=== PATIENT | male | born 1960 | race Caucasian/White ===

== ENCOUNTER 2022-09-09 19:57 | Emergency (ER) | payer OTHER, SELFPAY ==
[2022-09-09 20:06] VITALS: BP 173/93; PULSE 93; RESP 18; TEMP 37.2; O2SAT 95; BMI 20.3
--- NOTE | 2022-09-09 20:21 | PC.NURSE ---
Left little toe purple/black in color and swollen. Redness noted to dorsum of foot. Large intact blood blister noted.
--- NOTE | 2022-09-09 20:22 | XR_ITS ---
The [address] [address] Patient Name: ROSSY ALFONSO MRN: [id number] date: 1960 Sex: M Assigned Patient Location: ER Current Patient Location: ED.MAIN Accession/Order Number: [id number] Exam Date: 09/09/2022 20:38 Report Date: 09/09/2022 22:10 At the request of: WILLOW WINKLER Procedure: XR foot LT min 3V EXAM: XR foot LT min 3V HISTORY: pain COMPARISON: None. TECHNIQUE: 3 views of the left foot are performed. FINDINGS: There is a comminuted, minimally displaced fracture involving the fifth toe. 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 The remaining bony structures are unremarkable. 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 Minimal displacement. Electronically authenticated by: UMA CARDENAS Date: 09/09/2022 22:10
--- NOTE | 2022-09-09 20:45 | ED.LOWEXI1 ---
HPI - Extremity Injury (Lower) General Chief Complaint: Extremity Injury, Lower Stated Complaint: LOWER EXTREMITY PAIN Time Seen by Provider: 09/09/22 20:45 Source: patient Mode of arrival: Wheelchair Limitations: no limitations Related Data Home Medications Medication Instructions Recorded Confirmed cetirizine 10 mg tablet 10 mg PO DAILY 09/09/22 09/09/22 clonidine HCl 0.1 mg tablet 0.1 mg PO DAILY 09/09/22 09/09/22 oxycodone-acetaminophen 10 mg-325 1 tab PO DAILY 09/09/22 09/09/22 mg tablet prednisone 10 mg tablet 10 mg PO DAILY 09/09/22 09/09/22 Allergies Allergy/AdvReac Type Severity Reaction Status Date / Time No Known Drug Allergies Allergy Verified 09/09/22 20:09 Review of Systems ROS Status of ROS 10 or more systems reviewed and unremarkable except as noted in history and below [facility] Social History Smoking status: Current every day smoker Exam Constitutional Vital Signs - 24 hr 09/09/22 20:06 Temperature 98.9 F Pulse Rate [Monitor] 93 H Respiratory Rate 18 Blood Pressure [Left Arm] 173/93 H Pulse Oximetry 95 Oxygen Delivery Method Room Air Course Vital Signs Vital signs: Vital Signs Temperature 98.9 F 09/09/22 20:06 Pulse Rate 93 H 09/09/22 20:06 Respiratory Rate 18 09/09/22 20:06 Blood Pressure 173/93 H 09/09/22 20:06 Pulse Oximetry 95 09/09/22 20:06 Oxygen Delivery Method Room Air 09/09/22 20:06 Temperature 98.9 F 09/09/22 20:06 Pulse Rate 93 H 09/09/22 20:06 Respiratory Rate 18 09/09/22 20:06 Blood Pressure 173/93 H 09/09/22 20:06 Pulse Oximetry 95 09/09/22 20:06 Oxygen Delivery Method Room Air 09/09/22 20:06 Discharge Plan Discharge Chief Complaint: Extremity Injury, Lower Clinical Impression: Fracture of toe Patient Disposition: Home, Self-Care Time of Disposition Decision: 23:00 Condition: Good Mode of Transportation: Private Vehicle Prescriptions / Home Meds: No Action cetirizine 10 mg tablet 10 mg PO DAILY clonidine HCl 0.1 mg tablet 0.1 mg PO DAILY oxycodone-acetaminophen 10-325 mg tablet 1 tab PO DAILY prednisone 10 mg tablet 10 mg PO DAILY Stand Alone Forms: Portal Instructions Referrals: Stephen Hung MD [Primary Care Provider] - 1 week Discharge Date/Time: 09/09/22 23:15
--- NOTE | 2022-09-10 03:44 | ED.LOWEXI1 ---
HPI - Extremity Injury (Lower) General Chief Complaint: Extremity Injury, Lower Stated Complaint: LOWER EXTREMITY PAIN Time Seen by Provider: 09/09/22 20:45 Source: patient Mode of arrival: Wheelchair Limitations: no limitations History of Present Illness HPI Narrative: the patient's coming to the Emergency Room after he had an statue fell in his left foot he came to us with a left small toe pain, he denies any other injuries Review of systems otherwise negative Related Data Home Medications Medication Instructions Recorded Confirmed cetirizine 10 mg tablet 10 mg PO DAILY 09/09/22 09/09/22 clonidine HCl 0.1 mg tablet 0.1 mg PO DAILY 09/09/22 09/09/22 oxycodone-acetaminophen 10 mg-325 1 tab PO DAILY 09/09/22 09/09/22 mg tablet prednisone 10 mg tablet 10 mg PO DAILY 09/09/22 09/09/22 Allergies Allergy/AdvReac Type Severity Reaction Status Date / Time No Known Drug Allergies Allergy Verified 09/09/22 20:09 Review of Systems ROS Status of ROS 10 or more systems reviewed and unremarkable except as noted in history and below [facility] Social History Smoking status: Current every day smoker Exam Narrative Exam Narrative: Nurses notes and vital signs reviewed and patient is not hypoxic. General: Well-appearing and in no apparent distress. Skin: Warm, dry, no pallor noted. No rash. Head: Normocephalic, atraumatic. Neck: Supple, non-tender. Eye: Pupils are equal, round and EOMI. No scleral icterus. Ears, Nose, Mouth, and Throat: TM are clear, no nasal mucosal hypertrophy. Oral mucosa is moist, no posterior oropharynx erythema, uvula is mid-line Cardiovascular: Regular Rate and Rhythm without murmur, gallop or rub. Respiratory: No accessory muscle use or respiratory distress. Lungs are clear to auscultation, no wheezing, rales or rhonchi Chest Wall: no tenderness Back: No midline thoracic or lumbar vertebral tenderness. No CVA tenderness Musculoskeletal: there is tenderness on palpation of the left small toe there is no subungual hematoma and the patient have a small leave blood just at the proximal end of the toe GI: Abdomen is soft, non-distended. Normal bowel sounds. No masses appreciated. No tenderness to palpation. No rebound, guarding, or rigidity noted. Neurological: A&O x4. No cranial nerve dysfunction observed. No truncal ataxia. Moves all extremities. Sensation intact. Psychiatric: Cooperative and interactive. Normal mood and affect. Constitutional Vital Signs - 24 hr 09/09/22 20:06 Temperature 98.9 F Pulse Rate [Monitor] 93 H Respiratory Rate 18 Blood Pressure [Left Arm] 173/93 H Pulse Oximetry 95 Oxygen Delivery Method Room Air Course Vital Signs Vital signs: Vital Signs Temperature 98.9 F 09/09/22 20:06 Pulse Rate 93 H 09/09/22 20:06 Respiratory Rate 18 09/09/22 20:06 Blood Pressure 173/93 H 09/09/22 20:06 Pulse Oximetry 95 09/09/22 20:06 Oxygen Delivery Method Room Air 09/09/22 20:06 Temperature 98.9 F 09/09/22 20:06 Pulse Rate 93 H 09/09/22 20:06 Respiratory Rate 18 09/09/22 20:06 Blood Pressure 173/93 H 09/09/22 20:06 Pulse Oximetry 95 09/09/22 20:06 Oxygen Delivery Method Room Air 09/09/22 20:06 MDM - Extremity Injury (Lower) MDM Narrative Medical decision making narrative: x-ray the patient left foot ordered and awaiting the result he left after the results came back with a fracture patient was called back Patient had a eugenio taping of the toe as well as the 4th toe in addition to postop shoes he was instructed about elevation and rest and follow up with podiatry at outpatient The patient is to followup with primary care physician in next 2-3 days or to return to the emergency department should any of the signs or symptoms worsen or new symptoms develop. The patient agrees with the following Diagnosis and Treatment plan and the patient will be discharged home. Discharge Plan Discharge Chief Complaint: Extremity Injury, Lower Clinical Impression: Fracture of toe Patient Disposition: Home, Self-Care Time of Disposition Decision: 23:00 Condition: Good Mode of Transportation: Private Vehicle Prescriptions / Home Meds: No Action cetirizine 10 mg tablet 10 mg PO DAILY clonidine HCl 0.1 mg tablet 0.1 mg PO DAILY oxycodone-acetaminophen 10-325 mg tablet 1 tab PO DAILY prednisone 10 mg tablet 10 mg PO DAILY Stand Alone Forms: Portal Instructions Referrals: Stephen Hung MD [Primary Care Provider] - 1 week Discharge Date/Time: 09/09/22 23:15
== END 2022-09-09 23:15 | disposition home or self-care (01) ==
PROVIDERS: Emergency Provider Emergency Medicine; PCP Family Medicine
DX: S92.522A Displaced fracture of middle phalanx of left lesser toe(s), initial encounter for closed fracture (principal); S92.532A Displaced fracture of distal phalanx of left lesser toe(s), initial encounter for closed fracture; W20.8XXA Other cause of strike by thrown, projected or falling object, initial encounter; Z79.899 Other long term (current) drug therapy; F17.210 Nicotine dependence, cigarettes, uncomplicated
CPT/HCPCS: 73630; 99283

== ENCOUNTER 2022-10-17 10:36 | Outpatient (OUT) | payer OTHER, SELFPAY ==
--- NOTE | 2022-10-17 10:41 | XR_ITS ---
The [address] [address] Patient Name: ROSSY ALFONSO MRN: [id number] date: 1960 Sex: M Assigned Patient Location: RAD Current Patient Location: RAD Accession/Order Number: [id number] Exam Date: 10/17/2022 10:41 Report Date: 10/17/2022 19:07 At the request of: BENJY RIVERS Procedure: XR foot LT min 3V PROCEDURE: XR foot LT min 3V COMPARISON: 09/09/2022 HISTORY: LEFT FOOT PAIN FINDINGS: BONES:Stable complex fracture fifth middle and distal phalanges with underlying effusion. No change in fracture with known bone formation or bony bridging. SOFT TISSUES:Soft tissue swelling of the fifth toe EFFUSION:None visible. OTHER: Negative. XR/XR foot LT min 3V IMPRESSION: Stable complex fracture of a congenitally fused, fifth middle and distal phalanx Electronically authenticated by: ZULY PATE Date: 10/17/2022 19:07
== END 2022-10-17 10:37 | disposition home or self-care (01) ==
LOC: RAD 10:36
PROVIDERS: PCP Family Medicine; Visit Provider Podiatrist Foot & Ankle Surgery
DX: S92.532D Displaced fracture of distal phalanx of left lesser toe(s), subsequent encounter for fracture with routine healing (principal)
CPT/HCPCS: 73630

== ENCOUNTER 2022-11-08 09:41 | Outpatient (OUT) | payer OTHER, SELFPAY ==
--- NOTE | 2022-11-08 09:46 | XR_ITS ---
The [address] [address] Patient Name: ROSSY ALFONSO MRN: [id number] date: 1960 Sex: M Assigned Patient Location: RAD Current Patient Location: RAD Accession/Order Number: [id number] Exam Date: 11/08/2022 09:46 Report Date: 11/08/2022 10:20 At the request of: BENJY RIVERS Procedure: XR foot LT min 3V PROCEDURE: XR foot LT min 3V DATE: 11/08/2022 8:46 AM CDT COMPARISONS: 10/17/2022 CLINICAL INDICATION: LEFT FOOT PAIN FINDINGS: Comminuted fracture of the fifth distal phalanx is again identified. Fracture fragments show minimal displacement and distraction. Fracture fragments are in stable alignment from previous exam.. XR/XR foot LT min 3V IMPRESSION: Foot radiographs are stable from 10/17/2022. Healing comminuted fracture fifth distal phalanx again identified. Electronically authenticated by: EDWARD RIVERA Date: 11/08/2022 10:20
--- NOTE | 2022-11-08 09:46 | XR_ITS ---
The [place] [id number] Patient Name: ROSSY ALFONSO MRN: [id number] date: 1960 Sex: M Assigned Patient Location: RAD Current Patient Location: [facility] Accession/Order Number: [id number] Exam Date: 11/08/2022 09:46 Report Date: 11/08/2022 10:17 At the request of: BENJY RIVERS Procedure: XR ankle LT min 3V PROCEDURE: XR ankle LT min 3V DATE: 11/08/2022 8:46 AM CDT COMPARISONS: None CLINICAL INDICATION: LEFT ANKLE PAIN FINDINGS: There is no evidence of fractures or other osseous abnormalities. XR/XR ankle LT min 3V IMPRESSION: Left ankle radiographs show no evidence of abnormalities. Electronically authenticated by: EDWARD RIVERA Date: 11/08/2022 10:17
== END 2022-11-08 09:42 | disposition home or self-care (01) ==
LOC: RAD 09:41
PROVIDERS: PCP Family Medicine; Visit Provider Podiatrist Foot & Ankle Surgery
DX: S92.532D Displaced fracture of distal phalanx of left lesser toe(s), subsequent encounter for fracture with routine healing (principal); M14.672 Charcot's joint, left ankle and foot
CPT/HCPCS: 73610; 73630

== ENCOUNTER 2022-12-27 08:59 | Outpatient (OUT) | payer OTHER, SELFPAY ==
[2022-12-27 09:44] LABS: Hematocrit 42.8 % (42.0-54.0); Hemoglobin 14.3 g/dL (14.0-18.0); Mean Corpuscular HGB Conc 33.4 g/dL (29.9-35.2); Mean Corpuscular Hemoglobin 32.1 pg (25.9-34.0); Mean Platelet Volume 11.3 fL (9.5-13.5); Platelet Count 227 10^3/uL (150-450); Red Blood Count 4.46 10^6/uL (4.70-6.10); Red Cell Distribution Width 14.6 % (11.0-15.0); White Blood Count 12.7 10^3/uL (4.0-11.0)
[2022-12-27 09:53] LABS: INR 0.97; Partial Thromboplastin Time 27.8 sec (22.3-36.2); Prothrombin Time 10.3 sec (9.0-11.6)
[2022-12-27 11:56] LABS: Eosinophils Absolute Manual 0.25 10^3/uL (0.00-0.70); Lymphocytes Absolute Manual 5.71 10^3/uL (1.20-3.80); Monocytes Absolute Manual 1.52 10^3/uL (0.30-0.80)
[2022-12-27 15:00] LABS: Anion Gap 11.7; BUN Creatinine Ratio 30.7; Calcium 8.9 mg/dL (8.5-10.1); Carbon Dioxide 28.5 mmol/L (21.0-32.0); Chloride 102 mmol/L (98-107); Estimated GFR (African America >60 (>=60); Estimated GFR (Non-African Ame >60 (>=60); Glucose 86 mg/dL (74-106); Potassium 4.2 mmol/L (3.5-5.1); Sodium 138 mmol/L (136-145)
== END 2022-12-27 09:00 | disposition home or self-care (01) ==
LOC: LAB 08:59
PROVIDERS: PCP Family Medicine
DX: Z01.818 Encounter for other preprocedural examination (principal)
CPT/HCPCS: 36415; 80048; 85027; 85610; 85730; 87081

== ENCOUNTER 2023-04-23 09:09 | Outpatient (OUT) | payer OTHER, SELFPAY ==
--- NOTE | 2023-04-23 09:17 | XR_ITS ---
The [place] [id number] Patient Name: ROSSY ALFONSO MRN: [id number] date: 1960 Sex: M Assigned Patient Location: [facility] Current Patient Location: [facility] Accession/Order Number: [id number] Exam Date: 04/23/2023 09:21 Report Date: 04/23/2023 09:47 At the request of: RENALDO VALLES Procedure: XR lumbar spine 2-3V EXAMINATION: XR lumbar spine 2-3V HISTORY: Lumbar Radiculopathy M54.16 ; back and bilateral lower extremity pain COMPARISON: XR L-spine - FINDINGS: BONES: Mild right convex curvature lumbar spine. No fracture, spondylolisthesis, bone lesion. Mild degenerative facet arthropathy L3-L4, L5-S1. DISC SPACES: Moderate narrowing L2-L3, L4-L5, L5-S1. Mild narrowing L3-L4. PARASPINOUS: Negative. No paraspinous abnormality is seen. OTHER: Negative. XR/XR lumbar spine 2-3V IMPRESSION: 1. Multilevel degenerative changes of lumbar spine; progressed at L3-L4 and L4-L5 levels since prior study. Electronically authenticated by: MIGUELANGEL GUEVARA Date: 04/23/2023 09:47
== END 2023-04-23 09:10 | disposition home or self-care (01) ==
LOC: RAD 09:11
PROVIDERS: PCP Family Medicine; Visit Provider Family Medicine
DX: M54.16 Radiculopathy, lumbar region (principal)
CPT/HCPCS: 72100

== ENCOUNTER 2023-04-30 10:22 | Outpatient (OUT) | payer OTHER, SELFPAY ==
--- OUTSIDE RECORDS SUMMARY | 2023-04-30 10:25 | XMS_ITS | CCD ---
Author Name Unknown Address [address] [place] [address] Organization [facility] Care Team Providers Care Merchandise Flow Team Leader Name Role Phone Renaldo Hung Primary Care Provider OUSMANE VALDEZ Referring Unavailable RENALDO HUNG Primary Care Unavailable OUSMANE VALDEZ Attending Unavailable OUSMANE VALDEZ Attending Unavailable RENALDO HUNG Primary Care Unavailable OUSMANE VALDEZ Admitting Unavailable HAI, DR MACARIO Admitting Unavailable HAI, DR MACARIO Attending Unavailable HAI, DR MACARIO Primary Care Unavailable HOGuerline, DR MACARIO Consulting Unavailable HAI, DR MACARIO Admitting Unavailable HOGuerline, DR MACARIO Attending Unavailable HAI, DR MACARIO Primary Care Unavailable HAI, DR MACAROI Admitting Unavailable HAI, DR MACARIO Attending Unavailable HAI, DR MACARIO Primary Care Unavailable HAI, DR MACARIO Consulting Unavailable ZULY PRUETT Admitting Unavailable SAMUEL, ZULY Attending Unavailable HAI, DR MACARIO Primary Care Unavailable ZINATHAN, DR MIGUELANGEL Gooden Consulting Unavailable ZULY PRUETT Consulting Unavailable HAI, DR MACARIO Admitting Unavailable HAI, DR MACARIO Attending Unavailable HAI, DR MACARIO Primary Care Unavailable HAI, DR MACARIO Consulting Unavailable WEST, DR ZULY Shelton Consulting Unavailable Ruth Mosquera Unavailable ZULY PRUETT Admitting Unavailable SAMUEL, ZULY Attending Unavailable ZULY PURETT Attending Unavailable Medications Current Medications Medication Drug Class(es) Dates Sig (Normalized) Sig (Original) acetaminophen 325 mg / oxyCODONE hydrochloride 7.5 mg oral tablet (3 sources) Opioid Agonist Start: 07-15-2020 End: 07-29-2020 oxyCODONE-acetaminop hen (PERCOCET) 7.5-325 MG per tablet Indications: Postoperative pain Take 1 tablet by mouth every 6 hours as needed for Pain for up to 14 days. Intended supply: 30 days 40 tablet 0 07/15/2020 07/29/2020 Active End: 07-15-2020 oxyCODONE-acetaminophen (PER COCET) 5-325 MG per tablet Percocet 5 mg-325 mg tablet Take 1 tablet every 6-8 hours by oral route as directed. 0 07/15/2020 Discontinued (Stop Taking at Discharge) calcium chloride 0.0014 meq/ml / potassium chloride 0.004 meq/ml / sodium chloride 0.103 meq/ml / sodium lactate 0.028 meq/ml injectable solution (2 sources) Start: 07-15-2020 lactated ringers infusion carvedilol 3.125 mg oral tablet (2 sources) alpha-Adrenergic Asha, beta-Adrenergic Asha take 1 tablet by mouth once carvedilol (COREG) 3.125 MG tablet Take 3.125 mg by mouth once 0 Active cephalexin 500 mg oral capsule (2 sources) Cephalosporin Antibacterial Start: 07-15-2020 End: 07-22-2020 take 1 capsule by mouth three times daily cephALEXin (KEFLEX) 500 MG capsule Take 1 capsule by mouth 3 times daily for 7 days 21 capsule 0 07/15/2020 07/22/2020 Active cloNIDine hydrochloride 0.1 mg oral tablet (3 sources) Central alpha-2 Adrenergic Agonist take 2 tablets by mouth twice daily cloNIDine HCl 0.1 MG TAKE 2 TABLETS BY MOUTH TWICE A DAY Oral for 90 Days Active take 1 tablet by mouth twice evelyn ly cloNIDine (CATAPRES) 0.1 MG tablet clonidine HCl 0.1 mg tablet Take 1 tablet twice a day by oral route for 30 days. 0 Active 1 ml diphenhydrAMINE hydrochloride 50 mg/ml cartridge (1 source) Histamine-1 Receptor Antagonist Start: 07-15-2020 End: 07-15-2020 diphenhydrAMINE (BENADRYL) injection 12.5 mg 2 ml fentaNYL 0.05 mg/ml injection (1 source) Opioid Agonist Start: 07-15-2020 fentaNYL (SUBLIMAZE) injection 50 mcg 1 ml HYDROmorphone hydrochloride 1 mg/ml cartridge (1 source) Opioid Agonist Start: 07-15-2020 HYDROmorphone (DILAUDID) injection 0.5 mg 10 ml lidocaine hydrochloride 10 mg/ml injection (2 sources) Antiarrhythmic, Amide Local Anesthetic Start: 07-15-2020 End: 07-15-2020 lidocaine PF 1 % injection 1 mL 1 ml meperidine hydrochloride 25 mg/ml cartridge (1 source) Opioid Agonist Start: 07-15-2020 meperidine (DEMEROL) injection 12.5 mg 2 ml metoclopramide 5 mg/ml prefilled syringe (1 source) Dopamine-2 Receptor Antagonist Start: 07-15-2020 End: 07-15-2020 metoclopramide (REGLAN) injection 10 mg 2 ml ondansetron 2 mg/ml injection (1 source) Serotonin-3 Receptor Antagonist Start: 07-15-2020 End: 07-15-2020 ondansetron (ZOFRAN) injection 4 mg sennosides, fci 8.6 mg oral tablet (2 sources) Start: 07-15-2020 End: 07-29-2020 take 2 tablets by mouth twice daily senna (SENOKOT) 8.6 MG tablet Take 2 tablets by mouth 2 times daily for 14 days 56 tablet 0 07/15/2020 07/29/2020 Active 3 ml sodium chloride 9 mg/ml injection (3 sources) Start: 07-15-2020 0.9 % sodium chloride infusion Start: 07-15-2020 sodium chlorid e flush 0.9 % injection 10 mL Problems Active Problems Problem Classification Problem Date Documented Date Episodic/Chronic Headache; including migraine (2 sources) Migraine; Translations: [Migraine, unspecified, not intractable, without status migrainosus] Onset: 1 06-23-2020 Chronic Osteoarthritis (2 sources) Osteoarthritis of acromioclavicular joint; Translations: [Primary osteoarthritis, unspecified shoulder] Onset: 9 06-23-2020 Chronic Other connective tissue disease (2 sources) Other specified soft tissue disorders; Translations: [Other specified soft tissue disorders] Onset: 3 Episodic Other connective tissue disease (1 source) Adhesive capsulitis of left shoulder; Translations: [Adhesive capsulitis of left shoulder] Onset: 9 06-23-2020 Other nervous system disorders (1 source) Postoperative pain ; Translations: [Postoperative pain] Episodic Other non-traumatic joint disorders (4 sources) Pain in right shoulder; Translations: [PAIN IN RIGHT SHOULDER] Onset: 2 Episodic Peripheral and visceral atherosclerosis (2 sources) Peripheral vascular disease; Translations: [Peripheral vascular disease, unspecified] Onset: 2 Resolved: 2 Chronic Residual codes; unclassified (1 source) Pain; Translations: [Pain, unspecified] Episodic Spondylosis; intervertebral disc disorders; other back problems (1 source) Other intervertebral disc degeneration, lumbar region; Translations: [OTH IV DISC DEGEN LUMBAR REGION] Onset: 2 Chronic Spondylosis; intervertebral disc disorders; other back problems (6 sources) Lumbar radiculopathy; Translations: [Radiculopathy, lumbar region] Onset: 8 06-23-2020 Episodic Sprains and strains (3 sources) Strain of other muscles, fascia and tendons at shoulder and upper arm level, right arm, initial encounter; Translations: [Strain of muscle(s) and tendon(s) of the rotator cuff of right shoulder, initial encounter] Onset: 2 Episodic Substance-related disorders (2 sources) Smoker; Translations: [Nicotine dependence, unspecified, uncomplicated] Onset: 2 Resolved: 2 Chronic Unclassified (1 source) Patient encounter status; Translations: [Encounter for screening for other viral diseases] Onset: 0 06-23-2020 Unclassified (2 sources) CONTACT W/AND (SUSP) EXPOS COVID-19; Translations: [CONTACT W/AND (SUSP) EXPOS COVID-19] Onset: 2 Viral infection (2 sources) Postherpetic neuralgia; Translations: [Other postherpetic nervous system involvement] Onset: 1 06-23-2020 Episodic Viral infection (1 source) COVID-19; Translations: [COVID-19] Onset: 2 Past or Other Problems Problem Classification Problem Date Documented Da te Episodic/Chronic Immunizations and screening for infectious disease (1 source) Patient encounter status; Translations: [Encounter for screening for other viral diseases] Onset: 11-03-2019 06-23-2020 Episodic Other connective tissue disease (2 sources) Pain in lower limb; Translations: [Pain in leg, unspecified] Onset: 07-23-2017 06-23-2020 Episodic Other connective tissue disease (2 sources) Impingement syndrome of shoulder region; Translations: [Impingement syndrome of unspecified shoulder] Onset: 09-02-2018 06-23-2020 Episodic Other connective tissue disease (2 sources) Biceps tendinitis; Translations: [Bicipital tendinitis, unspecified shoulder] Onset: 09-02-2018 06-23-2020 Episodic Other connective tissue disease (2 sources) Full thickness rotator cuff tear; Translations: [Complete rotator cuff tear or rupture of unspecified shoulder, not specified as traumatic] Onset: 11-12-2018 06-23-2020 Episodic Other connective tissue disease (1 source) Adhesive capsulitis of left shoulder; Translations: [Adhesive capsulitis of left shoulder] Onset: 09-02-2018 06-23-2020 Episodic Other injuries and conditions due to external causes (2 sources) Injury of superior glenoid labrum of shoulder joint; Translations: [Superior glenoid labrum lesion of unspecified shoulder, initial encounter] Onset: 09-02-2018 06-23-2020 Episodic Unclassified (1 source) CONTACT W/AND (SUSP) EXPOS COVID-19; Translations: [CONTACT W/AND (SUSP) EXPOS COVID-19] Onset: 04-20-2021 Results Test Name Value Interpretation Reference Range Facility Anesthesiaon 01-05-2023 Anesthesia [id number] Rossy Alfonso 1960 M Date Provider Department Center 01/05/2023 [id number], [facility] No family history on file Normal [facility] OPNOTEon 01-05-2023 OPNOTE SHOULDER ARTHROSCOPY WITH ROTATOR CUFF REPAIR X2, LABRAL DEBRIDEMENT, SUBSCAPULAR REPAIR, SUBACROMIAL DECOMPRESSION AND CAPSULAR RELEASE(R) Operative Note Date: 01/05/2023 Location: [facility] ASC OR Name: Rossy Alfonso, : 1960, Diagnosis Pre-op Diagnosis * Complete tear of right rotator cuff, unspecified whether traumatic [M75.121] Post-op Diagnosis * Complete tear of right rotator cuff, unspecified whether traumatic [M75.121] * Avulsion of subscapularis, right, initial encounter [S46.851A] * Type 1 superior labral hibzzslq-ng-tkekzyqcx (SLAP) tear of right shoulder, initial encounter [S43.431A] * 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] * Impingement syndrome of right shoulder [M75.41] Procedures SHOULDER ARTHROSCOPY WITH ROTATOR CUFF REPAIR, LABRAL DEBRIDEMENT, SUBSCAPULAR REPAIR, SUBACHROMIAL DECOMPRESSION AND PROXIMAL BICEPS TENDON REPAIR [id number] - [place] [facility] ARTHROSCOPY SHOULDER W/ROTATOR CUFF RPR [place] [facility] ARTHROSCOPY SHOULDER W/ROTATOR CUFF RPR [[id number]] [place] [facility] ARTHROSCOPY SHOULDER W/ROTATOR CUFF RPR [29477] [place] SUR[place] ARTHROSCOPY SHOULDER W/ROTATOR CUFF RPR [23086] [place] [facility] ARTHROSCOPY SHOULDER LMTD DBRDMT 1/2 [45082] [place] CAPSULAR CONTRACTURE RELEASE [60144] Surgeons * Zuly Pruett - Primary Procedure Summary Anesthesia: General ASA: II Estimated Blood Loss: 20 mL Total IV Fluids: mL Drains: * None in log * Implants Type Name Action Serial No. healix advance peek anchor w/dynacord Implanted Staff: Specifications Checker: Sandra Bernardo RN Scrub Person: Flakita Martel Indications: Rossy Alfonso is an 62 y.o. male who is having surgery for Complete tear of right rotator cuff, unspecified whether traumatic [M75.121]. Procedure Details: The patient was seen in the preoperative area. The risks, benefits, complications, treatment options, non-operative alternatives, expected recovery and outcomes were discussed with the patient. The possibilities of reaction to medication, pulmonary aspiration, injury to surrounding structures, bleeding, recurrent infection, the need for additional procedures, failure to diagnose a condition, and creating a complication requiring transfusion or operation were discussed with the patient. The patient concurred with the proposed plan, giving informed consent. The site of surgery was properly noted/marked if necessary per policy. The patient has been actively warmed in preoperative area. Preoperative antibiotics have been ordered and given within 1 hours of incision. Venous thrombosis prophylaxis have been ordered including bilateral sequential compression devices Findings: We first began with preemptive anesthesia using 20 cc of lidocaine 1% with epinephrine placed in the proposed incisions and the subacromial space. We then created our standard portals and began with a diagnostic arthroscopy. Intraoperatively he was found to have a torn superior labrum but intact cartilage. The labrum was debrided. The long head of biceps tendon was already tenotomized. The subscapularis was completely torn as well. This was repaired using a single 5.5 mm Mitek Healix suture anchor double loaded with Octavia cord. This was passed into the retracted subscapularis tendon with interlocked mattress and Hernando-Doug sutures. When tied down this effected an anatomic repair. We next turned our attention to the capsular release and manipulation. There was significant capsular thickening and inflammation, and numerous adhesions within the joint. The preoperative ROM showed FF 80, ER 40, IR 10. We performed lysis of adhesions, capsular release, and manipulation under anesthesia. Motion now was FF 180, ER 90, and IR 90. We then moved into the subacromial space. Here we found bursitis which was removed. We then repaired the supraspinatus and infraspinatus tendons with 2 Mitek Healix suture anchors, each double loaded with Octavia cord. This was passed into the torn and retracted supraspinatus and infraspinatus tendons with interlocked mattress and Hernando-Doug sutures. When tied down this affected an anatomic repair. At the conclusion of the case the tendons moved as a unit with no gapping. At this point all instruments were removed and the shoulder drained of fluid. The portal incisions were closed using simple nylon sutures. A sterile compressive wrap was applied. A Polar Care unit was applied for postoperative pain control. A sling with abduction pillow was applied to protect the repair during the healing. Patient was then awakened and extubated and brought back to the PACU in stable condition. I was present scrubbed and actively participating through all vera portions of the surgery Complications: None; patient tolerated the procedure well. Disposition: PACU - hemodynamically stable. Condition: stable Zuly Pruett Normal [facility] POCT GLUCOSE METER UNSOLICIT ED RESULTSon 01-05-2023 Glucose [Mass/Vol] 93 mg/dL Normal 70-105 [facility] Comment on above: Order Comment: Waive d Testing in the ED is performed under the ED CLIA certificate #[id number]. Result Comment: ltol les Performed By: #### L [id number] ####[facility] [place] [address] HPon 01-04-2023 HP History Of Present Illness Rossy Alfonso is a 62 y.o. male presenting with R RCT. Past Medical History He has a past medical history of Complete tear of right rotator cuff, Hypertension, and Shoulder pain, right. Surgical History He has a past surgical history that includes Back surgery; Shoulder surgery; Leg Surgery (Right); and Splenectomy, total. Social History He reports that he has been smoking cigarettes. He has never used smokeless tobacco. He reports that he does not drink alcohol and does not use drugs. Family History No family history on file. Allergies Patient has no known allergies. Medications No medications prior to admission. Review of Systems Last Recorded Vitals Visit Vitals Smoking Status Every Day Physical Exam Relevant Lab Results No results found for: NA, K, CL, CO2, BUN, CREATININE, GLUCOSE, CALCIUM, ANIONGAP, EGFR, BCR R RCT Relevant Imaging Results XR shoulder 2+ views right Narrative: [facility] Department of Radiology [address] [place] [address] Patient Name: ROSSY ALFONSO : 1960 Sex: M Age: Race: White^White Pt. Location: Patient Status: D Ordered Date: 06/17/2021 2:40:00 PM Completed Date: 06/17/2021 02:44 PM Requesting Provider: ZULY PRUETT Attending Provider: ZULY PRUETT Report Copy To: Signs & Symptoms: M25.511 Pain in right shoulder I10 History: Comments: Views (X-RAY, SHOULDER): AP, Y-Lateral Exam: SHOULDER RIGHT SHOULDER RIGHT 06/17/2021 2:44 PM CLINICAL INDICATIONS: M25.511 Pain in right shoulder I10 TECHNOLOGIST COMMENTS: right shoulder pain x 1 month no known trauma QUESTION FOR THE RADIOLOGIST: Views (X-RAY, SHOULDER): AP, Y-Lateral PROTOCOL: AP and Scapular Y views were obtained. COMPARISON: None FINDINGS: 3 views of the shoulder were obtained. There is no focal osseous abnormality. Glenohumeral alignment appears within normal limits. Articular surfaces are incompletely visualized. There is widening of the AC joint likely due to prior surgery. Other visualized right upper hemithoracic structures are within normal limits Impression: No acute osseous abnormality. Electronically signed: Harrison Lawton. Transcribed by: [email or web address], User Resident: Electronically Signed by: HARRISON LAWTON @ 06/18/2021 07:17 AM Assessment/Plan Principal Problem: Complete tear of right rotator cuff R revision RCR Normal [facility] [id number] 12-25-2022 [id number] Nothing to Eat or Drink, including Candy, Gum, Mints, and Tobacco after Midnight the night before surgery. Take CLONIDINE AND PERCOCET with a sip of water the day of surgery. Hold all other meds the morning of surgery. IF YOU ARE GOING HOME AFTER YOUR SURGERY OR PROCEDURE, FOR YOUR SAFETY, YOUR SURGERY WILL BE CANCELLED IF BOTH OF THE FOLLOWING ARE NOT AVAILABLE: An adult bookmobile driver over the age of 18, that can receive information about your care after surgery, and drive you home. A responsible adult to stay with you for 24 hours in case of an emergency. Can be same as above. The highest risk of complications is within the first 24 hours after sedation/anesthesia. Nothing to eat or drink after midnight the night before surgery. This includes gum, candy, mints, and lozenges. No alcohol, marijuana, or tobacco products including vaping for 24 hours. Please brush your teeth; don't swallow the toothpaste or water. If you use dentures, wear them but do not use paste. Please leave any other removable dental hardware at home. Do not put in contact lenses. Do not wear perfume, make-up, nail beninese, or lotions on the day of your surgery or procedure. Follow skin-prep/wipe instructions as below if required. Bring with you: *Insurance card *Photo ID *Medication list *Co-pay for visit/prescriptions If applicable: *Rescue inhalers *Green bracelet from lab *CPAP or BiPAP machine, if staying overnight *Any braces, splints, or equipment ordered preoperatively *Remote controls for implanted devices Leave at home: *Purse/Wallet/[employer]- unless needed for co-pay *Cell phone (can leave with family/friend or place in locker if needed) *Jewelry (including piercings and wedding bands) *If not possible, ask the person who is waiting with you to keep them Children under the age of 12 will not be allowed into patient care areas. We will call you between 3pm and 4pm the day before your surgery to give you an arrival time. If you do not receive this call, have any questions, or need to make any changes, please call [phone]. Notify your surgeon if you develop any illness such as a cold, cough, fever, sore throat or vomiting between now and your surgery. Thank you for entrusting us with your care. [facility] Surgical Services Team Normal [facility] Office Visiton 10-16-2022 Follow-up visit [id number] NatyRossy S 1960 M Date Provider Department Center 10/16/2022 [facility] No family history on file Level of Service:30214 [place] OFFICE/OUTPATIENT ESTABLISHED MOD MDM 30-39 MIN (57,GC) Reason for Visit and Comments: Follow-up [332368] - Discuss surgical planning Pain [136] - Discuss surgical planning Normal [facility] 08-11-2022 36 Surgery scheduled Normal [facility] 36on 08-10-2022 36 Patient's calling again to schedule sx. Normal [facility] XR LSPINE MIN 4 VIEWSon 08- XR LSPINE MIN 4 VIEWS EXAMINATION: XR LSPINE MIN 4 VIEWS HISTORY: Lumbar radiculopathy COMPARISON: 10/02/2019 FINDINGS: BONES: Dextrocurvature centered at L3. Moderate diffuse degenerative spondylosis and facet osteoarthropathy. DISC SPACES: Moderate to severe multilevel disc space narrowing with endplate sclerosis and vacuum disks PARASPINOUS: Negative. No paraspinous abnormality is seen. OTHER: Diffuse atherosclerosis IMPRESSION: Moderate diffuse degenerative changes with dextrocurvature Electronically authenticated by: ZULY PATE Date: 2021-11-07 07:55 Normal [facility] MRI SHOULDER RT WO CONon MRI SHOULDER RT WO CON EXAMINATION: MRI SHOULDER RT WO CON HISTORY: Pain of right shoulder joint , chronic pain radiating down right arm, no known injury COMPARISON: MRI shoulder right 01/22/2017 TECHNIQUE: A variety of imaging planes and parameters were utilized for visualization of suspected pathology. Imaging was performed without contrast. FINDINGS: ROTATOR CUFF REGION CUFF TENDONS: Poorly defined fibers and prominent T2 signal throughout the supraspinatus tendon with suspected disruption near its humeral attachment but no significant retraction. CUFF MUSCLES: Normal appearing muscles. DELTOID: No significant atrophy or tear. LONG BICEPS TENDON: No abnormal signal, attrition, or tear. LABRUM/BICEPS ANCHOR SUPERIOR: No visible labral tear or biceps anchor pathology. ANTERIOR/INFERIOR: No visible tear or attrition. POSTERIOR: No posterior labrum abnormality. CAPSULE No visible capsular laxity or thickening. AC JOINT REGION AC JOINT: Moderate osteoarthropathy with mild-moderate narrowing of the underlying coracoacromial arch. AC LIGAMENTS: Normal acromioclavicular ligament. CC LIGAMENTS: Normal coracoclavicular ligaments. ACROMION: Normal horizontal (Type I) configuration. SUBACROMIAL BURSA: Mild effusion. HYALINE CARTILAGE: Normal. No visible cartilage narrowing or focal defect. OTHER BONES: Normal proximal humerus, glenoid, and coracoid. OTHER OBSERVATIONS: Negative. No other significant findings or glenohumeral effusion. IMPRESSION: 1. Complete tear of the supraspinous tendon near its humeral head attachment without significant retraction. Prominent T2 signal throughout the tendon suggesting multiple partial tears or significant tendinopathy. Electronically authenticated by: MIGUELANGEL GUEVARA Date: 2021-08-19 15:38 Normal [facility] SHOULDER RIGHTon 06-17-2021 SHOULDER RIGHT [facility] Department of Radiology [address] [place] [id number] Patient Name: ROSSY ALFONSO : 1960 Sex: M Age: Race: White Pt. Location: Patient Status: D Ordered Date: 06/17/2021 2:40:00 PM Completed Date: 06/17/2021 02:44 PM Requesting Provider: ZULY PRUETT Attending Provider: ZULY PRUETT Report Copy To: Signs & Symptoms: M25.511 Pain in right shoulder I10 History: Comments: Views (X-RAY, SHOULDER): AP, Y-Lateral Exam: SHOULDER RIGHT SHOULDER RIGHT 06/17/2021 2:44 PM CLINICAL INDICATIONS: M25.511 Pain in right shoulder I10 TECHNOLOGIST COMMENTS: right shoulder pain x 1 month no known trauma QUESTION FOR THE RADIOLOGIST: Views (X-RAY, SHOULDER): AP, Y-Lateral PROTOCOL: AP and Scapular Y views were obtained. COMPARISON: None FINDINGS: 3 views of the shoulder were obtained. There is no focal osseous abnormality. Glenohumeral alignment appears within normal limits. Articular surfaces are incompletely visualized. There is widening of the AC joint likely due to prior surgery. Other visualized right upper hemithoracic structures are within normal limits IMPRESSION: No acute osseous abnormality. Electronically signed: Harrison Lawton. Transcribed by: [email or web address], User Resident: Electronically Signed by: HARRISON LAWTON @ 06/18/2021 07:17 AM Normal [facility] Comment on above: Order Comment: Views (X-RAY, SHOULDER): AP, Y-Lateral Covid-19 PCR (CVDTBH)on 04-02 SARS-CoV-2 (COVID-19) RNA JUAN+probe Ql (Unsp spec) Detected Critically abnormal NOT DETECTED [facility] Comment on above: Result Comment: This test is not yet approved or cleared by the [place] FDA. When there are no FDA-approved or cleared tests available, and other criteria are met, FDA can make tests available under an emergency access mechanism called an Emergency Use Authorization (EUA). The EUA for this test is supported by the [place] of Health and Human Service's (HHS's) declaration that circumstances exist to justify the emergency use of in vitro diagnostics for the detection and/or diagnosis of the virus that causes COVID-19. This EUA will remain in effect (meaning this test can be used) for the duration of the COVID-19 declaration justifying emergency of IVDs, unless it is terminated or revoked by FDA (after which the test may no longer be used). Performed By: #### C [facility] #### [facility] [address] [place] [address] Dr. Wiliam Garrison FLUORO FOR SURGICAL PROCEDUR ESOrdered By: Ousmane Valdez on 07-15-2020 Miko, Chpo Incoming Radiant Results From [facility] - 07/15/2020 11:25 AM EDT FLUORO FOR SURGICAL PROCEDURES : 07/15/2020 9:53 AM CLINICAL HISTORY: R52 Pain ICD10. COMPARISON: None available. Intraoperative fluoroscopy was provided for Dr. Valdez procedure. A total of 1.5 seconds of fluoroscopy was used, with 2 fluoroscopic stills saved. No diagnostic images were obtained. Please see Dr. Valdez surgical notes for completeness. [facility] Work Phone: Surgical Specimenon 07-16-19 21 Surgical Specimen [facility] [address] [place] [address] FINAL SURGICAL PATHOLOGY REPORT Patient Name: ROSSY ALFONSO Accession No: [id number] Age Sex: 1960 [facility] Account No: [id number] Collected: 07/15/2020 Med Rec No: [id number] Received: 07/15/2020 Attend Phys: OUSMANE VALDEZ Completed: 07/16/2020 Perform Phys: OUSMANE VALDEZ FINAL DIAGNOSIS: DISC- INTERVERTEBRAL DISC MATERIAL WITH REACTIVE/DEGENERATIVE CHANGES. ALIFA/ALIFA CLINICAL INFORMATION: Disc herniation, radiculopathy. SPECIMEN: Disc GROSS DESCRIPTION: Specimen received in formalin in a container labeled with patient's name and designated as spine , consists of multiple soft to firm tissue fragments measuring in aggregate 2.7 x 2.0 x 0.3 cm. Sections representatives are submitted in two cassettes after brief decalcification. MARTA/HAMZAH CPT: 65688 X1 71421 X1 NICHELLE POWERS M.D. 07/16/2020 Electronically signed out by Page 1 of 1 Invalid Interpretation Code [facility] Comment on above: Performed By: #### S UR #### [facility] [address] [place] [id number] COVID-19, NAAon 06-25-2020 COVID-19, JUAN Not Detected Normal Not Detect [facility] Comment on above: Result Comment: This nucleic acid amplification test was developed and its performance characteristics determined by [employer]. Nucleic acid amplification tests include RT-PCR and TMA. This test has not been FDA cleared or approved. This test has been authorized by FDA under an Emergency Use Authorization (EUA). This test is only authorized for the duration of time the declaration that circumstances exist justifying the authorization of the emergency use of in vitro diagnostic tests for detection of SARS-CoV-2 virus and/or diagnosis of COVID-19 infection under section 564(b)(1) of the Act, 21 U.S.C. 360bbb-3(b) (1), unless the authorization is terminated or revoked sooner. When diagnostic testing is negative, the possibility of a false negative result should be considered in the context of a patient's recent exposures and the presence of clinical signs and symptoms consistent with COVID-19. An individual without symptoms of COVID-19 and who is not shedding SARS-CoV-2 virus would expect to have a negative (not detected) result in this assay. Performed at: [address] [id number] Field Contact Technician: Deon Camejo PhD, Phone: [phone] Performed By: #### I RCOV #### [facility] [address] [place] [id number] Basic Metabolic Panelon 06-01 Anion gap [Moles/Vol] 14 mmol/L Normal 9-15 [facility] Comment on above: Performed By: #### B MP #### [facility] [address] [place] [address] Calcium [Mass/Vol] 9.6 mg/dL Normal 8.5-9.9 [facility] Comment on above: Performed By: #### B MP #### [facility] [address] [place] [address] Chloride [Moles/Vol] 99 mmol/L Normal 95-107 [facility] Comment on above: Performed By: #### B MP #### [facility] [address] [place] [address] CO2 [Moles/Vol] 27 mmol/L Normal 20-31 [facility] Comment on above: Performed By: #### B MP #### [facility] [address] [place] [address] Creatinine [Mass/Vol] 0.79 mg/dL Normal 0.70-1.20 [facility] Comment on above: Performed By: #### B MP #### [facility] [address] [place] [address] GFR/1.73 sq M predicted among blacks MDRD (S/P/Bld) [Vol rate/Area] mL/min/{1.73_m2} Normal >60 [facility] Comment on above: Result Comment: >60 mL/min/1.73m2 EGFR, calc. for ages 18 and older using the MDRD formula (not corrected for weight), is valid for stable renal function. Performed By: #### B MP #### [facility] [address] [place] [address] GFR/1.73 sq M.predicted MDRD (S/P/Bld) [Vol rate/Area] mL/min/{1.73_m2} Normal >60 [facility] Comment on above: Result Comment: >60 mL/min/1.73m2 EGFR, calc. for ages 18 and older using the MDRD formula (not corrected for weight), is valid for stable renal function. Performed By: #### B MP #### [facility] [address] [place] [address] Glucose [Mass/Vol] 88 mg/dL Normal 70-99 [facility] Comment on above: Performed By: #### B MP #### [facility] [address] [place] [address] Potassium [Moles/Vol] 4.7 mmol/L Normal 3.4-4.9 [facility] Comment on above: Performed By: #### B MP #### [facility] [address] [place] [address] Sodium [Moles/Vol] 140 mmol/L Normal 135-144 [facility] Comment on above: Performed By: #### B MP #### [facility] [address] [place] [address] Urea nitrogen [Mass/Vol] 17 mg/dL Normal 6-20 [facility] Comment on above: Performed By: #### B MP #### [facility] [address] [place] [address] CBC With Platelet No Differe ntialon 06-24-2020 Platelets (Bld) [#/Vol] Not Done Normal 130-400 [facility] Comment on above: Result Comment: Unab le to obtain accurate platelet count due to giant platelet population. Platelet estimate 231 Performed By: #### C BCND #### [facility] [address] [place] [address] Platelet Slide Review Normal Normal [facility] Comment on above: Performed By: #### C BCND #### [facility] [address] [place] [address] Erythrocyte distribution width (RBC) [Ratio] 14.3 % Normal 11.5-14.5 [facility] Comment on above: Performed By: #### C BCND #### [facility] [address] [place] [address] Hematocrit (Bld) [Volume fraction] 50.1 % Normal 42.0-52.0 [facility] Comment on above: Performed By: #### C BCND #### [facility] [address] [place] [address] Hemoglobin (Bld) [Mass/Vol] 16.8 g/dL Normal 14.0-18.0 [facility] Comment on above: Performed By: #### C BCND #### [facility] [address] [place] [address] MCH (RBC) [Entitic mass] 32.3 pg Critically high 27.0-31.3 [facility] Comment on above: Performed By: #### C BCND #### [facility] [address] [place] [address] MCHC (RBC) [Mass/Vol] 33.6 % Normal 33.0-37.0 [facility] Comment on above: Performed By: #### C BCND #### [facility] [address] [place] [address] MCV (RBC) [Entitic vol] 96.1 fL Normal 80.0-100.0 [facility] Comment on above: Performed By: #### C BCND #### [facility] [address] [place] [address] RBC (Bld) [#/Vol] 5.21 10*6/uL Normal 4.70-6.10 [facility] Comment on above: Performed By: #### C BCND #### [facility] [address] [place] [address] WBC (Bld) [#/Vol] 17.9 10*3/uL Critically high 4.8-10.8 [facility] Comment on above: Performed By: #### C BCND #### [facility] [address] [place] [address] COVID-19, NAAon 06-24-2020 Source Swab Anterior nares Normal [facility] Comment on above: Performed By: #### I RCOV #### [facility] [address] [place] [address] Partial Thromboplastin Timeo n 06-24-2020 aPTT Coag (Bld) [Time] 30.0 s Normal 24.4-36.8 [facility] Comment on above: Result Comment: Effe ctive 02/04/2020: Heparin Therapeutic Range: 64.0 ? 98.0 seconds. Performed By: #### P TT #### [facility] [address] [facility] [place] [address] Prothrombin Timeon INR Coag (PPP) [Relative time] 0.9 {INR} Normal [facility] Comment on above: Performed By: #### P T #### [facility] [address] [facility] [place] [address] PT Coag (PPP) [Time] 12.4 s Normal 12.3-14.9 [facility] Comment on above: Performed By: #### P T #### [facility] [address] [place] [address] Type and Screen Capture 3 sc rn cellon 06-24-2020 Type and Screen Capture 3 scrn cell PATIENT: NATY Brady LOC: [facility] BILL# : [id number] : 1960 SEX: M ORDERED BY: LESLYE Elizabeth ORDERED : 06/24/2020 10:28 COLLECTED: 06/24/2020 10:28 ORDER : [id number] RECEIVED : 06/24/2020 14:41 TEST NAME RESULT UNITS RANGES ABN FL ST ABORH Capture A POS F Antibody 3 Cell Scrn Captu NEG F Normal [facility] Comment on above: Performed By: #### T S3C #### [facility] [address] [place] [address] Vital Signs Date Time Vital Sign Value Performing Clinician Facility 12-14-2021 11:00-0400 Body height 180.34 cm Ruth Mosquera Other [facility] Other 12-14-2021 11:00-0400 Body mass index (BMI) [Ratio] 20.64 kg/m2 Ruth Mosquera Other [facility] Other 12-14-2021 11:00-0400 Body temperature 97 [degF] Ruth Mosquera Other [facility] Other 12-14-2021 11:00-0400 Body weight 67.13 kg Ruth Mosquera Other [facility] Other 12-14-2021 11:00-0400 Diastolic blood pressure 80 mm[Hg] Ruth Mosquera Other [facility] Other 12-14-2021 11:00-0400 SaO2% (BldA) [Mass fraction] 95 % Ruth Mosquera Other [facility] Other 12-14-2021 11:00-0400 Systolic blood pressure 160 mm[Hg] Ruth Mosquera Other [facility] Other 07-15-2020 13:50-0400 BP Diastolic 84 mm[Hg] [employer] Phone: 07-15-2020 13:50-0400 BP Systolic 169 mm[Hg] [facility] Phone: 07-15-2020 13:50-0400 Pulse (Heart Rate) 95 /min [facility] Phone: 07-15-2020 13:50-0400 Pulse Oximetry 94 % [facility] Phone: 07-15-2020 13:50-0400 Respiratory Rate 18 /min [facility] Phone: 07-15-2020 13:35-0400 Body Temperature 98.8 [degF] [facility] Phone: 07-15-2020 08:31-0400 BMI (Body Mass Index) 21.38 kg/m2 [facility] Phone: 07-15-2020 08:31-0400 Body weight 67.59 kg [facility] Phone: 07-15-2020 08:31-0400 Height 177.8 cm [facility] Phone: Encounters Encounter Date Encounter Type Care Provider Facility Start: 01-05-2023 End: 01-05-2023 ambulatory ZULY SAMUEL [facility] Start: 10-16-2022 ambulatory ZULY SAMUEL [facility] Start: 10-16-2022 Encounter for other preprocedural examination ZULY SAMUEL [facility] Start: 12-14-2021 End: 12-14-2021 ambulatory Ruth Mosquera Other [facility] Other Start: 12-14-2021 [facility] visit new patient Ruth perez [facility] Start: 11-04-2021 End: 11-05-[address] RENALDO HUNG Facility:[facility] Start: 08-25-2021 End: 08-26-[address] RENALDO HUNG Facility:[facility] Start: 08-19-2021 End: 08-20-2021 ambulatory ZULY PRUETT Facility:[facility] Start: 06-14-2021 End: 06-29-[address] RENALDO HUNG Facility:[facility] Start: 04-20-2021 End: 04-20-[address] RENALDO HUNG Facility:[facility] Start: 07-15-2020 End: 07-15-2020 [facility] Start: 07-15-2020 End: 07-18-2020 ambulatory OUSMANE ErvinSyk COURTNEY [facility] Start: 07-15-2020 End: 07-15-2020 Subsequent hospital visit by physician Ousmane Valdez Work Phone: [facility] Comment on above: Postoperative pain ( Primary Dx) Start: 07-15-2020 End: 07-17-2020 Subsequent hospital visit by physician Ousmane Valdez MD Work Phone: [facility] Comment on above: Pain Procedures Date Procedure Procedure Detail Performing Clinician Start: 07-15-2020 Fluoroscopy during operation Ousmane Valdez MD Work Phone: Plan of Treatment Date Care Activity Detail Author Start: 12-01-2020 Influenza vaccination Flu vacc ine (Season Ended) [employer] Phone: Start: 07-30-2020 End: 07-30-2020 Office Visit 07/30/2020 Office Visit Neurosurgery Ousmane Valdez MD [address], [address] [place] [address] [phone] [employer] Start: 07-27-2020 End: 07-27-2020 Appointment 07/27/2020 Appointment Radiology [facility] Nuclear Medicine Start: 07-27-2020 End: 07-27-2020 Appointment [facility] Start: 2017 Screening for malign ant neoplasm of lung Low dose CT lung screening [employer] Phone: Start: 2012 Screening for malign ant neoplasm of colon Colon cancer screen colonoscopy [facility] [employer] Phone: Start: 2012 Shingles Vaccine (1 of 2) Shingles Vaccine (1 of 2) [facility] [employer] Phone: Start: 2002 Lipid panel Lipid screen [facility] [employer] Phone: Start: 1981 DTaP/Tdap/Td vaccine (1 - Tdap) DTaP/Tdap/Td vaccine (1 - Tdap) [facility] [employer] Phone: Start: 1978 COVID-19 Vaccine (1) COVID-19 Vaccin e (1) [facility] [employer] Phone: Start: 1977 HIV screening HIV screen [facility] Work Phone: Start: 1972 Meningococcal B vacc ine (1 of 4 - Increased Risk Bexsero 2-dose series) Meningococcal B vaccine (1 of 4 - Increased Risk Bexsero 2-dose series) [facility] Phone: Start: 1968 Pneumococcal 0-64 ye ars Vaccine (1 of 3 - PCV13) Pneumococcal 0-64 years Vaccine (1 of 3 - PCV13) [facility] [employer] Phone: Start: 01-23-1964 Hib vaccine (1 of 1 - Risk 1-dose series) Hib vaccine (1 of 1 - Risk 1-dose series) [facility] Phone: Start: 1960 Meningococcal (ACWY) vaccine (1 - Risk start before 7 months 4-dose series) Meningococcal (ACWY) vaccine (1 - Risk start before 7 months 4-dose series) [facility] Phone: Start: 1960 Hepatitis C screening Hepatitis C sc reen [facility] [employer] Phone: Phase I & II - meter ed glucose Phase I & II - metered glucose Point of Care Testing Routine As Needed until discontinued starting 07/15/2020 [employer] Phone: Comment on above: As Needed until disc ontinued starting 07/15/2020 Surgical Pathology [facility] Work Phone: Comment on above: Release Upon Orderin g for 1 Occurrences starting 07/15/2020 End: 07-15-2020 Surgical Pathology Surgical Pathology Lab Routine Once for 1 Occurrences starting 07/15/2020 until 07/15/2020 [employer] Phone: Comment on above: Once for 1 Occurrenc es starting 07/15/2020 until 07/15/2020 Payers Date Payer Category Payer Unknown [id number] 2.16.8 [id number] 1960 Unknown [id number] 2.16.8 [id number] 1960 Unknown [id number] 2.16.84 [id number] 1960 Unknown [id number] 2.16.84 [id number] 1960 Unknown [id number] 2.16.84 [id number] 1960 Unknown [id number] 2.16.84 [id number] 1960 Unknown [id number] 2.16.84 [id number] 1957 Unknown [id number] Social History Date Type Detail Facility Start: 04-02-1982 End: 07-16-2020 Tobacco smoking status DCIS Current every day smoker [employer] Phone: Start: 04-02-1982 History of tobacco use Cigarette Smo ker [employer] Phone: Start: 07-15-2020 End: 07-16-2020 Cigarettes smoked current (pack per day) - Reported [employer] Phone: Start: 07-15-2020 End: 07-16-2020 Tobacco use and exposure Never used [employer] Phone: Start: 07-15-2020 End: 07-16-2020 Alcohol intake Lifetime non-drinker (finding) [employer] Phone: Start: 06-24-2020 History SDOH Alcohol Frequency 1 [employer] Phone: Start: 06-24-2020 History SDOH Alcohol Std Drinks 99 [employer] Phone: Start: 06-24-2020 History SDOH Transpo rt Med 2 [employer] Phone: Sex Assigned At Not on file [employer] Phone: Exposure to SARS-CoV -2 (event) Not sure [employer] Phone: Sex Assigned At Sex Assigned At [facility] [employer] Other Clinical Notes 07-15-2020 to 01-05-2023 Note Date & Type Note Facility 01-05-2023 Note Addendum created 09/22 1555 by Tamar Lowry MD Clinical Note Signed, Diagnosis association updated, Intraprocedure Blocks edited, SmartForm saved [facility] 01-05-2023 Note Patient: Rossy stover Procedure Summary Date: 01/05/23 Room / Location: [facility] OR [address] [place] [address] [facility] OR Anesthesia Start: 725 Anesthesia Stop: 903 Procedure: SHOULDER ARTHROSCOPY WITH ROTATOR CUFF REPAIR, LABRAL DEBRIDEMENT, SUBSCAPULAR REPAIR, SUBACHROMIAL DECOMPRESSION AND PROXIMAL BICEPS TENDON REPAIR (Right: Shoulder) Diagnosis: Complete tear of right rotator cuff, unspecified whether traumatic Avulsion of subscapularis, right, initial encounter Type 1 superior labral gxijwcmh-be-ukmlhcsry (SLAP) tear of right shoulder, initial encounter Adhesive capsulitis of right shoulder Impingement syndrome of right shoulder (Complete tear of right rotator cuff, unspecified whether traumatic [M75.121]) Surgeons: Zuly Pruett MD Responsible Provider: Tamar Lowry MD Anesthesia Type: general, regional ASA Status: 2 Anesthesia Type: general, regional Vitals Value Taken Time BP 152/74 01/05/23914 Temp 36.8 ???C (98.2 ???F) 01/05/23899 Pulse 88 01/05/23914 Resp 13 01/05/23914 SpO2 96 % 01/05/23914 Anesthesia Post Evaluation Patient location during evaluation: PACU Patient participation: complete - patient participated Level of consciousness: awake Pain score: 0 Pain management: adequate Airway patency: patent Cardiovascular status: acceptable Respiratory status: acceptable Patient is hemodynamically stable and is able to be discharged from PACU per anesthesia protocol. No notable events documented. [facility] 01-05-2023 Note Patient: Rossy stover Procedure Summary Date: 01/05/23 Room / Location: [address] OR Anesthesia Start: 725 Anesthesia Stop: Procedure: SHOULDER ARTHROSCOPY WITH ROTATOR CUFF REPAIR, LABRAL DEBRIDEMENT, SUBSCAPULAR REPAIR, SUBACHROMIAL DECOMPRESSION AND PROXIMAL BICEPS TENDON REPAIR (Right: Shoulder) Diagnosis: Complete tear of right rotator cuff, unspecified whether traumatic Avulsion of subscapularis, right, initial encounter Type 1 superior labral tvepunaf-ku-orjqbtppd (SLAP) tear of right shoulder, initial encounter Adhesive capsulitis of right shoulder Impingement syndrome of right shoulder (Complete tear of right rotator cuff, unspecified whether traumatic [M75.121]) Surgeons: Zuly Pruett MD Responsible Provider: Tamar Lowry MD Anesthesia Type: general, regional ASA Status: 2 Anesthesia Post Transport Note Transport to: PACU O2 Route: face mask Oxygen Flow (L/min): 8 Patient Monitor: direct observation Transport: uneventful Patient condition is: stable [facility] 01-05-2023 Note Airway Date/Time: 01/05/2023 7:31 AM Urgency: elective General Information and Staff Patient location during procedure: OR Anesthesiologist: Tamar Lowry MD Resident/STREAMING MEDIA SPECIALIST/CAA: Anthony Garrido CRNA Performed: resident/STREAMING MEDIA SPECIALIST/CAA Indications and Patient Condition Indications for airway management: anesthesia Spontaneous Ventilation: absent Sedation level: deep Preoxygenated: yes Mask difficulty assessment: 1 - vent by mask Final Airway Details Final airway type: endotracheal airway Successful airway: ETT Cuffed: yes Successful intubation technique: video laryngoscopy Facilitating devices/methods: intubating stylet Endotracheal tube insertion site: oral Blade: Bradley Blade size: #3 ETT size (mm): 7.5 Cormack-Lehane Classification: grade I - full view of glottis Placement verified by: chest auscultation and capnometry Measured from: lips ETT to lips (cm): 23 Number of attempts at approach: 1 Number of other approaches attempted: 0 Additional Comments 4ml 4% lidocaine lta utilized [facility] 01-05-2023 Note Peripheral Block Patient location during procedure: pre-op Start time: 01/05/2023 1:03 AM End time: 01/05/2023 7:17 AM Reason for block: at surgeon's request and post-op pain management Staffing Performed: anesthesiologist Anesthesiologist: Tamar Lowry MD Resident/STREAMING MEDIA SPECIALIST: Anthony Garrido CRNA Preanesthetic Checklist Completed: patient identified, IV checked, site marked, risks and benefits discussed, surgical consent, monitors and equipment checked, pre-op evaluation and timeout performed Peripheral Block Patient position: sitting Prep: ChloraPrep Patient monitoring: continuous pulse ox Block type: interscalene brachial plexus Laterality: right Injection technique: single-shot Guidance: ultrasound guided Needle Needle type: short-bevel Needle gauge: 22 G Needle length: 2 in Needle localization: ultrasound guidance Medications Administered bupivacaine HCl (Marcaine) 0.5 % (5 mg/mL) injection - injection 100 mg - 01/05/2023 1:03:00 AM midazolam (VERSED) IV - intravenous 2 mg - 01/05/2023 1:03:00 AM Assessment Injection assessment: negative aspiration for heme, no paresthesia on injection, incremental injection and local visualized surrounding nerve on ultrasound Paresthesia pain: none Heart rate change: no [facility] 01-05-2023 Note Patient: Rossy stover Procedure Information Date/Time: 01/05/23 5130 Procedure: SHOULDER ARTHROSCOPY WITH ROTATOR CUFF REPAIR (Right: Shoulder) - MITEK NOTIFIED 12/28 KEN Location: [facility] OR [address] [place] [address] OR Surgeons: Zuly Pruett MD Past Medical History: Diagnosis Date ??? Complete tear of right rotator cuff ??? Hypertension ??? Shoulder pain, right Relevant Problems No relevant active problems Clinical information reviewed: Tobacco Allergies Meds Med Hx Surg Hx Fam Hx Soc Hx Physical Exam Airway Mallampati: II TM distance: >3 FB Neck ROM: full Cardiovascular - normal exam Rhythm: regular Rate: normal Dental - normal exam Pulmonary - normal exam Abdominal - normal exam Anesthesia Plan ASA 2 general and regional The patient is a current smoker. Patient was previously instructed to abstain from smoking on day of procedure. Patient did not smoke on day of procedure. Education provided regarding risk of obstructive sleep apnea. intravenous induction Anesthetic plan and risks discussed with patient. Plan discussed with STREAMING MEDIA SPECIALIST. Additional Equipment Requests [facility] 10-16-2022 Note ---- Attestation signed by Zuly Pruett MD at 10/16/2022 1:56 PM I personally saw and examined the patient on the same date of service as resident/fellow . I discussed the findings and therapeutic plan with the resident/fellow . I agree with the documentation, except for any edits/updates below. Teaching Physician's Revisions: No revisions ---- Subjective 10/16/22 Rossy Alfonso is a 61 y.o. year old male presents for follow-up of his right shoulder. He had surgery scheduled for right rotator cuff repair previously, however, he had to cancel the surgery to take care of his who has cancer. He has a history of a right rotator cuff repair as well as biceps tenodesis on the shoulder by another surgeon many years ago. 11/08/21: Shane returns today for discussion of his MRI results to the right shoulder completed on 08/19/21 @ [facility]. He continues to have pain in the right shoulder, primarily with motion/use of the arm. Pain at rest is a 5/10. He has failed PT/NSAIDs in the past. 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 Date of Telehealth Visit: 2021 The patient was notified that using 3rd republican telecommunication application (e.g. Proficiency) is not HIPAA compliant and may carry some privacy risks: yes This visit was conducted [id number] with the use of audio and video technology using phone between patient and the provider for a virtual visit. Verbal consent to provide and bill this service was obtained on: 2021 No signature was obtained due to the COVID-19 pandemic. Patient Location: home Chief Complaint: History of Present Illness: Rossy continues to have R shoulder pain. We have tried over 6 weeks of PT and NSAIDs. I will order MRI R shoulder to r/o RCT. Xrays show no acute osseous abnormalities 06/17/21: Rossy returns today with new complaint of right shoulder pain. He states he had a surgery with Dr. Blanchard about 15 years ago but is unsure of exactly what was done. He reports that his shoulder has been painful for the past several months with any activity involving use of his arm away from the body and that it feels weak. He also states he noticed asymmetry in his biceps last week when looking in the mirror, which he believes is new. He denies numbness or tingling. He has not had any treatment for this to date. Patient History Past Surgical History: Procedure Laterality Date BACK SURGERY LEG SURGERY Right SHOULDER SURGERY Past Medical History: Diagnosis Date Hypertension Shoulder pain, right Objective General: Body mass index is 21.67 kg/m???. No acute distress, comfortable Respiratory: Unlabored breathing with normal rate, no cough Cardiovascular: Warm well perfused extremities Psych: Appropriate mood and behavior Right shoulder: Forward flexion to approximate 160 degrees, external rotation to 70 degrees, internal rotation to 70 degrees. 4-5 strength in empty can, 5 out of 5 strength with resisted external rotation And with the subscapularis. Sensation intact light touch in all distributions. 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 Imaging: Interpretation from previous MRI report from 08/19 2021 from [facility] indicates complete tear of the supraspinatus tendon near humeral head attachment with significant retraction as well as mild osteoarthropathy of the AC joint. Assessment/Plan Rossy Alfonso is a 61 y.o. year old male with recurrent right rotator cuff tear after previous arthroscopic repair. -Consent obtained today for revision right rotator cuff repair and any other indicated procedures. Arias Mckenna, PGY4 Orthopedic Surgery Resident By using the attestations below, the signing clinician agrees that I have read and verify that the documentation has been personally reviewed by me and ensure that the documentation accurately reflects the encounter. GC: I personally saw this patient on the day of the encounter, performed the vera portion(s) of the service and participated in the management and confirm the resident's documentation. Please note there may be an additional personal documentation from me. [facility] 12-14-2021 Evaluation note Encounter Date Diagnosis Assessment Notes Dec, PAD (peripheral artery disease) (ICD-10 - I73.9) We reviewed this patient's TO studies from the [facility] showing left TO 0.94, right TO 0.70. By physical examination, this patient has mild PAD. He has easily palpable femoral, popliteal, and PT pulse bilaterally. He has no open sores or ulcerations. He denies any symptoms of rest pain. He does report hip and leg pain, numbness, tingling bilaterally with ambulation but the more that we discussed his symptoms and his history, I believe the symptoms to be more consistent with his chronic low back issues. Dr. Ballesteros in room to further discuss this with him. He has had previous lumbar surgery about a year and a half ago and has not had any recent follow-up with his neurosurgeon. I suggest he does this. For now, we will continue to follow him along on a as needed basis and he will follow-up with his neurosurgeon for evaluation of his chronic low back pain and radicular symptoms. We discussed worsening symptoms that may be associated with his peripheral arterial disease and when would be appropriate to return for further evaluation if any issues arise. One thing he can do for himself and work on his smoking cessation. We also discussed a good walking program if he is able to increase his activity with his chronic back issues. He verbalizes understanding of all discussion, agrees with this plan, denies any questions. Dec, Current smoker (ICD-10 - F17.200) We discussed the health risks associated with tobacco smoking. Patient understands his risks and is unmotivated to quit. [employer] Other 04-15-2021 NoteFLUORO FOR SURGICAL PROCEDURES : 07/15/2020 9:53 AM CLINICAL HISTORY: R52 Pain ICD10. COMPARISON: None available. Intraoperative fluoroscopy was provided for Dr. Valdez procedure. A total of 1.5 seconds of fluoroscopy was used, with 2 fluoroscopic stills saved. No diagnostic images were obtained. Please see Dr. Valdez surgical notes for completeness. Interpreted by: Ming Bejarano MD Signed by: Ming Bejarano MD 07/15/20 Final [facility]04-15-2021 NoteFLUORO FOR SURGICAL PROCEDURES : 07/15/2020 9:53 AM CLINICAL HISTORY: R52 Pain ICD10. COMPARISON: Non e available. Intraoperative fluoroscopy was provided for Dr. Valdez procedure. A total of 1.5 seconds of fluoroscopy was used, with 2 fluoroscopic stills saved. No diagnostic images were obtained. Please see Dr. Valdez surgical notes for completeness.[employer] Phone: evaluation note* Diagnosis Pain Generalized pain documented in this encounter [employer] Phone: History general Narrative - Reported* Type Description Date Medical History hypertension Surgical History Back Surgery 2021 Surgical History Shoulder surgery Surgical History spleenectomy Hospitalization History see above [employer] Other Summary Purpose Family History No Family History Records FoundNo Family History Records FoundNo Family History Records FoundNo Family History Records FoundNo Family History Records Found Advance Directives No Advanced Directives Records FoundNo Advanced Directives Records FoundNo Advanced Directives Records FoundNo Advanced Directives Records FoundNo Advanced Directives Records Found Discharge Instructions * Instructions* Ousmane Valdez MD - 07/15/2020 medication given may have significant effects after discharge. Therefore on the day of surgery: 1) you should be accompanied by a responsible adult upon discharge and for 24 hours after surgery. Do not drive a motor vehicle, operate machinery, power tools or appliance, drink alcoholic beverages, or make critical decisions for 24 hours 2) Be aware of dizziness, which may cause a fall. Change positions slowly. 3) Eating: you may resume your regular diet but it is better to increase intake slowly with mild foods and working up to your regular diet. 4) Nausea/Vomiting: Nausea and vomiting may occur as you become more active or begin to increase food intake. If this should happen, decrease activity and return to liquids. 5) Pain: Your surgeon may have given you a prescription for pain medication. Take pain medication with food as prescribed. Pain medication may cause constipation, so drink plenty of fluids. You may need to use laxatives. 6) Ice: You may use a cool pack to operative site for 20 min 5-6 times a day as needed for comfort. 8) Dressing: Change dressing as frequently as needed to keep clean and dry. Remove all sticky tape in 5 days. May shower in three days. Do not put soap or soak on the incision until healed. 9) INCREASE ACTIVITY TOLERATED AND INSTRUCTED. GO BY HOW YOU FEEL. 10) See physical therapist when advised by your physician 11) Call your doctor at [phone] for an appointment (or follow up as scheduled). 12) If have an order for X-Rays have done within a week before your follow up appointment. Contact OFFICE IF o Increased redness, swelling, excess drainage, and/or pain to surgery site. As well as new onset fevers and or chills. These could signify an infection. o Calf or thigh tenderness to touch as well as increased swelling or redness. This could signify a clot formation. o Numbness or tingling to an area around the incision site or below the incision site (toes). Or ifthe operative extremity becomes cold, blue. o Any rash appears, increased or new onset nausea/vomiting occur. This may indicate a reaction to amedication. o Temp is 38.5 C (101F) 12) If you have any concerns or questions, please call OFFICE. The 24- hour phone is [phone] 13) If you are unable to contact your surgeon, in an emergency situation, go to the nearest hospital emergency room. 14) shower on Sunday 15) ice pack to the incision 16) no driving documented in this encounter Assessments Diagnosis Postoperative pain- Primary Other acute postoperative pain Reason for Referral Status Reason Specialty Diagnoses / Procedures Referred By Contact Referred To Contact Pending Review Radiology Diagnoses Pain Procedures Fluoro For Surgical Procedures Ousmane Valdez MD [address], [address] [place] [address] Additional Source Comments (unrecognized sect ion and content) No Status Records FoundNo Status Records FoundNo Status Records FoundNo Status Records FoundNo Status Records Found INFORMATION SOURCE (unrecogn ized section and content) DATE CREATED AUTHOR 06/25/2020 [facility] DATE CREATED AUTHOR AUTHOR'S ORGANIZ ATION 07/20/2020 [facility] DATE CREATED AUTHOR AUTHOR'S ORGANIZ ATION 06/22/2021 [facility] DATE CREATED AUTHOR AUTHOR'S ORGANIZ ATION 11/09/2021 [facility] DATE CREATED AUTHOR AUTHOR'S ORGANIZ ATION 01/07/2023 [facility] Reason for Visit (unrecogniz ed section and content) Status Reason Specialty Diagnoses / Procedures Referre d By Contact Referred To Contact Diagnoses Lumbar disc herniation Lumbar radiculopathy DISC HERNIATION, RADICULOPATHY Procedures LAMINEC/FACETECT/FORAMIN ,LUMBAR 1 SEG NY LAMNOTMY INCL W/DCMPRSN NRV ROOT 1 INTRSPC LUMBR L4-5 RIGHT MICRODISKECTOMY/ 1 HR/ 1 C-ARM/ PAT AND RAPID COVID ON ADMIT Ousmane Valdez MD [id number], [address] [place] [address] [facility] Ordered Prescriptions (unrec ognized section and content) Prescription Sig Dispensed Refills Start Date End Da te cephALEXin (KEFLEX) 500 MG capsule Take 1 capsule by mouth 3 times daily for 7 days 21 capsule 0 07/15/2020 07/22/2020 senna (SENOKOT) 8.6 MG tablet Take 2 tablets by mouth 2 times daily for 14 days 56 tablet 0 07/15/2020 07/29/2020 oxyCODONE-acetaminophen (PERCOCET) 7.5-325 MG per tabletIndications:Posto perative pain Take 1 tablet by mouth every 6 hours as needed for Pain for up to 14 days. Intended supply: 30 days 40 tablet 0 07/15/2020 07/29/2020 FOR RECORDS PERTAINING TO PATIENTS WHO ARE OR HAVE BEEN ENROLLED IN A CHEMICAL DEPENDENCY/SUBSTANCEABUSE PROGRAM, SOME INFORMATION MAY BE OMITTED. This clinical summary was aggregated from multiple sources. Caution should be exercised in using it in the provision of clinical care. This summary normalizes information from multiple sources, and as a consequence, information in this document may materially change the coding, format and clinical context of patient data. In addition, data may be omitted in some cases. CLINICAL DECISIONS SHOULD BE BASED ON THE PRIMARY CLINICAL RECORDS. [facility] [employer] [facility]. provides no warranty or guarantee of the accuracy or completeness of information in this document.
--- NOTE | 2023-04-30 10:28 | MR_ITS ---
The [address] [address] Patient Name: ROSSY ALFONSO MRN: [id number] date: 1960 Sex: M Assigned Patient Location: MRI Current Patient Location: MRI Accession/Order Number: [id number] Exam Date: 04/30/2023 10:35 Report Date: 04/30/2023 11:33 At the request of: RENALDO VALLES Procedure: MR lumbar spine wo con EXAM: MR lumbar spine wo con REASON FOR EXAM: lumbar radiculopathy M54.16. TECHNIQUE: Multiplanar, multisequence imaging of the lumbar spine was performed without contrast COMPARISON: Radiographs 04/23/2023. FINDINGS: 5 nonrib-bearing lumbar vertebrae. There is partial sacralization of the L5 vertebral body. There are surgical changes from prior L4-L5 laminectomy. Vertebral body heights are maintained. The bone marrow signal is diffusely heterogeneous, favoring to represent red marrow reconversion. Modic type changes are present at the L2-L3 level. No definite aggressive osseous abnormality identified. 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 Limited evaluation of the abdominopelvic viscera is unremarkable. T12-L1: Minimal broad-based disc bulge without significant spinal canal or neural foraminal stenosis. This is unchanged. L2-L3: Broad-based disc bulge with moderate spinal canal stenosis. Moderate narrowing of bilateral lateral recesses, left greater than right. Moderate to severe left and moderate right neural foraminal stenosis. This has not significantly changed from prior study. L3-L4: Broad-based disc bulge with flattening the ventral thecal sac. Mild spinal canal stenosis. Moderate to severe bilateral neural foraminal stenosis secondary to disc osteophyte complex and facet arthropathy. Neural foraminal stenosis has progressed from prior MRI. L4-L5: Broad-based disc bulge with a superimposed central disc extrusion with inferior migration. This is new from prior study. Moderate to severe bilateral neural foraminal stenosis has likely progressed from prior study. L5-S1: No focal disc herniation identified. No significant neural foraminal stenosis identified. MR/MR lumbar spine wo con IMPRESSION: 1. Transitional anatomy with partial sacralization of the L5 vertebral body, unchanged. 2. Surgical changes from L4-L5 laminectomy. 3. New central disc extrusion at the L4-L5 level, which does not result in significant spinal canal stenosis. 4. Interval progression of neural foraminal stenosis at the L3-L4 L4-L5 levels. Electronically authenticated by: RAFAEL GAFFNEY Date: 04/30/2023 11:33
== END 2023-04-30 10:23 | disposition home or self-care (01) ==
LOC: MRI 10:23
PROVIDERS: PCP Family Medicine; Visit Provider Family Medicine
DX: M54.16 Radiculopathy, lumbar region (principal)
CPT/HCPCS: 72148

== ENCOUNTER 2023-06-03 03:37 | Emergency (ER) | payer OTHER, SELFPAY ==
[2023-06-03] VITALS (18 sets, daily range): BP systolic 104–208; BP diastolic 82–143; PULSE 92–130; RESP 7–30; TEMP 36.6; O2SAT 91–95; BMI 45.9
--- OUTSIDE RECORDS SUMMARY | 2023-06-03 03:44 | XMS_ITS | CCD ---
Author Name Unknown Address [address] [place] [address] Organization [facility] Care Team Providers Care Product/Device Technologist Name Role Phone Renaldo Hung Primary Care [...] MACARIO Primary Care Unavailable HAI, DR MACARIO Admitting Unavailable HAI, [...] Admitting Unavailable SAMUEL, ZULY Attending Unavailable ZULY PRUETT Attending Unavailable Medications Current Medications Medication Drug [...] 07-15-2020 ondansetron (ZOFRAN) injection 4 mg sennosides, half-way 8.6 mg oral tablet (2 sources) Start: [...] Interpretation Reference Range Facility Anesthesiaon 01-05-2023 Anesthesia [id number] Rossy Alfonso 1960 M Date Provider Department Center 01/05/2023 4030-ELFEGO, [facility] No family history on file Normal [facility] OPNOTEon 01-05-2023 OPNOTE SHOULDER ARTHROSCOPY WITH ROTATOR CUFF REPAIR X2, LABRAL DEBRIDEMENT, SUBSCAPULAR REPAIR, SUBACROMIAL DECOMPRESSION AND CAPSULAR RELEASE(R) Operative Note Date: 01/05/2023 Location: [facility] OR Name: Rossy Alfonso, : 1960, Diagnosis Pre-op Diagnosis * Complete tear of right rotator cuff, unspecified whether traumatic [M75.121] Post-op Diagnosis * Complete tear of right rotator cuff, unspecified whether traumatic [M75.121] * Avulsion of subscapularis, right, initial encounter [S46.471A] * Type 1 superior labral plraqyjp-wi-riihhdgkl (SLAP) tear of right shoulder, initial encounter [S43.431A] * 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] * Impingement syndrome of right shoulder [M75.41] Procedures SHOULDER ARTHROSCOPY WITH ROTATOR CUFF REPAIR, LABRAL DEBRIDEMENT, SUBSCAPULAR REPAIR, SUBACHROMIAL DECOMPRESSION AND PROXIMAL BICEPS TENDON REPAIR 24398 - WI SURGICAL ARTHROSCOPY SHOULDER W/ROTATOR CUFF RPR WI SURGICAL ARTHROSCOPY SHOULDER W/ROTATOR CUFF RPR [53521] WI SURGICAL ARTHROSCOPY SHOULDER W/ROTATOR CUFF RPR [43546] WI SURGICAL ARTHROSCOPY SHOULDER W/ROTATOR CUFF RPR [45627] WI SURGICAL ARTHROSCOPY SHOULDER LMTD DBRDMT 1/2 [39459] WI CAPSULAR CONTRACTURE RELEASE [22677] Surgeons * Zuly Pruett - Primary Procedure Summary Anesthesia: General ASA: II Estimated Blood Loss: 20 mL Total IV Fluids: mL Drains: * None in log * Implants Type Name Action Serial No. healix advance peek anchor w/dynacord Implanted Staff: Power Plant Engineer: Sandra Bernardo RN Scrub Person: Flakita Martel [...] hemodynamically stable. Condition: stable Zuly Pruett Normal [facility] POCT GLUCOSE METER UNSOLICIT ED RESULTSon 01-05-2023 Glucose [Mass/Vol] 93 mg/dL Normal 70-105 [facility] Comment on above: Order Comment: Waive d Testing in the ED is performed under the ED CLIA certificate #[id number]. Result Comment: ltol les Performed By: #### L [id number] ####[facility] (BEAKER)[address] [place] [address] HPon 01-04-2023 HP History Of Present Illness [...] Results XR shoulder 2+ views right Narrative: [facility] Department of Radiology [address] [place] [address] Patient Name: ROSSY ALFONSO : [...] abnormality. Electronically signed: Harrison Lawton. Transcribed by: [email or web address], User Resident: Electronically Signed by: HARRISON LAWTON @ 06/18/2021 07:17 AM Assessment/Plan Principal Problem: Complete tear of right rotator cuff R revision RCR Normal [facility] [id number] 12-25-2022 [id number] Nothing to Eat or Drink, including Candy, [...] THE FOLLOWING ARE NOT AVAILABLE: An adult city driver over the age of 18, that [...] lenses. Do not wear perfume, make-up, nail nauruan, or lotions on the day of your [...] need to make any changes, please call [phone]. Notify your surgeon if you develop any illness such as a cold, cough, fever, sore throat or vomiting between now and your surgery. Thank you for entrusting us with your care. [facility] Surgical Services Team Normal [facility] Office Visiton 10-16-2022 Follow-up visit [id number] NatyRossy S 1960 M Date Provider Department Center 10/16/2022 John-ZULY PRUETT [facility]THO [facility] No family history on file Level of Service:36013 [place] OFFICE/OUTPATIENT ESTABLISHED MOD MDM 30-39 MIN (57,GC) Reason for Visit and Comments: Follow-up [454186] - Discuss surgical planning Pain [136] - Discuss surgical planning Normal [facility] 08-11-2022 36 Surgery scheduled Normal [facility] 36on 08-10-2022 36 Patient's calling again to schedule sx. Normal [facility] XR LSPINE MIN 4 VIEWSon 08- XR [...] ZULY PATE Date: 2021-11-07 07:55 Normal [facility] MRI SHOULDER RT WO CONon MRI SHOULDER [...] MIGUELANGEL GUEVARA Date: 2021-08-19 15:38 Normal [facility] SHOULDER RIGHTon 06-17-2021 SHOULDER RIGHT [facility] Department of Radiology [address] [place] [id number] Patient Name: ROSSY ALFONSO : 1960 [...] abnormality. Electronically signed: Harrison Lawton. Transcribed by: [email or web address], User Resident: Electronically Signed by: HARRISON LAWTON @ 06/18/2021 07:17 AM Normal [facility] Comment on above: Order Comment: Views (X-RAY, SHOULDER): AP, Y-Lateral Covid-19 PCR (CVDTBH)on 04-02 SARS-CoV-2 (COVID-19) RNA JUAN+probe Ql (Unsp spec) Detected Critically abnormal NOT DETECTED [facility] Comment on above: Result Comment: This test is not yet approved or cleared by the [place] FDA. When there are no FDA-approved or cleared tests available, and other criteria are met, FDA can make tests available under an emergency access mechanism called an Emergency Use Authorization (EUA). The EUA for this test is supported by the [employer] Trimmer of Health and Human Service's (HHS's) declaration [...] longer be used). Performed By: #### C [facility] #### [facility] Laboratory [address] [place] [address] Dr. Wiliam Garrison FLUORO FOR SURGICAL PROCEDUR ESOrdered By: Ousmane Valdez on 07-15-2020 Miko, Chpo Incoming Radiant Results From [employer] - 07/15/2020 11:25 AM EDT FLUORO FOR SURGICAL PROCEDURES : 07/15/2020 9:53 AM CLINICAL HISTORY: R52 Pain ICD10. COMPARISON: None available. Intraoperative fluoroscopy was provided for Dr. Valdez procedure. A total of 1.5 seconds of fluoroscopy was used, with 2 fluoroscopic stills saved. No diagnostic images were obtained. Please see Dr. Valdez surgical notes for completeness. [facility] Work Phone: Surgical Specimenon 07-16-19 21 Surgical Specimen [facility] [address] [place] [address] FINAL SURGICAL PATHOLOGY REPORT Patient Name: ROSSY ALFONSO Accession No: [id number] Age Sex: 1960 [facility] Account No: [id number] Collected: 07/15/2020 Med Rec No: [id number] Received: 07/15/2020 Attend Phys: OUSMANE VALDEZ Completed: [...] two cassettes after brief decalcification. MARTA/HAMZAH CPT: 19140 X1 77534 X1 NICHELLE POWERS M.D. 07/16/2020 Electronically signed out by Page 1 of 1 Invalid Interpretation Code [facility] Comment on above: Performed By: #### S UR #### [facility] [address] [place] [id number] COVID-19, NAAon 06-25-2020 COVID-19, JUAN Not Detected Normal Not Detect [facility] Comment on above: Result Comment: This nucleic acid amplification test was developed and its performance characteristics determined by [facility]. Nucleic acid amplification tests include RT-PCR and [...] detected) result in this assay. Performed at: [address] [id number] Charting Clerk: Deon Camejo PhD, Phone: [phone] Performed By: #### I RCOV #### [facility] [address] [place] [id number] Basic Metabolic Panelon 06-01 Anion gap [Moles/Vol] 14 mmol/L Normal 9-15 [facility] Comment on above: Performed By: #### B MP #### [facility] [address] [place] [address] Calcium [Mass/Vol] 9.6 mg/dL Normal 8.5-9.9 [facility] Comment on above: Performed By: #### B MP #### [facility] [address] [place] [address] Chloride [Moles/Vol] 99 mmol/L Normal 95-107 [facility] Comment on above: Performed By: #### B MP #### [facility] [address] [place] [address] CO2 [Moles/Vol] 27 mmol/L Normal 20-31 [facility] Comment on above: Performed By: #### B MP #### [facility] [address] [place] [address] Creatinine [Mass/Vol] 0.79 mg/dL Normal 0.70-1.20 [facility] Comment on above: Performed By: #### B MP #### [facility] [address] [place] [address] GFR/1.73 sq M predicted among blacks MDRD (S/P/Bld) [Vol rate/Area] mL/min/{1.73_m2} Normal >60 [facility] Comment on above: Result Comment: >60 mL/min/1.73m2 EGFR, calc. for ages 18 and older using the MDRD formula (not corrected for weight), is valid for stable renal function. Performed By: #### B MP #### [facility] [address] [place] [address] GFR/1.73 sq M.predicted MDRD (S/P/Bld) [Vol rate/Area] mL/min/{1.73_m2} Normal >60 [facility] Comment on above: Result Comment: >60 mL/min/1.73m2 EGFR, calc. for ages 18 and older using the MDRD formula (not corrected for weight), is valid for stable renal function. Performed By: #### B MP #### [facility] [address] [place] [address] Glucose [Mass/Vol] 88 mg/dL Normal 70-99 [facility] Comment on above: Performed By: #### B MP #### [facility] [address] [place] [address] Potassium [Moles/Vol] 4.7 mmol/L Normal 3.4-4.9 [facility] Comment on above: Performed By: #### B MP #### [facility] [address] [place] [address] Sodium [Moles/Vol] 140 mmol/L Normal 135-144 [facility] Comment on above: Performed By: #### B MP #### [facility] [address] [place] [address] Urea nitrogen [Mass/Vol] 17 mg/dL Normal 6-20 [facility] Comment on above: Performed By: #### B MP #### [facility] [address] [place] [address] CBC With Platelet No Differe ntialon 06-24-2020 Platelets (Bld) [#/Vol] Not Done Normal 130-400 [facility] Comment on above: Result Comment: Unab le to obtain accurate platelet count due to giant platelet population. Platelet estimate 231 Performed By: #### C BCND #### [facility] [address] [place] [address] Platelet Slide Review Normal Normal [facility] Comment on above: Performed By: #### C BCND #### [facility] [address] [place] [address] Erythrocyte distribution width (RBC) [Ratio] 14.3 % Normal 11.5-14.5 [facility] Comment on above: Performed By: #### C BCND #### [facility] [address] [place] [address] Hematocrit (Bld) [Volume fraction] 50.1 % Normal 42.0-52.0 [facility] Comment on above: Performed By: #### C BCND #### [facility] [address] [place] [address] Hemoglobin (Bld) [Mass/Vol] 16.8 g/dL Normal 14.0-18.0 [facility] Comment on above: Performed By: #### C BCND #### [facility] [address] [place] [address] MCH (RBC) [Entitic mass] 32.3 pg Critically high 27.0-31.3 [facility] Comment on above: Performed By: #### C BCND #### [facility] [address] [place] [address] MCHC (RBC) [Mass/Vol] 33.6 % Normal 33.0-37.0 [facility] Comment on above: Performed By: #### C BCND #### [facility] [address] [place] [address] MCV (RBC) [Entitic vol] 96.1 fL Normal 80.0-100.0 [facility] Comment on above: Performed By: #### C BCND #### [facility] [address] [place] [address] RBC (Bld) [#/Vol] 5.21 10*6/uL Normal 4.70-6.10 [facility] Comment on above: Performed By: #### C BCND #### [facility] [address] [place] [address] WBC (Bld) [#/Vol] 17.9 10*3/uL Critically high 4.8-10.8 [facility] Comment on above: Performed By: #### C BCND #### [facility] [address] [place] [address] COVID-19, NAAon 06-24-2020 Source Swab Anterior nares Normal [facility] Comment on above: Performed By: #### I RCOV #### [facility] [address] [place] [address] Partial Thromboplastin Timeo n 06-24-2020 aPTT Coag (Bld) [Time] 30.0 s Normal 24.4-36.8 [facility] Comment on above: Result Comment: Effe ctive 02/04/2020: Heparin Therapeutic Range: 64.0 ? 98.0 seconds. Performed By: #### P TT #### [facility] [address] [facility] [place] [address] Prothrombin Timeon INR Coag (PPP) [Relative time] 0.9 {INR} Normal [facility] Comment on above: Performed By: #### P T #### [facility] [address] [facility] [place] [address] PT Coag (PPP) [Time] 12.4 s Normal 12.3-14.9 [facility] Comment on above: Performed By: #### P T #### [facility] [address] [place] [address] Type and Screen Capture 3 sc rn cellon 06-24-2020 Type and Screen Capture 3 scrn cell PATIENT: NATY Brady LOC: [facility] BILL# : [id number] : 1960 SEX: M ORDERED BY: LESLYE Elizabeth ORDERED : 06/24/2020 10:28 COLLECTED: 06/24/2020 10:28 ORDER : [id number] RECEIVED : 06/24/2020 14:41 TEST NAME RESULT UNITS RANGES ABN FL ST ABORH Capture A POS F Antibody 3 Cell Scrn Captu NEG F Normal [facility] Comment on above: Performed By: #### T S3C #### [facility] [address] [place] [address] Vital Signs Date Time Vital Sign Value Performing Clinician Facility 12-14-2021 11:00-0400 Body height 180.34 cm Ruth Mosquera Other [email or web address] Other 12-14-2021 11:00-0400 Body mass index (BMI) [Ratio] 20.64 kg/m2 Ruth Mosquera Other [email or web address] Other 12-14-2021 11:00-0400 Body temperature 97 [degF] Ruth Mosquera Other [email or web address] Other 12-14-2021 11:00-0400 Body weight 67.13 kg Ruth Mosquera Other [email or web address] Other 12-14-2021 11:00-0400 Diastolic blood pressure 80 mm[Hg] Ruth Mosquera Other [email or web address] Other 12-14-2021 11:00-0400 SaO2% (BldA) [Mass fraction] 95 % Ruth Mosquera Other [email or web address] Other 12-14-2021 11:00-0400 Systolic blood pressure 160 mm[Hg] Ruth Mosquera Other [email or web address] Other 07-15-2020 13:50-0400 BP Diastolic 84 mm[Hg] [employer] Phone: 07-15-2020 13:50-0400 BP Systolic 169 mm[Hg] [employer] Phone: 07-15-2020 13:50-0400 Pulse (Heart Rate) 95 /min [employer] Phone: 07-15-2020 13:50-0400 Pulse Oximetry 94 % [employer] Phone: 07-15-2020 13:50-0400 Respiratory Rate 18 /min [employer] Phone: 07-15-2020 13:35-0400 Body Temperature 98.8 [degF] [employer] Phone: 07-15-2020 08:31-0400 BMI (Body Mass Index) 21.38 kg/m2 [employer] Phone: 07-15-2020 08:31-0400 Body weight 67.59 kg [employer] Phone: 07-15-2020 08:31-0400 Height 177.8 cm [employer] Phone: Encounters Encounter Date Encounter Type Care Provider Facility Start: 01-05-2023 End: 01-05-2023 ambulatory ZULY SAMUEL [facility] Start: 10-16-2022 ambulatory ZULY SAMUEL [facility] Start: 10-16-2022 Encounter for other preprocedural examination ZULY SAMUEL [facility] Start: 12-14-2021 End: 12-14-2021 ambulatory Ruth Mosquera Other [email or web address] Other Start: 12-14-2021 [facility] visit new patient Ruth perez [facility] Start: 11-04-2021 End: 11-05-[address] RENALDO HUNG Facility:[facility] Start: 08-25-2021 End: 08-26-[address] RENALDO HUNG Facility:[facility] Start: 08-19-2021 End: 08-20-2021 ambulatory ZULY PRUETT Facility:[facility] Start: 06-14-2021 End: 06-29-[address] RENALDO HUNG Facility:[facility] Start: 04-20-2021 End: 04-20-[address] RENALDO HUNG Facility:[facility] Start: 07-15-2020 End: 07-15-2020 [facility] Start: 07-15-2020 End: 07-18-2020 ambulatory OUSMANE ErvinSky COURTNEY [facility] Start: 07-15-2020 End: 07-15-2020 Subsequent hospital visit by physician Ousmane Valdez Work Phone: [facility] Comment on above: Postoperative pain ( Primary Dx) Start: 07-15-2020 End: 07-17-2020 Subsequent hospital visit by physician Ousmane Valdez MD Work Phone: [facility] Radiology Comment on above: Pain Procedures Date Procedure Procedure Detail Performing Clinician Start: 07-15-2020 Fluoroscopy during operation Ousmane Valdez MD Work Phone: Plan of Treatment Date Care Activity Detail Author Start: 12-01-2020 Influenza vaccination Flu vacc ine (Season Ended) [employer] Phone: Start: 07-30-2020 End: 07-30-2020 Office Visit 07/30/2020 Office Visit Neurosurgery Ousmane Valdez MD [address], [address] [place] [address] [phone] [employer] Start: 07-27-2020 End: 07-27-2020 Appointment 07/27/2020 Appointment Radiology [facility] Nuclear Medicine Start: 07-27-2020 End: 07-27-2020 Appointment [facility] [employer] Ul[facility]ound Start: 2017 Screening for malign ant neoplasm of lung Low dose CT lung screening [employer] Phone: Start: 2012 Screening for malign ant neoplasm of colon Colon cancer screen colonoscopy [facility] [employer] Phone: Start: 2012 Shingles Vaccine (1 of 2) Shingles Vaccine (1 of 2) [facility] [employer] Phone: Start: 2002 Lipid panel Lipid screen [facility] [employer] Phone: Start: 1981 DTaP/Tdap/Td vaccine (1 - Tdap) DTaP/Tdap/Td vaccine (1 - Tdap) [facility] [employer] Phone: Start: 1978 COVID-19 Vaccine (1) COVID-19 Vaccin e (1) [facility] [employer] Phone: Start: 1977 HIV screening HIV screen [facility] Work Phone: Start: 1972 Meningococcal B vacc ine (1 of 4 - Increased Risk Bexsero 2-dose series) Meningococcal B vaccine (1 of 4 - Increased Risk Bexsero 2-dose series) [facility] Phone: Start: 1968 Pneumococcal 0-64 ye ars Vaccine (1 of 3 - PCV13) Pneumococcal 0-64 years Vaccine (1 of 3 - PCV13) [facility] [employer] Phone: Start: 01-23-1964 Hib vaccine (1 of 1 - Risk 1-dose series) Hib vaccine (1 of 1 - Risk 1-dose series) [facility] Phone: Start: 1960 Meningococcal (ACWY) vaccine (1 - Risk start before 7 months 4-dose series) Meningococcal (ACWY) vaccine (1 - Risk start before 7 months 4-dose series) [facility] Phone: Start: 1960 Hepatitis C screening Hepatitis C sc reen [facility] [employer] Phone: Phase I & II - meter ed glucose Phase I & II - metered glucose Point of Care Testing Routine As Needed until discontinued starting 07/15/2020 [employer] Phone: Comment on above: As Needed until disc ontinued starting 07/15/2020 Surgical Pathology [facility] Work Phone: Comment on above: Release Upon Orderin g for 1 Occurrences starting 07/15/2020 End: 07-15-2020 Surgical Pathology Surgical Pathology Lab Routine Once for 1 Occurrences starting 07/15/2020 until 07/15/2020 [employer] Phone: Comment on above: Once for 1 Occurrenc es starting 07/15/2020 until 07/15/2020 Payers Date Payer Category Payer Unknown [id number] 2.16.8 [id number] 1960 Unknown [id number] 2.16.8 [id number] 1960 Unknown [id number] 2.16.84 [id number] 1960 Unknown [id number] 2.16.84 [id number] 1960 Unknown [id number] 2.16.84 [id number] 1960 Unknown [id number] 2.16.84 [id number] 1960 Unknown [id number] 2.16.84 [id number] 1957 Unknown [id number] Social History Date Type Detail Facility Start: 04-02-1982 End: 07-16-2020 Tobacco smoking status GAIS Current every day smoker [employer] Phone: Start: 04-02-1982 History of tobacco use Cigarette Smo ker [employer] Phone: Start: 07-15-2020 End: 07-16-2020 Cigarettes smoked current (pack per day) - Reported [employer] Phone: Start: 07-15-2020 End: 07-16-2020 Tobacco use and exposure Never used [employer] Phone: Start: 07-15-2020 End: 07-16-2020 Alcohol intake Lifetime non-drinker (finding) [employer] Phone: Start: 06-24-2020 History SDOH Alcohol Frequency 1 [employer] Phone: Start: 06-24-2020 History SDOH Alcohol Std Drinks 99 [employer] Phone: Start: 06-24-2020 History SDOH Transpo rt Med 2 [employer] Phone: Sex Assigned At Not on file [employer] Phone: Exposure to SARS-CoV -2 (event) Not sure [employer] Phone: Sex Assigned At Sex Assigned At [facility] [email or web address] Other Clinical Notes 07-15-2020 to 01-05-2023 Note Date & Type Note Facility 01-05-2023 Note Addendum created 09/22 1555 by Tamar Lowry MD Clinical Note Signed, Diagnosis association updated, Intraprocedure Blocks edited, SmartForm saved [facility] 01-05-2023 Note Patient: Rossy stover Procedure Summary Date: 01/05/23 Room / Location: [facility] OR [address] [place] [address] [facility] OR Anesthesia Start: 725 Anesthesia Stop: 903 Procedure: SHOULDER ARTHROSCOPY WITH ROTATOR CUFF REPAIR, LABRAL DEBRIDEMENT, SUBSCAPULAR REPAIR, SUBACHROMIAL DECOMPRESSION AND PROXIMAL BICEPS TENDON REPAIR (Right: Shoulder) Diagnosis: Complete tear of right rotator cuff, unspecified whether traumatic Avulsion of subscapularis, right, initial encounter Type 1 superior labral jkbpxgwo-pz-fvjdvvkxl (SLAP) tear of right shoulder, initial encounter [...] per anesthesia protocol. No notable events documented. [facility] 01-05-2023 Note Patient: Rossy stover Procedure Summary Date: 01/05/23 Room / Location: [address] OR Anesthesia Start: 725 Anesthesia Stop: Procedure: SHOULDER ARTHROSCOPY WITH ROTATOR CUFF REPAIR, LABRAL DEBRIDEMENT, SUBSCAPULAR REPAIR, SUBACHROMIAL DECOMPRESSION AND PROXIMAL BICEPS TENDON REPAIR (Right: Shoulder) Diagnosis: Complete tear of right rotator cuff, unspecified whether traumatic Avulsion of subscapularis, right, initial encounter Type 1 superior labral mtzlkmyz-js-aaulxyorn (SLAP) tear of right shoulder, initial encounter [...] observation Transport: uneventful Patient condition is: stable [facility] 01-05-2023 Note Airway Date/Time: 01/05/2023 7:31 AM Urgency: elective General Information and Staff Patient location during procedure: OR Anesthesiologist: Tamar Lowry MD Resident/WEB APPLICATIONS DEVELOPER/CAA: Anthony Garrido CRNA Performed: resident/WEB APPLICATIONS DEVELOPER/CAA Indications and Patient Condition Indications for airway [...] Additional Comments 4ml 4% lidocaine lta utilized [facility] 01-05-2023 Note Peripheral Block Patient location during procedure: pre-op Start time: 01/05/2023 1:03 AM End time: 01/05/2023 7:17 AM Reason for block: at surgeon's request and post-op pain management Staffing Performed: anesthesiologist Anesthesiologist: Tamar Lowry MD Resident/WEB APPLICATIONS DEVELOPER: Anthony Garrido CRNA Preanesthetic Checklist Completed: patient [...] Paresthesia pain: none Heart rate change: no [facility] 01-05-2023 Note Patient: Rossy stover Procedure Information Date/Time: 01/05/23 8030 Procedure: SHOULDER ARTHROSCOPY WITH ROTATOR CUFF REPAIR (Right: Shoulder) - MITEK NOTIFIED 12/28 KEN Location: [facility] OR [address] [place] [address] OR Surgeons: Zuly Pruett MD Past Medical [...] risks discussed with patient. Plan discussed with WEB APPLICATIONS DEVELOPER. Additional Equipment Requests [facility] 10-16-2022 Note ---- Attestation signed by Zuly [...] the right shoulder completed on 08/19/21 @ [facility]. He continues to have pain in the right shoulder, primarily with motion/use of the arm. Pain at rest is a 5/10. He has failed PT/NSAIDs in the past. 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 Date of Telehealth Visit: 2021 The patient was notified that using [employer] telecommunication application (e.g. [email or web address]) is not HIPAA compliant and may carry some privacy risks: yes This visit was conducted [id number] with the use of audio and video [...] previous MRI report from 08/19 2021 from [facility] indicates complete tear of the supraspinatus tendon [...] be an additional personal documentation from me. [facility] 12-14-2021 Evaluation note Encounter Date Diagnosis Assessment Notes Dec, PAD (peripheral artery disease) (ICD-10 - I73.9) We reviewed this patient's TO studies from the [facility] showing left TO 0.94, right TO 0.70. [...] his risks and is unmotivated to quit. [email or web address] Other 04-15-2021 NoteFLUORO FOR SURGICAL PROCEDURES : [...] Signed by: Ming Bejarano MD 07/15/20 Final [facility]04-15-2021 NoteFLUORO FOR SURGICAL PROCEDURES : 07/15/2020 9:53 AM CLINICAL HISTORY: R52 Pain ICD10. COMPARISON: Non e available. Intraoperative fluoroscopy was provided for Dr. Valdez procedure. A total of 1.5 seconds of fluoroscopy was used, with 2 fluoroscopic stills saved. No diagnostic images were obtained. Please see Dr. Valdez surgical notes for completeness.[employer] Phone: evaluation note* Diagnosis Pain Generalized pain documented in this encounter [employer] Phone: History general Narrative - Reported* Type Description Date Medical History hypertension Surgical History Back Surgery 2021 Surgical History Shoulder surgery Surgical History spleenectomy Hospitalization History see above [email or web address] Other Summary Purpose Family History No Family [...] your physician 11) Call your doctor at [phone] for an appointment (or follow up as [...] call OFFICE. The 24- hour phone is [phone] 13) If you are unable to contact [...] [facility] For Surgical Procedures Ousmane Valdez MD [address], [address] [place] [address] Additional Source Comments (unrecognized sect ion and content) No Status Records FoundNo Status Records FoundNo Status Records FoundNo Status Records FoundNo Status Records Found INFORMATION SOURCE (unrecogn ized section and content) DATE CREATED AUTHOR 06/25/2020 [facility] DATE CREATED AUTHOR AUTHOR'S ORGANIZ ATION 07/20/2020 [facility] DATE CREATED AUTHOR AUTHOR'S ORGANIZ ATION 06/22/2021 [facility] DATE CREATED AUTHOR AUTHOR'S ORGANIZ ATION 11/09/2021 [facility] DATE CREATED AUTHOR AUTHOR'S ORGANIZ ATION 01/07/2023 [facility] Reason for Visit (unrecogniz ed section and content) Status Reason Specialty Diagnoses / Procedures Referre d By Contact Referred To Contact Diagnoses Lumbar disc herniation Lumbar radiculopathy DISC HERNIATION, RADICULOPATHY Procedures LAMINEC/FACETECT/FORAMIN ,LUMBAR 1 SEG WI LAMNOTMY INCL W/DCMPRSN NRV ROOT 1 INTRSPC LUMBR L4-5 RIGHT MICRODISKECTOMY/ 1 HR/ 1 C-ARM/ PAT AND RAPID COVID ON ADMIT Ousmane Valdez MD [address], [address] [place] [address] [facility] Ordered Prescriptions (unrec ognized section and content) [...] BE BASED ON THE PRIMARY CLINICAL RECORDS. [facility] [employer] [facility]. provides no warranty or guarantee of the accuracy or completeness of information in this document.
--- NOTE | 2023-06-03 04:00 | XR_ITS ---
The [address] [address] Patient Name: ROSSY ALFONSO MRN: [id number] date: 1960 Sex: M Assigned Patient Location: ER Current Patient Location: ER Accession/Order Number: [id number] Exam Date: 06/03/2023 04:24 Report Date: 06/03/2023 04:58 At the request of: SHONA SCHILLING Procedure: XR chest 1V EXAM: XR chest 1V HISTORY: shortness of breath COMPARISON: None. TECHNIQUE: One view of the chest was obtained. FINDINGS: The cardiac silhouette is normal in size. Aortic atherosclerotic disease is seen. The lungs are clear. There is no significant pneumothorax or pleural effusion. No acute osseous abnormality is seen. Postsurgical changes of the proximal left humerus are noted. XR/XR chest 1V IMPRESSION: 1. No acute cardiopulmonary abnormality. Electronically authenticated by: Elvia IBRAHIM Date: 06/03/2023 04:58
--- NOTE | 2023-06-03 04:00 | ECG_ITS ---
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
[2023-06-03] MEDS: 0.9 % SODIUM CHLORIDE 1,000 ML 999 ML IV (04:20)
[2023-06-03 04:23] LABS: Basophils Absolute Auto 0.1 10^3/uL (0.0-0.1); Basophils Percent Auto 0.5 % (0.2-2.0); Eosinophils Percent Auto 0.1 % (0.9-7.0); Hematocrit 47.2 % (42.0-54.0); Hemoglobin 15.9 g/dL (14.0-18.0); Immature Granulocytes Abs Auto 0.04 10^3/uL (0.00-0.03); Immature Granulocytes Pct Auto 0.4 % (0.0-0.5); Lymphocytes Absolute Auto 3.8 10^3/uL (1.2-3.8); Lymphocytes Percent Auto 37.9 % (20.5-60.0); Mean Corpuscular HGB Conc 33.7 g/dL (29.9-35.2); Mean Corpuscular Hemoglobin 31.4 pg (25.9-34.0); Mean Corpuscular Volume 93.1 fL (80.0-94.0); Mean Platelet Volume 11.5 fL (9.5-13.5); Monocytes Absolute Auto 1.4 10^3/uL (0.3-0.8); Monocytes Percent Auto 13.8 % (1.7-12.0); Neutrophils Absolute Auto 4.8 10^3/uL (1.4-6.5); Neutrophils Percent Auto 47.3 % (43.0-75.0); Platelet Count 234 10^3/uL (150-450); Red Blood Count 5.07 10^6/uL (4.70-6.10); Red Cell Distribution Width 14.6 % (11.0-15.0); White Blood Count 10.1 10^3/uL (4.0-11.0)
--- NOTE | 2023-06-03 04:28 | ED_ITS ---
HPI - SOB/Dyspnea General Chief Complaint: Shortness of Breath/Dyspnea Stated Complaint: sob Time Seen by Provider: 06/03/23 03:48 Source: patient Mode of arrival: Wheelchair Limitations: no limitations History of Present Illness HPI Narrative: Patient with 5 days of shortness of breath . Apparently was increased this morning so he came to the ED for evaluation. On arrival he is crying and emotional. He told me, I am scared that something bad is happening . he has anxiety and depression but refuses to take any meds for that, he told me. He has been non-compliant with his BP meds. He said that he is worried about his and worried about his own health. On questioning he admitted to flu-like illness that began about a week ago - achiness, fatigue, nausea and some vomiting. Symptoms changed to dry cough and shortness of breath a couple days later. He was prescribed Levaquin by Dr Hung. Patient takes prednisone daily but denies any history of COPD or emphysema. Related Data Home Medications Medication Instructions Recorded Confirmed cetirizine 10 mg tablet 10 mg PO DAILY 09/09/22 09/09/22 clonidine HCl 0.1 mg tablet 0.1 mg PO DAILY 09/09/22 06/03/23 oxycodone-acetaminophen 10 mg-325 1 tab PO DAILY 09/09/22 06/03/23 mg tablet prednisone 10 mg tablet 10 mg PO DAILY 09/09/22 09/09/22 carvedilol 12.5 mg tablet mg 06/03/23 levofloxacin 750 mg tablet mg 06/03/23 Previous Rx's Medication Instructions Recorded albuterol sulfate 90 mcg/actuation 2 inh inhalation Q6H PRN shortness 06/03/23 aerosol inhaler of breath or wheezing #8.5 grams prednisone 20 mg tablet 40 mg (2 x 20 mg) PO DAILY 5 days 06/03/23 #10 tabs Allergies Allergy/AdvReac Type Severity Reaction Status Date / Time No Known Drug Allergies Allergy Verified 06/03/23 03:41 [facility] Social History Smoking status: Current every day smoker Exam Narrative Exam Narrative: Nurses notes and vital signs reviewed and patient is not hypoxic. afebrile General: crying and emotional. Skin: Warm, dry, no pallor noted. Head: Normocephalic, atraumatic. Neck: Supple, non-tender. Eye: Pupils are equal, round and EOMI. No scleral icterus. Ears, Nose, Mouth, and Throat: Oral mucosa is moist Cardiovascular: tachycardia. Respiratory: No accessory muscle use or respiratory distress. Lungs with decreased air exchange,diffuse expiratory wheezing. Chest Wall: no tenderness, crepitus or subcutaneous emphysema Musculoskeletal: normal ROM, no calf or popliteal tenderness, no lower extremity edema/swelling GI: Abdomen is soft, non-distended. Normal bowel sounds. No tenderness to palpation. No rebound, guarding, or rigidity noted. Neurological: A&O x4. No cranial nerve dysfunction observed. No truncal ataxia. Moves all extremities. Sensation intact. Psychiatric: Interactive. Crying. Emotionally labile. Constitutional Vital Signs, click to edit/add: Last Vital Signs Temp 97.8 F 06/03/23 03:41 Pulse 118 H 06/03/23 03:41 Resp 21 06/03/23 03:41 BP 180/120 H 06/03/23 03:41 Pulse Ox 94 L 06/03/23 03:50 O2 Del Method Room Air 06/03/23 03:50 Course Vital Signs Vital signs: Vital Signs Temperature 97.8 F 06/03/23 03:41 Pulse Rate 118 H 06/03/23 03:41 Respiratory Rate 21 06/03/23 03:41 Blood Pressure 180/120 H 06/03/23 03:41 Pulse Oximetry 95 06/03/23 03:41 Oxygen Delivery Method Room Air 06/03/23 03:41 Temperature 97.8 F 06/03/23 03:41 Pulse Rate 118 H 06/03/23 03:41 Respiratory Rate 21 06/03/23 03:41 Blood Pressure 180/120 H 06/03/23 03:41 Pulse Oximetry 94 L 06/03/23 03:50 Oxygen Delivery Method Room Air 06/03/23 03:50 MDM - SOB/Dyspnea MDM Narrative Medical decision making narrative: Patient was placed on monitor worker and EKG obtained. Blood drawn and sent for evaluation, including blood cultures, lactate and procalcitonin per sepsis protocol. Swabs for influenza and covid obtained. Portable chest x-ray obtained. He was ordered to receive IV labetalol and IV Vasotec for his hypertension. He was also ordered to receive IV Valium for his anxiety and emotional lability. He was further given a liter of normal saline IV fluid. DuoNeb treatment was ordered. He refused the Valium but accepted the solumedrol, vasotec and labetalol as well as breathing treatment. CBC normal. CMP is normal except for mildly elevated AST and ALT at 98, 106 respectively. Lactate, troponin, BNP all negative. Swabs for influenza and COVID were also negative. CXR with some mild hyperinflation consistent with COPD but no infiltrate identified. Patient's BP improved and his breathing improved with ED treatment. He wants to go home. He has a Levaquin prescription that he is taking. He was prescribed albuterol MDI and 40mg daily prednisone - he had not been taking prednisone at home. Lab Data Attestation: I reviewed the patient's lab results. Labs: Lab Results 06/03/23 06/03/23 Range/Units 03:47 04:09 WBC 10.1 (4.0-11.0) 10^3/uL RBC 5.07 (4.70-6.10) 10^6/uL Hgb 15.9 (14.0-18.0) g/dL Hct 47.2 (42.0-54.0) % MCV 93.1 (80.0-94.0) fL MCH 31.4 (25.9-34.0) pg MCHC 33.7 (29.9-35.2) g/dL RDW 14.6 (11.0-15.0) % Plt Count 234 (150-450) 10^3/uL MPV 11.5 (9.5-13.5) fL Neut % (Auto) 47.3 (43.0-75.0) % Lymph % (Auto) 37.9 (20.5-60.0) % Worth % (Auto) 13.8 H (1.7-12.0) % Eos % (Auto) 0.1 L (0.9-7.0) % Baso % (Auto) 0.5 (0.2-2.0) % Neut # (Auto) 4.8 (1.4-6.5) 10^3/uL Lymph # (Auto) 3.8 (1.2-3.8) 10^3/uL Worth # (Auto) 1.4 H (0.3-0.8) 10^3/uL Eos # (Auto) 0.0 (0.0-0.7) 10^3/uL Baso # (Auto) 0.1 (0.0-0.1) 10^3/uL Abs Immat Gran (auto) 0.04 H (0.00-0.03) 10^3/uL Imm/Tot Granulo (auto) 0.4 (0.0-0.5) % Sodium 137 (136-145) mmol/L Potassium 4.0 (3.5-5.1) mmol/L Chloride 101 (98-107) mmol/L Carbon Dioxide 28.3 (21.0-32.0) mmol/L Anion Gap 11.7 BUN 17.0 (7.0-18.0) mg/dL Creatinine 0.82 (0.70-1.30) mg/dL Est GFR ( Amer) >60 (>=60) Est GFR (Non-Af Amer) >60 (>=60) BUN/Creatinine Ratio 20.7 Glucose 124 H (74-106) mg/dL Lactate 1.8 (0.4-2.0) mmol/L Calcium 8.9 (8.5-10.1) mg/dL Total Bilirubin 0.4 (0.2-1.0) mg/dL AST 98 H (15-37) U/L ALT 106 H (16-63) U/L Alkaline Phosphatase 72 (46-116) U/L Troponin I High Sens 13.6 (4.0-76.1) pg/mL NT-Pro-B Natriuret Pep 217.0 (<=900.0) pg/mL Total Protein 7.7 (6.4-8.2) g/dL Albumin 3.1 L (3.4-5.0) g/dL Globulin 4.6 g/dL Albumin/Globulin Ratio 0.7 Influenza Type A Ag Negative Influenza Type B Ag Negative SARS-CoV-2 Ag (CV2AG) Negative (NEGATIVE) Imaging Data Chest x-ray: Radiologist's impression: ITS Impressions Chest X-Ray 06/03/23 04:00 IMPRESSION: 1. No acute cardiopulmonary abnormality. Electronically authenticated by: Elvia IBRAHIM Date: 06/03/2023 04:58 ECG Data Attestation: I personally reviewed and interpreted this ECG as follows: Interpretation: EKG interpretation: Emergency Department physician interpretation. Sinus tachycardia at 122bpm. Indeterminate axis. No ST segment elevation or depression. Discharge Plan Discharge Chief Complaint: Shortness of Breath/Dyspnea Clinical Impression: COPD exacerbation, Anxiety, HTN (hypertension) Patient Disposition: Home, Self-Care Time of Disposition Decision: 05:00 Prescriptions / Home Meds: New prednisone 20 mg tablet 40 mg PO DAILY 5 Days Qty: 10 0RF albuterol sulfate 90 mcg/actuation HFA aerosol inhaler 2 inh inhalation Q6H PRN (Reason: shortness of breath or wheezing) Qty: 8.5 0RF No Action cetirizine 10 mg tablet 10 mg PO DAILY clonidine HCl 0.1 mg tablet 0.1 mg PO DAILY oxycodone-acetaminophen 10-325 mg tablet 1 tab PO DAILY prednisone 10 mg tablet 10 mg PO DAILY carvedilol 12.5 mg tablet levofloxacin 750 mg tablet Instructions: COPD (Chronic Obstructive Pulmonary Disease) (ED), Hypertension (ED) Referrals: Stephen Hung MD [Primary Care Provider] - 1 week Stand Alone Forms: Portal Instructions
[2023-06-03 04:35] LABS: Lactate/Lactic Acid 1.8 mmol/L (0.4-2.0)
[2023-06-03 04:40] LABS: Influenza Virus A Antigen Negative; Influenza Virus B Antigen Negative; Internal Control Within Normal Limits; SARS-CoV-2 Ag NEGATIVE (NEGATIVE)
[2023-06-03 04:41] LABS: Alanine Aminotransferase 106 U/L (16-63); Albumin Globulin Ratio 0.7; Albumin Level 3.1 g/dL (3.4-5.0); Alkaline Phosphatase 72 U/L (46-116); Anion Gap 11.7; Aspartate Amino Transferase 98 U/L (15-37); BUN Creatinine Ratio 20.7; Bilirubin Total 0.4 mg/dL (0.2-1.0); Calcium 8.9 mg/dL (8.5-10.1); Carbon Dioxide 28.3 mmol/L (21.0-32.0); Chloride 101 mmol/L (98-107); Estimated GFR (African America >60 (>=60); Estimated GFR (Non-African Ame >60 (>=60); Globulin 4.6 g/dL; Glucose 124 mg/dL (74-106); Sodium 137 mmol/L (136-145); Total Protein 7.7 g/dL (6.4-8.2); Troponin I High Sensitivity 13.6 pg/mL (4.0-76.1)
[2023-06-03] MEDS: ENALAPRILAT DIHYDRATE 1.25 MG/ML VIAL IV (05:02)
[2023-06-03] MEDS: LABETALOL HCL 20 MG/4 ML SYRINGE IVP (05:02)
[2023-06-03] MEDS: METHYLPREDNISOLONE SOD SUCC PF 125 MG/2 ML VIAL IVP (05:02)
[2023-06-03] MEDS: IPRATROPIUM/ALBUTEROL SULFATE 3 ML AMPUL.NEB IH (05:23)
[2023-06-03 05:41] LABS: PROCALCITONIN 0.13 ng/mL (0.00-0.50)
== END 2023-06-03 05:55 | disposition home or self-care (01) ==
PROVIDERS: Emergency Provider Emergency Medicine; PCP Family Medicine
DX: J44.1 Chronic obstructive pulmonary disease with (acute) exacerbation (principal); F41.9 Anxiety disorder, unspecified; I10 Essential (primary) hypertension; Z79.899 Other long term (current) drug therapy; F17.210 Nicotine dependence, cigarettes, uncomplicated; Z20.822 Contact with and (suspected) exposure to COVID-19
CPT/HCPCS: 0202U; 36415; 71045; 80053; 83605; 83880; 84145; 84484; 85025; 85378; 87040; 87804; 87811; 93005; 94640; 96374; 96375; 99285; J2930

== ENCOUNTER 2023-06-12 14:14 | Outpatient (OUT) | payer OTHER, SELFPAY ==
[2023-06-12 14:38] LABS: Hematocrit 45.4 % (42.0-54.0); Hemoglobin 15.4 g/dL (14.0-18.0); Mean Corpuscular HGB Conc 33.9 g/dL (29.9-35.2); Mean Corpuscular Hemoglobin 32.5 pg (25.9-34.0); Mean Corpuscular Volume 95.8 fL (80.0-94.0); Mean Platelet Volume 10.9 fL (9.5-13.5); Platelet Count 250 10^3/uL (150-450); Red Blood Count 4.74 10^6/uL (4.70-6.10); Red Cell Distribution Width 14.9 % (11.0-15.0); White Blood Count 16.5 10^3/uL (4.0-11.0)
[2023-06-12 14:39] LABS: Bilirubin Urine NEGATIVE (NEGATIVE); Blood Urine NEGATIVE (NEGATIVE); Clarity Urine CLEAR (CLEAR); Color Urine YELLOW (YELLOW); Glucose Urine UA NEGATIVE (NEGATIVE); Ketones Urine TRACE mg/dL (NEGATIVE); Leukocyte Esterase Urine NEGATIVE (NEGATIVE); Nitrite Urine NEGATIVE (NEGATIVE); Protein Urine 30 mg/dL (NEG/TRACE); Specific Gravity Urine 1.025 (1.005-1.025); pH Urine 5.5 (5.0-9.0)
[2023-06-12 14:52] LABS: RBC Urine NONE SEEN #/HPF (0-2); WBC Urine NONE SEEN #/HPF (NONE SEEN)
[2023-06-12 14:53] LABS: Bacteria Urine TRACE #/HPF (NONE SEEN); Cast Seen? NONE SEEN #/LPF (NONE SEEN); Crystals Seen? None Seen #/HPF (None Seen); Mucus Urine SMALL (NONE SEEN); Squamous Epithelial Cell Urine RARE #/LPF (NONE/RARE)
[2023-06-12 14:56] LABS: Alanine Aminotransferase 139 U/L (16-63); Albumin Globulin Ratio 0.7; Albumin Level 2.9 g/dL (3.4-5.0); Alkaline Phosphatase 70 U/L (46-116); Amylase 83 U/L (25-115); Anion Gap 6.6; Aspartate Amino Transferase 75 U/L (15-37); BUN Creatinine Ratio 25.6; Bilirubin Total 0.4 mg/dL (0.2-1.0); Carbon Dioxide 33.8 mmol/L (21.0-32.0); Chloride 102 mmol/L (98-107); Estimated GFR (African America >60 (>=60); Estimated GFR (Non-African Ame >60 (>=60); Globulin 4.3 g/dL; Glucose 122 mg/dL (74-106); Potassium 4.4 mmol/L (3.5-5.1); Sodium 138 mmol/L (136-145); Total Protein 7.2 g/dL (6.4-8.2)
[2023-06-12 14:59] LABS: Monocytes Absolute Manual 2.31 10^3/uL (0.30-0.80); Segmented Neut Absolute Manual 8.08 10^3/uL (1.4-6.5)
== END 2023-06-12 14:15 | disposition home or self-care (01) ==
LOC: LAB 14:14
PROVIDERS: PCP Family Medicine; Visit Provider Family Medicine
DX: R00.0 Tachycardia, unspecified (principal); I10 Essential (primary) hypertension; M54.9 Dorsalgia, unspecified; R06.02 Shortness of breath
CPT/HCPCS: 36415; 80053; 81001; 82150; 83690; 83880; 85007; 85027; 87086

== ENCOUNTER 2023-06-13 09:25 | Emergency (ER) | payer OTHER, SELFPAY ==
[2023-06-13] VITALS (12 sets, daily range): BP systolic 184–193; BP diastolic 81–147; PULSE 72–81; RESP 15–25; TEMP 36.9; O2SAT 83–100; BMI 19.4
--- OUTSIDE RECORDS SUMMARY | 2023-06-13 09:32 | XMS_ITS | CCD ---
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 Name Role Phone Renaldo Hung Primary Care Provider OUSMANE VALDEZ Referring Unavailable RENALDO HUNG Primary Care Unavailable OUSMANE VALDEZ Attending Unavailable OUSMANE VALDEZ Attending Unavailable RENALDO HUNG Primary Care Unavailable OUSMANE VALDEZ Admitting Unavailable HAI, DR MACARIO Admitting Unavailable HAI, DR MACARIO Attending Unavailable HAI, DR MACARIO Primary Care Unavailable HAI, DR MACARIO Consulting Unavailable HAI, DR MACARIO [...] 07-15-2020 ondansetron (ZOFRAN) injection 4 mg sennosides, longterm 8.6 mg oral tablet (2 sources) Start: [...] Interpretation Reference Range Facility Anesthesiaon 01-05-2023 Anesthesia [id number] Rossy Alfonso 1960 M Date Provider Department Center 01/05/2023 4030-ELFEGO, [facility] No family history on file Normal [facility] OPNOTEon 01-05-2023 OPNOTE SHOULDER ARTHROSCOPY WITH ROTATOR CUFF REPAIR X2, LABRAL DEBRIDEMENT, SUBSCAPULAR REPAIR, SUBACROMIAL DECOMPRESSION AND CAPSULAR RELEASE(R) Operative Note Date: 01/05/2023 Location: [facility] OR Name: Rossy Alfonso, : 1960, Diagnosis Pre-op Diagnosis * Complete tear of right rotator cuff, unspecified whether traumatic [M75.121] Post-op Diagnosis * Complete tear of right rotator cuff, unspecified whether traumatic [M75.121] * Avulsion of subscapularis, right, initial encounter [S46.981A] * Type 1 superior labral suqbwkqb-jh-codrrbsfv (SLAP) tear of right shoulder, initial encounter [S43.431A] * 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] * Impingement syndrome of right shoulder [M75.41] Procedures SHOULDER ARTHROSCOPY WITH ROTATOR CUFF REPAIR, LABRAL DEBRIDEMENT, SUBSCAPULAR REPAIR, SUBACHROMIAL DECOMPRESSION AND PROXIMAL BICEPS TENDON REPAIR 36787 - WI SURGICAL ARTHROSCOPY SHOULDER W/ROTATOR CUFF RPR WI SURGICAL ARTHROSCOPY SHOULDER W/ROTATOR CUFF RPR [42897] WI SURGICAL ARTHROSCOPY SHOULDER W/ROTATOR CUFF RPR [27685] WI SURGICAL ARTHROSCOPY SHOULDER W/ROTATOR CUFF RPR [35762] WI SURGICAL ARTHROSCOPY SHOULDER LMTD DBRDMT 1/2 [61709] WI CAPSULAR CONTRACTURE RELEASE [53429] Surgeons * Zuly Pruett - Primary Procedure Summary Anesthesia: General ASA: II Estimated Blood Loss: 20 mL Total IV Fluids: mL Drains: * None in log * Implants Type Name Action Serial No. healix advance peek anchor w/dynacord Implanted Staff: Sheriff'S Officer: Sandra Bernardo RN Scrub Person: Flakita Martel [...] hemodynamically stable. Condition: stable Zuly Pruett Normal [facility] POCT GLUCOSE METER UNSOLICIT ED RESULTSon 01-05-2023 Glucose [Mass/Vol] 93 mg/dL Normal 70-105 [facility] Comment on above: Order Comment: Waive d Testing in the ED is performed under the ED CLIA certificate #[id number]. Result Comment: ltol les Performed By: #### L [id number] ####[facility] ([facility]AK[facility])[address] [place] [address] HPon 01-04-2023 HP History Of Present Illness [...] Results XR shoulder 2+ views right Narrative: [facility] Department of Radiology [address] [place] [address] Patient Name: ROSSY ALFONSO : [...] abnormality. Electronically signed: Harrison Lawton. 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 Do not wear perfume, make-up, nail italian, or lotions on the day of your [...] need to make any changes, please call [phone]. Notify your surgeon if you develop any illness such as a cold, cough, fever, sore throat or vomiting between now and your surgery. Thank you for entrusting us with your care. [facility] Surgical Services Team Normal [facility] Office Visiton 10-16-2022 Follow-up visit [id number] NatyRossy S 1960 M Date Provider Department Center 10/16/2022 John[facility] No family history on file Level of Service:34177 [place] OFFICE/OUTPATIENT ESTABLISHED MOD MDM 30-39 MIN (57,GC) Reason for Visit and Comments: Follow-up [812591] - Discuss surgical planning Pain [136] - Discuss surgical planning Normal [facility] 08-11-2022 36 Surgery scheduled Normal [facility] 36on 08-10-2022 36 Patient's calling again to schedule sx. Normal [facility] XR LSPINE MIN 4 VIEWSon 08- XR [...] ZULY PATE Date: 2021-11-07 07:55 Normal [facility] SHOULDER RT WO CONon MRI SHOULDER [...] MIGUELANGEL GUEVARA Date: 2021-08-19 15:38 Normal [facility] SHOULDER RIGHTon 06-17-2021 SHOULDER RIGHT [facility] Department of Radiology [address] [place] [id number] Patient Name: ROSSY ALFONSO : 1960 [...] abnormality. Electronically signed: Harrison Lawton. Transcribed by: [email or web address], User Resident: Electronically Signed by: HARRISON LAWTON @ 06/18/2021 07:17 AM Normal [facility] Comment on above: Order Comment: Views (X-RAY, SHOULDER): AP, Y-Lateral Covid-19 PCR (CVDTBH)on 04-02 SARS-CoV-2 (COVID-19) RNA JUAN+probe Ql (Unsp spec) Detected Critically abnormal NOT DETECTED [facility] Comment on above: Result Comment: This test is not yet approved or cleared by the [place] FDA. When there are no FDA-approved or cleared tests available, and other criteria are met, FDA can make tests available under an emergency access mechanism called an Emergency Use Authorization (EUA). The EUA for this test is supported by the [employer] Stringer of Health and Human Service's (HHS's) declaration [...] longer be used). Performed By: #### C [facility] #### [facility] [address] [place] [address] Dr. Wiliam Garrison FLUORO FOR SURGICAL PROCEDUR ESOrdered By: Ousmane Valdez on 07-15-2020 Miko, Chpo Incoming Radiant Results From [employer] - 07/15/2020 11:25 AM EDT FLUORO FOR SURGICAL PROCEDURES : 07/15/2020 9:53 AM CLINICAL HISTORY: R52 Pain ICD10. COMPARISON: None available. Intraoperative fluoroscopy was provided for Dr. Valdez procedure. A total of 1.5 seconds of fluoroscopy was used, with 2 fluoroscopic stills saved. No diagnostic images were obtained. Please see Dr. Valdez surgical notes for completeness. [facility] Work Phone: Surgical Specimenon 07-16-19 21 Surgical Specimen [facility] [address] [place] [address] FINAL SURGICAL PATHOLOGY REPORT Patient Name: ROSSY ALFONSO Accession No: [id number] Age Sex: 1960 [facility] Account No: [id number] Collected: 07/15/2020 Med Rec No: [id number] Received: 07/15/2020 Attend Phys: OUSMANE VALDEZ Completed: [...] two cassettes after brief decalcification. MARTA/HAMZAH CPT: 62092 X1 20315 X1 NICHELLE POWERS M.D. 07/16/2020 Electronically signed out by Page 1 of 1 Invalid Interpretation Code [facility] Comment on above: Performed By: #### S UR #### [facility] [address] [place] [id number] COVID-19, NAAon 06-25-2020 COVID-19, JUAN Not Detected Normal Not Detect [facility] Comment on above: Result Comment: This nucleic acid amplification test was developed and its performance characteristics determined by [employer]. Nucleic acid amplification tests include RT-PCR and [...] detected) result in this assay. Performed at: [address] [id number] [employer]: Deon Camejo PhD, Phone: [phone] Performed By: #### I RCOV #### [facility] [address] [place] [id number] Basic Metabolic Panelon 06-01 Anion gap [Moles/Vol] 14 mmol/L Normal 9-15 [facility] Comment on above: Performed By: #### B MP #### [facility] [address] [place] [address] Calcium [Mass/Vol] 9.6 mg/dL Normal 8.5-9.9 [facility] Comment on above: Performed By: #### B MP #### [facility] [address] [place] [address] Chloride [Moles/Vol] 99 mmol/L Normal 95-107 [facility] Comment on above: Performed By: #### B MP #### [facility] [address] [place] [address] CO2 [Moles/Vol] 27 mmol/L Normal 20-31 [facility] Comment on above: Performed By: #### B MP #### [facility] [address] [place] [address] Creatinine [Mass/Vol] 0.79 mg/dL Normal 0.70-1.20 [facility] Comment on above: Performed By: #### B MP #### [facility] [address] [place] [address] GFR/1.73 sq M predicted among blacks MDRD (S/P/Bld) [Vol rate/Area] mL/min/{1.73_m2} Normal >60 [facility] Comment on above: Result Comment: >60 mL/min/1.73m2 EGFR, calc. for ages 18 and older using the MDRD formula (not corrected for weight), is valid for stable renal function. Performed By: #### B MP #### [facility] [address] [place] [address] GFR/1.73 sq M.predicted MDRD (S/P/Bld) [Vol rate/Area] mL/min/{1.73_m2} Normal >60 [facility] Comment on above: Result Comment: >60 mL/min/1.73m2 EGFR, calc. for ages 18 and older using the MDRD formula (not corrected for weight), is valid for stable renal function. Performed By: #### B MP #### [facility] [address] [place] [address] Glucose [Mass/Vol] 88 mg/dL Normal 70-99 [facility] Comment on above: Performed By: #### B MP #### [facility] [address] [place] [address] Potassium [Moles/Vol] 4.7 mmol/L Normal 3.4-4.9 [facility] Comment on above: Performed By: #### B MP #### [facility] [address] [place] [address] Sodium [Moles/Vol] 140 mmol/L Normal 135-144 [facility] Comment on above: Performed By: #### B MP #### [facility] [address] [place] [address] Urea nitrogen [Mass/Vol] 17 mg/dL Normal 6-20 [facility] Comment on above: Performed By: #### B MP #### [facility] [address] [place] [address] CBC With Platelet No Differe ntialon 06-24-2020 Platelets (Bld) [#/Vol] Not Done Normal 130-400 [facility] Comment on above: Result Comment: Unab le to obtain accurate platelet count due to giant platelet population. Platelet estimate 231 Performed By: #### C BCND #### [facility] [address] [place] [address] Platelet Slide Review Normal Normal [facility] Comment on above: Performed By: #### C BCND #### [facility] [address] [place] [address] Erythrocyte distribution width (RBC) [Ratio] 14.3 % Normal 11.5-14.5 [facility] Comment on above: Performed By: #### C BCND #### [facility] [address] [place] [address] Hematocrit (Bld) [Volume fraction] 50.1 % Normal 42.0-52.0 [facility] Comment on above: Performed By: #### C BCND #### [facility] [address] [place] [address] Hemoglobin (Bld) [Mass/Vol] 16.8 g/dL Normal 14.0-18.0 [facility] Comment on above: Performed By: #### C BCND #### [facility] [address] [place] [address] MCH (RBC) [Entitic mass] 32.3 pg Critically high 27.0-31.3 [facility] Comment on above: Performed By: #### C BCND #### [facility] [address] [place] [address] MCHC (RBC) [Mass/Vol] 33.6 % Normal 33.0-37.0 [facility] Comment on above: Performed By: #### C BCND #### [facility] [address] [place] [address] MCV (RBC) [Entitic vol] 96.1 fL Normal 80.0-100.0 [facility] Comment on above: Performed By: #### C BCND #### [facility] [address] [place] [address] RBC (Bld) [#/Vol] 5.21 10*6/uL Normal 4.70-6.10 [facility] Comment on above: Performed By: #### C BCND #### [facility] [address] [place] [address] WBC (Bld) [#/Vol] 17.9 10*3/uL Critically high 4.8-10.8 [facility] Comment on above: Performed By: #### C BCND #### [facility] [address] [place] [address] COVID-19, NAAon 06-24-2020 Source Swab Anterior nares Normal [facility] Comment on above: Performed By: #### I RCOV #### [facility] [address] [place] [address] Partial Thromboplastin Timeo n 06-24-2020 aPTT Coag (Bld) [Time] 30.0 s Normal 24.4-36.8 [facility] Comment on above: Result Comment: Effe ctive 02/04/2020: Heparin Therapeutic Range: 64.0 ? 98.0 seconds. Performed By: #### P TT #### [facility] [address] [facility] [place] [address] Prothrombin Timeon INR Coag (PPP) [Relative time] 0.9 {INR} Normal [facility] Comment on above: Performed By: #### P T #### [facility] [address] [facility] [place] [address] PT Coag (PPP) [Time] 12.4 s Normal 12.3-14.9 [facility] Comment on above: Performed By: #### P T #### [facility] [address] [place] [address] Type and Screen Capture 3 sc rn cellon 06-24-2020 Type and Screen Capture 3 scrn cell PATIENT: NATY Brady LOC: [facility] BILL# : [id number] : 1960 SEX: M ORDERED BY: LESLYE Elizabeth ORDERED : 06/24/2020 10:28 COLLECTED: 06/24/2020 10:28 ORDER : [id number] RECEIVED : 06/24/2020 14:41 TEST NAME RESULT UNITS RANGES ABN FL ST ABORH Capture A POS F Antibody 3 Cell Scrn Captu NEG F Normal [facility] Comment on above: Performed By: #### T S3C #### [facility] [address] [place] [address] Vital Signs Date Time Vital Sign Value Performing Clinician Facility 12-14-2021 11:00-0400 Body height 180.34 cm Ruth Mosquera Other [facility] Other 12-14-2021 11:00-0400 Body mass index (BMI) [Ratio] 20.64 kg/m2 Ruth Mosquera Other [facility] Other 12-14-2021 11:00-0400 Body temperature 97 [degF] Ruth Mosquera Other [facility] Other 12-14-2021 11:00-0400 Body weight 67.13 kg Ruth Mosquera Other [facility] Other 12-14-2021 11:00-0400 Diastolic blood pressure 80 mm[Hg] Ruth Mosquera Other [facility] Other 12-14-2021 11:00-0400 SaO2% (BldA) [Mass fraction] 95 % Ruth Mosquera Other [facility] Other 12-14-2021 11:00-0400 Systolic blood pressure 160 mm[Hg] Ruth Mosquera Other [facility] Other 07-15-2020 13:50-0400 BP Diastolic 84 mm[Hg] [employer] Phone: 07-15-2020 13:50-0400 BP Systolic 169 mm[Hg] [employer] Phone: 07-15-2020 13:50-0400 Pulse (Heart Rate) 95 /min [employer] Phone: 07-15-2020 13:50-0400 Pulse Oximetry 94 % [employer] Phone: 07-15-2020 13:50-0400 Respiratory Rate 18 /min [employer] Phone: 07-15-2020 13:35-0400 Body Temperature 98.8 [degF] [employer] Phone: 07-15-2020 08:31-0400 BMI (Body Mass Index) 21.38 kg/m2 [employer] Phone: 07-15-2020 08:31-0400 Body weight 67.59 kg [employer] Phone: 07-15-2020 08:31-0400 Height 177.8 cm [employer] Phone: Encounters Encounter Date Encounter Type Care Provider Facility Start: 01-05-2023 End: 01-05-2023 ambulatory ZULY SAMUEL [facility] Start: 10-16-2022 ambulatory ZULY SAMUEL [facility] Start: 10-16-2022 Encounter for other preprocedural examination ZULY SAMUEL [facility] Start: 12-14-2021 End: 12-14-2021 ambulatory Ruth Mosquera Other [facility] Other Start: 12-14-2021 [facility] visit new patient Ruth perez [facility] Start: 11-04-2021 End: 11-05-[address] RENALDO HUNG Facility:[facility] Start: 08-25-2021 End: 08-26-[address] RENALDO HUNG Facility:[facility] Start: 08-19-2021 End: 08-20-2021 ambulatory ZULY PRUETT Facility:[facility] Start: 06-14-2021 End: 06-29-[address] RENALDO HUNG Facility:[facility] Start: 04-20-2021 End: 04-20-[address] RENALDO HUNG Facility:[facility] Start: 07-15-2020 End: 07-15-2020 ambulatory OUSMANE VALDEZ [facility] Start: 07-15-2020 End: 07-18-2020 ambulatory OUSMANE ErvinSky COURTNEY [facility] Start: 07-15-2020 End: 07-15-2020 Subsequent hospital visit by physician Ousmane Valdez Work Phone: [facility] Comment on above: Postoperative pain ( Primary Dx) Start: 07-15-2020 End: 07-17-2020 Subsequent hospital visit by physician Ousmane Valdez MD Work Phone: [facility] Comment on above: Pain Procedures Date Procedure Procedure Detail Performing Clinician Start: 07-15-2020 Fluoroscopy during operation Ousmane Valdez MD Work Phone: Plan of Treatment Date Care Activity Detail Author Start: 12-01-2020 Influenza vaccination Flu vacc ine (Season Ended) [facility] Phone: Start: 07-30-2020 End: 07-30-2020 Office Visit 07/30/2020 Office Visit Neurosurgery Ousmane Valdez MD [address] [facility] [address], [address] [place] [address] [phone] [employer] Start: 07-27-2020 End: 07-27-2020 Appointment 07/27/2020 Appointment Radiology [facility] Nuclear Medicine Start: 07-27-2020 End: 07-27-2020 Appointment [facility] Start: 2017 Screening for malign ant neoplasm of lung Low dose CT lung screening [facility] Phone: Start: 2012 Screening for malign ant neoplasm of colon Colon cancer screen colonoscopy [facility] [employer] Phone: Start: 2012 Shingles Vaccine (1 of 2) Shingles Vaccine (1 of 2) [facility] [employer] Phone: Start: 2002 Lipid panel Lipid screen [facility] [employer] Phone: Start: 1981 DTaP/Tdap/Td vaccine (1 - Tdap) DTaP/Tdap/Td vaccine (1 - Tdap) [facility] [employer] Phone: Start: 1978 COVID-19 Vaccine (1) COVID-19 Vaccin e (1) [facility] [employer] Phone: Start: 1977 HIV screening HIV screen [facility] Work Phone: Start: 1972 Meningococcal B vacc ine (1 of 4 - Increased Risk Bexsero 2-dose series) Meningococcal B vaccine (1 of 4 - Increased Risk Bexsero 2-dose series) [facility] Phone: Start: 1968 Pneumococcal 0-64 ye ars Vaccine (1 of 3 - PCV13) Pneumococcal 0-64 years Vaccine (1 of 3 - PCV13) [facility] [employer] Phone: Start: 01-23-1964 Hib vaccine (1 of 1 - Risk 1-dose series) Hib vaccine (1 of 1 - Risk 1-dose series) [facility] Phone: Start: 1960 Meningococcal (ACWY) vaccine (1 - Risk start before 7 months 4-dose series) Meningococcal (ACWY) vaccine (1 - Risk start before 7 months 4-dose series) [facility] Phone: Start: 1960 Hepatitis C screening Hepatitis C sc reen [facility] [employer] Phone: Phase I & II - meter ed glucose Phase I & II - metered glucose Point of Care Testing Routine As Needed until discontinued starting 07/15/2020 [facility] Phone: Comment on above: As Needed until disc ontinued starting 07/15/2020 Surgical Pathology [facility] Work Phone: Comment on above: Release Upon Orderin g for 1 Occurrences starting 07/15/2020 End: 07-15-2020 Surgical Pathology Surgical Pathology Lab Routine Once for 1 Occurrences starting 07/15/2020 until 07/15/2020 [facility] Phone: Comment on above: Once for 1 Occurrenc es starting 07/15/2020 until 07/15/2020 Payers Date Payer Category Payer Unknown [id number] 2.16.8 [id number] 1960 Unknown [id number] 2.16.8 [id number] 1960 Unknown [id number] 2.16.84 [id number] 1960 Unknown [id number] 2.16.84 [id number] 1960 Unknown [id number] 2.16.84 [id number] 1960 Unknown [id number] 2.16.84 [id number] 1960 Unknown [id number] 2.16.84 [id number] 1957 Unknown [id number] Social History Date Type Detail Facility Start: 04-02-1982 End: 07-16-2020 Tobacco smoking status INIS Current every day smoker [facility] Phone: Start: 04-02-1982 History of tobacco use Cigarette Smo ker [facility] Phone: Start: 07-15-2020 End: 07-16-2020 Cigarettes smoked current (pack per day) - Reported [facility] Phone: Start: 07-15-2020 End: 07-16-2020 Tobacco use and exposure Never used [facility] Phone: Start: 07-15-2020 End: 07-16-2020 Alcohol intake Lifetime non-drinker (finding) [facility] Phone: Start: 06-24-2020 History SDOH Alcohol Frequency 1 [facility] Phone: Start: 06-24-2020 History SDOH Alcohol Std Drinks 99 [facility] Phone: Start: 06-24-2020 History SDOH Transpo rt Med 2 [facility] Phone: Sex Assigned At Not on file [facility] Phone: Exposure to SARS-CoV -2 (event) Not sure [facility] Phone: Sex Assigned At Sex Assigned At [facility] Other Clinical Notes 07-15-2020 to 01-05-2023 Note Date & Type Note Facility 01-05-2023 Note Addendum created 09/22 1555 by Tamar Lowry MD Clinical Note Signed, Diagnosis association updated, Intraprocedure Blocks edited, SmartForm saved [facility] 01-05-2023 Note Patient: Rossy stover Procedure Summary Date: 01/05/23 Room / Location: [facility] OR [address] [place] [address] [facility] OR Anesthesia Start: 725 Anesthesia Stop: 903 Procedure: SHOULDER ARTHROSCOPY WITH ROTATOR CUFF REPAIR, LABRAL DEBRIDEMENT, SUBSCAPULAR REPAIR, SUBACHROMIAL DECOMPRESSION AND PROXIMAL BICEPS TENDON REPAIR (Right: Shoulder) Diagnosis: Complete tear of right rotator cuff, unspecified whether traumatic Avulsion of subscapularis, right, initial encounter Type 1 superior labral fngtdbce-bs-dzlamoaut (SLAP) tear of right shoulder, initial encounter [...] per anesthesia protocol. No notable events documented. [facility] 01-05-2023 Note Patient: Rossy stover Procedure Summary Date: 01/05/23 Room / Location: [address] OR Anesthesia Start: 725 Anesthesia Stop: Procedure: SHOULDER ARTHROSCOPY WITH ROTATOR CUFF REPAIR, LABRAL DEBRIDEMENT, SUBSCAPULAR REPAIR, SUBACHROMIAL DECOMPRESSION AND PROXIMAL BICEPS TENDON REPAIR (Right: Shoulder) Diagnosis: Complete tear of right rotator cuff, unspecified whether traumatic Avulsion of subscapularis, right, initial encounter Type 1 superior labral vfbtzstn-kx-ssillxeyo (SLAP) tear of right shoulder, initial encounter [...] observation Transport: uneventful Patient condition is: stable [facility] 01-05-2023 Note Airway Date/Time: 01/05/2023 7:31 AM Urgency: elective General Information and Staff Patient location during procedure: OR Anesthesiologist: Tamar Lowry MD Resident/INGOT HEADER/CAA: Anthony Garrido CRNA Performed: resident/INGOT HEADER/CAA Indications and Patient Condition Indications for airway [...] Additional Comments 4ml 4% lidocaine lta utilized [facility] 01-05-2023 Note Peripheral Block Patient location during procedure: pre-op Start time: 01/05/2023 1:03 AM End time: 01/05/2023 7:17 AM Reason for block: at surgeon's request and post-op pain management Staffing Performed: anesthesiologist Anesthesiologist: Tamar Lowry MD Resident/INGOT HEADER: Anthony Garrido CRNA Preanesthetic Checklist Completed: patient [...] Paresthesia pain: none Heart rate change: no [facility] 01-05-2023 Note Patient: Rossy stover Procedure Information Date/Time: 01/05/23 5630 Procedure: SHOULDER ARTHROSCOPY WITH ROTATOR CUFF REPAIR (Right: Shoulder) - MITEK NOTIFIED 12/28 KEN Location: [facility] OR [address] [place] [address] OR Surgeons: Zuly Pruett MD Past Medical [...] risks discussed with patient. Plan discussed with INGOT HEADER. Additional Equipment Requests [facility] 10-16-2022 Note ---- Attestation signed by Zuly [...] the right shoulder completed on 08/19/21 @ [facility]. He continues to have pain in the right shoulder, primarily with motion/use of the arm. Pain at rest is a 5/10. He has failed PT/NSAIDs in the past. 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 Date of Telehealth Visit: 2021 The patient was notified that using 3rd constitution party telecommunication application (e.g. [employer]) is not HIPAA compliant and may carry some privacy risks: yes This visit was conducted [id number] with the use of audio and video [...] previous MRI report from 08/19 2021 from [facility] indicates complete tear of the supraspinatus tendon [...] be an additional personal documentation from me. [facility] 12-14-2021 Evaluation note Encounter Date Diagnosis Assessment Notes Dec, PAD (peripheral artery disease) (ICD-10 - I73.9) We reviewed this patient's TO studies from the [facility] showing left TO 0.94, right TO 0.70. [...] his risks and is unmotivated to quit. indidebt Other 04-15-2021 NoteFLUORO FOR SURGICAL PROCEDURES : [...] Signed by: Ming Bejarano MD 07/15/20 Final [facility]04-15-2021 NoteFLUORO FOR SURGICAL PROCEDURES : 07/15/2020 9:53 AM CLINICAL HISTORY: R52 Pain ICD10. COMPARISON: Non e available. Intraoperative fluoroscopy was provided for Dr. Valdez procedure. A total of 1.5 seconds of fluoroscopy was used, with 2 fluoroscopic stills saved. No diagnostic images were obtained. Please see Dr. Valdez surgical notes for completeness.[facility] Phone: evaluation note* Diagnosis Pain Generalized pain documented in this encounter [facility] Phone: History general Narrative - Reported* Type Description Date Medical History hypertension Surgical History Back Surgery 2021 Surgical History Shoulder surgery Surgical History spleenectomy Hospitalization History see above indidebt Other Summary Purpose Family History No Family [...] your physician 11) Call your doctor at [phone] for an appointment (or follow up as [...] call OFFICE. The 24- hour phone is [phone]) If you are unable to contact [...] Fluoro For Surgical Procedures Ousmane Valdez MD [id number], [address] [place] [address] Additional Source Comments (unrecognized sect ion and content) No Status Records FoundNo Status Records FoundNo Status Records FoundNo Status Records FoundNo Status Records Found INFORMATION SOURCE (unrecogn ized section and content) DATE CREATED AUTHOR 06/25/2020 [facility] DATE CREATED AUTHOR AUTHOR'S ORGANIZ ATION 07/20/2020 [facility] DATE CREATED AUTHOR AUTHOR'S ORGANIZ ATION 06/22/2021 [facility] DATE CREATED AUTHOR AUTHOR'S ORGANIZ ATION 11/09/[address] [facility] DATE CREATED AUTHOR AUTHOR'S ORGANIZ ATION 01/07/2023 [facility] Reason for Visit (unrecogniz ed section and content) Status Reason Specialty Diagnoses / Procedures Referre d By Contact Referred To Contact Diagnoses Lumbar disc herniation Lumbar radiculopathy DISC HERNIATION, RADICULOPATHY Procedures LAMINEC/FACETECT/FORAMIN ,LUMBAR 1 SEG WI LAMNOTMY INCL W/DCMPRSN NRV ROOT 1 INTRSPC LUMBR L4-5 RIGHT MICRODISKECTOMY/ 1 HR/ 1 C-ARM/ PAT AND RAPID COVID ON ADMIT Ousmane Valdez MD [address], [address] [place] [address] [facility] Ordered Prescriptions (unrec ognized section and [...] BE BASED ON THE PRIMARY CLINICAL RECORDS. [facility] [employer] [facility]. provides no warranty or guarantee of the accuracy or completeness of information in this document.
--- NOTE | 2023-06-13 09:52 | ECG_ITS ---
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
--- NOTE | 2023-06-13 09:54 | ED.GENADUL1 ---
HPI - General Adult General Chief complaint: Fall Stated complaint: FALL/HIGH BLOOD PRESSURE Time Seen by Provider: 06/13/23 09:36 Source: family Mode of arrival: Wheelchair Limitations: physical limitation History of Present Illness HPI narrative: 62-year-old male presents to the emergency department for weakness in his legs. He states today he went to get up to go to the bathroom and his legs would not work and he knew it and he sat down. He did not injure himself in any way. Family member accompanies him and she reports that he was somewhat confused initially but is not any longer. He has had ongoing pain in both of his legs and was supposed to see a bond underwriter but did not because he got sick. He states that they feel cold all the time and if he hangs them over the edge of the bed they get worse. He is a 1 pack-a-day smoker. He states he did not pass out. Related Data Home Medications Medication Instructions Recorded Confirmed clonidine HCl 0.1 mg tablet 0.2 mg PO Q8H 09/09/22 06/13/23 oxycodone-acetaminophen 10 mg-325 1 tab PO DAILY 09/09/22 06/13/23 mg tablet prednisone 10 mg tablet 10 mg PO DAILY 09/09/22 06/13/23 carvedilol 12.5 mg tablet 12.5 mg PO Q12H 06/03/23 06/13/23 cefdinir 300 mg capsule 600 mg PO .Q24hr 06/13/23 06/13/23 Previous Rx's Medication Instructions Recorded albuterol sulfate 90 mcg/actuation 2 inh inhalation Q6H PRN shortness 06/03/23 aerosol inhaler of breath or wheezing #8.5 grams prednisone 20 mg tablet 40 mg (2 x 20 mg) PO DAILY 5 days 06/03/23 #10 tabs Allergies Allergy/AdvReac Type Severity Reaction Status Date / Time No Known Drug Allergies Allergy Verified 06/13/23 09:39 Review of Systems ROS Narrative A ten point review of systems is negative except as noted above. PFSH PFSH Social History Smoking status: Current every day smoker Exam Narrative Exam Narrative: Nurses note and vital signs reviewed and patient is not hypoxic. General: The patient appears thin and in no apparent respiratory distress. Patient is resting comfortably on cart. Skin: Warm, dry, no pallor noted. There is no rash noted. Head: Normocephalic, atraumatic Eye: Normal conjunctiva, no drainage Ears, Nose, Mouth, and Throat: oral mucosa is moist. Nares patent. Cardiovascular: Regular Rate and Rhythm Respiratory: Patient is in no distress, no accessory muscle use, lungs are clear to auscultation, no wheezing, rales or rhonchi Back: non-tender GI: Soft and nontender Musculoskeletal: His feet and lower legs are slightly cool to touch and symmetric. Dorsalis pedis pulse 2+ bilaterally. He has tenderness on the plantar aspect of his right foot particularly at the first MTP joint. Neurological: A&O x4, normal speech; upper and lower extremity strength intact Psychiatric: Cooperative Constitutional Vital Signs, click to edit/add: Last Vital Signs Temp 98.4 F 06/13/23 09:37 Pulse 81 06/13/23 11:00 Resp 22 06/13/23 11:00 BP 193/147 H 06/13/23 10:30 Pulse Ox 98 06/13/23 10:40 O2 Del Method Room Air 06/13/23 09:37 Course Vital Signs Vital signs: Vital Signs Temperature 98.4 F 06/13/23 09:37 Pulse Rate 72 06/13/23 09:37 Respiratory Rate 18 06/13/23 09:37 Blood Pressure 185/81 H 06/13/23 09:37 Pulse Oximetry 100 06/13/23 09:37 Oxygen Delivery Method Room Air 06/13/23 09:37 Temperature 98.4 F 06/13/23 09:37 Pulse Rate 81 06/13/23 11:00 Respiratory Rate 22 06/13/23 11:00 Blood Pressure 193/147 H 06/13/23 10:30 Pulse Oximetry 98 06/13/23 10:40 Oxygen Delivery Method Room Air 06/13/23 09:37 Medical Decision Making MDM Narrative Medical decision making narrative: Laboratory analysis is negative. The patient clearly has peripheral arterial disease and had weakness in his legs. The patient should be admitted to the hospital for further workup but he adamantly refuses to do so. He was advised of the risks of leaving AGAINST MEDICAL ADVICE including ultimately the loss of his foot. Family members present also and I discussed these matters with her as well. He is fully able to make medical decisions for himself. Treatment diagnosis and follow-up were discussed with the patient Differential Diagnosis Differential Diagnosis: Syncope, weakness, dehydration, anemia Lab Data Lab results reviewed: Yes I reviewed the patient's lab results Labs: Lab Results 06/13/23 Range/Units 09:55 WBC 16.9 H (4.0-11.0) 10^3/uL RBC 4.74 (4.70-6.10) 10^6/uL Hgb 15.2 (14.0-18.0) g/dL Hct 45.6 (42.0-54.0) % MCV 96.2 H (80.0-94.0) fL MCH 32.1 (25.9-34.0) pg MCHC 33.3 (29.9-35.2) g/dL RDW 15.3 H (11.0-15.0) % Plt Count 245 (150-450) 10^3/uL MPV 10.6 (9.5-13.5) fL Seg Neuts % (Manual) 46.0 Lymphocytes % (Manual) 36.0 (20.5-60.0) % Monocytes % (Manual) 18.0 H (1.7-12.0) % Eosinophils % (Manual) 0.0 L (0.9-7.0) % Basophils % (Manual) 0.0 L (0.2-2.0) % Neutrophils # (Manual) 7.77 H (1.4-6.5) 10^3/uL Lymphocytes # (Manual) 6.08 H (1.20-3.80) 10^3/uL Monocytes # (Manual) 3.04 H (0.30-0.80) 10^3/uL Eosinophils # (Manual) 0.00 (0.00-0.70) 10^3/uL Basophils # (Manual) 0.00 (0.00-0.10) 10^3/uL Sodium 138 (136-145) mmol/L Potassium 4.3 (3.5-5.1) mmol/L Chloride 102 (98-107) mmol/L Carbon Dioxide 30.2 (21.0-32.0) mmol/L Anion Gap 10.1 BUN 16.0 (7.0-18.0) mg/dL Creatinine 0.73 (0.70-1.30) mg/dL Est GFR ( Amer) >60 (>=60) Est GFR (Non-Af Amer) >60 (>=60) BUN/Creatinine Ratio 21.9 Glucose 106 (74-106) mg/dL Calcium 8.8 (8.5-10.1) mg/dL Total Bilirubin 0.4 (0.2-1.0) mg/dL Direct Bilirubin 0.1 (0.0-0.2) mg/dL AST 98 H (15-37) U/L ALT 152 H (16-63) U/L Alkaline Phosphatase 66 (46-116) U/L Troponin I High Sens <4.0 L (4.0-76.1) pg/mL Total Protein 7.1 (6.4-8.2) g/dL Albumin 2.9 L (3.4-5.0) g/dL Globulin 4.2 g/dL Albumin/Globulin Ratio 0.7 Imaging Data Chest x-ray: Radiologist's impression: ITS Impressions Chest X-Ray 06/13/23 10:29 Impression: No acute heart or lung disease identified. Electronically authenticated by: ZULY MONTEZ Date: 06/13/2023 10:49 Foot X-Ray 06/13/23 10:29 IMPRESSION: No acute fracture or dislocation. Scattered mild osteoarthritic changes of the interphalangeal joints. Partially visualized ORIF hardware of the distal tibia without overt complication. Minimal dorsal calcaneal enthesopathy. Soft tissues are grossly unremarkable. Electronically authenticated by: TYREL FLETCHER Date: 06/13/2023 10:52 Discharge Plan Discharge Stand Alone Forms: Portal Instructions Chief Complaint: Fall Clinical Impression: Weakness, Peripheral arterial disease, Left against medical advice Patient Disposition: Home, Self-Care Time of Disposition Decision: 11:13 Condition: Good Mode of Transportation: Private Vehicle Prescriptions / Home Meds: No Action clonidine HCl 0.1 mg tablet 0.2 mg PO Q8H oxycodone-acetaminophen 10-325 mg tablet 1 tab PO DAILY prednisone 10 mg tablet 10 mg PO DAILY cefdinir 300 mg capsule 600 mg PO .Q24hr carvedilol 12.5 mg tablet 12.5 mg PO Q12H prednisone 20 mg tablet 40 mg PO DAILY 5 Days Qty: 10 0RF albuterol sulfate 90 mcg/actuation HFA aerosol inhaler 2 inh inhalation Q6H PRN (Reason: shortness of breath or wheezing) Qty: 8.5 0RF Instructions: Peripheral Artery Disease (ED), Weakness (ED) Referrals: Stephen Hung MD [Primary Care Provider] - 1 week
[2023-06-13 10:05] LABS: Hematocrit 45.6 % (42.0-54.0); Hemoglobin 15.2 g/dL (14.0-18.0); Mean Corpuscular HGB Conc 33.3 g/dL (29.9-35.2); Mean Corpuscular Hemoglobin 32.1 pg (25.9-34.0); Mean Corpuscular Volume 96.2 fL (80.0-94.0); Mean Platelet Volume 10.6 fL (9.5-13.5); Platelet Count 245 10^3/uL (150-450); Red Blood Count 4.74 10^6/uL (4.70-6.10); Red Cell Distribution Width 15.3 % (11.0-15.0); White Blood Count 16.9 10^3/uL (4.0-11.0)
[2023-06-13 10:24] LABS: Alanine Aminotransferase 152 U/L (16-63); Albumin Globulin Ratio 0.7; Albumin Level 2.9 g/dL (3.4-5.0); Alkaline Phosphatase 66 U/L (46-116); Anion Gap 10.1; Aspartate Amino Transferase 98 U/L (15-37); BUN Creatinine Ratio 21.9; Bilirubin Direct 0.1 mg/dL (0.0-0.2); Bilirubin Total 0.4 mg/dL (0.2-1.0); Calcium 8.8 mg/dL (8.5-10.1); Carbon Dioxide 30.2 mmol/L (21.0-32.0); Chloride 102 mmol/L (98-107); Estimated GFR (African America >60 (>=60); Estimated GFR (Non-African Ame >60 (>=60); Globulin 4.2 g/dL; Glucose 106 mg/dL (74-106); Potassium 4.3 mmol/L (3.5-5.1); Sodium 138 mmol/L (136-145); Total Protein 7.1 g/dL (6.4-8.2); Troponin I High Sensitivity <4.0 pg/mL (4.0-76.1)
[2023-06-13 10:28] LABS: Lymphocytes Absolute Manual 6.08 10^3/uL (1.20-3.80); Monocytes Absolute Manual 3.04 10^3/uL (0.30-0.80); Segmented Neut Absolute Manual 7.77 10^3/uL (1.4-6.5)
--- NOTE | 2023-06-13 10:29 | XR_ITS ---
The [address] [address] Patient Name: ROSSY ALFONSO MRN: [id number] date: 1960 Sex: M Assigned Patient Location: ER Current Patient Location: ER Accession/Order Number: [id number] Exam Date: 06/13/2023 10:20 Report Date: 06/13/2023 10:49 At the request of: ROSSY KENNEDY Procedure: XR chest 1V EXAM: Chest x-ray HISTORY: . Fall, weak . COMPARISON: 06/03/2023 TECHNIQUE: Single view of the chest. FINDINGS: Heart and vascularity are unremarkable. Lungs are free of focal infiltrates. EKG leads overlie the chest. XR/XR chest 1V Impression: No acute heart or lung disease identified. Electronically authenticated by: ZULY MONTEZ Date: 06/13/2023 10:49
--- NOTE | 2023-06-13 10:29 | XR_ITS ---
The [address] [address] Patient Name: ROSSY ALFONSO MRN: [id number] date: 1960 Sex: M Assigned Patient Location: ER Current Patient Location: ER Accession/Order Number: [id number] Exam Date: 06/13/2023 10:20 Report Date: 06/13/2023 10:52 At the request of: ROSSY KENNEDY Procedure: XR foot RT min 3V 3 views of the right foot INDICATION: Pain COMPARISON: None XR/XR foot RT min 3V IMPRESSION: No acute fracture or dislocation. Scattered mild osteoarthritic changes of the interphalangeal joints. Partially visualized ORIF hardware of the distal tibia without overt complication. Minimal dorsal calcaneal enthesopathy. Soft tissues are grossly unremarkable. Electronically authenticated by: TYREL FLETCHER Date: 06/13/2023 10:52
[2023-06-13 11:12] LABS: Bilirubin Urine NEGATIVE (NEGATIVE); Blood Urine NEGATIVE (NEGATIVE); Clarity Urine CLEAR (CLEAR); Color Urine YELLOW (YELLOW); Glucose Urine UA NEGATIVE (NEGATIVE); Ketones Urine TRACE mg/dL (NEGATIVE); Leukocyte Esterase Urine NEGATIVE (NEGATIVE); Nitrite Urine NEGATIVE (NEGATIVE); Protein Urine 30 mg/dL (NEG/TRACE); Specific Gravity Urine 1.025 (1.005-1.025)
[2023-06-13 11:19] LABS: Bacteria Urine TRACE #/HPF (NONE SEEN); Mucus Urine SMALL (NONE SEEN); RBC Urine NONE SEEN #/HPF (0-2); Squamous Epithelial Cell Urine RARE #/LPF (NONE/RARE); WBC Urine NONE SEEN #/HPF (NONE SEEN)
[2023-06-13 11:20] LABS: Cast Seen? NONE SEEN #/LPF (NONE SEEN); Crystals Seen? None Seen #/HPF (None Seen)
== END 2023-06-13 11:25 | disposition left against medical advice (07) ==
PROVIDERS: Emergency Provider Emergency Medicine; PCP Family Medicine
DX: I73.9 Peripheral vascular disease, unspecified (principal); R53.1 Weakness; Z53.29 Procedure and treatment not carried out because of patient's decision for other reasons; F17.210 Nicotine dependence, cigarettes, uncomplicated; Z79.899 Other long term (current) drug therapy
CPT/HCPCS: 36415; 71045; 73630; 80048; 80076; 81001; 84484; 85007; 85027; 87040; 93005; 99285

== ENCOUNTER 2023-06-14 12:13 | Outpatient (OUT) | payer OTHER, SELFPAY ==
--- NOTE | 2023-06-14 12:15 | US_ITS ---
[place] [id number] Patient Name: ROSSY ALFONSO MRN: [id number] date: 1960 Sex: M Assigned Patient Location: US Current Patient Location: .MAIN Accession/Order Number: [id number] Exam Date: 06/14/2023 12:25 Report Date: 06/15/2023 09:01 At the request of: RENALDO VALLES Procedure: US arterial duplex LE BI EXAMINATION: US arterial duplex LE BI HISTORY: leg pain M79.606 ; cold, purple, painful feet COMPARISON: No relevant comparison available. TECHNIQUE: Color and Duplex Doppler ultrasound evaluation analysis were performed in the usual manner. FINDINGS: RIGHT LOWER EXTREMITY ARTERIAL: Moderate atherosclerotic plaque within iliac artery. Small, narrow vessels and abnormal monophasic waveform throughout lower extremity. External Iliac PSV: 35.8 cm/s External Iliac EDV: 7.3 cm/s Common Femoral PSV: 15.0 cm/s Common Femoral EDV: 3.6 cm/s Superficial Femoral Proximal PSV: 22.9 cm/s Proximal EDV: 0.0 cm/s Mid PSV: 30.3 cm/s Mid EDV: 0.0 cm/s Distal PSV: 16.7 cm/s Distal EDV: 0.0 cm/s Popliteal Proximal PSV: 11.5 cm/s Popliteal Proximal EDV: 0.0 cm/s Posterior Tibial Proximal PSV: 10.1 cm/s Proximal EDV: 0.0 cm/s Mid PSV: 10.2 cm/s Mid EDV: 0.0 cm/s Distal PSV: 9.3 cm/s Distal EDV: 0.0 cm/s Anterior Tibial Proximal PSV: 9.0 cm/s Proximal EDV: 0.0 cm/s Mid PSV: 7.2 cm/s Mid EDV: 0.0 cm/s Distal PSV: 9.7 cm/s Distal EDV: 0.0 cm/s LEFT LOWER EXTREMITY ARTERIAL : Minimal atherosclerotic plaque in iliac artery. Normal triphasic waveform throughout. External Iliac PSV: 174.9 cm/s External Iliac EDV: 0.0 cm/s Common Femoral PSV: 75.4 cm/s Common Femoral EDV: 4.4 cm/s Superficial Femoral Proximal PSV: 51.4 cm/s Proximal EDV: 0.0 cm/s Mid PSV: 47.0 cm/s Mid EDV: 0.0 cm/s Distal PSV: 45.3 cm/s Distal EDV: 0.0 cm/s Popliteal Proximal PSV: Popliteal Proximal EDV: Posterior Tibial Proximal PSV: 43.5 cm/s Proximal EDV: 0.0 cm/s Mid PSV: 37.4 cm/s Mid EDV: 0.0 cm/s Distal PSV: 28.7 cm/s Distal EDV: Anterior Tibial Proximal PSV: 38.3 cm/s Proximal EDV: 0.0 cm/s Mid PSV: 24.3 cm/s Mid EDV: 0.0 cm/s Distal PSV: 20.8 cm/s Distal EDV: 0.0 cm/s US/US arterial duplex LE BI IMPRESSION: 1. Right lower extremity demonstrates abnormal monophasic waveform from iliac artery through distal calf arteries with narrowed vessels throughout. Moderate atherosclerotic plaque within iliac artery, but relatively little atherosclerotic plaque throughout remainder of the extremity. Given the lack of significant atherosclerotic disease within the lower extremity, CTA of the abdomen and pelvis should be considered to evaluate for more central significant stricture , likely involving the common iliac artery. 2. Left lower extremity demonstrates normal triphasic waveform and minimal atherosclerotic plaque. Electronically authenticated by: MIGUELANGEL GUEVARA Date: 06/15/2023 09:01
== END 2023-06-14 12:14 | disposition home or self-care (01) ==
LOC: US 12:13
PROVIDERS: PCP Family Medicine; Visit Provider Family Medicine
DX: M79.606 Pain in leg, unspecified (principal)
CPT/HCPCS: 93925

== ENCOUNTER 2023-07-05 08:31 | Outpatient (OUT) | payer OTHER, SELFPAY ==
--- NOTE | 2023-07-05 08:38 | CT_ITS ---
[address] [address] Patient Name: ROSSY ALFONSO MRN: [id number] date: 1960 Sex: M Assigned Patient Location: CT Current Patient Location: CT Accession/Order Number: [id number] Exam Date: 07/05/2023 09:00 Report Date: 07/05/2023 10:28 At the request of: RENALDO VALLES Procedure: CT angio abdomen pelvis CT angio abdomen pelvis, 07/05/2023 9:00 AM EDT INDICATION: Peripheral vascular disease I73.9 COMPARISON: There is no appropriate prior study for comparison. TECHNIQUE: Axial images of the abdomen and pelvis were obtained after the administration of IV contrast. Multiplanar reformatted images were generated and reviewed as needed. 3-D images were generated. Dose reduction techniques were achieved by using automated exposure control and/or adjustment of mA and/or kV according to patient size and/or use of iterative reconstruction technique. FINDINGS: Lungs: The base of lungs is clear. No pleural effusion is noted. Liver and gallbladder: The liver and gallbladder are unremarkable. No enlargement of intra or extrahepatic biliary ducts. Genitourinary system: No hydronephrosis. No nephrolithiasis. No abnormality of the urinary bladder is noted. Other solid abdominal organs: adrenal glands, pancreas, and spleen are unremarkable. Aorta: There is severe atherosclerotic changes within the abdominal aorta. No aneurysm is noted. Intracranial luminal hematoma measuring approximately 20% of the volume of the lumen in the supraorbital renal abdominal aorta is noted. There is circumferential intramural hematoma in the infrarenal abdominal aorta causing mild stenosis (less than 50%). The celiac SMA and renal arteries are patent. There are 2 renal arteries for each kidney. There is severe stenosis of proximal EDGAR with reconstruction by collaterals. There is total occlusion of the right common iliac artery with reconstruction distally with multiple mild focal narrowing of the right internal and external iliac arteries is noted. Moderate atherosclerotic changes within the left common iliac artery with focal mild stenosis in the midportion (less than 50%). Diffuse atherosclerotic changes within the left external and internal iliac arteries is noted. There is a focal dissection in the proximal portion of the left internal iliac artery causing moderate stenosis (approximately 60%). No hemodynamically significant stenosis within the left external iliac artery. The visualized portion of the common femoral and superficial and deep femoral arteries are unremarkable. Free fluid: There is no free fluid in the abdomen pelvis. Lymph node: No lymph node enlargement by size criteria is noted. Stomach and Bowel: No abnormality of the stomach is noted. No significant abnormality of the small or large bowel is noted. Bone: There is no suspicious osteolytic or osteoblastic lesion. Lower lumbar spine and SI joints degenerative changes are noted. There are diffuse demineralization of bone. CT/CT angio abdomen pelvis IMPRESSION: Severe atherosclerotic changes within the infrarenal abdominal aorta. Complete occlusion of the right common iliac artery with reconstruction distally. Multiple focal stenosis within the right external iliac artery. Occlusion of the proximal EDGAR with reconstruction distally. Electronically authenticated by: TEREZA CAT Date: 07/05/2023 10:28
--- OUTSIDE RECORDS SUMMARY | 2023-07-05 08:41 | XMS_ITS | CCD ---
Author Organization [facility] Care Team Providers Care Data Processing Auditor Name Role Phone Renaldo Hung Primary Care Provider OUSMANE VALDEZ Referring Unavailable RENALDO HUNG Primary Care Unavailable OUSMANE VALDEZ HSky Attending Unavailable OUSMANE VALDEZ HSky Attending Unavailable RENALDO HUNG Primary Care Unavailable OUSMANE VALDEZ HSky Admitting Unavailable HAI, DR MACARIO Admitting Unavailable HOY, DR MACARIO Attending Unavailable BLANCAY, DR MACARIO Primary Care Unavailable HOY, DR MACARIO Consulting Unavailable HOY, DR MACARIO Admitting Unavailable HOY, DR MACARIO Attending Unavailable HOY, DR MACARIO Primary Care Unavailable HOY, DR MACARIO Admitting Unavailable HOY, DR MACARIO Attending Unavailable HOY, DR MACARIO Primary Care Unavailable HOY, DR MACARIO Consulting Unavailable ZULY PRUETT Admitting Unavailable SAMUEL, ZULY Attending Unavailable HAI, DR MACARIO Primary Care Unavailable ZINATHAN, DR MIGUELANGEL Gooden Consulting Unavailable SAMUEL, ZULY Consulting Unavailable HOY, DR MACARIO Admitting Unavailable HOY, DR MACARIO Attending Unavailable HAI, DR MACARIO Primary Care Unavailable HOGuerline, DR MACARIO Consulting Unavailable FACKLER, DR ZULY Shelton Consulting Unavailable Ruth Mosquera Unavailable ZULY PRUETT Admitting Unavailable SAMUEL, ZULY Attending Unavailable SAMUEL, ZULY Attending Unavailable Medications Current Medications Medication Drug [...] 07-15-2020 ondansetron (ZOFRAN) injection 4 mg sennosides, long term 8.6 mg oral tablet (2 sources) Start: [...] Interpretation Reference Range Facility Anesthesiaon 01-05-2023 Anesthesia [id number] Rossy Alfonso 1960 M Date Provider Department Center 01/05/2023 LETICIA PAGAN [facility] OR RIKKI No family history on file Normal [facility] OPNOTEon 01-05-2023 OPNOTE SHOULDER ARTHROSCOPY WITH ROTATOR CUFF REPAIR X2, LABRAL DEBRIDEMENT, SUBSCAPULAR REPAIR, SUBACROMIAL DECOMPRESSION AND CAPSULAR RELEASE(R) Operative Note Date: 01/05/2023 Location: [facility] OR Name: Rossy Alfonso, : 1960, Diagnosis Pre-op Diagnosis * Complete tear of right rotator cuff, unspecified whether traumatic [M75.121] Post-op Diagnosis * Complete tear of right rotator cuff, unspecified whether traumatic [M75.121] * Avulsion of subscapularis, right, initial encounter [S46.891A] * Type 1 superior labral deralksi-cb-recbyubfs (SLAP) tear of right shoulder, initial encounter [S43.431A] * 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] * Impingement syndrome of right shoulder [M75.41] Procedures SHOULDER ARTHROSCOPY WITH ROTATOR CUFF REPAIR, LABRAL DEBRIDEMENT, SUBSCAPULAR REPAIR, SUBACHROMIAL DECOMPRESSION AND PROXIMAL BICEPS TENDON REPAIR 62753 - [place] SURGICAL ARTHROSCOPY SHOULDER W/ROTATOR CUFF RPR WA SURGICAL ARTHROSCOPY SHOULDER W/ROTATOR CUFF RPR [46230] [place] SURGICAL ARTHROSCOPY SHOULDER W/ROTATOR CUFF RPR [27062] [place] SURGICAL ARTHROSCOPY SHOULDER W/ROTATOR CUFF RPR [39485] [place] SURGICAL ARTHROSCOPY SHOULDER LMTD DBRDMT 1/2 [56268] [place] CAPSULAR CONTRACTURE RELEASE [60900] Surgeons * Zuly Pruett - Primary Procedure Summary Anesthesia: General ASA: II Estimated Blood Loss: 20 mL Total IV Fluids: mL Drains: * None in log * Implants Type Name Action Serial No. healix advance peek anchor w/dynacord Implanted Staff: Motor Transport Inspector: Sandra Bernardo RN Scrub Person: Flakita Martel [...] hemodynamically stable. Condition: stable Zuly Pruett Normal [facility] POCT GLUCOSE METER UNSOLICIT ED RESULTSon 01-05-2023 Glucose [Mass/Vol] 93 mg/dL Normal 70-105 [facility] Comment on above: Order Comment: Waive d Testing in the ED is performed under the ED CLIA certificate #[id number]. Result Comment: ltol les Performed By: #### L [id number] ####[facility] ([facility]AK[facility])[address] [place] [address] HPon 01-04-2023 HP History Of Present Illness [...] Results XR shoulder 2+ views right Narrative: [facility] Department of Radiology [address] [place] [id number] Patient Name: ROSSY ALFONSO : 1960 [...] abnormality. Electronically signed: Harrison Lawton. Transcribed by: [email or web address], User Resident: Electronically Signed by: HARRISON LAWTON @ 06/18/2021 07:17 AM Assessment/Plan Principal Problem: Complete tear of right rotator cuff R revision RCR Normal [facility] [id number] 12-25-2022 [id number] Nothing to Eat or Drink, including Candy, [...] THE FOLLOWING ARE NOT AVAILABLE: An adult ups driver over the age of 18, that [...] lenses. Do not wear perfume, make-up, nail nepali, or lotions on the day of your [...] need to make any changes, please call [phone]. Notify your surgeon if you develop any illness such as a cold, cough, fever, sore throat or vomiting between now and your surgery. Thank you for entrusting us with your care. [facility] Surgical Services Team Normal [facility] Office Visiton 10-16-2022 Follow-up visit [id number] Rossy Alfonso 1960 M Date Provider Department Center 10/16/2022 ZULY CACERES MP ORTHO MPORTHO No family history on file Level of Service:64829 [place] OFFICE/OUTPATIENT ESTABLISHED MOD MDM 30-39 MIN (57,GC) Reason for Visit and Comments: Follow-up [341225] - Discuss surgical planning Pain [136] - Discuss surgical planning Normal [facility] 08-11-2022 36 Surgery scheduled Normal [facility] 08-10-2022 36 Patient's calling again to schedule sx. Normal [facility] XR LSPINE MIN 4 VIEWSon 08-0 XR LSPINE MIN 4 VIEWS EXAMINATION: XR [...] by: ZULY PATE Date: 2021-11-07 07:[address] [facility] MRI SHOULDER RT WO CONon MRI [...] MIGUELANGEL GUEVARA Date: 2021-08-19 15:38 Normal [facility] SHOULDER RIGHTon 06-17-[address] [facility] Department of Radiology [address] [place] [phone] Patient Name: ROSSY ALFONSO : 1960 Sex: M Age: Race: White Pt. Location: 84 Patient Status: D Ordered Date: 06/17/2021 2:40:00 [...] abnormality. Electronically signed: Harrison Lawton. Transcribed by: [email or web address], User Resident: Electronically Signed by: HARRISON LAWTON @ 06/18/2021 07:[address] [facility] Comment on above: Order Comment: Views (X-RAY, SHOULDER): AP, Y-Lateral Covid-19 PCR (CVDTBH)on 04-02 SARS-CoV-2 (COVID-19) RNA JUAN+probe Ql (Unsp spec) Detected Critically abnormal NOT DETECTED [facility] Comment on above: Result Comment: This test is not yet approved or cleared by the [place] FDA. When there are no FDA-approved or cleared tests available, and other criteria are met, FDA can make tests available under an emergency access mechanism called an Emergency Use Authorization (EUA). The EUA for this test is supported by the Electrical Line Mechanic of Health and Human Service's (HHS's) declaration [...] longer be used). Performed By: #### C [facility] #### [facility] [address] [place] [address] Dr. Wiliam Garrison FLUORO FOR SURGICAL PROCEDUR ESOrdered By: Ousmane Valdez on 07-15-2020 Miko, Chpo Incoming Radiant Results From [facility] - 07/15/2020 11:25 AM EDT FLUORO FOR SURGICAL PROCEDURES : 07/15/2020 9:53 AM CLINICAL HISTORY: R52 Pain ICD10. COMPARISON: None available. Intraoperative fluoroscopy was provided for Dr. Valdez procedure. A total of 1.5 seconds of fluoroscopy was used, with 2 fluoroscopic stills saved. No diagnostic images were obtained. Please see Dr. Valdez surgical notes for completeness. [facility] Work Phone: Surgical Specimenon 07-16-19 21 Surgical Specimen [facility] [address] [place] [address] FINAL SURGICAL PATHOLOGY REPORT Patient Name: ROSSY ALFONSO Accession No: [id number] Age Sex: 1960 Location: [facility] Account No: [id number] Collected: 07/15/[address] [facility] Rec No: [id number] Received: 07/15/2020 Attend Phys: OUSMANE VALDEZ Completed: [...] submitted in two cassettes after brief decalcification. LOW CPT: 75097 X1 27228 X1 NICHELLE POWERS M.D. 07/16/2020 Electronically signed out by Page 1 of 1 Invalid Interpretation Code [facility] Comment on above: Performed By: #### S UR #### [facility] [address] [place] [id number] COVID-19, NAAon 06-25-2020 COVID-19, JUAN Not Detected Normal Not Detect [facility] Comment on above: Result Comment: This nucleic acid amplification test was developed and its performance characteristics determined by [employer]. Nucleic acid amplification tests include RT-PCR and [...] detected) result in this assay. Performed at: [address], [place], [place] [id number] Closet Builder: Deon Camejo PhD, Phone: [phone] Performed By: #### I RCOV #### [facility] [address] [place] [id number] Basic Metabolic Panelon - Anion gap [Moles/Vol] 14 mmol/L Normal 9-15 [facility] Comment on above: Performed By: #### B MP #### [facility] [address] [place] [address] Calcium [Mass/Vol] 9.6 mg/dL Normal 8.5-9.9 [facility] Comment on above: Performed By: #### B MP #### [facility] [address] [place] [address] Chloride [Moles/Vol] 99 mmol/L Normal 95-107 [facility] Comment on above: Performed By: #### B MP #### [facility] [address] [place] [address] CO2 [Moles/Vol] 27 mmol/L Normal 20-31 [facility] Comment on above: Performed By: #### B MP #### [facility] [address] [place] [address] Creatinine [Mass/Vol] 0.79 mg/dL Normal 0.70-1.20 [facility] Comment on above: Performed By: #### B MP #### [facility] [address] [place] [address] GFR/1.73 sq M predicted among blacks MDRD (S/P/Bld) [Vol rate/Area] mL/min/{1.73_m2} Normal >60 [facility] Comment on above: Result Comment: >60 mL/min/1.73m2 EGFR, calc. for ages 18 and older using the MDRD formula (not corrected for weight), is valid for stable renal function. Performed By: #### B MP #### [facility] [address] [place] [address] GFR/1.73 sq M.predicted MDRD (S/P/Bld) [Vol rate/Area] mL/min/{1.73_m2} Normal >60 [facility] Comment on above: Result Comment: >60 mL/min/1.73m2 EGFR, calc. for ages 18 and older using the MDRD formula (not corrected for weight), is valid for stable renal function. Performed By: #### B MP #### [facility] [address] [place] [address] Glucose [Mass/Vol] 88 mg/dL Normal 70-99 [facility] Comment on above: Performed By: #### B MP #### [facility] [address] [place] [address] Potassium [Moles/Vol] 4.7 mmol/L Normal 3.4-4.9 [facility] Comment on above: Performed By: #### B MP #### [facility] [address] [place] [address] Sodium [Moles/Vol] 140 mmol/L Normal 135-144 [facility] Comment on above: Performed By: #### B MP #### [facility] [address] [place] [address] Urea nitrogen [Mass/Vol] 17 mg/dL Normal 6-20 [facility] Comment on above: Performed By: #### B MP #### [facility] [address] [place] [address] CBC With Platelet No Differe ntialon 06-24-2020 Platelets (Bld) [#/Vol] Not Done Normal 130-400 [facility] Comment on above: Result Comment: Unab le to obtain accurate platelet count due to giant platelet population. Platelet estimate 231 Performed By: #### C BCND #### [facility] [address] [place] [address] Platelet Slide Review Normal Normal [facility] Comment on above: Performed By: #### C BCND #### [facility] [address] [place] [address] Erythrocyte distribution width (RBC) [Ratio] 14.3 % Normal 11.5-14.5 [facility] Comment on above: Performed By: #### C BCND #### [facility] [address] [place] [address] Hematocrit (Bld) [Volume fraction] 50.1 % Normal 42.0-52.0 [facility] Comment on above: Performed By: #### C BCND #### [facility] [address] [place] [address] Hemoglobin (Bld) [Mass/Vol] 16.8 g/dL Normal 14.0-18.0 [facility] Comment on above: Performed By: #### C BCND #### [facility] [address] [place] [address] MCH (RBC) [Entitic mass] 32.3 pg Critically high 27.0-31.3 [facility] Comment on above: Performed By: #### C BCND #### [facility] [address] [place] [address] MCHC (RBC) [Mass/Vol] 33.6 % Normal 33.0-37.0 [facility] Comment on above: Performed By: #### C BCND #### [facility] [address] [place] [address] MCV (RBC) [Entitic vol] 96.1 fL Normal 80.0-100.0 [facility] Comment on above: Performed By: #### C BCND #### [facility] [address] [place] [address] RBC (Bld) [#/Vol] 5.21 10*6/uL Normal 4.70-6.10 [facility] Comment on above: Performed By: #### C BCND #### [facility] [address] [place] [address] WBC (Bld) [#/Vol] 17.9 10*3/uL Critically high 4.8-10.8 [facility] Comment on above: Performed By: #### C BCND #### [facility] [address] [place] [address] COVID-19, NAAon 06-24-2020 Source Swab Anterior nares Normal [facility] Comment on above: Performed By: #### I RCOV #### [facility] [address] [place] [address] Partial Thromboplastin Timeo n 06-24-2020 aPTT Coag (Bld) [Time] 30.0 s Normal 24.4-36.8 [facility] Comment on above: Result Comment: Effgrace ctive 02/04/2020: Heparin Therapeutic Range: 64.0 ? 98.0 seconds. Performed By: #### P TT #### [facility] [address] [place] [address] Prothrombin Timeon INR Coag (PPP) [Relative time] 0.9 {INR} Normal [facility] Comment on above: Performed By: #### P T #### [facility] [address] [place] [address] PT Coag (PPP) [Time] 12.4 s Normal 12.3-14.9 [facility] Comment on above: Performed By: #### P T #### [facility] [address] [place] [address] Type and Screen Capture 3 sc rn cellon 06-24-2020 Type and Screen Capture 3 scrn cell PATIENT: NATY Brady LOC: [facility] BILL# : [id number] : 1960 SEX: M ORDERED BY: LESLYE Elizabeth ORDERED : 06/24/2020 10:28 COLLECTED: 06/24/2020 10:28 ORDER : [id number] RECEIVED : 06/24/2020 14:41 TEST NAME RESULT UNITS RANGES ABN FL ST ABORH Capture A POS F Antibody 3 Cell Scrn Captu NEG F Normal [facility] Comment on above: Performed By: #### T S3C #### [facility] [address] [place] [address] Vital Signs Date Time Vital Sign Value Performing Clinician Facility 12-14-2021 11:00-0400 Body height 180.34 cm Ruth Mosquera Other [facility] Other 12-14-2021 11:00-0400 Body mass index (BMI) [Ratio] 20.64 kg/m2 Ruth Mosquera Other [facility] Other 12-14-2021 11:00-0400 Body temperature 97 [degF] Ruth Mosquera Other [facility] Other 12-14-2021 11:00-0400 Body weight 67.13 kg Ruth Mosquera Other [facility] Other 12-14-2021 11:00-0400 Diastolic blood pressure 80 mm[Hg] Ruth Mosquera Other [facility] Other 12-14-2021 11:00-0400 SaO2% (BldA) [Mass fraction] 95 % Ruth Mosquera Other [facility] Other 12-14-2021 11:00-0400 Systolic blood pressure 160 mm[Hg] Ruth Mosquera Other [facility] Other 07-15-2020 13:50-0400 BP Diastolic 84 mm[Hg] Ousmane Jordin [facility] Work Phone: 07-15-2020 13:50-0400 BP Systolic 169 mm[Hg] [employer] Phone: 07-15-2020 13:50-0400 Pulse (Heart Rate) 95 /min [facility] Phone: 07-15-2020 13:50-0400 Pulse Oximetry 94 % [employer] Phone: 07-15-2020 13:50-0400 Respiratory Rate 18 /min [employer] Phone: 07-15-2020 13:35-0400 Body Temperature 98.8 [degF] [facility] Phone: 07-15-2020 08:31-0400 BMI (Body Mass Index) 21.38 kg/m2 [facility] Phone: 07-15-2020 08:31-0400 Body weight 67.59 kg [facility] Phone: 07-15-2020 08:31-0400 Height 177.8 cm [facility] Phone: Encounters Encounter Date Encounter Type Care Provider Facility Start: 01-05-2023 End: 01-05-2023 ambulatory [facility] Start: 10-16-2022 ambulatory ZULY [facility] Start: 10-16-2022 Encounter for other preprocedural examination ZULY [facility] Start: 12-14-2021 End: 12-14-2021 ambulatory Ruth Mosquera Other [facility] Other Start: 12-14-2021 [facility] visit new patient Ruth Oz perez [facility] Start: 11-04-2021 End: 11-05-[address] RENALDO HUNG Facility:[facility] Start: 08-25-2021 End: 08-26-[address] RENALDO HUNG Facility:[facility] Start: 08-19-2021 End: 08-20-2021 ambulatory ZULY PRUETT Facility:[facility] Start: 06-14-2021 End: 06-29-[address] RENALDO HUNG Facility:[facility] Start: 04-20-2021 End: 04-20-[address] RENALDO HUNG Facility:[facility] Start: 07-15-2020 End: 07-15-2020 [facility] Start: 07-15-2020 End: 07-18-2020 ambulatory [facility] Start: 07-15-2020 End: 07-15-2020 Subsequent hospital visit by physician Ousmane Valdez Work Phone: [facility] Comment on above: Postoperative pain ( Primary Dx) Start: 07-15-2020 End: 07-17-2020 Subsequent hospital visit by physician Ousmane Valdez MD Work Phone: [facility] Comment on above: Pain Procedures Date Procedure Procedure Detail Performing Clinician Start: 07-15-2020 Fluoroscopy during operation Ousmane Valdez MD Work Phone: Plan of Treatment Date Care Activity Detail Author Start: 12-01-2020 Influenza vaccination Flu vacc ine (Season Ended) [employer] Phone: Start: 07-30-2020 End: 07-30-2020 Office Visit 07/30/2020 Office Visit Neurosurgery Ousmane Valdez MD [address] [facility] [place], [place] [id number] [email or web address] Start: 07-27-2020 End: 07-27-2020 Appointment 07/27/2020 Appointment Radiology [facility] Start: 07-27-2020 End: 07-27-2020 Appointment [facility] Start: 2017 Screening for malign ant neoplasm of lung Low dose CT lung screening [employer] Phone: Start: 2012 Screening for malign ant neoplasm of colon Colon cancer screen colonoscopy [employer] Phone: Start: 2012 Shingles Vaccine (1 of 2) Shingles Vaccine (1 of 2) [facility] [employer] Phone: Start: 2002 Lipid panel Lipid screen [facility] Work Phone: Start: 1981 DTaP/Tdap/Td vaccine (1 - Tdap) DTaP/Tdap/Td vaccine (1 - Tdap) [facility] [employer] Phone: Start: 1978 COVID-19 Vaccine (1) COVID-19 Vaccin e (1) [facility] [employer] Phone: Start: 1977 HIV screening HIV screen [facility] Work Phone: Start: 1972 Meningococcal B vacc ine (1 of 4 - Increased Risk Bexsero 2-dose series) Meningococcal B vaccine (1 of 4 - Increased Risk Bexsero 2-dose series) [facility] [employer] Phone: Start: 1968 Pneumococcal 0-64 ye ars Vaccine (1 of 3 - PCV13) Pneumococcal 0-64 years Vaccine (1 of 3 - PCV13) [facility] [employer] Phone: Start: 01-23-1964 Hib vaccine (1 of 1 - Risk 1-dose series) Hib vaccine (1 of 1 - Risk 1-dose series) [facility] Phone: Start: 1960 Meningococcal (ACWY) vaccine (1 - Risk start before 7 months 4-dose series) Meningococcal (ACWY) vaccine (1 - Risk start before 7 months 4-dose series) [facility] Phone: Start: 1960 Hepatitis C screening Hepatitis C sc kaian [facility] [employer] Phone: Phase I & II - meter ed glucose Phase I & II - metered glucose Point of Care Testing Routine As Needed until discontinued starting 07/15/2020 [facility] Phone: Comment on above: As Needed until disc ontinued starting 07/15/2020 Surgical Pathology Seema Mckeon [facility] Work Phone: Comment on above: Release Upon Orderin g for 1 Occurrences starting 07/15/2020 End: 07-15-2020 Surgical Pathology Surgical Pathology Lab Routine Once for 1 Occurrences starting 07/15/2020 until 07/15/2020 [employer] Phone: Comment on above: Once for 1 Occurrenc es starting 07/15/2020 until 07/15/2020 Payers Date Payer Category Payer Unknown [id number] 2.16.8 [id number] 1960 Unknown [id number] 2.16.8 [id number] 1960 Unknown [id number] 2.16.84 [id number] 1960 Unknown [id number] 2.16.84 [id number] 1960 Unknown [id number] 2.16.84 [id number] 1960 Unknown [id number] 2.16.84 [id number] 1960 Unknown [id number] 2.16.84 [id number] 1959 Unknown [id number] Social History Date Type Detail Facility Start: 04-02-1982 End: 07-16-2020 Tobacco smoking status MTIS Current every day smoker [facility] Phone: Start: 04-02-1982 History of tobacco use Cigarette Smo ker [employer] Phone: Start: 07-15-2020 End: 07-16-2020 Cigarettes smoked current (pack per day) - Reported [employer] Phone: Start: 07-15-2020 End: 07-16-2020 Tobacco use and exposure Never used [employer] Phone: Start: 07-15-2020 End: 07-16-2020 Alcohol intake Lifetime non-drinker (finding) [employer] Phone: Start: 06-24-2020 History SDOH Alcohol Frequency 1 [employer] Phone: Start: 06-24-2020 History SDOH Alcohol Std Drinks 99 [employer] Phone: Start: 06-24-2020 History SDOH Transpo rt Med 2 [employer] Phone: Sex Assigned At Not on file [employer] Phone: Exposure to SARS-CoV -2 (event) Not sure [employer] Phone: Sex Assigned At Sex Assigned At [facility] Other Clinical Notes 07-15-2020 to 01-05-2023 Note Date & Type Note Facility 01-05-2023 Note Addendum created 09/22 2893 by Tamar Lowry MD Clinical Note Signed, Diagnosis association updated, Intraprocedure Blocks edited, SmartForm saved [facility] 01-05-2023 Note Patient: Rossy stover Procedure Summary Date: 01/05/23 Room / Location: [facility] OR [address] [place] [address] G[facility] OR Anesthesia Start: 725 Anesthesia Stop: 903 Procedure: SHOULDER ARTHROSCOPY WITH ROTATOR CUFF REPAIR, LABRAL DEBRIDEMENT, SUBSCAPULAR REPAIR, SUBACHROMIAL DECOMPRESSION AND PROXIMAL BICEPS TENDON REPAIR (Right: Shoulder) Diagnosis: Complete tear of right rotator cuff, unspecified whether traumatic Avulsion of subscapularis, right, initial encounter Type 1 superior labral fcsbcacv-pe-xjizppjys (SLAP) tear of right shoulder, initial encounter Adhesive capsulitis of right shoulder Impingement syndrome of right shoulder (Complete tear of right rotator cuff, unspecified whether traumatic [M75.121]) Surgeons: Zuly Pruett MD Responsible Provider: Tamar Lowry MD Anesthesia Type: general, regional ASA Status: 2 Anesthesia Type: general, regional Vitals Value Taken Time BP 152/74 01/05/23 0915 Temp 36.8 ???C (98.2 ???F) 01/05/23 0900 Pulse 88 01/05/23 0915 Resp 13 01/05/23 0915 SpO2 96 % 01/05/23914 Anesthesia Post Evaluation Patient location during evaluation: PACU Patient participation: complete - patient participated Level of consciousness: awake Pain score: 0 Pain management: adequate Airway patency: patent Cardiovascular status: acceptable Respiratory status: acceptable Patient is hemodynamically stable and is able to be discharged from PACU per anesthesia protocol. No notable events documented. [facility] 01-05-2023 Note Patient: Rossy stover Procedure Summary Date: 01/05/23 Room / Location: [facility] OR [address] [place] [address] OR Anesthesia Start: 725 Anesthesia Stop: Procedure: SHOULDER ARTHROSCOPY WITH ROTATOR CUFF REPAIR, LABRAL DEBRIDEMENT, SUBSCAPULAR REPAIR, SUBACHROMIAL DECOMPRESSION AND PROXIMAL BICEPS TENDON REPAIR (Right: Shoulder) Diagnosis: Complete tear of right rotator cuff, unspecified whether traumatic Avulsion of subscapularis, right, initial encounter Type 1 superior labral bsrzxnuy-qu-wxqpxjcpa (SLAP) tear of right shoulder, initial encounter [...] observation Transport: uneventful Patient condition is: stable [facility] 01-05-2023 Note Airway Date/Time: 01/05/2023 7:31 AM Urgency: elective General Information and Staff Patient location during procedure: OR Anesthesiologist: Tamar Lowry MD Resident/SALES COMMISSIONS ANALYST/CAA: Anthony Garrido CRNA Performed: resident/SALES COMMISSIONS ANALYST/CONSTANCE Indications and Patient Condition Indications for airway [...] Additional Comments 4ml 4% lidocaine lta utilized [facility] 01-05-2023 Note Peripheral Block Patient location during procedure: pre-op Start time: 01/05/2023 1:03 AM End time: 01/05/2023 7:17 AM Reason for block: at surgeon's request and post-op pain management Staffing Performed: anesthesiologist Anesthesiologist: Tamar Lowry MD Resident/SALES COMMISSIONS ANALYST: Anthony Garrido CRNA Preanesthetic Checklist Completed: patient [...] Paresthesia pain: none Heart rate change: no [facility] 01-05-2023 Note Patient: Rossy stover Procedure Information Date/Time: 01/05/23729 Procedure: SHOULDER ARTHROSCOPY WITH ROTATOR CUFF REPAIR (Right: Shoulder) - MITEK NOTIFIED 12/28 KEN Location: [facility] OR [address] [place] [address] OR Surgeons: Zuly Pruett MD Past Medical [...] risks discussed with patient. Plan discussed with SALES COMMISSIONS ANALYST. Additional Equipment Requests [facility] 10-16-2022 Note ---- Attestation signed [...] the right shoulder completed on 08/19/21 @ [facility]. He continues to have pain in the right shoulder, primarily with motion/use of the arm. Pain at rest is a 5/10. He has failed PT/NSAIDs in the past. 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 Date of Telehealth Visit: 2021 The patient was notified that using 3rd constitution party telecommunication application (e.g. [employer]) is not HIPAA compliant and may carry some privacy risks: yes This visit was conducted [id number] with the use of audio and video [...] previous MRI report from 08/19 2021 from [facility] indicates complete tear of the supraspinatus [...] be an additional personal documentation from me. [facility] 12-14-2021 Evaluation note Encounter Date Diagnosis Assessment Notes Dec, PAD (peripheral artery disease) (ICD-10 - I73.9) We reviewed this patient's TO studies from the [facility] showing left TO 0.94, right TO [...] his risks and is unmotivated to quit. [facility] Other 04-15-2021 NoteFLUORO FOR SURGICAL PROCEDURES : 07/15/2020 9:53 AM CLINICAL HISTORY: R52 Pain ICD10. COMPARISON: None available. Intraoperative fluoroscopy was provided for Dr. Jordin wray. A total of 1.5 seconds of fluoroscopy was used, with 2 fluoroscopic stills saved. No diagnostic images were obtained. Please see Dr. Valdez surgical notes for completeness. Interpreted by: Ming Bejarano MD Signed by: Ming Bejarano MD 07/15/20 [facility]04-15-2021 NoteFLUORO FOR SURGICAL PROCEDURES : 07/15/2020 9:53 AM CLINICAL HISTORY: R52 Pain ICD10. COMPARISON: Non e available. Intraoperative fluoroscopy was provided for Dr. Valdez procedure. A total of 1.5 seconds of fluoroscopy was used, with 2 fluoroscopic stills saved. No diagnostic images were obtained. Please see Dr. Valdez surgical notes for completeness.[employer] Phone: evaluation note* Diagnosis Pain Generalized pain documented in this encounter [employer] Phone: History general Narrative - Reported* Type Description Date Medical History hypertension Surgical History Back Surgery 2021 Surgical History Shoulder surgery Surgical History spleenectomy Hospitalization History see above [facility] Other Summary Purpose Family History No Family [...] your physician 11) Call your doctor at [phone] for an appointment (or follow up as [...] call OFFICE. The 24- hour phone is [phone] 13) If you are unable to contact [...] [facility] For Surgical Procedures Ousmane Valdez MD [address], [address] [place] [address] Additional Source Comments (unrecognized sect ion and content) No Status Records FoundNo Status Records FoundNo Status Records FoundNo Status Records FoundNo Status Records Found INFORMATION SOURCE (unrecogn ized section and content) DATE CREATED AUTHOR 06/25/2020 [facility] DATE CREATED AUTHOR AUTHOR'S ORGANIZ ATION 07/20/2020 [facility] DATE CREATED AUTHOR AUTHOR'S ORGANIZ ATION 06/22/2021 [facility] DATE CREATED AUTHOR AUTHOR'S ORGANIZ ATION 11/09/2021 [facility] DATE CREATED AUTHOR AUTHOR'S ORGANIZ ATION 01/07/2023 [facility] Reason for Visit (unrecogniz ed section and content) Status Reason Specialty Diagnoses / Procedures Referre d By Contact Referred To Contact Diagnoses Lumbar disc herniation Lumbar radiculopathy DISC HERNIATION, RADICULOPATHY Procedures LAMINEC/FACETECT/FORAMIN ,LUMBAR 1 SEG WA LAMNOTMY INCL W/DCMPRSN NRV ROOT 1 INTRSPC LUMBR L4-5 RIGHT MICRODISKECTOMY/ 1 HR/ 1 C-ARM/ PAT AND RAPID COVID ON ADMIT Ousmane Valdez MD [address] [facility] [address] [place] [address] [facility] Ordered Prescriptions (unrec ognized section and content) [...] BE BASED ON THE PRIMARY CLINICAL RECORDS. [facility] [employer] [facility]. provides no warranty or guarantee of the accuracy or completeness of information in this document.
== END 2023-07-05 08:32 | disposition home or self-care (01) ==
LOC: CT 08:31
PROVIDERS: PCP Family Medicine; Visit Provider Family Medicine
DX: I73.9 Peripheral vascular disease, unspecified (principal)
CPT/HCPCS: 74174; Q9967

== ENCOUNTER 2023-07-20 09:08 | Outpatient (OUT) | payer OTHER, SELFPAY ==
--- NOTE | 2023-07-20 | XR_ITS ---
The [address] [address] Patient Name: ROSSY ALFONSO MRN: [id number] date: 1960 Sex: M Assigned Patient Location: Current Patient Location: Accession/Order Number: [id number] Exam Date: 07/20/2023 09:10 Report Date: 07/21/2023 07:01 At the request of: CHIQUI KEENE Procedure: XR lumbar spine 2-3V EXAMINATION: XR lumbar spine 2-3V HISTORY: LOWER BACK PAIN COMPARISON: XR lumbar spine 04/23/2023 FINDINGS: BONES: No fracture, spondylolisthesis, or change in alignment during flexion and extension; minimal flexion and extension. Mild to moderate degenerative facet arthropathy L3-L4 through L5-S1. DISC SPACES: Moderate narrowing at all lumbar levels. PARASPINOUS: Atherosclerotic disease; no appreciable aneurysm. OTHER: Negative. XR/XR lumbar spine 2-3V IMPRESSION: 1. Moderate degenerative disc disease all lumbar levels and multilevel mild degenerative facet arthropathy. 2. No significant listhesis or change in alignment during flexion and extension. Electronically authenticated by: MIGUELANGEL GUEVARA Date: 07/21/2023 07:01
--- OUTSIDE RECORDS SUMMARY | 2023-07-20 09:27 | XMS_ITS | CCD ---
Author Organization [facility] Care Team Providers Care Gas Reverser Name Role Phone Renaldo Hung Primary Care [...] Care Unavailable HOGuerline, DR MACARIO Consulting Unavailable MARICOPA, DR ZULY Shelton Consult[employer] Unavailable Ruth Mosquera [...] 07-15-2020 ondansetron (ZOFRAN) injection 4 mg sennosides, custodial 8.6 mg oral tablet (2 sources) Start: [...] Interpretation Reference Range Facility Anesthesiaon 01-05-2023 Anesthesia [id number] Rossy Alfonso 1960 M Date Provider Department Center 01/05/2023 LETICIA PAGAN [facility] OR RIKKI No family history on file Normal [facility] OPNOTEon 01-05-2023 OPNOTE SHOULDER ARTHROSCOPY WITH ROTATOR CUFF REPAIR X2, LABRAL DEBRIDEMENT, SUBSCAPULAR REPAIR, SUBACROMIAL DECOMPRESSION AND CAPSULAR RELEASE(R) Operative Note Date: 01/05/2023 Location: [facility] OR Name: Rossy Alfonso, : 1960, Diagnosis Pre-op Diagnosis * Complete tear of right rotator cuff, unspecified whether traumatic [M75.121] Post-op Diagnosis * Complete tear of right rotator cuff, unspecified whether traumatic [M75.121] * Avulsion of subscapularis, right, initial encounter [S46.891A] * Type 1 superior labral pitgjmqg-iz-jvsxhaoww (SLAP) tear of right shoulder, initial encounter [S43.431A] * 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] * Impingement syndrome of right shoulder [M75.41] Procedures SHOULDER ARTHROSCOPY WITH ROTATOR CUFF REPAIR, LABRAL DEBRIDEMENT, SUBSCAPULAR REPAIR, SUBACHROMIAL DECOMPRESSION AND PROXIMAL BICEPS TENDON REPAIR 72837 - LA SURGICAL ARTHROSCOPY SHOULDER W/ROTATOR CUFF RPR LA SURGICAL ARTHROSCOPY SHOULDER W/ROTATOR CUFF RPR [23055] LA SURGICAL ARTHROSCOPY SHOULDER W/ROTATOR CUFF RPR [36144] LA SURGICAL ARTHROSCOPY SHOULDER W/ROTATOR CUFF RPR [37635] LA SURGICAL ARTHROSCOPY SHOULDER LMTD DBRDMT 1/2 [30354] LA CAPSULAR CONTRACTURE RELEASE [57734] Surgeons * Zuly Pruett - Primary Procedure Summary Anesthesia: General ASA: II Estimated Blood Loss: 20 mL Total IV Fluids: mL Drains: * None in log * Implants Type Name Action Serial No. healix advance peek anchor w/dynacord Implanted Staff: Real Property Evaluator: Sandra Bernardo RN Scrub Person: Flakita Martel [...] hemodynamically stable. Condition: stable Zuly Pruett Normal [facility] POCT GLUCOSE METER UNSOLICIT ED RESULTSon 01-05-2023 Glucose [Mass/Vol] 93 mg/dL Normal 70-105 [facility] Comment on above: Order Comment: Waive d Testing in the ED is performed under the ED CLIA certificate #[id number]. Result Comment: ltol les Performed By: #### L [id number] ####[facility] ([facility])[address] [place] [address] HPon 01-04-2023 HP History Of Present Illness [...] Results XR shoulder 2+ views right Narrative: [facility] Department of Radiology [address] [place] [id number] Patient Name: ROSSY ALFONSO : 1960 [...] abnormality. Electronically signed: Harrison Lawton. Transcribed by: [email or web address], User Resident: Electronically Signed by: HARRISON LWATON @ 06/18/2021 07:17 AM Assessment/Plan Principal Problem: Complete tear of right rotator cuff R revision RCR Normal [facility] [id number] 12-25-2022 [id number] Nothing to Eat or Drink, including Candy, [...] THE FOLLOWING ARE NOT AVAILABLE: An adult driver guard over the age of 18, that can [...] lenses. Do not wear perfume, make-up, nail bhutanese, or lotions on the day of your [...] need to make any changes, please call [phone]. Notify your surgeon if you develop any illness such as a cold, cough, fever, sore throat or vomiting between now and your surgery. Thank you for entrusting us with your care. [facility] Surgical Services Team Normal [facility] Office Visiton 10-16-2022 Follow-up visit [id number] Rossy Alfonso 1960 M Date Provider Department Center 10/16/2022 ZULY CACERES MP ORTHO MPORTHO No family history on file Level of Service:70701 LA OFFICE/OUTPATIENT ESTABLISHED MOD MDM 30-39 MIN (57,GC) Reason for Visit and Comments: Follow-up [850321] - Discuss surgical planning Pain [136] - Discuss surgical planning Normal [facility] 08-11-2022 36 Surgery scheduled Normal [facility] 08-10-2022 36 Patient's calling again to schedule sx. Normal [facility] XR LSPINE MIN 4 VIEWSon [...] by: ZULY PATE Date: 2021-11-07 07:55 Normal [facility] MRI SHOULDER RT WO CONon MRI [...] MIGUELANGEL GUEVARA Date: 2021-08-19 15:38 Normal [facility] SHOULDER RIGHTon 06-17-2021 SHOULDER RIGHT [facility] Department of Radiology [address] [place] [id number] Patient Name: ROSSY ALFONSO : 1960 [...] abnormality. Electronically signed: Harrison Lawton. Transcribed by: [email or web address], User Resident: Electronically Signed by: HARRISON LAWTON @ 06/18/2021 07:17 AM Normal [facility] Comment on above: Order Comment: Views (X-RAY, SHOULDER): AP, Y-Lateral Covid-19 PCR (CVDTBH)on 04-02 SARS-CoV-2 (COVID-19) RNA JUAN+probe Ql (Unsp spec) Detected Critically abnormal NOT DETECTED [facility] Comment on above: Result Comment: This test is not yet approved or cleared by the [place] FDA. When there are no FDA-approved or cleared tests available, and other criteria are met, FDA can make tests available under an emergency access mechanism called an Emergency Use Authorization (EUA). The EUA for this test is supported by the Advisor To Command In Combat of Health and Human Service's (HHS's) declaration [...] longer be used). Performed By: #### C [facility] #### [facility] [address] [place] [address] Dr. Wiliam Garrison FLUORO FOR SURGICAL PROCEDUR ESOrdered By: Ousmane Valdez on 07-15-2020 Miko, Chpo Incoming Radiant Results From Answer.Toe/Pacs - 07/15/2020 11:25 AM EDT FLUORO FOR SURGICAL PROCEDURES : 07/15/2020 9:53 AM CLINICAL HISTORY: R52 Pain ICD10. COMPARISON: None available. Intraoperative fluoroscopy was provided for Dr. Valdez procedure. A total of 1.5 seconds of fluoroscopy was used, with 2 fluoroscopic stills saved. No diagnostic images were obtained. Please see Dr. Valdez surgical notes for completeness. [facility] Work Phone: Surgical Specimenon 07-16-19 21 Surgical Specimen [facility] [address] [place] [address] FINAL SURGICAL PATHOLOGY REPORT Patient Name: ROSSY ALFONSO Accession No: [id number] Age Sex: 1960 Location: [facility] Account No: [id number] Collected: 07/15/2020 [facility] Rec No: [id number] Received: 07/15/2020 Attend Phys: OUSMANE VALDEZ Completed: [...] two cassettes after brief decalcification. LOW CPT: 58079 X1 46594 X1 NICHELLE POWERS M.D. 07/16/2020 Electronically signed out by Page 1 of [address] [facility] Comment on above: Performed By: #### S UR #### [facility] [address] [place] [id number] COVID-19, NAAon 06-25-2020 COVID-19, JUAN Not Detected Normal Not Detect [facility] Comment on above: Result Comment: This nucleic acid amplification test was developed and its performance characteristics determined by [employer]. Nucleic acid amplification tests include RT-PCR and [...] detected) result in this assay. Performed at: [address], [place], [place] [id number] Jointer Machine Operator: Deon Camejo PhD, Phone: [phone] Performed By: #### I RCOV #### [facility] [address] [place] [id number] Basic Metabolic Panelon - Anion gap [Moles/Vol] 14 mmol/L Normal 9-15 [facility] Comment on above: Performed By: #### B MP #### [facility] [address] [place] [address] Calcium [Mass/Vol] 9.6 mg/dL Normal 8.5-9.9 [facility] Comment on above: Performed By: #### B MP #### [facility] [address] [place] [address] Chloride [Moles/Vol] 99 mmol/L Normal 95-107 [facility] Comment on above: Performed By: #### B MP #### [facility] [address] [place] [address] CO2 [Moles/Vol] 27 mmol/L Normal 20-31 [facility] Comment on above: Performed By: #### B MP #### [facility] [address] [place] [address] Creatinine [Mass/Vol] 0.79 mg/dL Normal 0.70-1.20 [facility] Comment on above: Performed By: #### B MP #### [facility] [address] [place] [address] GFR/1.73 sq M predicted among blacks MDRD (S/P/Bld) [Vol rate/Area] mL/min/{1.73_m2} Normal >60 [facility] Comment on above: Result Comment: >60 mL/min/1.73m2 EGFR, calc. for ages 18 and older using the MDRD formula (not corrected for weight), is valid for stable renal function. Performed By: #### B MP #### [facility] [address] [place] [address] GFR/1.73 sq M.predicted MDRD (S/P/Bld) [Vol rate/Area] mL/min/{1.73_m2} Normal >60 [facility] Comment on above: Result Comment: >60 mL/min/1.73m2 EGFR, calc. for ages 18 and older using the MDRD formula (not corrected for weight), is valid for stable renal function. Performed By: #### B MP #### [facility] [address] [place] [address] Glucose [Mass/Vol] 88 mg/dL Normal 70-99 [facility] Comment on above: Performed By: #### B MP #### [facility] [address] [place] [address] Potassium [Moles/Vol] 4.7 mmol/L Normal 3.4-4.9 [facility] Comment on above: Performed By: #### B MP #### [facility] [address] [place] [address] Sodium [Moles/Vol] 140 mmol/L Normal 135-144 [facility] Comment on above: Performed By: #### B MP #### [facility] [address] [place] [address] Urea nitrogen [Mass/Vol] 17 mg/dL Normal 6-20 [facility] Comment on above: Performed By: #### B MP #### [facility] [address] [place] [address] CBC With Platelet No Differe ntialon 06-24-2020 Platelets (Bld) [#/Vol] Not Done Normal 130-400 [facility] Comment on above: Result Comment: Unab le to obtain accurate platelet count due to giant platelet population. Platelet estimate 231 Performed By: #### C BCND #### [facility] [address] [place] [address] Platelet Slide Review Normal Normal [facility] Comment on above: Performed By: #### C BCND #### [facility] [address] [place] [address] Erythrocyte distribution width (RBC) [Ratio] 14.3 % Normal 11.5-14.5 [facility] Comment on above: Performed By: #### C BCND #### [facility] [address] [place] [address] Hematocrit (Bld) [Volume fraction] 50.1 % Normal 42.0-52.0 [facility] Comment on above: Performed By: #### C BCND #### [facility] [address] [place] [address] Hemoglobin (Bld) [Mass/Vol] 16.8 g/dL Normal 14.0-18.0 [facility] Comment on above: Performed By: #### C BCND #### [facility] [address] [place] [address] MCH (RBC) [Entitic mass] 32.3 pg Critically high 27.0-31.3 [facility] Comment on above: Performed By: #### C BCND #### [facility] [address] [place] [address] MCHC (RBC) [Mass/Vol] 33.6 % Normal 33.0-37.0 [facility] Comment on above: Performed By: #### C BCND #### [facility] [address] [place] [address] MCV (RBC) [Entitic vol] 96.1 fL Normal 80.0-100.0 [facility] Comment on above: Performed By: #### C BCND #### [facility] [address] [place] [address] RBC (Bld) [#/Vol] 5.21 10*6/uL Normal 4.70-6.10 [facility] Comment on above: Performed By: #### C BCND #### [facility] [address] [place] [address] WBC (Bld) [#/Vol] 17.9 10*3/uL Critically high 4.8-10.8 [facility] Comment on above: Performed By: #### C BCND #### [facility] [address] [place] [address] COVID-19, NAAon 06-24-2020 Source Swab Anterior nares Normal [facility] Comment on above: Performed By: #### I RCOV #### [facility] [address] [place] [address] Partial Thromboplastin Timeo n 06-24-2020 aPTT Coag (Bld) [Time] 30.0 s Normal 24.4-36.8 [facility] Comment on above: Result Comment: Effgrace ctive 02/04/2020: Heparin Therapeutic Range: 64.0 ? 98.0 seconds. Performed By: #### P TT #### [facility] [address] [place] [address] Prothrombin Timeon INR Coag (PPP) [Relative time] 0.9 {INR} Normal [facility] Comment on above: Performed By: #### P T #### [facility] [address] [place] [address] PT Coag (PPP) [Time] 12.4 s Normal 12.3-14.9 [facility] Comment on above: Performed By: #### P T #### [facility] [address] [place] [address] Type and Screen Capture 3 sc rn cellon 06-24-2020 Type and Screen Capture 3 scrn cell PATIENT: NATY Brady LOC: [facility] BILL# : [id number] : 1960 SEX: M ORDERED BY: LESLYE Elizabeth ORDERED : 06/24/2020 10:28 COLLECTED: 06/24/2020 10:28 ORDER : [id number] RECEIVED : 06/24/2020 14:41 TEST NAME RESULT UNITS RANGES ABN FL ST ABORH Capture A POS F Antibody 3 Cell Scrn Captu NEG F Normal [facility] Comment on above: Performed By: #### T S3C #### [facility] [address] [place] [address] Vital Signs Date Time Vital Sign Value Performing Clinician Facility 12-14-2021 11:00-0400 Body height 180.34 cm Ruth Mosquera Other [employer] Other 12-14-2021 11:00-0400 Body mass index (BMI) [Ratio] 20.64 kg/m2 Ruth Mosquera Other [employer] Other 12-14-2021 11:00-0400 Body temperature 97 [degF] Ruth Mosquera Other [employer] Other 12-14-2021 11:00-0400 Body weight 67.13 kg Ruth Mosquera Other [employer] Other 12-14-2021 11:00-0400 Diastolic blood pressure 80 mm[Hg] Ruth Mosquera Other [employer] Other 12-14-2021 11:00-0400 SaO2% (BldA) [Mass fraction] 95 % Ruth Mosquera Other [employer] Other 12-14-2021 11:00-0400 Systolic blood pressure 160 mm[Hg] Ruth Mosquera Other [employer] Other 07-15-2020 13:50-0400 BP Diastolic 84 mm[Hg] Ousmane Jordin [facility] [employer] Work Phone: 07-15-2020 13:50-0400 BP Systolic 169 mm[Hg] [employer] Phone: 07-15-2020 13:50-0400 Pulse (Heart Rate) 95 /min [employer] Phone: 07-15-2020 13:50-0400 Pulse Oximetry 94 % [employer] Phone: 07-15-2020 13:50-0400 Respiratory Rate 18 /min [employer] Phone: 07-15-2020 13:35-0400 Body Temperature 98.8 [degF] [employer] Phone: 07-15-2020 08:31-0400 BMI (Body Mass Index) 21.38 kg/m2 [employer] Phone: 07-15-2020 08:31-0400 Body weight 67.59 kg [employer] Phone: 07-15-2020 08:31-0400 Height 177.8 cm [employer] Phone: Encounters Encounter Date Encounter Type Care Provider Facility Start: 01-05-2023 End: 01-05-2023 ambulatory [facility] Start: 10-16-2022 ambulatory ZULY [facility] Start: 10-16-2022 Encounter for other preprocedural examination ZULY [facility] Start: 12-14-2021 End: 12-14-2021 ambulatory Ruth Mosquera Other [employer] Other Start: 12-14-2021 [facility] visit new patient Ruth Oz perez [facility] Start: 11-04-2021 End: 11-05-[address] RENALDO HUNG Facility:[facility] Start: 08-25-2021 End: 08-26-[address] RENALDO HUNG Facility:[facility] Start: 08-19-2021 End: 08-20-2021 ambulatory ZULY PRUETT Facility:[facility] Start: 06-14-2021 End: 06-29-[address] RENALDO HUNG Facility:[facility] Start: 04-20-2021 End: 04-20-[address] RENALDO HUNG Facility:[facility] Start: 07-15-2020 End: 07-15-2020 [facility] Start: 07-15-2020 End: 07-18-2020 amb[facility] Start: 07-15-2020 End: 07-15-2020 Subsequent hospital visit by physician Ousmane Valdez Work Phone: [facility] Comment on above: Postoperative pain ( Primary Dx) Start: 07-15-2020 End: 07-17-2020 Subsequent hospital visit by physician Ousmane Valdez MD Work Phone: [facility] Comment on above: Pain Procedures Date Procedure Procedure Detail Performing Clinician Start: 07-15-2020 Fluoroscopy during operation Ousmane Valdez MD Work Phone: Plan of Treatment Date Care Activity Detail Author Start: 12-01-2020 Influenza vaccination Flu vacc ine (Season Ended) [employer] Phone: Start: 07-30-2020 End: 07-30-2020 Office Visit 07/30/2020 Office Visit Neurosurgery Ousmane Valdez MD [address] [facility], [address] [place], [place] [address] [employer] Start: 07-27-2020 End: 07-27-2020 Appointment 07/27/2020 Appointment Radiology [facility] Start: 07-27-2020 End: 07-27-2020 Appointment [facility] Start: 2017 Screening for malign ant neoplasm of lung Low dose CT lung screening [employer] Phone: Start: 2012 Screening for malign ant neoplasm of colon Colon cancer screen colonoscopy [employer] Phone: Start: 2012 Shingles Vaccine (1 of 2) Shingles Vaccine (1 of 2) [facility] [employer] Phone: Start: 2002 Lipid panel Lipid screen [facility] Work Phone: Start: 1981 DTaP/Tdap/Td vaccine (1 - Tdap) DTaP/Tdap/Td vaccine (1 - Tdap) [facility] [employer] Phone: Start: 1978 COVID-19 Vaccine (1) COVID-19 Vaccin e (1) [facility] [employer] Phone: Start: 1977 HIV screening HIV screen [facility] Work Phone: Start: 1972 Meningococcal B vacc ine (1 of 4 - Increased Risk Bexsero 2-dose series) Meningococcal B vaccine (1 of 4 - Increased Risk Bexsero 2-dose series) [facility] [employer] Phone: Start: 1968 Pneumococcal 0-64 ye ars Vaccine (1 of 3 - PCV13) Pneumococcal 0-64 years Vaccine (1 of 3 - PCV13) [facility] [employer] Phone: Start: 01-23-1964 Hib vaccine (1 of 1 - Risk 1-dose series) Hib vaccine (1 of 1 - Risk 1-dose series) [facility] Phone: Start: 1960 Meningococcal (ACWY) vaccine (1 - Risk start before 7 months 4-dose series) Meningococcal (ACWY) vaccine (1 - Risk start before 7 months 4-dose series) [facility] Phone: Start: 1960 Hepatitis C screening Hepatitis C sc kaian [facility] [employer] Phone: Phase I & II - meter ed glucose Phase I & II - metered glucose Point of Care Testing Routine As Needed until discontinued starting 07/15/2020 [facility] Phone: Comment on above: As Needed until disc ontinued starting 07/15/2020 Surgical Pathology [facility] Work Phone: Comment on above: Release Upon Orderin g for 1 Occurrences starting 07/15/2020 End: 07-15-2020 Surgical Pathology Surgical Pathology Lab Routine Once for 1 Occurrences starting 07/15/2020 until 07/15/2020 [employer] Phone: Comment on above: Once for 1 Occurrenc es starting 07/15/2020 until 07/15/2020 Payers Date Payer Category Payer Unknown [id number] 2.16.8 [id number] 1960 Unknown [id number] 2.16.8 [id number] 1960 Unknown [id number] 2.16.84 [id number] 1960 Unknown [id number] 2.16.84 [id number] 1960 Unknown [id number] 2.16.84 [id number] 1960 Unknown [id number] 2.16.84 [id number] 1960 Unknown [id number] 2.16.84 [id number] 1957 Unknown [id number] Social History Date Type Detail Facility Start: 04-02-1982 End: 07-16-2020 Tobacco smoking status NEIS Current [facility] Phone: Start: 04-02-1982 History of tobacco use Cigarette Smo ker [employer] Phone: Start: 07-15-2020 End: 07-16-2020 Cigarettes smoked current (pack per day) - Reported [employer] Phone: Start: 07-15-2020 End: 07-16-2020 Tobacco use and exposure Never used [employer] Phone: Start: 07-15-2020 End: 07-16-2020 Alcohol intake Lifetime non-drinker (finding) [employer] Phone: Start: 06-24-2020 History SDOH Alcohol Frequency 1 [employer] Phone: Start: 06-24-2020 History SDOH Alcohol Std Drinks 99 [employer] Phone: Start: 06-24-2020 History SDOH Transpo rt Med 2 [employer] Phone: Sex Assigned At Not on file [employer] Phone: Exposure to SARS-CoV -2 (event) Not sure [employer] Phone: Sex Assigned At Sex Assigned At [facility] [employer] Other Clinical Notes 07-15-2020 to 01-05-2023 Note Date & Type Note Facility 01-05-2023 Note Addendum created 09/22 2037 by Tamar Lowry MD Clinical Note Signed, Diagnosis association updated, Intraprocedure Blocks edited, SmartForm saved [facility] 01-05-2023 Note Patient: Rossy stover Procedure Summary Date: 01/05/23 Room / Location: [facility] OR [address] [place] [address] GIS OR Anesthesia Start: 725 Anesthesia Stop: 903 Procedure: SHOULDER ARTHROSCOPY WITH ROTATOR CUFF REPAIR, LABRAL DEBRIDEMENT, SUBSCAPULAR REPAIR, SUBACHROMIAL DECOMPRESSION AND PROXIMAL BICEPS TENDON REPAIR (Right: Shoulder) Diagnosis: Complete tear of right rotator cuff, unspecified whether traumatic Avulsion of subscapularis, right, initial encounter Type 1 superior labral tygiabqc-hh-cshnejrjp (SLAP) tear of right shoulder, initial encounter [...] per anesthesia protocol. No notable events documented. [facility] 01-05-2023 Note Patient: Rossy stover Procedure Summary Date: 01/05/23 Room / Location: [facility] OR [address] [place] [address] OR Anesthesia Start: 725 Anesthesia Stop: Procedure: SHOULDER ARTHROSCOPY WITH ROTATOR CUFF REPAIR, LABRAL DEBRIDEMENT, SUBSCAPULAR REPAIR, SUBACHROMIAL DECOMPRESSION AND PROXIMAL BICEPS TENDON REPAIR (Right: Shoulder) Diagnosis: Complete tear of right rotator cuff, unspecified whether traumatic Avulsion of subscapularis, right, initial encounter Type 1 superior labral hdtnehrg-vp-wwwuikclk (SLAP) tear of right shoulder, initial encounter [...] observation Transport: uneventful Patient condition is: stable [facility] 01-05-2023 Note Airway Date/Time: 01/05/2023 7:31 AM Urgency: elective General Information and Staff Patient location during procedure: OR Anesthesiologist: Tamar Lowry MD Resident/PLANT PROTECTION SUPERVISOR/CAA: Anthony Garrido CRNA Performed: resident/PLANT PROTECTION SUPERVISOR/CONSTANCE Indications and Patient Condition Indications for airway [...] Additional Comments 4ml 4% lidocaine lta utilized [facility] 01-05-2023 Note Peripheral Block Patient location during procedure: pre-op Start time: 01/05/2023 1:03 AM End time: 01/05/2023 7:17 AM Reason for block: at surgeon's request and post-op pain management Staffing Performed: anesthesiologist Anesthesiologist: Tamar Lowry MD Resident/PLANT PROTECTION SUPERVISOR: Anthony Garrido CRNA Preanesthetic Checklist Completed: patient [...] Paresthesia pain: none Heart rate change: no [facility] 01-05-2023 Note Patient: Rossy stover Procedure Information Date/Time: 01/05/23729 Procedure: SHOULDER ARTHROSCOPY WITH ROTATOR CUFF REPAIR (Right: Shoulder) - MITEK NOTIFIED 12/28 KEN Location: [facility] OR [address] [place] [address] OR Surgeons: Zuly Pruett MD Past Medical [...] risks discussed with patient. Plan discussed with PLANT PROTECTION SUPERVISOR. Additional Equipment Requests [facility] 10-16-2022 Note ---- Attestation signed [...] the right shoulder completed on 08/19/21 @ [facility]. He continues to have pain in the right shoulder, primarily with motion/use of the arm. Pain at rest is a 5/10. He has failed PT/NSAIDs in the past. 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 Date of Telehealth Visit: 2021 The patient was notified that using 3rd constitution party telecommunication application (e.g. [employer]) is not HIPAA compliant and may carry some privacy risks: yes This visit was conducted [id number] with the use of audio and video [...] previous MRI report from 08/19 2021 from [facility] indicates complete tear of the supraspinatus [...] be an additional personal documentation from me. [facility] 12-14-2021 Evaluation note Encounter Date Diagnosis Assessment Notes Dec, PAD (peripheral artery disease) (ICD-10 - I73.9) We reviewed this patient's TO studies from the [facility] showing left TO 0.94, right TO [...] his risks and is unmotivated to quit. [employer] Other 04-15-2021 NoteFLUORO FOR SURGICAL PROCEDURES : [...] MD Signed by: Ming Bejarano MD 07/15/20 [facility]04-15-2021 NoteFLUORO FOR SURGICAL PROCEDURES : 07/15/2020 9:53 AM CLINICAL HISTORY: R52 Pain ICD10. COMPARISON: Non e available. Intraoperative fluoroscopy was provided for Dr. Valdez procedure. A total of 1.5 seconds of fluoroscopy was used, with 2 fluoroscopic stills saved. No diagnostic images were obtained. Please see Dr. Valdez surgical notes for completeness.[email or web address] Phone: evaluation note* Diagnosis Pain Generalized pain documented in this encounter [email or web address] Phone: History general Narrative - Reported* Type Description Date Medical History hypertension Surgical History Back Surgery 2021 Surgical History Shoulder surgery Surgical History spleenectomy Hospitalization History see above [employer] Other Summary Purpose Family History No Family [...] your physician 11) Call your doctor at [phone] for an appointment (or follow up as [...] call OFFICE. The 24- hour phone is [phone]) If you are unable to contact [...] For Surgical Procedures Ousmane Valdez MD [address], [address] [place] [address] Additional Source Comments (unrecognized sect ion and content) No Status Records FoundNo Status Records FoundNo Status Records FoundNo Status Records FoundNo Status Records Found INFORMATION SOURCE (unrecogn ized section and content) DATE CREATED AUTHOR 06/25/2020 [facility] DATE CREATED AUTHOR AUTHOR'S ORGANIZ ATION 07/20/2020 [facility] DATE CREATED AUTHOR AUTHOR'S ORGANIZ ATION 06/22/2021 [facility] DATE CREATED AUTHOR AUTHOR'S ORGANIZ ATION 11/09/2021 [facility] DATE CREATED AUTHOR AUTHOR'S ORGANIZ ATION 01/07/2023 [facility] Reason for Visit (unrecogniz ed section and content) Status Reason Specialty Diagnoses / Procedures Referre d By Contact Referred To Contact Diagnoses Lumbar disc herniation Lumbar radiculopathy DISC HERNIATION, RADICULOPATHY Procedures LAMINEC/FACETECT/FORAMIN ,LUMBAR 1 SEG LA LAMNOTMY INCL W/DCMPRSN NRV ROOT 1 INTRSPC LUMBR L4-5 RIGHT MICRODISKECTOMY/ 1 HR/ 1 C-ARM/ PAT AND RAPID COVID ON ADMIT Ousmane Valdez MD [address], [address] [place] [address] [facility] Ordered Prescriptions (unrec ognized section and [...] BE BASED ON THE PRIMARY CLINICAL RECORDS. [facility] [employer] [facility]. provides no warranty or guarantee of the accuracy or completeness of information in this document.
== END 2023-07-20 09:09 | disposition home or self-care (01) ==
LOC: EC 09:08
PROVIDERS: PCP Family Medicine; Visit Provider Orthopaedic Surgery Orthopaedic Surgery of the Spine
DX: M54.50 Low back pain, unspecified (principal); M51.36 Other intervertebral disc degeneration, lumbar region
CPT/HCPCS: 72100

== ENCOUNTER 2023-08-23 15:30 | Outpatient (OUT) | payer OTHER, SELFPAY ==
--- NOTE | 2023-08-23 15:36 | US_ITS ---
[address] [address] Patient Name: ROSSY ALFONSO MRN: [id number] date: 1960 Sex: M Assigned Patient Location: [place] Current Patient Location: [place] Accession/Order Number: [id number] Exam Date: 08/23/2023 15:40 Report Date: 08/23/2023 16:21 At the request of: RENALDO VALLES Procedure: US arterial duplex LE BI EXAMINATION: US arterial duplex LE BI HISTORY: severe claudication I73.9 COMPARISON: No relevant comparison available. TECHNIQUE: Color duplex Doppler ultrasound evaluation analysis was performed in the usual manner. FINDINGS: RIGHT LOWER EXTREMITY ARTERIAL Moderate atherosclerotic plaque. Triphasic waveforms External Iliac PSV: 150.3 cm/s External Iliac EDV: 0.0 cm/s Common Femoral PSV: 80.6 cm/s Common Femoral EDV: 0.0 cm/s Superficial Femoral Proximal PSV: 62.4 cm/s Proximal EDV: 0.0 cm/s Mid PSV: 65.0 cm/s Mid EDV: 0.0 cm/s Distal PSV: 52.3 cm/s Distal EDV: 0.0 cm/s Popliteal Proximal PSV: 47.0 cm/s Popliteal Proximal EDV: 6.2 cm/s Posterior Tibial Proximal PSV: 41.8 cm/s Proximal EDV: 0.0 cm/s Mid PSV: 33.1 cm/s Mid EDV: 0.0 cm/s Distal PSV: 28.7 cm/s Distal EDV: 0.0 cm/s Anterior Tibial Proximal PSV: 31.3 cm/s Proximal EDV: 0.0 cm/s Mid PSV: 21.7 cm/s Mid EDV: 0.0 cm/s Distal PSV: 26.9 cm/s Distal EDV: 0.0 cm/s LEFT LOWER EXTREMITY ARTERIAL Moderate atherosclerotic plaque. Triphasic waveforms External Iliac PSV: 57.7 cm/s External Iliac EDV: 0.0 cm/s Common Femoral PSV: 49.8 cm/s Common Femoral EDV: 0.0 cm/s Superficial Femoral Proximal PSV: 66.1 cm/s Proximal EDV: 0.0 cm/s Mid PSV: 72.7 cm/s Mid EDV: 0.0 cm/s Distal PSV: 37.8 cm/s Distal EDV: 0.0 cm/s Popliteal Proximal PSV: Popliteal Proximal EDV: Posterior Tibial Proximal PSV: 45.5 cm/s Proximal EDV: 0.0 cm/s Mid PSV: 37.7 cm/s Mid EDV: 0.0 cm/s Distal PSV: 28.7 cm/s Distal EDV: Anterior Tibial Proximal PSV: 42.9 cm/s Proximal EDV: 0.0 cm/s Mid PSV: 39.0 cm/s Mid EDV: 0.0 cm/s Distal PSV: 24.8 cm/s Distal EDV: 0.0 cm/s US/US arterial duplex LE BI IMPRESSION: Moderate atherosclerotic plaque Normal triphasic waveforms Electronically authenticated by: ZULY PATE Date: 08/23/2023 16:21
--- OUTSIDE RECORDS SUMMARY | 2023-08-23 15:48 | XMS_ITS | CCD ---
Author Organization [facility] Care Team Providers Care Commissioning Editor Name Role Phone Renaldo Hung Primary Care Provider OUSMANE VALDEZ Referring Unavailable RENALDO HUNG Primary Care Unavailable OUSMANE VALDEZ Attending Unavailable OUSMANE VALDEZ Attending Unavailable RENALDO HUNG Primary Care Unavailable OUSMANE VALDEZ Admitting Unavailable HAI, DR MACARIO Admitting Unavailable HOGuerline, DR MACARIO Attending Unavailable BLANCAY, DR MACARIO [...] Unavailable HAI, DR MACARIO Primary Care Unavailable ZIEBER, DR MIGUELANGEL Gooden Consulting Unavailable ZULY PRUETT Consulting Unavailable HAI, DR MACARIO Admitting Unavailable HOY, DR MACARIO Attending Unavailable HAI, DR MACARIO Primary Care Unavailable HOGuerline, DR MACARIO Consulting Unavailable SOMERS, DR ZULY Shelton Consulting Unavailable Ruth Mosquera Unavailable ZULY PRUETT Admitting Unavailable ZULY PRUETT Attending Unavailable SAMUEL, ZULY Attending Unavailable Medications [...] 07-15-2020 ondansetron (ZOFRAN) injection 4 mg sennosides, halfway 8.6 mg oral tablet (2 sources) Start: [...] Interpretation Reference Range Facility Anesthesiaon 01-05-2023 Anesthesia [id number] Rossy Alfonso 1960 M Date Provider Department Center 01/05[facility]2023 [facility] No family history on file Normal [facility] OPNOTEon 01-05-2023 OPNOTE SHOULDER ARTHROSCOPY WITH ROTATOR CUFF REPAIR X2, LABRAL DEBRIDEMENT, SUBSCAPULAR REPAIR, SUBACROMIAL DECOMPRESSION AND CAPSULAR RELEASE(R) Operative Note Date: 01/05/2023 Location: 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] * Impingement syndrome of right shoulder [M75.41] Procedures SHOULDER ARTHROSCOPY WITH ROTATOR CUFF REPAIR, LABRAL DEBRIDEMENT, SUBSCAPULAR REPAIR, SUBACHROMIAL DECOMPRESSION AND PROXIMAL BICEPS TENDON REPAIR 60768 - ND SURGICAL ARTHROSCOPY SHOULDER W/ROTATOR CUFF RPR ND SURGICAL ARTHROSCOPY SHOULDER W/ROTATOR CUFF RPR [82512] ND SURGICAL ARTHROSCOPY SHOULDER W/ROTATOR CUFF RPR [59945] ND SURGICAL ARTHROSCOPY SHOULDER W/ROTATOR CUFF RPR [60961] ND SURGICAL ARTHROSCOPY SHOULDER LMTD DBRDMT 1/2 [29136] ND CAPSULAR CONTRACTURE RELEASE [92926] Surgeons * Zuly Pruett - Primary Procedure Summary Anesthesia: General ASA: II Estimated Blood Loss: 20 mL Total IV Fluids: mL Drains: * None in log * Implants Type Name Action Serial No. healix advance peek anchor w/dynacord Implanted Staff: Pump Station Operator: Sandra Bernardo RN Scrub Person: Flakita Martel [...] stable Zuly Pruett Normal [facility] POCT GLUCOSE METER UNSOLICIT ED RESULTSon 01-05-2023 Glucose [Mass/Vol] 93 mg/dL Normal 70-105 [facility] Comment on above: Order Comment: Waive d Testing in the ED is performed under the ED CLIA certificate #[id number]. Result Comment: ltol les Performed By: #### L [id number] ####[facility] ([facility])[address] [place] [address] HPon 01-04-2023 HP History Of Present Illness [...] 2+ views right Narrative: [facility] Department of Radiology [address] [place] [phone] Patient Name: ROSSY ALFONSO : 1960 [...] abnormality. Electronically signed: Harrison Lawton. Transcribed by: [email or web address], User Resident: Electronically Signed by: HARRISON LAWTON @ 06/18/2021 07:17 AM Assessment/Plan Principal Problem: Complete tear of right rotator cuff R revision RCR Normal 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 Do not wear perfume, make-up, nail slovenian, or lotions on the day of your [...] need to make any changes, please call [phone]. Notify your surgeon if you develop any illness such as a cold, cough, fever, sore throat or vomiting between now and your surgery. Thank you for entrusting us with your care. [facility] Surgical Services Team Normal [facility] Office Visiton 10-16-2022 Follow-up visit [id number] Rossy Alfonso 1960 Clara Veliz Provider Department Center 10/16/2022 John-ZULY PRUETT ORTHO MPORTHO No family history on file Level of Service:99634 ND OFFICE/OUTPATIENT ESTABLISHED MOD MDM 30-39 MIN (57,GC) Reason for Visit and Comments: Follow-up [713473] - Discuss surgical planning Pain [136] - Discuss surgical planning Normal [facility] 08-11-2022 36 Surgery scheduled Normal [facility] on 08-10-2022 36 Patient's calling again to schedule sx. Normal [facility] XR LSPINE MIN 4 VIEWSon 08-0 XR [...] changes with dextrocurvature Electronically authenticated by: ZULY Veliz: 2021-11-07 07:55 Normal [facility] MRI SHOULDER RT WO CONon MRI SHOULDER [...] MIGUELANGEL GUEVARA Date: 2021-08-19 15:38 Normal [facility] SHOULDER RIGHTon 06-17-2021 SHOULDER RIGHT [facility] Department of Radiology [address] [place] [phone] Patient Name: ROSSY ALFONSO : 1960 [...] abnormality. Electronically signed: Harrison Lawton. Transcribed by: [email or web address], User Resident: Electronically Signed by: HARRISON LAWTON @ 06/18/2021 07:17 AM Normal [facility] Comment on above: Order Comment: Views (X-RAY, SHOULDER): AP, Y-Lateral Covid-19 PCR (CVDTBH)on 04-02 SARS-CoV-2 (COVID-19) RNA JUAN+probe Ql (Unsp spec) Detected Critically abnormal NOT DETECTED [facility] Comment on above: Result Comment: This test is not yet approved or cleared by the [place] FDA. When there are no FDA-approved or cleared tests available, and other criteria are met, FDA can make tests available under an emergency access mechanism called an Emergency Use Authorization (EUA). The EUA for this test is supported by the [place] of Health and Human Service's (HHS's) declaration [...] longer be used). Performed By: #### [facility] #### [facility] Laboratory [address] [place] [address] Dr. Wiliam Garrison FLUORO FOR SURGICAL PROCEDUR ESOrdered By: Ousmane Valdez on 07-15-2020 Miko, Chpo Incoming Radiant Results From [facility] - 07/15/2020 11:25 AM EDT FLUORO FOR SURGICAL PROCEDURES : 07/15/2020 9:53 AM CLINICAL HISTORY: R52 Pain ICD10. COMPARISON: None available. Intraoperative fluoroscopy was provided for Dr. Valdez procedure. A total of 1.5 seconds of fluoroscopy was used, with 2 fluoroscopic stills saved. No diagnostic images were obtained. Please see Dr. Valdez surgical notes for completeness. [facility] Work Phone: Surgical Specimenon 07-16-19 21 Surgical Specimen [facility] [address] [place], [place] [address] FINAL SURGICAL PATHOLOGY REPORT Patient Name: ROSSY ALFONSO Accession No: [id number] Age Sex: 1960 Location: [facility] Account No: [id number] Collected: 07/15/2020 Med Rec No: [id number] Received: 07/15/2020 Attend Phys: OUSMANE VALDEZ Completed: [...] two cassettes after brief decalcification. LOW CPT: 97183 X1 97863 X1 NICHELLE POWERS M.D. 07/16/2020 Electronically signed out by Page 1 of 1 Invalid Interpretation Code [facility] Comment on above: Performed By: #### S UR #### [facility] [address] [place] [id number] COVID-19, NAAon 06-25-2020 COVID-19, JUAN Not Detected Normal Not Detect [facility] Comment on above: Result Comment: This nucleic acid amplification test was developed and its performance characteristics determined by [facility]. Nucleic acid amplification tests include RT-PCR and [...] detected) result in this assay. Performed at: [address] [id number] Cylinder Steamer: Deon Camejo PhD, Phone: [phone] Performed By: #### I RCOV #### [facility] [address] [place] [id number] Basic Metabolic Panelon 06-01 Anion gap [Moles/Vol] 14 mmol/L Normal 9-15 [facility] Comment on above: Performed By: #### B MP #### [facility] [address] [place] [address] Calcium [Mass/Vol] 9.6 mg/dL Normal 8.5-9.9 [facility] Comment on above: Performed By: #### B MP #### [facility] [address] [place] [address] Chloride [Moles/Vol] 99 mmol/L Normal 95-107 [facility] Comment on above: Performed By: #### B MP #### [facility] [address] [place] [address] CO2 [Moles/Vol] 27 mmol/L Normal 20-31 [facility] Comment on above: Performed By: #### B MP #### [facility] [address] [place] [address] Creatinine [Mass/Vol] 0.79 mg/dL Normal 0.70-1.20 [facility] Comment on above: Performed By: #### B MP #### [facility] [address] [place] [address] GFR/1.73 sq M predicted among blacks MDRD (S/P/Bld) [Vol rate/Area] mL/min/{1.73_m2} Normal >60 [facility] Comment on above: Result Comment: >60 mL/min/1.73m2 EGFR, calc. for ages 18 and older using the MDRD formula (not corrected for weight), is valid for stable renal function. Performed By: #### B MP #### [facility] [address] [place] [address] GFR/1.73 sq M.predicted MDRD (S/P/Bld) [Vol rate/Area] mL/min/{1.73_m2} Normal >60 [facility] Comment on above: Result Comment: >60 mL/min/1.73m2 EGFR, calc. for ages 18 and older using the MDRD formula (not corrected for weight), is valid for stable renal function. Performed By: #### B MP #### [facility] [address] [place] [address] Glucose [Mass/Vol] 88 mg/dL Normal 70-99 [facility] Comment on above: Performed By: #### B MP #### [facility] [address] [place] [address] Potassium [Moles/Vol] 4.7 mmol/L Normal 3.4-4.9 [facility] Comment on above: Performed By: #### B MP #### [facility] [address] [place] [address] Sodium [Moles/Vol] 140 mmol/L Normal 135-144 [facility] Comment on above: Performed By: #### B MP #### [facility] [address] [place] [address] Urea nitrogen [Mass/Vol] 17 mg/dL Normal 6-20 [facility] Comment on above: Performed By: #### B MP #### [facility] [address] [place] [address] CBC With Platelet No Differe ntialon 06-24-2020 Platelets (Bld) [#/Vol] Not Done Normal 130-400 [facility] Comment on above: Result Comment: Unab le to obtain accurate platelet count due to giant platelet population. Platelet estimate 231 Performed By: #### C BCND #### [facility] [address] [place] [address] Platelet Slide Review Normal Normal [facility] Comment on above: Performed By: #### C BCND #### [facility] [address] [place] [address] Erythrocyte distribution width (RBC) [Ratio] 14.3 % Normal 11.5-14.5 [facility] Comment on above: Performed By: #### C BCND #### [facility] [address] [place] [address] Hematocrit (Bld) [Volume fraction] 50.1 % Normal 42.0-52.0 [facility] Comment on above: Performed By: #### C BCND #### [facility] [address] [place] [address] Hemoglobin (Bld) [Mass/Vol] 16.8 g/dL Normal 14.0-18.0 [facility] Comment on above: Performed By: #### C BCND #### [facility] [address] [place] [address] MCH (RBC) [Entitic mass] 32.3 pg Critically high 27.0-31.3 [facility] Comment on above: Performed By: #### C BCND #### [facility] [address] [place] [address] MCHC (RBC) [Mass/Vol] 33.6 % Normal 33.0-37.0 [facility] Comment on above: Performed By: #### C BCND #### [facility] [address] [place] [address] MCV (RBC) [Entitic vol] 96.1 fL Normal 80.0-100.0 [facility] Comment on above: Performed By: #### C BCND #### [facility] [address] [place] [address] RBC (Bld) [#/Vol] 5.21 10*6/uL Normal 4.70-6.10 [facility] Comment on above: Performed By: #### C BCND #### [facility] [address] [place] [address] WBC (Bld) [#/Vol] 17.9 10*3/uL Critically high 4.8-10.8 [facility] Comment on above: Performed By: #### C BCND #### [facility] [address] [place] [address] COVID-19, NAAon 06-24-2020 Source Swab Anterior nares Normal [facility] Comment on above: Performed By: #### I RCOV #### [facility] [address] [place] [address] Partial Thromboplastin Timeo n 06-24-2020 aPTT Coag (Bld) [Time] 30.0 s Normal 24.4-36.8 [facility] Comment on above: Result Comment: Effgrace ctive 02/04/2020: Heparin Therapeutic Range: 64.0 ? 98.0 seconds. Performed By: #### P TT #### [facility] [address] [facility] [address] Prothrombin Timeon INR Coag (PPP) [Relative time] 0.9 {INR} Normal [facility] Comment on above: Performed By: #### P T #### [facility] [address] [facility] [address] PT Coag (PPP) [Time] 12.4 s Normal 12.3-14.9 [facility] Comment on above: Performed By: #### P T #### [facility] [address] [facility] [address] Type and Screen Capture 3 sc rn cellon 06-24-2020 Type and Screen Capture 3 scrn cell PATIENT: NATY Brady LOC: [facility] BILL# : [id number] : 1960 SEX: M ORDERED BY: LESLYE Elizabeth ORDERED : 06/24/2020 10:28 COLLECTED: 06/24/2020 10:28 ORDER : [id number] RECEIVED : 06/24/2020 14:41 TEST NAME RESULT UNITS RANGES ABN FL ST ABORH Capture A POS F Antibody 3 Cell Scrn Captu NEG F Normal [facility] Comment on above: Performed By: #### T S3C #### [facility] [address] [place] [address] Vital Signs Date Time Vital Sign Value Performing Clinician Facility 12-14-2021 11:00-0400 Body height 180.34 cm Ruth Mosquera Other [facility] Other 12-14-2021 11:00-0400 Body mass index (BMI) [Ratio] 20.64 kg/m2 Ruth Mosquera Other [facility] Other 12-14-2021 11:00-0400 Body temperature 97 [degF] Ruth Mosquera Other [facility] Other 12-14-2021 11:00-0400 Body weight 67.13 kg Ruth Mosquera Other [facility] Other 12-14-2021 11:00-0400 Diastolic blood pressure 80 mm[Hg] Ruth Mosquera Other [facility] Other 12-14-2021 11:00-0400 SaO2% (BldA) [Mass fraction] 95 % Ruth Mosquera Other [facility] Other 12-14-2021 11:00-0400 Systolic blood pressure 160 mm[Hg] Ruth Mosquera Other [facility] Other 07-15-2020 13:50-0400 BP Diastolic 84 mm[Hg] Ousmane Jordin [facility] Work Phone: 07-15-2020 13:50-0400 BP Systolic 169 mm[Hg] [facility] Phone: 07-15-2020 13:50-0400 Pulse (Heart Rate) 95 /min [facility] Phone: 07-15-2020 13:50-0400 Pulse Oximetry 94 % [facility] Phone: 07-15-2020 13:50-0400 Respiratory Rate 18 /min [facility] Phone: 07-15-2020 13:35-0400 Body Temperature 98.8 [degF] [facility] Phone: 07-15-2020 08:31-0400 BMI (Body Mass Index) 21.38 kg/m2 [facility] Phone: 07-15-2020 08:31-0400 Body weight 67.59 kg [facility] Phone: 07-15-2020 08:31-0400 Height 177.8 cm [facility] Phone: Encounters Encounter Date Encounter Type Care Provider Facility Start: 01-05-2023 End: 01-05-2023 ambulatory ZULY [facility] Start: 10-16-2022 ambulatory ZULY SAMUEL [facility] Start: 10-16-2022 Encounter for other preprocedural examination ZULY SAMUEL [facility] Start: 12-14-2021 End: 12-14-2021 ambulatory Ruth Mosquera Other [facility] Other Start: 12-14-2021 [facility] visit new patient Ruth perez [facility] Start: 11-04-2021 End: 11-05-[address] RENALDO HUNG Facility: Start: 08-25-2021 End: 08-26-[address] RENALDO HUNG Facility:[facility] Start: 08-19-2021 End: 08-20-2021 ambulatory ZULY PRUETT Facility:[facility] Start: 06-14-2021 End: 06-29-[address] RENALDO HUNG Facility:[facility] Start: 04-20-2021 End: 04-20-[address] RENALDO HUNG Facility:[facility] Start: 07-15-2020 End: 07-15-2020 [facility] Start: 07-15-2020 End: 07-18-2020 [facility] Start: 07-15-2020 End: 07-15-2020 Subsequent hospital visit by physician Ousmane Valdez Work Phone: [facility] Comment on above: Postoperative pain ( Primary Dx) Start: 07-15-2020 End: 07-17-2020 Subsequent hospital visit by physician Ousmane Valdez MD Work Phone: [employer] [facility] Comment on above: Pain Procedures Date Procedure Procedure Detail Performing Clinician Start: 07-15-2020 Fluoroscopy during operation Ousmane Valdez MD Work Phone: Plan of Treatment Date Care Activity Detail Author Start: 12-01-2020 Influenza vaccination Flu vacc ine (Season Ended) [facility] Phone: Start: 07-30-2020 End: 07-30-2020 Office Visit 07/30/2020 Office Visit Neurosurgery Ousmane Valdez MD [address], [address] [place] [address] [phone] [facility] [facility] Start: 07-27-2020 End: 07-27-2020 Appointment 07/27/2020 Appointment Radiology [employer] [employer] [facility] Nuclear Medicine Start: 07-27-2020 End: 07-27-2020 Appointment [employer] [employer] [facility] Ultrasound Start: 2017 Screening for malign ant neoplasm of lung Low dose CT lung screening [facility] Phone: Start: 2012 Screening for malign ant neoplasm of colon Colon cancer screen colonoscopy [employer] Phone: Start: 2012 Shingles Vaccine (1 of 2) Shingles Vaccine (1 of 2) [facility] [employer] Phone: Start: 2002 Lipid panel Lipid screen [facility] [employer] Phone: Start: 1981 DTaP/Tdap/Td vaccine (1 - Tdap) DTaP/Tdap/Td vaccine (1 - Tdap) [facility] [employer] Phone: Start: 1978 COVID-19 Vaccine (1) COVID-19 Vaccin e (1) [facility] [employer] Phone: Start: 1977 HIV screening HIV screen [facility] Work Phone: Start: 1972 Meningococcal B vacc ine (1 of 4 - Increased Risk Bexsero 2-dose series) Meningococcal B vaccine (1 of 4 - Increased Risk Bexsero 2-dose series) [facility] [employer] Phone: Start: 1968 Pneumococcal 0-64 ye ars Vaccine (1 of 3 - PCV13) Pneumococcal 0-64 years Vaccine (1 of 3 - PCV13) [facility] [employer] Phone: Start: 01-23-1964 Hib vaccine (1 of 1 - Risk 1-dose series) Hib vaccine (1 of 1 - Risk 1-dose series) [facility] Start: 1960 Meningococcal (ACWY) vaccine (1 - Risk start before 7 months 4-dose series) Meningococcal (ACWY) vaccine (1 - Risk start before 7 months 4-dose series) [facility] Start: 1960 Hepatitis C screening Hepatitis C sc su [facility] [employer] Phone: Phase I & II - meter ed glucose Phase I & II - metered glucose Point of Care Testing Routine As Needed until discontinued starting 07/15/2020 [facility] Work Phone: Comment on above: As Needed until disc ontinued starting 07/15/2020 Surgical Pathology Seema Mckeon [facility] Work Phone: Comment on above: Release Upon Orderin g for 1 Occurrences starting 07/15/2020 End: 07-15-2020 Surgical Pathology Surgical Pathology Lab Routine Once for 1 Occurrences starting 07/15/2020 until 07/15/2020 [facility] Phone: Comment on above: Once for 1 Occurrenc es starting 07/15/2020 until 07/15/2020 Payers Date Payer Category Payer Unknown [id number] 2.16.8 [id number] 1960 Unknown [id number] 2.16.8 [id number] 1960 Unknown [id number] 2.16.84 [id number] 1960 Unknown [id number] 2.16.84 [id number] 1960 Unknown [id number] 2.16.84 [id number] 1960 Unknown [id number] 2.16.84 [id number] 1960 Unknown [id number] 2.16.84 [id number] 1959 Unknown [id number] Social History Date Type Detail Facility Start: 04-02-1982 End: 07-16-2020 Tobacco smoking status WYIS Current every day smoker [facility] Phone: Start: 04-02-1982 History of tobacco use Cigarette Smo ker [employer] Phone: Start: 07-15-2020 End: 07-16-2020 Cigarettes smoked current (pack per day) - Reported [employer] Phone: Start: 07-15-2020 End: 07-16-2020 Tobacco use and exposure Never used [facility] Phone: Start: 07-15-2020 End: 07-16-2020 Alcohol intake Lifetime non-drinker (finding) [facility] Phone: Start: 06-24-2020 History SDOH Alcohol Frequency 1 [facility] Phone: Start: 06-24-2020 History SDOH Alcohol Std Drinks 99 [employer] Phone: Start: 06-24-2020 History SDOH Transpo rt Med 2 [facility] Phone: Sex Assigned At Not on file [facility] Phone: Exposure to SARS-CoV -2 (event) Not sure [employer] Phone: Sex Assigned At Sex Assigned At [facility] Other Clinical Notes 07-15-2020 to 01-05-2023 Note Date & Type Note Facility 01-05-2023 Note Addendum created 09/22 1555 by Tamar Lowry MD Clinical Note Signed, Diagnosis association updated, Intraprocedure Blocks edited, SmartForm saved [facility] 01-05-2023 Note Patient: Rossy stover Procedure Summary Date: 01/05/23 Room / Location: [facility] OR [address] [place] [address] [facility] OR Anesthesia Start: 725 Anesthesia Stop: 903 Procedure: SHOULDER ARTHROSCOPY WITH ROTATOR CUFF REPAIR, LABRAL DEBRIDEMENT, SUBSCAPULAR REPAIR, SUBACHROMIAL DECOMPRESSION AND PROXIMAL BICEPS TENDON REPAIR (Right: Shoulder) Diagnosis: Complete tear of right rotator cuff, unspecified whether traumatic Avulsion of subscapularis, right, initial encounter Type 1 superior labral tknshour-qw-hxsebjlcv (SLAP) tear of right shoulder, initial encounter [...] Resp 13 01/05/23 0915 SpO2 96 % 01/05/2315 Anesthesia Post Evaluation Patient location during evaluation: PACU Patient participation: complete - patient participated Level of consciousness: awake Pain score: 0 Pain management: adequate Airway patency: patent Cardiovascular status: acceptable Respiratory status: acceptable Patient is hemodynamically stable and is able to be discharged from PACU per anesthesia protocol. No notable events documented. [facility] 01-05-2023 Note Patient: Rossy stover Procedure Summary Date: 01/05/23 Room / Location: [address] OR Anesthesia Start: 725 Anesthesia Stop: Procedure: SHOULDER ARTHROSCOPY WITH ROTATOR CUFF REPAIR, LABRAL DEBRIDEMENT, SUBSCAPULAR REPAIR, SUBACHROMIAL DECOMPRESSION AND PROXIMAL BICEPS TENDON REPAIR (Right: Shoulder) Diagnosis: Complete tear of right rotator cuff, unspecified whether traumatic Avulsion of subscapularis, right, initial encounter Type 1 superior labral uaqbkaot-hp-ryiofhity (SLAP) tear of right shoulder, initial encounter [...] Patient condition is: stable [facility] 01-05-2023 Note Airway Date/Time: 01/05/2023 7:31 AM Urgency: elective General Information and Staff Patient location during procedure: OR Anesthesiologist: Tamar Lowry MD Resident/SPORTING GOODS SALES MANAGER/CAA: Anthony Garrido CRNA Performed: resident/SPORTING [employer] SALES MANAGER/CAA Indications and Patient Condition Indications for airway [...] 4% lidocaine lta utilized [facility] 01-05-2023 Note Peripheral Block Patient location during procedure: pre-op Start time: 01/05/2023 1:03 AM End time: 01/05/2023 7:17 AM Reason for block: at surgeon's request and post-op pain management Staffing Performed: anesthesiologist Anesthesiologist: Tamar Lowry MD Resident/SPORTING GOODS SALES MANAGER: Anthony Garrido CRNA Preanesthetic Checklist Completed: patient [...] Heart rate change: no [facility] 01-05-2023 Note Patient: Rossy stover Procedure Information Date/Time: 01/05/23729 Procedure: SHOULDER ARTHROSCOPY WITH ROTATOR CUFF REPAIR (Right: Shoulder) - MITEK NOTIFIED 12/28 Location: [facility] OR [address] [place] [address] GIS OR Surgeons: Zuly Pruett MD Past Medical [...] risks discussed with patient. Plan discussed with SPORTING GOODS SALES MANAGER. Additional Equipment Requests [facility] 10-16-2022 Note ---- Attestation signed by [...] the right shoulder completed on 08/19/21 @ [facility]. He continues to have pain in the right shoulder, primarily with motion/use of the arm. Pain at rest is a 5/10. He has failed PT/NSAIDs in the past. 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 Date of Telehealth Visit: 2021 The patient was notified that using 3rd green party telecommunication application (e.g. [employer]) is not HIPAA compliant and may carry some privacy risks: yes This visit was conducted cisa-fe-sgye with the use of audio and video [...] previous MRI report from 08/19 2021 from [facility] indicates complete tear of the supraspinatus tendon [...] personal documentation from me. [facility] 12-14-2021 Evaluation note Encounter Date Diagnosis Assessment Notes Dec, PAD (peripheral artery disease) (ICD-10 - I73.9) We reviewed this patient's TO studies from the [facility] showing left TO 0.94, right TO 0.70. [...] his risks and is unmotivated to quit. [facility] Other 04-15-2021 NoteFLUORO FOR SURGICAL PROCEDURES : [...] MD Signed by: Ming Bejarano MD 07/15/20 [facility]04-15-2021 NoteFLUORO FOR SURGICAL PROCEDURES : 07/15/2020 9:53 AM CLINICAL HISTORY: R52 Pain ICD10. COMPARISON: Non e available. Intraoperative fluoroscopy was provided for Dr. Valdez procedure. A total of 1.5 seconds of fluoroscopy was used, with 2 fluoroscopic stills saved. No diagnostic images were obtained. Please see Dr. Valdez surgical notes for completeness.[employer] Phone: evaluation note* Diagnosis Pain Generalized pain documented in this encounter [employer] Phone: History general Narrative - Reported* Type Description Date Medical History hypertension Surgical History Back Surgery 2021 Surgical History Shoulder surgery Surgical History spleenectomy Hospitalization History see above [facility] Other Summary Purpose Family History No Family [...] your physician 11) Call your doctor at [phone] for an appointment (or follow up as [...] call OFFICE. The 24- hour phone is [phone] 13) If you are unable to contact [...] [facility] For Surgical Procedures Ousmane Valdez MD [address], [address] [place] [address] Additional Source Comments (unrecognized sect ion and content) No Status Records FoundNo Status Records FoundNo Status Records FoundNo Status Records FoundNo Status Records Found INFORMATION SOURCE (unrecogn ized section and content) DATE CREATED AUTHOR 06/25/2020 [facility] DATE CREATED AUTHOR AUTHOR'S ORGANIZ ATION 07/20/2020 [facility] DATE CREATED AUTHOR AUTHOR'S ORGANIZ ATION 06/22/2021 [facility] DATE CREATED AUTHOR AUTHOR'S ORGANIZ ATION 11/09/2021 [facility] DATE CREATED AUTHOR AUTHOR'S ORGANIZ ATION 01/07/[address] [facility] Reason for Visit (unrecogniz ed section and content) Status Reason Specialty Diagnoses / Procedures Referre d By Contact Referred To Contact Diagnoses Lumbar disc herniation Lumbar radiculopathy DISC HERNIATION, RADICULOPATHY Procedures LAMINEC/FACETECT/FORAMIN ,LUMBAR 1 SEG ND LAMNOTMY INCL W/DCMPRSN NRV ROOT 1 INTRSPC LUMBR L4-5 RIGHT MICRODISKECTOMY/ 1 HR/ 1 C-ARM/ PAT AND RAPID COVID ON ADMIT Ousmane Valdez MD [address], [address] [place] [address] [facility] Ordered Prescriptions (unrec ognized section and [...] BE BASED ON THE PRIMARY CLINICAL RECORDS. [facility] [employer] provides no warranty or guarantee of the accuracy or completeness of information in this document.
== END 2023-08-23 15:31 | disposition home or self-care (01) ==
LOC: US 15:30
PROVIDERS: PCP Family Medicine; Visit Provider Family Medicine
DX: I73.9 Peripheral vascular disease, unspecified (principal)
CPT/HCPCS: 93925

== ENCOUNTER 2023-10-09 15:32 | Outpatient (OUT) | payer OTHER, SELFPAY ==
--- NOTE | 2023-10-09 15:39 | XR_ITS ---
The [address] [address] Patient Name: ROSSY ALFONSO MRN: [id number] date: 1960 Sex: M Assigned Patient Location: Current Patient Location: Accession/Order Number: [id number] Exam Date: 10/09/2023 15:33 Report Date: 10/10/2023 07:18 At the request of: BENJY RIVERS Procedure: XR foot LT min 3V PROCEDURE: XR foot LT min 3V COMPARISON: 11/08/2022 HISTORY: LEFT FOOT PAIN FINDINGS: BONES:No fracture, acute abnormality, or significant arthropathy. Minimal enthesopathic spurring of the calcaneus at the Achilles insertion SOFT TISSUES:Negative. No visible soft tissue swelling. EFFUSION:None visible. OTHER: Negative. XR/XR foot LT min 3V IMPRESSION: No acute abnormality Electronically authenticated by: ZULY PATE Date: 10/10/2023 07:18
== END 2023-10-09 15:33 | disposition home or self-care (01) ==
LOC: EC 15:32
PROVIDERS: PCP Family Medicine; Visit Provider Podiatrist Foot & Ankle Surgery
DX: M79.672 Pain in left foot (principal)
CPT/HCPCS: 73630

== ENCOUNTER 2024-03-03 08:02 | Outpatient (OUT) | payer OTHER, SELFPAY ==
--- NOTE | 2024-03-03 08:07 | VEIN_ITS ---
The [address] [address] Patient Name: ROSSY ALFONSO MRN: [id number] date: 1960 Sex: M Assigned Patient Location: Current Patient Location: Accession/Order Number: [id number] Exam Date: 03/03/2024 08:08 Report Date: 03/03/2024 14:40 At the request of: BRIAN MCNAIR Procedure: VC US AAA DX EXAM: VC US AAA DX HISTORY: F17.219 Nicotine dependence, Claudication I73.9. ; Bilateral iliac artery stent placement 6 months ago TECHNIQUE: Ultrasound was performed of the abdominal aorta. COMPARISON: CT abdomen pelvis 07/05/2023 FINDINGS: AORTA: Moderate amount of calcified and noncalcified plaque within the mid and distal aorta. Maximum diameter of the aorta is 3.0 cm. RIGHT ILIAC: Patent stent 1.1 cm in diameter. LEFT ILIAC: Patent stent 1.3 cm diameter. OTHER: Prominent dilated left renal vein between the kidney and aorta. Narrowed left renal vein between the aorta and inferior vena cava; there appears to be abrupt narrowing of the left renal vein between the aorta and superior mesenteric artery. Flow velocity within the distal/dilated left renal vein is 20 cm/s. Flow velocity of the small caliber proximal renal vein is 198 cm/s. VEIN/VC US AAA DX IMPRESSION: 1. Patent bilateral iliac stents without appreciable narrowing. 2. Mild fusiform dilation of the infrarenal aorta, 3.0 cm, with moderate plaque. 3. 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 Electronically authenticated by: MIGUELANGEL GUEVARA Date: 03/03/2024 14:40
--- NOTE | 2024-03-03 08:07 | VEIN_ITS ---
The [place] [address] Patient Name: ROSSY ALFONSO MRN: [id number] date: 1960 Sex: M Assigned Patient Location: Current Patient Location: Accession/Order Number: [id number] Exam Date: 03/03/2024 08:08 Report Date: 03/03/2024 10:55 At the request of: BRIAN MCNAIR Procedure: VC SEGMENTAL PRESSURES EXAM: VC SEGMENTAL PRESSURES HISTORY: F17.219 Nicotine dependence, Claudication I73.9 COMPARISON: None. FINDINGS: Segmental pressures presented as follows (right, left) in mmHg. 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, 151 1st Toe: 99, 119 TO: 1.06, 1.03 TBI: 0.61, 0.73 The ABIs are Normal The TBI's demonstrate low risk ischemia in the right, normal on the left PVR waveforms: Right leg: Thigh: Normal Above knee: Normal Below knee: Normal Right ankle: Normal Right first metatarsal: Mild to moderate ischemic waveform Left leg: Thigh: Normal Above knee: Normal Below knee: Normal Right ankle: Normal Left first metatarsal: [id number] ischemic waveform VEIN/VC SEGMENTAL PRESSURES IMPRESSION: Wwwi-iy-dxmzceer ischemic waveform bilateral metatarsals Electronically authenticated by: ZULY PATE Date: 03/03/2024 10:55
--- OUTSIDE RECORDS SUMMARY | 2024-03-03 08:18 | XMS_ITS | CCD ---
Author Organization [facility] Care Team Providers Care Counselor Marriage And Family Name Role Phone Renaldo Hung Primary Care Provider [phone] OUSMANE VALDEZ Referring Unavailable RENALDO HUNG Primary Care Unavailable OUSMANE VALDEZ Attending Unavailable OUSMANE VALDEZ Attending Unavailable RENALDO HUNG Primary Care Unavailable OUSMANE VALDEZ Admitting Unavailable HAI, DR MACARIO Admitting Unavailable HOGuerline, DR MACARIO Attending Unavailable BLANCAY, DR MACARIO Primary Care Unavailable HOY, DR MACARIO Consulting Unavailable BLANCAY, DR MACARIO Admitting Unavailable HOY, DR MACARIO [...] Care Unavailable HOGuerline, DR MACARIO Consulting Unavailable [place], DR ZULY Shelton Consulting Unavailable Ruth Mosquera Unavailable ZULY PRUETT Admitting Unavailable ZULY PRUETT Attending Unavailable ZULY PRUETT Attending Unavailable Medications [...] 07-15-2020 ondansetron (ZOFRAN) injection 4 mg sennosides, group home 8.6 mg oral tablet (2 sources) Start: [...] Interpretation Reference Range Facility Anesthesiaon 01-05-2023 Anesthesia [id number] Rossy Alfonso 1960 M Date Provider Department [facility] No family history on file Normal [facility] OPNOTEon 01-05-2023 OPNOTE SHOULDER ARTHROSCOPY WITH ROTATOR CUFF REPAIR X2, LABRAL DEBRIDEMENT, SUBSCAPULAR REPAIR, SUBACROMIAL DECOMPRESSION AND CAPSULAR RELEASE(R) Operative Note Date: 01/05/2023 Location: [facility] OR Name: Rossy Alfonso, : 1960, Diagnosis Pre-op Diagnosis * Complete tear of right rotator cuff, unspecified whether traumatic [M75.121] Post-op Diagnosis * Complete tear of right rotator cuff, unspecified whether traumatic [M75.121] * Avulsion of subscapularis, right, initial encounter [S46.891A] * Type 1 superior labral asmebdvo-nq-ebrpvmkvn (SLAP) tear of right shoulder, initial encounter [S43.431A] * 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] * Impingement syndrome of right shoulder [M75.41] Procedures SHOULDER ARTHROSCOPY WITH ROTATOR CUFF REPAIR, LABRAL DEBRIDEMENT, SUBSCAPULAR REPAIR, SUBACHROMIAL DECOMPRESSION AND PROXIMAL BICEPS TENDON REPAIR 26815 - MD SURGICAL ARTHROSCOPY SHOULDER W/ROTATOR CUFF RPR MD SURGICAL ARTHROSCOPY SHOULDER W/ROTATOR CUFF RPR [73251] MD SURGICAL ARTHROSCOPY SHOULDER W/ROTATOR CUFF RPR [93898] MD SURGICAL ARTHROSCOPY SHOULDER W/ROTATOR CUFF RPR [61442] MD SURGICAL ARTHROSCOPY SHOULDER LMTD DBRDMT 1/2 [53542] MD CAPSULAR CONTRACTURE RELEASE [40939] Surgeons * Zuly Pruett - Primary Procedure Summary Anesthesia: General ASA: II Estimated Blood Loss: 20 mL Total IV Fluids: mL Drains: * None in log * Implants Type Name Action Serial No. healix advance peek anchor w/dynacord Implanted Staff: Bean Picker: Sandra Bernardo RN Scrub Person: Flakita Martel [...] hemodynamically stable. Condition: stable Zuly Pruett Normal [facility] POCT GLUCOSE METER UNSOLICIT ED RESULTSon 01-05-2023 Glucose [Mass/Vol] 93 mg/dL Normal 70-105 [facility] Comment on above: Order Comment: Waive d Testing in the ED is performed under the ED CLIA certificate #[id number]. Result Comment: ltol les Performed By: #### L [id number] ####[facility] ([facility])[address] [place] [address] HPon 01-04-2023 HP History Of Present Illness [...] Results XR shoulder 2+ views right Narrative: [facility] Department of Radiology [address] [place] [id number] Patient Name: ROSSY ALFONSO : 1960 [...] abnormality. Electronically signed: Harrison Lawton. 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 Do not wear perfume, make-up, nail ukrainian, or lotions on the day of your [...] need to make any changes, please call [phone]. Notify your surgeon if you develop any illness such as a cold, cough, fever, sore throat or vomiting between now and your surgery. Thank you for entrusting us with your care. [facility] Surgical Services Team Normal [facility] Office Visiton 10-16-2022 Follow-up visit [id number] Rossy Alfonso 1960 M Date Provider Department Center 10/16/2022 John-ZULY PRUETT ORTHO MPORTHO No family history on file Level of Service:01373 MD OFFICE/OUTPATIENT ESTABLISHED MOD MDM 30-39 MIN (57,GC) Reason for Visit and Comments: Follow-up [440452] - Discuss surgical planning Pain [136] - Discuss surgical planning Normal [facility] on 08-11-2022 36 Surgery scheduled Normal [facility] 36on 08-10-2022 36 Patient's calling again to schedule sx. Normal [facility] XR LSPINE MIN 4 VIEWSon [...] by: ZULY PATE Date: 2021-11-07 07:55 Normal [facility] MRI SHOULDER RT WO CONon MRI SHOULDER [...] MIGUELANGEL GUEVARA Date: 2021-08-19 15:38 Normal [facility] SHOULDER RIGHTon 06-17-2021 SHOULDER RIGHT [facility] Department of Radiology [address] [place] [phone] Patient Name: ROSSY ALFONSO : 1960 [...] abnormality. Electronically signed: Harrison Lawton. Transcribed by: [email or web address], User Resident: Electronically Signed by: HARRISON LAWTON @ 06/18/2021 07:17 AM Normal [facility] Comment on above: Order Comment: Views (X-RAY, SHOULDER): AP, Y-Lateral Covid-19 PCR (CVDTBH)on 04-02 SARS-CoV-2 (COVID-19) RNA JUAN+probe Ql (Unsp spec) Detected Critically abnormal NOT DETECTED [facility] Comment on above: Result Comment: This test is not yet approved or cleared by the [place] FDA. When there are no FDA-approved or cleared tests available, and other criteria are met, FDA can make tests available under an emergency access mechanism called an Emergency Use Authorization (EUA). The EUA for this test is supported by the Harp Maker of Health and Human Service's (HHS's) declaration [...] longer be used). Performed By: #### C COUNT INCLUDES [facility] #### [facility] [address] [place] [address] Dr. Wiliam Garrison FLUORO FOR SURGICAL PROCEDUR ESOrdered By: Ousmane Valdez on 07-15-2020 Miko, Chpo Incoming Radiant Results From APROOFEDe/Pacs - 07/15/2020 11:25 AM EDT FLUORO FOR SURGICAL PROCEDURES : 07/15/2020 9:53 AM CLINICAL HISTORY: R52 Pain ICD10. COMPARISON: None available. Intraoperative fluoroscopy was provided for Dr. Valdez procedure. A total of 1.5 seconds of fluoroscopy was used, with 2 fluoroscopic stills saved. No diagnostic images were obtained. Please see Dr. Valdez surgical notes for completeness. [facility] Work Phone: Surgical Specimenon 07-16-19 21 Surgical Specimen [facility] [address] [place] [address] FINAL SURGICAL PATHOLOGY REPORT Patient Name: ROSSY ALFONSO Accession No: [id number] Age Sex: 1960 [facility] Account No: [id number] Collected: 07/15/2020 Med Rec No: [id number] Received: 07/15/2020 Attend Phys: OUSMANE VALDEZ Completed: [...] two cassettes after brief decalcification. LOW CPT: 07745 X1 29419 X1 NICHELLE POWERS M.D. 07/16/2020 Electronically signed out by Page 1 of 1 Invalid Interpretation Code [facility] Comment on above: Performed By: #### S UR #### [facility] [address] [place] [id number] COVID-19, NAAon 06-25-2020 COVID-19, JUAN Not Detected Normal Not Detect [facility] Comment on above: Result Comment: This nucleic acid amplification test was developed and its performance characteristics determined by [employer]. Nucleic acid amplification tests include RT-PCR and [...] detected) result in this assay. Performed at: [address] [id number] Taxicab Dispatcher: Deon Camejo PhD, Phone: [phone] Performed By: #### I RCOV #### [facility] [address] [place] [id number] Basic Metabolic Panelon 06-01 Anion gap [Moles/Vol] 14 mmol/L Normal 9-15 [facility] Comment on above: Performed By: #### B MP #### [facility] [address] [place] [address] Calcium [Mass/Vol] 9.6 mg/dL Normal 8.5-9.9 [facility] Comment on above: Performed By: #### B MP #### [facility] [address] [place] [address] Chloride [Moles/Vol] 99 mmol/L Normal 95-107 [facility] Comment on above: Performed By: #### B MP #### [facility] [address] [place] [address] CO2 [Moles/Vol] 27 mmol/L Normal 20-31 [facility] Comment on above: Performed By: #### B MP #### [facility] [address] [place] [address] Creatinine [Mass/Vol] 0.79 mg/dL Normal 0.70-1.20 [facility] Comment on above: Performed By: #### B MP #### [facility] [address] [place] [address] GFR/1.73 sq M predicted among blacks MDRD (S/P/Bld) [Vol rate/Area] mL/min/{1.73_m2} Normal >60 [facility] Comment on above: Result Comment: >60 mL/min/1.73m2 EGFR, calc. for ages 18 and older using the MDRD formula (not corrected for weight), is valid for stable renal function. Performed By: #### B MP #### [facility] [address] [place] [address] GFR/1.73 sq M.predicted MDRD (S/P/Bld) [Vol rate/Area] mL/min/{1.73_m2} Normal >60 [facility] Comment on above: Result Comment: >60 mL/min/1.73m2 EGFR, calc. for ages 18 and older using the MDRD formula (not corrected for weight), is valid for stable renal function. Performed By: #### B MP #### [facility] [address] [place] [address] Glucose [Mass/Vol] 88 mg/dL Normal 70-99 [facility] Comment on above: Performed By: #### B MP #### [facility] [address] [place] [address] Potassium [Moles/Vol] 4.7 mmol/L Normal 3.4-4.9 [facility] Comment on above: Performed By: #### B MP #### [facility] [address] [place] [address] Sodium [Moles/Vol] 140 mmol/L Normal 135-144 [facility] Comment on above: Performed By: #### B MP #### [facility] [address] [place] [address] Urea nitrogen [Mass/Vol] 17 mg/dL Normal 6-20 [facility] Comment on above: Performed By: #### B MP #### [facility] [address] [place] [address] CBC With Platelet No Differe ntialon 06-24-2020 Platelets (Bld) [#/Vol] Not Done Normal 130-400 [facility] Comment on above: Result Comment: Unab le to obtain accurate platelet count due to giant platelet population. Platelet estimate 231 Performed By: #### C BCND #### [facility] [address] [place] [address] Platelet Slide Review Normal Normal [facility] Comment on above: Performed By: #### C BCND #### [facility] [address] [place] [address] Erythrocyte distribution width (RBC) [Ratio] 14.3 % Normal 11.5-14.5 [facility] Comment on above: Performed By: #### C BCND #### [facility] [address] [place] [address] Hematocrit (Bld) [Volume fraction] 50.1 % Normal 42.0-52.0 [facility] Comment on above: Performed By: #### C BCND #### [facility] [address] [place] [address] Hemoglobin (Bld) [Mass/Vol] 16.8 g/dL Normal 14.0-18.0 [facility] Comment on above: Performed By: #### C BCND #### [facility] [address] [place] [address] MCH (RBC) [Entitic mass] 32.3 pg Critically high 27.0-31.3 [facility] Comment on above: Performed By: #### C BCND #### [facility] [address] [place] [address] MCHC (RBC) [Mass/Vol] 33.6 % Normal 33.0-37.0 [facility] Comment on above: Performed By: #### C BCND #### [facility] [address] [place] [address] MCV (RBC) [Entitic vol] 96.1 fL Normal 80.0-100.0 [facility] Comment on above: Performed By: #### C BCND #### [facility] [address] [place] [address] RBC (Bld) [#/Vol] 5.21 10*6/uL Normal 4.70-6.10 [facility] Comment on above: Performed By: #### C BCND #### [facility] [address] [place] [address] WBC (Bld) [#/Vol] 17.9 10*3/uL Critically high 4.8-10.8 [facility] Comment on above: Performed By: #### C BCND #### [facility] [address] [place] [address] COVID-19, NAAon 06-24-2020 Source Swab Anterior nares Normal [facility] Comment on above: Performed By: #### I RCOV #### [facility] [address] [place] [address] Partial Thromboplastin Timeo n 06-24-2020 aPTT Coag (Bld) [Time] 30.0 s Normal 24.4-36.8 [facility] Comment on above: Result Comment: Effgrace ctive 02/04/2020: Heparin Therapeutic Range: 64.0 ? 98.0 seconds. Performed By: #### P TT #### [facility] [address] [facility] [facility] [address] Prothrombin Timeon INR Coag (PPP) [Relative time] 0.9 {INR} Normal [facility] Comment on above: Performed By: #### P T #### [facility] [address] [facility] [address] PT Coag (PPP) [Time] 12.4 s Normal 12.3-14.9 [facility] Comment on above: Performed By: #### P T #### [facility] [address] [facility] [facility] [address] Type and Screen Capture 3 sc rn cellon 06-24-2020 Type and Screen Capture 3 scrn cell PATIENT: NATY Brady LOC: [facility] BILL# : [id number] : 1960 SEX: M ORDERED BY: LESLYE Elizabeth ORDERED : 06/24/2020 10:28 COLLECTED: 06/24/2020 10:28 ORDER : [id number] RECEIVED : 06/24/2020 14:41 TEST NAME RESULT UNITS RANGES ABN FL ST ABORH Capture A POS F Antibody 3 Cell Scrn Captu NEG F Normal [facility] Comment on above: Performed By: #### T S3C #### [facility] [address] [place] [address] Vital Signs Date Time Vital Sign Value Performing Clinician Facility 12-14-2021 11:00-0400 Body height 180.34 cm Ruth Mosquera Other [facility] Other 12-14-2021 11:00-0400 Body mass index (BMI) [Ratio] 20.64 kg/m2 Ruth Mosquera Other [facility] Other 12-14-2021 11:00-0400 Body temperature 97 [degF] Ruth Mosquera Other [facility] Other 12-14-2021 11:00-0400 Body weight 67.13 kg Ruth Mosquera Other [facility] Other 12-14-2021 11:00-0400 Diastolic blood pressure 80 mm[Hg] Ruth Mosquera Other [facility] Other 12-14-2021 11:00-0400 SaO2% (BldA) [Mass fraction] 95 % Ruth Mosquera Other [facility] Other 12-14-2021 11:00-0400 Systolic blood pressure 160 mm[Hg] Ruth Mosquera Other [facility] Other 07-15-2020 13:50-0400 BP Diastolic 84 mm[Hg] Ousmane Jordin [facility] Work Phone: 07-15-2020 13:50-0400 BP Systolic 169 mm[Hg] [facility] Phone: 07-15-2020 13:50-0400 Pulse (Heart Rate) 95 /min [facility] Phone: 07-15-2020 13:50-0400 Pulse Oximetry 94 % [facility] Phone: 07-15-2020 13:50-0400 Respiratory Rate 18 /min [facility] Phone: 07-15-2020 13:35-0400 Body Temperature 98.8 [degF] [facility] Phone: 07-15-2020 08:31-0400 BMI (Body Mass Index) 21.38 kg/m2 [facility] Phone: 07-15-2020 08:31-0400 Body weight 67.59 kg [facility] Phone: 07-15-2020 08:31-0400 Height 177.8 cm [facility] Phone: Encounters Encounter Date Encounter Type Care Provider Facility Start: 01-05-2023 End: 01-05-2023 ambulatory ZULY [facility] Start: 10-16-2022 ambulatory ZULY SAMUEL [facility] Start: 10-16-2022 Encounter for other preprocedural examination ZULY SAMUEL [facility] Start: 12-14-2021 End: 12-14-2021 ambulatory Ruth Mosquera Other [facility] Other Start: 12-14-2021 [facility] visit new patient Ruth perez [facility] Start: 11-04-2021 End: 11-05-[address] RENALDO HUNG Facility: Start: 08-25-2021 End: 08-26-[address] RENALDO HUNG Facility:[facility] Start: 08-19-2021 End: 08-20-2021 ambulatory ZULY PRUETT Facility:[facility] Start: 06-14-2021 End: 06-29-[address] RENALDO HUNG Facility:[facility] Start: 04-20-2021 End: 04-20-[address] RENALDO HUNG Facility:[facility] Start: 07-15-2020 End: 07-15-2020 [facility] Start: 07-15-2020 End: 07-18-2020 amb[facility] Start: 07-15-2020 End: 07-15-2020 Subsequent hospital visit by physician Ousmane Valdez Work Phone: [facility] Comment on above: Postoperative pain ( Primary Dx) Start: 07-15-2020 End: 07-17-2020 Subsequent hospital visit by physician Ousmane Valdez MD Work Phone: [facility] [place] [facility] Comment on above: Pain Procedures Date Procedure Procedure Detail Performing Clinician Start: 07-15-2020 Fluoroscopy during operation Ousmane Valdez MD Work Phone: Plan of Treatment Date Care Activity Detail Author Start: 12-01-2020 Influenza vaccination Flu vacc ine (Season Ended) [facility] Phone: Start: 07-30-2020 End: 07-30-2020 Office Visit 07/30/2020 Office Visit Neurosurgery Ousmane Valdez MD [address], [address] [place], [place] [id number] [facility] Start: 07-27-2020 End: 07-27-2020 Appointment 07/27/2020 Appointment Radiology [facility] Nuclear Medicine Start: 07-27-2020 End: 07-27-2020 Appointment [facility] Ultrasound Start: 2017 Screening for malign ant neoplasm of lung Low dose CT lung screening [facility] Phone: Start: 2012 Screening for malign ant neoplasm of colon Colon cancer screen colonoscopy [facility] Phone: Start: 2012 Shingles Vaccine (1 of 2) Shingles Vaccine (1 of 2) [facility] [employer] Phone: Start: 2002 Lipid panel Lipid screen [facility] Phone: Start: 1981 DTaP/Tdap/Td vaccine (1 - Tdap) DTaP/Tdap/Td vaccine (1 - Tdap) [facility] Phone: Start: 1978 COVID-19 Vaccine (1) COVID-19 Vaccin e (1) [facility] Phone: Start: 1977 HIV screening HIV screen [facility] Work Phone: Start: 1972 Meningococcal B vacc ine (1 of 4 - Increased Risk Bexsero 2-dose series) Meningococcal B vaccine (1 of 4 - Increased Risk Bexsero 2-dose series) [facility] Phone: Start: 1968 Pneumococcal 0-64 ye ars Vaccine (1 of 3 - PCV13) Pneumococcal 0-64 years Vaccine (1 of 3 - PCV13) [facility] [employer] Phone: Start: 01-23-1964 Hib vaccine (1 of 1 - Risk 1-dose series) Hib vaccine (1 of 1 - Risk 1-dose series) [facility] [employer] Phone: Start: 1960 Meningococcal (ACWY) vaccine (1 - Risk start before 7 months 4-dose series) Meningococcal (ACWY) vaccine (1 - Risk start before 7 months 4-dose series) [facility]: Start: 1960 Hepatitis C screening Hepatitis C sc su [facility] [employer] Phone: Phase I & II - meter ed glucose Phase I & II - metered glucose Point of Care Testing Routine As Needed until discontinued starting 07/15/2020 [facility] Work Phone: Comment on above: As Needed until disc ontinued starting 07/15/2020 Surgical Pathology Seema Mckeon [facility] Work Phone: Comment on above: Release Upon Orderin g for 1 Occurrences starting 07/15/2020 End: 07-15-2020 Surgical Pathology Surgical Pathology Lab Routine Once for 1 Occurrences starting 07/15/2020 until 07/15/2020 [facility] Phone: Comment on above: Once for 1 Occurrenc es starting 07/15/2020 until 07/15/2020 Payers Date Payer Category Payer Unknown [id number] 2.16.8 [id number] 1960 Unknown [id number] 2.16.8 [id number] 1960 Unknown [id number] 2.16.84 [id number] 1960 Unknown [id number] 2.16.84 [id number] 1960 Unknown [id number] 2.16.84 [id number] 1960 Unknown [id number] 2.16.84 [id number] 1960 Unknown [id number] 2.16.84 [id number] 1959 Unknown [id number] Social History Date Type Detail Facility Start: 04-02-1982 End: 07-16-2020 Tobacco smoking status GAIS Current every day [facility]: Start: 04-02-1982 History of tobacco use Cigarette Smo ker [facility] Phone: Start: 07-15-2020 End: 07-16-2020 Cigarettes smoked current (pack per day) - Reported [facility] Phone: Start: 07-15-2020 End: 07-16-2020 Tobacco use and exposure Never used [facility] Phone: Start: 07-15-2020 End: 07-16-2020 Alcohol intake Lifetime non-drinker (finding) [facility] Phone: Start: 06-24-2020 History SDOH Alcohol Frequency 1 [facility] Phone: Start: 06-24-2020 History SDOH Alcohol Std Drinks 99 [facility] Phone: Start: 06-24-2020 History SDOH Transpo rt Med 2 [facility] Phone: Sex Assigned At Not on file [facility] Phone: Exposure to SARS-CoV -2 (event) Not sure [facility] Phone: Sex Assigned At Sex Assigned At [facility] Other Clinical Notes 07-15-2020 to 01-05-2023 Note Date & Type Note Facility 01-05-2023 Note Addendum created 09/22 1555 by Tamar Lowry MD Clinical Note Signed, Diagnosis association updated, Intraprocedure Blocks edited, SmartForm saved [facility] 01-05-2023 Note Patient: Rossy stover Procedure Summary Date: 01/05/23 Room / Location: [facility] OR [address] [place] [address] [facility] OR Anesthesia Start: 725 Anesthesia Stop: 903 Procedure: SHOULDER ARTHROSCOPY WITH ROTATOR CUFF REPAIR, LABRAL DEBRIDEMENT, SUBSCAPULAR REPAIR, SUBACHROMIAL DECOMPRESSION AND PROXIMAL BICEPS TENDON REPAIR (Right: Shoulder) Diagnosis: Complete tear of right rotator cuff, unspecified whether traumatic Avulsion of subscapularis, right, initial encounter Type 1 superior labral pszzvxhe-id-khkmjajll (SLAP) tear of right shoulder, initial encounter [...] per anesthesia protocol. No notable events documented. [facility] 01-05-2023 Note Patient: Rossy stover Procedure Summary Date: 01/05/23 Room / Location: [address] OR Anesthesia Start: 725 Anesthesia Stop: Procedure: SHOULDER ARTHROSCOPY WITH ROTATOR CUFF REPAIR, LABRAL DEBRIDEMENT, SUBSCAPULAR REPAIR, SUBACHROMIAL DECOMPRESSION AND PROXIMAL BICEPS TENDON REPAIR (Right: Shoulder) Diagnosis: Complete tear of right rotator cuff, unspecified whether traumatic Avulsion of subscapularis, right, initial encounter Type 1 superior labral zhtcbgdu-ps-cvbvrmdtu (SLAP) tear of right shoulder, initial encounter [...] observation Transport: uneventful Patient condition is: stable [facility] 01-05-2023 Note Airway Date/Time: 01/05/2023 7:31 AM Urgency: elective General Information and Staff Patient location during procedure: OR Anesthesiologist: Tamar Lowry MD Resident/SOUND PRINTER/CAA: Anthony Garrido CRNA Performed: resident/SOUND PRINTER/CAA Indications and Patient Condition Indications for airway [...] Additional Comments 4ml 4% lidocaine lta utilized [facility] 01-05-2023 Note Peripheral Block Patient location during procedure: pre-op Start time: 01/05/2023 1:03 AM End time: 01/05/2023 7:17 AM Reason for block: at surgeon's request and post-op pain management Staffing Performed: anesthesiologist Anesthesiologist: Tamar Lowry MD Resident/SOUND PRINTER: Anthony Garrido CRNA Preanesthetic Checklist Completed: patient [...] Paresthesia pain: none Heart rate change: no [facility] 01-05-2023 Note Patient: Rossy stover Procedure Information Date/Time: 01/05/23 0730 Procedure: SHOULDER ARTHROSCOPY WITH ROTATOR CUFF REPAIR (Right: Shoulder) - MITEK NOTIFIED 12/28 Location: [facility] OR [address] [place] [address] [facility] OR Surgeons: Zuly Pruett MD Past Medical [...] risks discussed with patient. Plan discussed with SOUND PRINTER. Additional Equipment Requests [facility] 10-16-2022 Note ---- Attestation signed [...] the right shoulder completed on 08/19/21 @ [facility]. He continues to have pain in the right shoulder, primarily with motion/use of the arm. Pain at rest is a 5/10. He has failed PT/NSAIDs in the past. 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 Date of Telehealth Visit: 2021 The patient was notified that using 3rd alliance party telecommunication application (e.g. Danlan) is not HIPAA compliant and may carry some privacy risks: yes This visit was conducted wyis-du-jetq with the use of audio and video [...] previous MRI report from 08/19 2021 from [facility] indicates complete tear of the supraspinatus [...] be an additional personal documentation from me. [facility] 12-14-2021 Evaluation note Encounter Date Diagnosis Assessment Notes Dec, PAD (peripheral artery disease) (ICD-10 - I73.9) We reviewed this patient's TO studies from the [facility] showing left TO 0.94, right TO [...] his risks and is unmotivated to quit. [facility] Other 04-15-2021 NoteFLUORO FOR SURGICAL PROCEDURES : [...] Signed by: Ming Bejarano MD 07/15/20 Final [facility]04-15-2021 NoteFLUORO FOR SURGICAL PROCEDURES : 07/15/2020 9:53 AM CLINICAL HISTORY: R52 Pain ICD10. COMPARISON: Non e available. Intraoperative fluoroscopy was provided for Dr. Valdez procedure. A total of 1.5 seconds of fluoroscopy was used, with 2 fluoroscopic stills saved. No diagnostic images were obtained. Please see Dr. Valdez surgical notes for completeness.[facility] Phone: evaluation note* Diagnosis Pain Generalized pain documented in this encounter [facility] Phone: History general Narrative - Reported* Type Description Date Medical History hypertension Surgical History Back Surgery 2021 Surgical History Shoulder surgery Surgical History spleenectomy Hospitalization History see above [facility] Other Summary Purpose Family History No Family [...] your physician 11) Call your doctor at [phone] for an appointment (or follow up as [...] call OFFICE. The 24- hour phone is [phone] 13) If you are unable to contact [...] For Surgical Procedures Ousmane Valdez MD [address], [address] [place] [address] Additional Source Comments (unrecognized sect ion and content) No Status Records FoundNo Status Records FoundNo Status Records FoundNo Status Records FoundNo Status Records Found INFORMATION SOURCE (unrecogn ized section and content) DATE CREATED AUTHOR 06/25/2020 [facility] DATE CREATED AUTHOR AUTHOR'S ORGANIZ ATION 07/20/2020 [facility] DATE CREATED AUTHOR AUTHOR'S ORGANIZ ATION 06/22/[address] [facility] DATE CREATED AUTHOR AUTHOR'S ORGANIZ ATION 11/09/2021 [facility] DATE CREATED AUTHOR AUTHOR'S ORGANIZ ATION 01/07/2023 [facility] Reason for Visit (unrecogniz ed section and content) Status Reason Specialty Diagnoses / Procedures Referre d By Contact Referred To Contact Diagnoses Lumbar disc herniation Lumbar radiculopathy DISC HERNIATION, RADICULOPATHY Procedures LAMINEC/FACETECT/FORAMIN ,LUMBAR 1 SEG MD LAMNOTMY INCL W/DCMPRSN NRV ROOT 1 INTRSPC LUMBR L4-5 RIGHT MICRODISKECTOMY/ 1 HR/ 1 C-ARM/ PAT AND RAPID COVID ON ADMIT Ousmane Valdez MD [address], [address] [place] [address] [facility] Ordered Prescriptions (unrec ognized section and [...] BE BASED ON THE PRIMARY CLINICAL RECORDS. [facility] [employer] provides no warranty or guarantee of the accuracy or completeness of information in this document.
== END 2024-03-03 08:03 | disposition home or self-care (01) ==
LOC: VC 08:02
PROVIDERS: PCP Family Medicine; Visit Provider Student in an Organized Health Care Education/Training Program
DX: I73.9 Peripheral vascular disease, unspecified (principal); F17.219 Nicotine dependence, cigarettes, with unspecified nicotine-induced disorders
CPT/HCPCS: 76775; 93923

== ENCOUNTER 2024-11-05 07:45 | Outpatient (OUT) | payer OTHER, SELFPAY ==
[2024-11-05 08:13] LABS: Hematocrit 44.7 % (42.0-54.0); Hemoglobin 15.1 g/dL (14.0-18.0); Mean Corpuscular HGB Conc 33.8 g/dL (29.9-35.2); Mean Corpuscular Hemoglobin 31.7 pg (25.9-34.0); Mean Corpuscular Volume 93.7 fL (80.0-94.0); Platelet Count 273 10^3/uL (150-450); Red Blood Count 4.77 10^6/uL (4.70-6.10); White Blood Count 9.9 10^3/uL (4.0-11.0)
[2024-11-05 10:21] LABS: Basophils Abs Manual 0.09 10^3/uL (0.00-0.10); Basophils Percent Manual 1.0 % (0.2-2.0); Eosinophils Absolute Manual 0.39 10^3/uL (0.00-0.70); Eosinophils Percent Manual 4.0 % (0.9-7.0); Lymphocytes Absolute Manual 5.24 10^3/uL (1.20-3.80); Lymphocytes Percent Manual 53.0 % (20.5-60.0); Monocytes Absolute Manual 0.99 10^3/uL (0.30-0.80); Monocytes Percent Manual 10.0 % (1.7-12.0); Segmented Neut Absolute Manual 3.16 10^3/uL (1.4-6.5); Segmented Neutrophils % Manual 32.0 (43.0-75.0)
[2024-11-05 10:37] LABS: Alanine Aminotransferase 132 U/L (16-63); Albumin Globulin Ratio 0.8; Albumin Level 3.5 g/dL (3.4-5.0); Alkaline Phosphatase 87 U/L (46-116); Anion Gap 12.5; Aspartate Amino Transferase 100 U/L (15-37); Blood Urea Nitrogen 24.0 mg/dL (7.0-18.0); Calcium 9.7 mg/dL (8.5-10.1); Carbon Dioxide 28.6 mmol/L (21.0-32.0); Chloride 103 mmol/L (98-107); Cholesterol 185 mg/dL (<=200); Estimated GFR (African America >60 (>=60 mL/min/1.73m^2); Estimated GFR (Non-African Ame >60 (>=60 mL/min/1.73m^2); Free T3 2.86 pg/mL (2.18-3.98); Globulin 4.4 g/dL; Glucose 112 mg/dL (74-106); HDL Cholesterol 37 mg/dL (40-60); NT Pro B Type Natriuretic Pept 655.0 pg/mL (<=900.0); Potassium 5.1 mmol/L (3.5-5.1); Sodium 139 mmol/L (136-145); Thyroid Stimulating Hormone 1.562 uIU/mL (0.358-3.740); Total Protein 7.9 g/dL (6.4-8.2); Triglycerides 153 mg/dL (<=150); Uric Acid 4.7 mg/dL (3.5-7.2); VLDL CHOLESTEROL 30.6 mg/dL
== END 2024-11-05 07:46 | disposition home or self-care (01) ==
LOC: LAB 07:46
PROVIDERS: PCP Family Medicine; Visit Provider Family Medicine
DX: R06.02 Shortness of breath (principal); I10 Essential (primary) hypertension; F41.9 Anxiety disorder, unspecified; G47.00 Insomnia, unspecified; Z12.5 Encounter for screening for malignant neoplasm of prostate
CPT/HCPCS: 36415; 80053; 80061; 83036; 83880; 84436; 84443; 84481; 84550; 85007; 85027; G0103

== ENCOUNTER 2025-02-04 10:34 | Outpatient (OUT) | payer OTHER, SELFPAY ==
--- OUTSIDE RECORDS SUMMARY | 2024-12-03 09:30 | XMS_ITS ---
Author Organization The [facility] in [place] Address [address] [place] [address] Care Team Providers Care Food Safety Coordinator Name Role Phone Parish Hung Primary Care Provider REASON FOR VISIT BP CHECK Encounters Encounter Location Date Provider Diagnosis [facility] [address] [place] [address] 12/03/2024 Parish Hung Plan Of Treatment No Information Progress Notes * Don GLOVERDOB: 3 (64 yo M)Acc No.[id number]:12/03/2024 UNLOCKED PROGRESS NOTE BP Check Patient: Don JAMES :?Stephen Hung (NIDA), MDDOB:1960???Age: 64 Y???Sex:MaleDate:12/03/2024Phone:[phone]:[address] [place], [place] [id number] In:02:33 PM EST Subjective: * Chief Complaints: * 1 . BP CHECK. * Medical History: Objective: * Vitals: Assessment: Plan: * Treatment: * * Electronic signature of Parish Hung MD, [id number] on 02/04/2025 at 10:37 AM EST Sign off status: PendingVisit Status:?CANC (Cancelled) * Provider: Eloy Hung MD (TTC) Date: 0 12/03/2024 Generated for Printing/Faxing/eTransmitting on:?02/04/2025 10:37 AM EST
--- OUTSIDE RECORDS SUMMARY | 2024-12-08 05:00 | XMS_ITS ---
Author Organization The [facility] in [place] Address [address] [place] [address] Care Team Providers Care Line Lead Name Role Phone Claytonguerline Parish Primary Care Provider Allergies No Known Allergies REASON FOR VISIT patient said he has not been able to sleep for 3-4 days, anxious because his is sick and scared she will go back into the hospital Medications Medication SIG (Take, Route, Frequency, Duration) Notes Start Date End Date Status HYDROcodone-Acetaminophen 10-325 MG 1 tablet as needed Orally every 4 hrs; Duration: 7 days OK to take in between percocet 5ActiveALPRAZolam 0.25 MG 1 tablet Orally tid; Duration: 14 days F41.9 5ActiveLosartan Potassium 100 MGTAKE 1 TABLET BY MOUTH EVERY DAY FOR 30 DAYS; Duration: 90ActiveAspirin Low Dose 81 MGTAKE 1 TABLET (81 MG TOTAL) BY MOUTH IN THE MORNING; Duration: 90 daysActivecloNIDine HCl 0.2 MG1 tablet Orally bid; Duration: 30 days5ActiveClopidogrel Bisulfate 75 MGTAKE 1 TABLET (75 MG TOTAL) BY MOUTH IN THE MORNING; Duration: 90 daysActiveoxyCODONE- Acetaminophen 10-325 MG1 tablet as needed - max 5/day Orally every 4 hrs; Duration: 14 days5Active Vital Signs Weight 135 lbs 12/08/2024 Height 70 in 12/08/2024 Blood pressure systolic 238 mm Hg 12/09/19 25 Blood pressure diastolic 138 mm Hg 025 BMI 19.37 kg/m2 12/08/2024 Encounters Encounter Location Date Provider Diagnosis [facility] [address] [place] [address] 12/08/2024 Parish Hung Benign essential HTN I10 and Anxiety F41.9 Assessments Encounter Date Diagnosis (ICD Code) Assessment Notes Treatment Notes Treatment Clinical Notes Section Notes 12/08/2024 Benign essential HTN (ICD-10 - I 10) discussed anxiety - has headache - refused ER - oinc clojnidie to TID12/08/2024 Anxiety (ICD-10 - F41.9) Plan Of Treatment Medication Medication Name Sig Start Date Stop Date Notes Azithromycin 250 MG 2 tabs today then 1 tab Orally evelyn ly 11/27/2024 oxyCODONE-Acetaminophen 10-325 MG1 tablet as needed - max 5/day Orally every 4 hrs; Duration: 14 days12/08/2024Treatment Notes Assessment Notes Benign essential HTN discussed anxiety - has headache - refused ER - oinc clojnidie to TID Progress Notes * Don GLOVERDOB: 3 (64 yo M)Acc No.[id number]:12/08/2024 UNLOCKED PROGRESS NOTE BP Check Patient: Don JAMES :?Stephen Hung ([facility]), MDDOB:1960???Age: 64 Y???Sex:MaleDate:12/08/2024Phone:[phone]:[address] [place] [id number] In:09:47 AM ESTCheck Out:10:38 AM EST Subjective: * Chief Complaints: * 1 . Patient said he has not been able to sleep for 3-4 days, anxious because his is sick and scared she will go back into the hospital. 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 * Medications: T aking ALPRAZolam 0.25 MG Tablet 1 tablet Orally tid F41.9, Taking Aspirin Low Dose(Aspirin) 81 MG Tablet Delayed Release TAKE 1 TABLET (81 MG TOTAL) BY MOUTH IN THE MORNING , Taking Azithromycin 250 MG Tablet 2 tabs today then 1 tab Orally daily , Taking cloNIDine HCl 0.2 MG Tablet 1 tablet Orally bid , Taking Clopidogrel Bisulfate 75 MG Tablet TAKE 1 TABLET (75 MG TOTAL) BY MOUTH IN THE MORNING , Taking HYDROcodone-Acetaminophen 10-325 MG Tablet 1 tablet as needed Orally every 4 hrs OK to take in between percocet, Taking Losartan Potassium 100 MG Tablet TAKE 1 TABLET BY MOUTH EVERY DAY FOR 30 DAYS , Taking oxyCODONE-Acetaminophen 10-325 MG Tablet 1 tablet as needed - max 5/day Orally every 4 hrs , Medication List reviewed and reconciled with the patient * Allergies: N .K.D.A. Objective: * Vitals: W t:135lbs, Ht: 70 in, BP:238/138mm Hg, BMI:19.37Index, Ht-cm: 177.8 cm, Wt-k.24 kg. * Examination: ???Physical Exam: ?GENERAL:?well developed, well nourished, in no acute distress.?HEAD:?normocephalic/atraumatic.?EYES:?pupils equal, round and reactive to light, conjunctivae and sclerae normal.?EARS:?no deformity or lesion of external ear, canals and TM appear normal bilaterally, TM's intact, not inflamed with normal light reflex, hearing grossly normal to conversational speech.?NOSE:?no deformity, discharge, inflammation, or lesions. ?MOUTH:?mucous membranes moist, normal oropharynx and posterior pharynx without lesions or exudates, tongue normal, dentition normal.?NECK:?neck supple, no masses or palpable cervical nodes, trachea midline, thyroid without nodules, masses, tenderness, or enlargement.?CHEST:?no chest wall deformity, no chest wall tenderness. ?LUNGS:?normal respiratory effort and clear to auscultation, no wheezes, rales, or rhonchi, good air exchange.?CARDIO:?regular rate and rhythm, normal S1 and S2, nor murmur, rub, or gallop.?PULSES:?normal capillary refill.?ABDOMEN:?soft, non-distended, non-tender, no masses.?MUSCULOSKELETAL:?no deformity or scoliosis noted, normal range of motion, joints normal, no erythema, edema, effusion, or ecchymosis.?EXTREMITY:?no clubbing, cyanosis, edema, or deformity withnormal ROM in both upper and lower bilateral extremities.?NEUROLOGIC:?grossly normal.?SKIN:?no rashes, ulcerations, or suspicious lesions.?LYMPH NODES:?no cervical adenopathy, nodes normal.?MENTAL STATUS:?alert and oriented x3, normal mood and affect.? Assessment: * Assessment: 1.?Benign essential HTN - I10 (Primary)???2.?Anxiety - F41.9?? Plan: * Treatment: Stop Azithromycin Tablet, 250 MG, 2 tabs today then 1 tab, Orally, daily;?Refill oxyCODONE-Acetaminophen Tablet, 10-325 MG, 1 tablet as needed - max 5/day, Orally, every 4 hrs, 14 days, 70, Refills 0.?? Notes: discussed anxiety - has headache - refused ER - oinc clojnidie to TID?? * * Electronic signature of Parish Hung MD, [id number] on 02/04/2025 at 10:36 AM EST Sign off status: PendingVisit Status:?CHK (Check Out) * Provider: Eloy Hung ([facility])MD Date: 0 12/08/2024 Generated for Printing/Faxing/eTransmitting on:?02/04/2025 10:36 AM EST History and Physical Notes * Examination CategorySub-CategoryDetailNotesCategory NotesPhysical ExamGENERAL:well developed, well nourished, in no acute distressHEAD:normocephalic/atraumatic EYES:pupils equal, round and reactive to light, conjunctivae and sclerae normal EARS:no deformity or lesion of external ear, canals and TM appear normal bilaterally, TM's intact, not inflamed with normal light reflex, hearing grossly normal to conversational speechNOSE:no deformity, discharge, inflammation, or lesionsMOUTH:mucous membranes moist, normal oropharynx and posterior pharynx without lesions or exudates, tonguenormal, dentition normalNECK:neck supple, no masses or palpable cervical nodes, trachea midline, thyroid without nodules, masses, tenderness, or enlargementCHEST:no chest wall deformity, no chest wall tendernessLUNGS:normal respiratory effort and clear to auscultation, no wheezes, rales, or rhonchi, good air exchangeCARDIO:regular rate and rhythm, normal S1 and S2, nor murmur, rub, or gallopPULSES:normal capillary refillABDOMEN:soft, non-distended, non-tender, no massesRECTAL:MUSCULOSKELETAL:no deformity or scoliosis noted, normal range of motion, joints normal, no erythema, edema, effusion, or ecchymosisEXTREMITY:no clubbing, cyanosis, edema, or deformity with normal ROM in both upper and lower bilateral extremitiesNEUROLOGIC:grossly normalSKIN:no rashes, ulcerations, or suspicious lesionsLYMPH NODES:no cervical adenopathy, nodes normalMENTAL STATUS:alert and oriented x3, normal mood and affect
--- OUTSIDE RECORDS SUMMARY | 2025-01-22 07:21 | XMS_ITS | Continuity of Care Document ---
Author Organization [facility] Address [address] [place] [address] Phone Care Team Providers Care Preschool Adviser Name Role Phone Stephen Hung MD Primary Care Provider Romana Wallace MD Attending Provider + Care Teams Patient Care Team Team Status: Active Member Role/Relationship Status Flex Hung MD Primary Care Provider Active Visit Care Team Team Status: Inactive Member Role/Relationship Status Flex Hung MD Primary Care Provider Active Start: December 11, 2024 End: December 11, 2024Virgilio Steiner ProviderActive Start: December 11, 2024 End: December 11, 2024 Visit Care Team Team Status: Inactive Member Role/Relationship Status Flex Hung MD Primary Care Provider Active Start: December 25, 2024 End: December 25, 2024Virgilio Steiner ProviderActive Start: December 25, 2024 End: December 25, 2024 Patient Care Team Team Status: Inactive Member Role/Relationship Status Flex Hung MD Primary Care Provider Active Start: January 22, 2025 End: January 22, 2025Virgilio Steiner ProviderActive Start: January 22, 2025 End: January 22, 2025 Chief Complaint and Reason for Visit Chief Complaint Admit Date Cataract December 11, 2024 10:36am Cataract December 25, 2024 9:07am Cataract January 22, 2025 8 :41am Allergies, Adverse Reactions, Alerts Allergen Type Severity Reaction Last Updated Verified Status No Known Allergies Allergy Unknown January 22, 2025 9:16amYesActive Social History Smoking Status Status Start Date End Date Date of Observa tion Smokes tobacco daily (finding) January 22, 2025 9:22am Observation Status Observation Response Date of Response Legal Sex Male (finding) Sex Assigned At BirthMalely 1960 Family History Relationship Condition Age at Onset Recorded Date/T brad Not Specified No pertinent family history Unknown Medications Medication Status Dose Units Route Directions Qty Days Refills S tart Date Stop Date End Date Reason(s) Instructions Adherence Losartan 100 mg tablet Active 100 MG PO Every mor [place] December 11, 2024 12:00amComplies with drug therapyClonidine Hcl 0.2 mg tabletActive0.2MGPOTwice dailySept2024 12:00amComplies with drug therapyClopidogrel 75 mg eczyxnFixcxb37JJRTKdwmb morningpt2024 12:00amComplies with drug therapyAspirin 81 mg auddvfJctcrr48RBMXTlgcp morning December 11, 2024 12:00amComplies with drug therapyOxycodone-Acetaminophen (Percocet) 10-325 mg wgfixxHvdemc5SUYTOSeerk 4 jwtlf5ZhglwpuhrDecember 11, 2024 12:00amComplies with drug therapyAlprazolam 0.25 mg tabletActive0.25MGPODaily December 11, 2024 12:00amComplies with drug therapy Medical Equipment Device Date Implanted Device Details Posterior-chamber intraocula r lens, pseudophakic December 25, 2024 RACHELE: [id number] Procedures Procedure Date Performed Status OR Cataract PHACO W/IOL/Vitrectomy (Right) Septe mber 2024 11:00am completed OR Cataract PHACO W/IOL/Vitrectomy (Left) Octobe r 2024 10:30am completed Vital Signs Vital Reading Result Reference Range Collection Date/Time Height 71 [in_i] December 25, 2024 9:98dpPeebex65.23 kgSept2024 9:31amBody Vjsgwxjenpr16.1 [degF]97.6-99.0Sept2024 11:14amHeart Rate77 /min 60-100September 2024 11:40amRespiratory rate16 /jje95-79Axoocqlzt 2024 11:40amOxygen saturation by Pulse fagcobww06 %95-100September 2024 11:40amBP Nkhinced857 mm[Hg]100-140September 2024 11:40amBP Zrndaoury64 mm[Hg]60-100September 2024 11:47ylMdkvvh98 [in_i]January 22, 2025 8:55am Jnqcmy94.23 kgOctober 2024 8:55amBody Xposizpncro59 [degF]97.6-99.0October 2024 11:07amHeart Rate61 /jij46-296Ntrzttt 2024 11:50amRespiratory rate16 /ofx10-81Fduvzmg 2024 11:50amOxygen saturation by Pulse tvakohqj54 %95-100October 2024 11:50amBP Lwrwruft576 mm[Hg]100-140Octt.[facility] 2024 11:50amBP Dzupiddir03 mm[Hg]60-100October 2024 11:50am Advance Directives Advance Directive Response Recorded Date/ Time Advance Directives No September 25 2:06pm Insurance Providers Guarantor Don Glover Address [address] [place] [id number] Info.Home Phone: Coverage Status Update:2024 Payer Group Member ID Coverage Type Subscriber Relationship to Subscriber Effective Date Expiration Date [employer] [id number] Caitlyn Glover Id: [id number] [address] [place] [id number] Home Phone: Self Encounters Encounter Location(s) Arrival/Admit Date Discharge/Departure Date Discharge/Departure Disposition Provider(s) Departed Referred -Pre-Surgica l Testing December 11, 2024 10:36am December 11, 2024 10:37am Discharged to home care or self care (routine discharge) Romana Shelton MD Departed Surgical Day Care -Surgery [facility] December 25, 2024 9:07am December 25, 2024 11:55am Discharged to home care or self care (routine discharge) Romana Shelton MD Departed [facility] January 22, 2025 8:41am January 22, 2025 11:55am Discharged to home care or self care (routine discharge) Romana Shelton MD Plan of Treatment Future Tests Future scheduled test information is unavailable Pending Tests Pending diagnostic test information is unavailable Future Visits Future appointment information is unavailable Future Procedures Procedure Name Ordered Date Scheduled Date Post Anesthesia Tracer order December 25 9:58am December 25, 2024 10:00am Discharge Order December 25, 2024 11:08am Sep tember 2024 11:08am Discharge Order January 22, 2025 11:16am Octob er 2024 11:16am Future Medications Future medication information is unavailable Patient Instructions Instruction Admit Date Know your Meds December 25, 2024 9:07am Know your Meds January 22, 2025 8 :41am Goals Acute Goals Author Authored Date Experience reduced anxiety * Identifies current stressors * Develops effective coping behaviors * [facility] 12:16pmRemain free of complications [facility] 2024 12:16pmUnderstand preop/postop care/sensations * Verbalizes understanding of surgical procedure * Verbalizes understanding of sensations following surgery * Verbalizes understanding of [facility] plan[facility] 2024 12:16pmReport pain at tolerable level * Uses pain scale appropriately * Identify options for pain control - Analgesics - Narcotics - Non-medication measuresC[facility] 2024 12:16pmAbsence of imbalanced fluid volume s/s [facility] 2024 12:16pmAbsence of physical injury [facility] 2024 12:16pmAbsence of surgical site infection [facility] 2024 12:16pmExperience reduced anxiety * Identifies current stressors * Develops effective coping behaviors * [facility]ses [facility] 2024 12:20pmRemain free of complications [facility] 2024 12:20pmUnderstand preop/postop care/sensations * Verbalizes understanding of surgical procedure * Verbalizes understanding of sensations following surgery * Verbalizes understanding of post-op treatment planMer[facility] 2024 12:20pmReport pain at tolerable level * Uses pain scale appropriately * Identify options for pain control - Analgesics - Narcotics - Non-medication measuresMer[facility] 2024 12:20pmAbsence of imbalanced fluid volume s/s [facility] 2024 12:20pmAbsence of physical injury [facility] 2024 12:20pmAbsence of surgical site infection [facility] 2024 12:20pm Hospital Discharge Instructions Additional Instructions POST CATARACT SURGERY INSTRUCTIONS EYEDROPS First day (24 hours) [Ocuflox or Vigamox and Pred Forte-use 1 drop to operative eye every hour while awake.] [Artificial tears- May use 1 drop 4 times a day as needed in the surgical eye.] Next day [Ocuflox or Vigamox-continue to use the drop in the surgery eye 4 times per day for 1 week.] [Pred Forte-start using the drop in the surgery eye 4 times per day for 1 week, then taper to 3 times per day for 1 week, 2 times a day for 1 week, then once a day for 1 week.] [Artificial tears- May use 1 drop 4 times a day as needed in the surgical eye.] -Wait 5 minutes or more between using the different medications. -Please bring all your eyedrops to every follow-up visit. BATHING: You may shower, bathe, or wash her hair normally after the surgery. SUNGLASSES: Please bring sunglasses for your ride home. Some people are light- sensitive for a few weeks following surgery. Wear sunglasses for comfort. Sunglasses are not required. DUE TO ANESTHESIA: DO NOT make complex decision/sign legal documents for 24 hours after your procedure. No smoking or drinking alcohol for 24 hours. EYE RUBBING: DO NOT RUB YOUR EYE for at least 4 weeks. BLUR: Blurriness is common for several days to weeks. IRRITATION: Mild irritation or watering eye is common. MEDICATION: Continue/resume normal medications, including eye drops. Patient educated on importance of managing medication information: -Give list of medications to primary care physician. -Update information when medications are discontinued, doses are changed or new medications added. -Carry medication list with you at all times in case of emergency. Call if questions/problems occur: If you experience 1. Persistent pain/vomiting 2. Sudden worsening of your eyesight. Please call your plumbing and heating contractor during normal business hours. If after business hours call Dr. Emigdio Deng at his cell [phone] or his office [phone].
--- OUTSIDE RECORDS SUMMARY | 2025-02-02 05:51 | XMS_ITS ---
Author Organization The [facility] in [place] Address [address] [place] [address] Care Team Providers Care Fixed Interest Dealer Name Role Phone Parish Hung Primary Care Provider [phone] REASON FOR VISIT Legs Encounters Encounter Location Date Provider Diagnosis [facility] [address] [place] [address] 02/02/2025 Parish Claytonguerline Bilateral leg weakne ss M62.81 Assessments Encounter Date Diagnosis (ICD Code) Assessment Notes Treatment Notes Treatment Clinical Notes Section Notes 02/02/2025 Bilateral leg weakness (ICD-10 - M62.81) Plan Of Treatment Pending Test Test Name Order Date US Lower Ext Arterial Duplex Bilateral 1 04/04/2024 Progress Notes * Don GLOVERDOB: 3 (64 yo M)Acc No.[id number]:02/02/2025 Patient:?Don GLOVER :1960???Age:64 Y???Sex:MalePhone:[phone] Address:[address] [place] [address], [id number] Subjective: * Chief Complaints: * L egs * Medical History: * Surgical History: * Hospitalization/Major Diagno stic Procedure: * Medications: Objective: * Vitals: * Physical Examination: ??? Assessment: * Assessment: 1.?Bilateral leg weakness - M62.81 (Primary)??? Plan: * Treatment: ?Imaging: US Lower Ext Arterial Duplex Bilateral * Procedure Codes: * true * Date:?Generated for Printing/Faxing/eTransmitting on:?02/04/2025 10:36 AM EST
--- OUTSIDE RECORDS SUMMARY | 2025-02-04 10:36 | XMS_ITS | Clinical Summary ---
Author Organization [facility] Address [address] [facility] [address], [address] [place] [address] Care Team Providers Care Fast Food Team Member Name Role Phone Stephen Hung MD Primary Care Provider [phone] Allergies Active AllergyReactionsCriticalityNoted DateCommentsNo Known Recfiddqn58/25/2021 Medications MedicationSigDispense QuantityRefillsLast FilledStart DateEnd DateStatus cloNIDine (CATAPRES) 0.1 MG tablet clonidine HCl 0.1 mg tablet Take 1 tablet twice a day by oral route for 30 days.Active carvedilol (COREG) 3.125 MG tablet Take 3.125 mg by mouth onceActive Active Problems ProblemNoted DateDiagnosed DatePostherpetic icxfnbplp69/24/2021Migraine, unspecified, not intractable, without status cwnwxulsrnh43/15/2021Full thickness rotator cuff tear11/12/2018Adhesive capsulitis of left gpzeerni14/03/2019Biceps vrcfgtepmz11/03/2019Impingement syndrome of shoulder qhdxkp5709/02/2018Injury of superior glenoid labrum of shoulder joint09/02/2018Osteoarthritis of acromioclavicular joint09/02/2018Lumbar rqeuqmfmeghzi81/23/2018Pain in lower limb07/23/2017 Resolved Problems ProblemNoted DateDiagnosed DateResolved DateEncounter for screening for other viral yrdkkwag70 Social History Tobacco UseTypesPacks/DayYears UsedDateSmoking Tobacco: Every XljJulgafxbme837.8 Started: 1982Smokeless Tobacco: Never Tobacco Cessation:Ready to Q uit: No; Counseling Given: No Alcohol UseStandard Drinks/WeekCommentsNever0 (1 standard drink = 0.6 oz pure alcohol)AUDIT-CAnswerDate RecordedQ1: How often do you have a drink containing alcohol?Never06/24/2020Q2: How many drinks containing alcohol do you have on a typical day when you are drinking?Not asked06/24/2020Q3: How often do you have six or more drinks on one occasion?Never06/24/2020HQ-2AnswerDate RecordedPHQ-9 Total Hkgzi335Hunger Vital SignAnswerDate RecordedWithin the past 12 months, you worried that your food would run out before you got the money to buy more.Never true06/24/2020Within the past 12 months, the food you bought just didn't last and you didn't have money to get more.Never true06/24/2020RAPARE - TransportationAnswerDate RecordedIn the past 12 months, has lack of transportation kept you from medical appointments or from getting medications?No 06/24/2020In the past 12 months, has lack of transportation kept you from meetings, work, or from getting things needed for daily living?No06/24/2020ex and Gender InformationValueDate RecordedSex Assigned at BirthNot on fileLegal ExeMzgf3805/12/2012 1:11 PM ESTGender IdentityNot on fileSexual OrientationNot on file Last Filed Vital Signs Vital SignReadingTime TakenCommentsBlood Sbglidtr601/8404/ 1:50 PM EDT Qdwtu8993 1:50 PM WTEWtifawhxabj41.1 ??C (98.8 ??F)07/15/2020 1:35 PM EDTRespiratory Rjik0700 1:50 PM EDTOxygen Mwjnrqhyyr23%07/15/2020 1:50 PM EDTInhaled Oxygen Concentration--Fpmwcf93.6 kg (149 lb)07/15/2020 8:31 AM EDT Lgwybz897.8 cm (5' 10 )07/15/2020 8:31 AM EDTBody Mass Index21.3804 8:31 AM EDT Plan of Treatment Not on file Insurance MemberSubscriberPlan / Payer (Effective 2020-Present)Name:Don Glover Relation to Subscriber:SelfName:Don Glover Payer ID:[id number] (NAIC) Group ID:Not on file Type:Not on file Address: [address] [id number] Care Teams Team MemberRelationshipSpecialtyStart DateEnd Stephen Hung MD [address] [phone] PCP - GeneralFamily Medicine06/11/20
--- OUTSIDE RECORDS SUMMARY | 2025-02-04 10:36 | XMS_ITS | Clinical Summary ---
Author Organization [facility] Address [address] [place] [address] Care Team Providers Care Van Helper Name Role Phone Unavailable Primary Care Provider Unavailabl e Social History Tobacco UseTypesPacks/DayYears UsedDateSmoking Tobacco: Never AssessedSex and Gender InformationValueDate RecordedSex Assigned at BirthNot on fileLegal Sex Male06/14/2022 6:50 PM EDTGender IdentityNot on fileSexual OrientationNot on file Plan of Treatment Not on file
--- OUTSIDE RECORDS SUMMARY | 2025-02-04 10:36 | XMS_ITS | Patient Health Record ---
Author Organization [facility] Address [address] [place] [address] Care Team Providers Care Fruit Inspector Name Role Phone Stephen Hung Primary Care Provider Jerman Manohar Vela Unavailable [phone] Allergies No Known Allergies Reason For Referral No Information Medications Medication SIG (Take, Route, Frequency, Duration) Notes Start Date End Date Status None Active Social History Tobacco Use: Social History Observation Description Date Details (start date - stop date) Current Smoker NA - NA AUDIT-C (Standard) Question Answer Notes Did you have a drink containing alcohol in the p ast year? No Nrgkth0UqvzzguhziebvxWdwgcinmNpqecuf Control (Standard) Question Answer Notes Tobacco use: Current smoker How many cigarettes a day do you smoke?11-20How soon after you wake up do you smoke your first cigarette?6-30 minutes Problems Problem Type SNOMED Code ICD Code Onset Dates Problem Status W/U Status Risk Notes Problem 71129274 Other interverte bral disc degeneration, lumbosacral region (M51.37) ThhjlvqlybdrebgAuedxvo549007511Teevjjrvekd stenosis with neurogenic claudication (M48.07)Activeconfirmed Plan Of Treatment Pending Test Test Name Order Date Lumbar spine 2v flex and ext - 57144 Insurance Providers Payer Name Payer Address Payer Phone Subscriber Number Group Number Insured Name Patient Relationship to Insured Coverage Start Date Coverage End Date Medicaid [place] [address] [place] [phone] [id number] NATY LOISLAURENSelf - patient is the insured Medical (General) History Medical History History ICD Code High Blood Pressure
--- OUTSIDE RECORDS SUMMARY | 2025-02-04 10:36 | XMS_ITS | Encounter Summary ---
Author Organization [facility] Address [address] [facility] [place] [address] Care Team Providers Care Sales Analytics Manager Name Role Phone Unavailable Primary Care Provider Unavailabl e Encounter Details DateTypeDepartmentCare Team (Latest Contact Info)Jtrmfmsuxeq61/02/2024Clinisync Result Encounter [facility] External Department Unsolicited Regino Castrejon MD [address], [place] [phone] Social History Tobacco UseTypesPacks/DayYears UsedDateSmoking Tobacco: Never AssessedSex and Gender InformationValueDate RecordedSex Assigned at BirthNot on fileLegal Sex Male06/14/2022 6:50 PM EDTGender IdentityNot on fileSexual OrientationNot on filedocumented as of this encounter Plan of Treatment Not on file documented as of this encounter Procedures Procedure NamePriorityDate/TimeAssociated DiagnosisCommentsVASC US ABDOMINAL AORTA ANUERYSM AAA DZSGOEDPV61/02/2024 2:40 PM EST documented in this encounter Results * Vascular US abdominal aorta anuerysm AAA screening (03/03/2024 2:40 PM EST) Anatomical RegionLateralityModalityAbdomenUltrasoundSpecimen (Source) Anatomical Location / LateralityCollection Method / VolumeCollection Time Received Time03/03/2024 2:40 PM EST Narrative 03/03/2024 2:43 PM EST [facility] ?[address] ? [place] [address] ?Vein Report ? Signed ? Patient: ROSSY GLOVER S ?MR#: [id number] ?? : 1960 ?Acct:[id number] ?? Age/Sex: 63 / M ?ADM Date: 03/03/24 ?? Loc: VC ? Attending Dr: Regino Castrejon M.D. ? Ordering Physician: Regino Castrejon M.D. ?? Date of Service: 03/03/24 ?? Procedure(s): VC US AAA DX ?? Accession Number(s): [id number] ? cc: Stephen Hung M.D.; Regino Castrejon M.D. ? [facility] ? [address] ? [place] [address] ? Patient Name: ?? ROSSY GLOVER ? MRN: [facility]:[id number] ? date: 1960 ?Sex: M ?? Assigned Patient Location: VC ?? Current Patient Location: VC ?? Accession/Order Number: [id number] ?? Exam Date: 03/03/2024 ??08:08 ?Report Date: 03/03/2024 ??14:40 ? At the request of: ?? REGINO ??XU ? Procedure: ??VC US AAA DX ? EXAM: VC US AAA DX ? HISTORY: F17.219 Nicotine dependence, Claudication I73.9. ; Bilateral iliac ?? artery stent placement 6 months ago ? TECHNIQUE: Ultrasound was performed of the abdominal aorta. ? COMPARISON: CT abdomen pelvis 07/05/2023 ? FINDINGS: ?? AORTA: Moderate amount of calcified and noncalcified plaque within the mid and ? distal aorta. Maximum diameter of the aorta is 3.0 cm. ?? RIGHT ILIAC: Patent stent 1.1 cm in diameter. ?? LEFT ILIAC: Patent stent 1.3 cm diameter. ?? OTHER: Prominent dilated left renal vein between the kidney and aorta. ?? Narrowed ?? left renal vein between the aorta and inferior vena cava; there appears to be ?? abrupt narrowing of the left renal vein between the aorta and superior ?? mesenteric artery. Flow velocity within the distal/dilated left renal vein is ?? 20 cm/s. Flow velocity of the small caliber proximal renal vein is 198 cm/s. ? VEIN/VC US AAA DX ?? IMPRESSION: ? 1. Patent bilateral iliac stents without appreciable narrowing. ?? 2. Mild fusiform dilation of the infrarenal aorta, 3.0 cm, with moderate ?? plaque. ?? 3. Compression of the left renal vein between the aorta and superior ?? mesenteric ?? artery (nutcracker syndrome). ? Electronically authenticated by: JHONY ??PAOLA ?? Date: 03/03/2024 ??14:40 ? Dictated By: ?Jhony Modi M.D. ? Signed By: ?03/03/241442 ? DD/ 39 ? TD/TT: ? Hr Advisor: Procedure Note Radiology, Radiologist, - 03/04/2024 [place] [address] Vein Report Signed Patient: ROSSY GLOVER SMR#: [id number] : 1960Acct:[id number] Age/Sex: 63 / MADM Date: 03/03/24 Loc: Attending Dr: Regino Castrejon M.D. Ordering Physician: Regino Castrejon M.D. Date of Service: 03/03/24 Procedure(s): VC US AAA DX Accession Number(s): [id number] cc: Stephen Hung M.D.; Regino Castrejon M.D. The [address] [address] Patient Name: ROSSY GLOVER MRN: [id number] date: 1960 Sex: M Assigned Patient Location: Current Patient Location: Accession/Order Number: [id number] Exam Date: 03/03/2024 08:08 Report Date: 03/03/2024 14:40 At the request of: REGINO CASTREJON Procedure: VC US AAA DX EXAM: VC US AAA DX HISTORY: F17.219 Nicotine dependence, Claudication I73.9. ; Bilateraliliac artery stent placement 6 months ago TECHNIQUE: Ultrasound was performed of the abdominal aorta. COMPARISON: CT abdomen pelvis 07/05/2023 FINDINGS: AORTA: Moderate amount of calcified and noncalcified plaque within the midand distal aorta. Maximum diameter of the aorta is 3.0 cm. RIGHT ILIAC: Patent stent 1.1 cm in diameter. LEFT ILIAC: Patent stent 1.3 cm diameter. OTHER: Prominent dilated left renal vein between the kidney and aorta. Narrowed left renal vein between the aorta and inferior vena cava; there appears dheeraj abrupt narrowing of the left renal vein between the aorta and superior mesenteric artery. Flow velocity within the distal/dilated left renal veinis 20 cm/s. Flow velocity of the small caliber proximal renal vein is 198cm/s. VEIN/VC US AAA DX IMPRESSION: 1. Patent bilateral iliac stents without appreciable narrowing. 2. Mild fusiform dilation of the infrarenal aorta, 3.0 cm, with moderate plaque. 3. 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 Electronically authenticated by: JHONY MODI Date: 03/03/2024 14:40 Dictated By: Jhony Modi M.D. Signed By:03/03/24 1443 DD/ 1440 TD/TT: Hr Advisor: Authorizing ProviderResult TypeResult StatusMohamed Pedrito SANTORO US PROCEDURES Final Result documented in this encounter Visit Diagnoses Not on filedocumented in this encounter
--- OUTSIDE RECORDS SUMMARY | 2025-02-04 10:37 | XMS_ITS | Clinical Summary ---
Author Organization [employer] [facility] Address [id number] [address] [place] [address] Care Team Providers Care School Crossing Guard Name Role Phone Stephen Hung MD Primary Care Provider [phone] Allergies No known active allergies Medications MedicationSigDispense QuantityRefillsLast FilledStart DateEnd DateStatus cloNIDine (CATAPRES) 0.1 mg tablet Indications:hypertensionTake 1 tablet (0.1 mg total) by mouth 3 (three) times a day Indications: high blood pressure.Active carvediloL (COREG) 12.5 mg tablet Indications:hypertensionTake 1 tablet (12.5 mg total) by mouth in the morning and 1 tablet (12.5 mg total) in the evening. Take with meals. Indications: high blood pressure.06/13/2023ctive oxyCODONE-acetaminophen (PERCOCET) 10-325 mg per tablet Take 1 tablet by mouth every 4 (four) hours as needed for pain.07/26/2023ctive apptbkbub-ppxoreln-focxucca CMPD (ANTIMICROBIAL) mouthwash Swish and spit 5 mL 3 (three) times a day. thrushActive ALPRAZolam (XANAX) 0.5 mg tablet Take 1 tablet (0.5 mg total) by mouth 3 (three) times a day as needed for anxiety.Active aspirin 81 mg Take 1 tablet (81 mg total) by mouth in the morning. 30 tablet ctive clopidogreL (PLAVIX) 75 mg tablet Take 1 tablet (75 mg total) by mouth in the morning. 30 tablet ctive losartan (COZAAR) 100 mg tablet Take 1 tablet (100 mg total) by mouth in the morning.12/25/2023ctive Active Problems ProblemNoted DateDiagnosed DateBilateral carotid artery elvfatwd37/27/2025 Assessment & Plan (06/26/2024 9:45 AM EDT): Carotid duplex ultrasound Cigarette hefzxz5203/06/2024 Assessment & Plan (06/26/2024 9:44 AM EDT): Counseled him on smoking cessation for at least 3 minutes Assessment & Plan (03/06/2024 9:06 AM EST): Counseled on smoking cessation for at least 3 minutes he is willing to quit Severe pdymfacequtu56/09/2024 Assessment & Plan (06/26/2024 9:44 AM EDT): He has palpable pulses after revascularization. Discussed with him continue best medical therapy. Counseled on smoking cessation in length. Assessment & Plan (03/06/2024 9:05 AM EST): Continue aspirin Plavix and statin. Smoking cessation. Surveillance imaging in a year. Assessment & Plan (08/30/2023 10:47 AM EDT): He is status post stenting. He feels great.He will continue aspirin and statin. Counseled him on smoking cessation in length. He is willing to quit. Will get iliac duplex ultrasound and PVR in 6 months Assessment & Plan (08/09/2023 9:49 AM EDT): Cardiac risk stratification. Smoking cessation. Iliac stenting possible femorofemoral. Cigarette nicotine uoszgxtscz79/09/2024 Assessment & Plan (08/30/2023 10:47 AM EDT): Tobacco use is unchanged. Smoking cessation counseling was provided. Tobacco use will be reassessed 6 month . Assessment & Plan (08/09/2023 9:49 AM EDT): Counseled him on smoking cessation in length Pain in lower limb06/23/2020ostherpetic tezafiosk80/24/2021Migraine, unspecified, not intractable, without status ldctoqktwzk64/15/2021Complete tear of rotator cuff11/12/2018 Overview (08/14/2023): Added automatically from request for surgery [id number] Adhesive capsulitis of left waqjvocl04/03/2019Biceps zdqdvqkkmy26/03/2019 Impingement syndrome of shoulder bxehdy6609/02/2018Injury of superior glenoid labrum of shoulder joint09/02/2018Osteoarthritis of acromioclavicular joint 09/02/2018Lumbar rtlymqndtedhk28/23/2018 Family History Medical HistoryRelationNameCommentsAnesthesia problemsNeg Hx Social History Tobacco UseTypesPacks/DayYears UsedDateSmoking Tobacco: Every ZsuZhgieakxun695 Smokeless Tobacco: Never Tobacco Cessation:Ready to Q uit: Not Asked; Counseling Given: Not Answered Alcohol UseStandard Drinks/WeekCommentsNot Currently0 (1 standard drink = 0.6 oz pure alcohol)Hunger ScreeningAnswerDate RecordedWithin the past 12 months we worried whether our food would run out before we got money to buy more.Never True06/26/2024Within the past 12 months the food we bought just didn't last and we didn't have money to get more.Never True06/26/2024Sex and Gender Information ValueDate RecordedSex Assigned at BirthNot on fileLegal HmgNrqz3907/09/2023 2:32 PM EDTGender IdentityNot on fileSexual OrientationNot on file Last Filed Vital Signs Vital SignReadingTime TakenCommentsBlood Ykdugsjo416/9606/26/2024 8:59 AM EDT Obrfv56214/27/2025 8:59 AM AWORqohbgzdhcy07 ??C (96.8 ??F)06/26/2024 8:59 AM EDT Respiratory Lxzm186605/07/2023 8:31 AM ESTOxygen Fjvnxhgoya30%06/26/2024 8:59 AM EDTInhaled Oxygen Concentration--Mdjrcz75.1 kg (137 lb)06/26/2024 8:59 AM EDT Mhomvl081.8 cm (5' 10 )06/26/2024 8:59 AM EDTBody Mass Index19.66006/26/2024 8:59 AM EDT Plan of Treatment Health MaintenanceDue DateLast DoneCommentsTobacco Qiyutlshsv05/23/1963 Depression Hxrpzdtoj40/23/1975DTaP,Tdap and Td Vaccines (1 - Tdap)1981 Zoster (Shingles) Vaccine (1 of 2)2012Influenza Qbpvnnd5612/01/2024dult BMI Rywupydcj78Tobacco Lyjthqqdo32RSV ( or age 60+ yrs) (1 - 1-dose 75+ series)2037 Medical Devices ImplantedTypeAreaManufacturerDevice IdentifierShelf Expiration DateModel / Serial / LotStent 7fr 135cm Vbx Ba Ppm Expandable Cath Hep Vbhn Eprsth 8 Rpl [id number] - [id number] - [id number] Implanted:Qty: 1 on 08/16/2023 by [facility]: RojTomm69/31/[id number] / [id number] / Stent 7fr 135cm Vbx Ba Ppm Expandable Cath Hep Vbhn Eprsth 8 Rpl 709002 - [id number] - [id number] Implanted:Qty: 1 on 08/16/2023 by [facility]ft: KqtUjgq84/07/[id number] / [id number] / Stent Vsc Innova 8mm 40mm 130cm 6fr Dlv Sys Rdpq Slf Xpd Rpl Special [id number] - [id number] Implanted:Qty: 1 on 08/16/2023 [facility]: Richard SCIENTIFIC/PERIPHERAL I11/12/[id number] / / [id number]:RIGHT ILIAC Insurance * Guarantor: Don GloverAccount TypeRelation to PatientDate of PhoneBilling AddressPersonal/XiutmcLcgl26/23/1961 [place] [address] Care Teams Team MemberRelationshipSpecialtyStart DateEnd Stephen Hung MD PCP - GeneralFamily Medicine08/14/23
--- OUTSIDE RECORDS SUMMARY | 2025-02-04 10:37 | XMS_ITS | Encounter Summary ---
Author Organization [facility] Address [address] [place] [address] Care Team Providers Care Screening Tech Name Role Phone Unavailable Primary Care Provider Unavailabl e Encounter Details DateTypeDepartmentCare Team (Latest Contact Info)Xtqdnoufrcy73/02/2024Clinisync Result Encounter [facility] External Department Unsolicited Regino Castrejon MD [address], [place] [phone] Social History Tobacco UseTypesPacks/DayYears UsedDateSmoking Tobacco: Never AssessedSex and Gender InformationValueDate RecordedSex Assigned at BirthNot on fileLegal Sex Male06/14/2022 6:50 PM EDTGender IdentityNot on fileSexual OrientationNot on filedocumented as of this encounter Plan of Treatment Not on file documented as of this encounter Procedures Procedure NamePriorityDate/TimeAssociated DiagnosisCommentsSEGMENTAL BLOOD CWPZLKDO95/02/2024 10:55 AM EST documented in this encounter Results * SEGMENTAL BLOOD PRESSURE (03/03/2024 10:55 AM EST)Anatomical RegionLaterality ModalityRadiographic ImagingSpecimen (Source)Anatomical Location / Laterality Collection Method / VolumeCollection TimeReceived Time03/03/2024 10:55 AM EST Narrative 03/03/2024 10:58 AM EST [facility] ?[address] ? [place] [address] ?Vein Report ? Signed ? Patient: NATYROSSY S ?MR#: [id number] ?? : 1960 ?Acct:[id number] ?? Age/Sex: 63 / M ?ADM Date: 03/03/24 ?? Loc: VC ? Attending Dr: Regino Castrejon M.D. ? Ordering Physician: Regino Castrejon M.D. ?? Date of Service: 03/03/24 ?? Procedure(s): VC SEGMENTAL PRESSURES ?? Accession Number(s): [id number] ? cc: Stephen Hung M.D.; Regino Castrejon M.D. ? [facility] ? [address] ? [place] [address] ? Patient Name: ?? ROSSY GLOVER ? MRN: [facility]:[id number] ? date: 1960 ?Sex: M ?? Assigned Patient Location: VC ?? Current Patient Location: VC ?? Accession/Order Number: [id number] ?? Exam Date: 03/03/2024 ??08:08 ?Report Date: 03/03/2024 ??10:55 ? At the request of: ?? REGINO ??XU ? Procedure: ??VC SEGMENTAL PRESSURES ? EXAM: VC SEGMENTAL PRESSURES ? HISTORY: F17.219 Nicotine dependence, Claudication I73.9 ? COMPARISON: None. ? FINDINGS: ? Segmental pressures presented as follows (right, left) in mmHg. ? Brachial: 154, 162 ?? Upper thigh: 176, 155 ?? Lower thigh: 149, 167 ?? Calf: 100, 152 ?? DPA: 172, 167 ?? ELEMENT[employer] TEACHER: 158, 151 ?? 1st Toe: 99, 119 ? TO: 1.06, 1.03 ?? TBI: 0.61, 0.73 ? The ABIs are Normal ?? The TBI's demonstrate low risk ischemia in the right, normal on the left ? PVR waveforms: ? Right leg: ?? Thigh: Normal ?? Above knee: Normal ?? Below knee: Normal ?? Right ankle: Normal ?? Right first metatarsal: Mild to moderate ischemic waveform ? Left leg: ?? Thigh: Normal ?? Above knee: Normal ?? Below knee: Normal ?? Right ankle: Normal ?? Left first metatarsal: Ewig-ha-yexrxfmm ischemic waveform ? VEIN/VC SEGMENTAL PRESSURES ?? IMPRESSION: ? Jhcl-cw-toqemidj ischemic waveform bilateral metatarsals ? Electronically authenticated by: ZULY ??WEST ?? Date: 03/03/2024 ??10:55 ? Dictated By: ?Zuly Pate M.D. ? Signed By: ?03/03/248 ? DD/ ? TD/TT: ? Pediatric Neurologist: Procedure Note Radiology, Radiologist, MD - 03/03/2024 [place] [address] Vein Report Signed Patient: ROSSY GLOVER [facility]#: [id number] : 1960Acct:[id number] Age/Sex: 63 / MADM Date: 03/03/24 Loc: VC Attending Dr: Regino Castrejon M.D. Ordering Physician: Regino Castrejon M.D. Date of Service: 03/03/24 Procedure(s): VC SEGMENTAL PRESSURES Accession Number(s): [id number] cc: Stephen Hung M.D.; Regino Castrejon M.D. [place] [id number] Patient Name: ROSSY GLOVER MRN: [id number] date: 1960 Sex: M Assigned Patient Location: VC Current Patient Location: VC Accession/Order Number: [id number] Exam Date: 03/03/2024 08:08 Report Date: 03/03/2024 10:55 At the request of: REGINO CASTREJON Procedure: VC SEGMENTAL PRESSURES EXAM: VC SEGMENTAL PRESSURES HISTORY: F17.219 Nicotine dependence, Claudication I73.9 COMPARISON: None. FINDINGS: Segmental pressures presented as follows (right, left) in mmHg. Brachial: 154, 162 Upper thigh: 176, 155 Lower thigh: 149, 167 Calf: 100, 152 DPA: 172, 167 ELEMENT[employer] TEACHER: 158, 151 1st Toe: 99, 119 TO: 1.06, 1.03 TBI: 0.61, 0.73 The ABIs are Normal The TBI's demonstrate low risk ischemia in the right, normal on the left PVR waveforms: Right leg: Thigh: Normal Above knee: Normal Below knee: Normal Right ankle: Normal Right first metatarsal: Mild to moderate ischemic waveform Left leg: Thigh: Normal Above knee: Normal Below knee: Normal Right ankle: Normal Left first metatarsal: Ftbj-hm-rupqffrs ischemic waveform VEIN/VC SEGMENTAL PRESSURES IMPRESSION: Jyek-hb-hamxoxnb ischemic waveform bilateral metatarsals Electronically authenticated by: ZULY PATE Date: 03/03/2024 10:55 Dictated By: Zuly Pate M.D. Signed By:03/03/24 1058 DD/ 1055 TD/TT: Pediatric Neurologist: Authorizing ProviderResult TypeResult StatusMohamed Pedrito SANTORO XR PROCEDURES Final Result documented in this encounter Visit Diagnoses Not on filedocumented in this encounter
--- OUTSIDE RECORDS SUMMARY | 2025-02-04 10:37 | XMS_ITS | Patient Health Record ---
Author Organization The [facility] [place] Address [address] [place] [address] Care Team Providers Care Manager Speech Name Role Phone Parish Hung Primary Care Provider Jude Howard Unavailable [phone] Allergies No Known Allergies Results Component Value Reference Range Notes BNP Reviewed date:11/05/2024 12:40:39 PM Interpretation: Performing Lab: Notes/Report: [facility] , NT Pro B Type Natriuretic Pept 655.0 <=900.0 pg /mL Performing Lab:see noteML - [facility] LBVC SEGMENTAL PRESSURES Reviewed date:03/03/2024 01:31:55 PM Interpretation: Performing Lab: Notes/Report: Source Facility: [place] [address] Vein Report Signed Patient: ROSSY GLOVER MR#: [id number] : 1960 Acct:[id number] Age/Sex: 63 / M ADM Date: 03/03/24 Loc: VC Attending Dr: Regino Castrejon M.D. Ordering Physician: Regino Castrejon M.D. Date of Service: 03/03/24 Procedure(s): VC SEGMENTAL PRESSURES Accession Number(s): [id number] cc: Stephen Hung M.D.; Regino Castrejon M.D. [place] [address] Patient Name: ROSSY GLOVER MRN: [id number] date: 1960 Sex: M Assigned Patient Location: VC Current Patient Location: Accession/Order Number: [id number] Exam Date: 03/03/2024 08:08 Report Date: 03/03/2024 10:55 At the request of: REGINO CASTREJON Procedure: VC SEGMENTAL PRESSURES EXAM: VC SEGMENTAL PRESSURES HISTORY: F17.219 Nicotine dependence, Claudication I73.9 COMPARISON: None. FINDINGS: Segmental pressures presented as follows (right, left) in mmHg. Brachial: 154, 162 Upper thigh: 176, 155 Lower thigh: 149, 167 Calf: 100, 152 DPA: 172, 167 FIRST AID DIRECTOR: 158, 151 1st Toe: 99, 119 TO: [...] Normal Right ankle: Normal Left first metatarsal: Gniw-nm-ndeutdxt ischemic waveform VEIN/VC SEGMENTAL PRESSURES IMPRESSION: Nlkm-rj-uhmzubkr ischemic waveform bilateral metatarsals Electronically authenticated by: ZULY PATE Date: 03/03/2024 10:55 Dictated By: Zuly Pate M.D. Signed By: 03/03/24 1058 DD/ 1055 TD/TT: Field Assistant:CBC AUTO DIFF Reviewed date:11/05/2024 12:40:39 PM Interpretation: Performing Lab: Notes/Report: [facility] ,White Blood Count9.94.0-11.0 10 3/uLRed Blood Count4.774.70-6.10 10 6/uL Hpfqzuklxw06.114.0-18.0 g/uFBsllddzaum60.742.0-54.0 %Mean Corpuscular Qjxabn26.7 80.0-94.0 fLMean Corpuscular Mjhdxahxpd06.725.9-34.0 pgMean Corpuscular HGB Conc 33.829.9-35.2 g/dLRed Cell Distribution Width14.911.0-15.0 %Platelet Urkjo492 150-450 10 3/uLMean Platelet Kxqjke35.79.5-13.5 fLPerforming Lab:see noteML - [facility] LBGLYCOHEMOGLOBIN A1C Reviewed date:11/05/2024 12:40:39 PM Interpretation: Performing Lab: Notes/Report: [facility] ,Glycohemoglobin A1C5.44.5-6.2 % ADA RECOMMENDED LIMIT 4.0 - 6.0 ADA THERAPEUTIC TARGET < 7.0 ACTION SUGGESTED > 7.0 Estimated Average Aebfcgh981Uazjshdfkj Lab:see noteML - [facility] LB PSA SCREENING Reviewed date:11/05/2024 12:40:39 PM Interpretation: Performing Lab: Notes/Report: [facility] ,Prostate Specific Antigen Scrn0.57<=4.00 ng/mLPerforming Lab:see note - [facility] LBURIC ACID SERUM Reviewed date:11/05/2024 12:40:39 PM Interpretation: Performing Lab: Notes/Report: [facility] ,Uric Acid4.73.5-7.2 mg/dLPerforming Lab:see noteML - [facility] LB TSH Reviewed date:11/05/2024 12:40:39 PM Interpretation: Performing Lab: Notes/Report: [facility] ,Thyroid Stimulating Hormone1.5620.358-3.740 uIU/mLPerforming Lab:see note - [facility] LBT4 Reviewed date:11/05/2024 12:40:39 PM Interpretation: Performing Lab: Notes/Report: [facility] ,T4 Ltdgmuzzr45.304.50-12.10 ug/dLPerforming Lab:see note - [facility] LBPROF 14(COMP METB) Reviewed date:11/05/2024 12:40:39 PM Interpretation: Performing Lab: Notes/Report: [facility] ,Biboof282691-361 mmol/LPotassium5.13.5-5.1 mmol/GCovelztv23515-701 mmol/LCarbon Fylrsmk06.621.0-32.0 mmol/LAnion Gap12.4Oxcmovb13545-727 mg/dLBlood Urea Cqrndacg15.07.0-18.0 mg/dLCreatinine0.750.70-1.30 mg/dLEstimated GFR ( Lynn>60>=60 mL/min/1.73m 2Estimated GFR (Non- Manjula>60>=60 mL/min/1.73m 2BUN Creatinine Ratio32.0Peeidka5.78.5-10.1 mg/dLBilirubin Total0.30.2-1.0 mg/dL Aspartate Amino Rruqeeyfrxt70414-86 U/LAlanine Khxgadcfzwzwggix05214-36 U/L Alkaline Uoryajknsua1554-065 U/LTotal Protein7.96.4-8.2 g/dLAlbumin Level3.53.4- 5.0 g/dLGlobulin4.4Albumin Globulin Ratio0.8Performing Lab:see noteML - [facility] LBLIPID PROFILE Reviewed date:11/05/2024 12:40:39 PM Interpretation: Performing Lab: Notes/Report: [facility] ,Qzvsahdqantux886<=150 mg/uNLwlmxpsnvge392<=200 mg/dLHDL Athbtvdaude5543-12 mg/dL > or =60 mg/dl - LOW CARDIOVASCULAR RISK <40 mg/dl - HIGH CARDIOVASCULAR RISK LDL Cholesterol Epucwutvpw296.0 <100 mg/dl OPTIMAL 100-129 mg/dl NEAR OR ABOVE OPTIMAL 130-159 mg/dl BORDERLINE HIGH 160-189 mg/dl HIGH >190 mg/dl VERY HIGH VLDL SDAAIBAQOLW96.6Chol HDL Ratio5.0 3.3 - 4.4 LOW RISK 4.4 - 7.1 AVERAGE RISK 7.1 - 11.0 MODERATE RISK >11.0 HIGH RISK Performing Lab:see noteML - [facility] LBFREE T3 Reviewed date:11/05/2024 12:40:39 PM Interpretation: Performing Lab: Notes/Report: [facility] ,Free T32.862.18-3.98 pg/mLPerforming Lab:see noteML - [facility] LB VC US AAA DX Reviewed date:03/04/2024 08:43:15 PM Interpretation: Performing Lab: Notes/Report: Source Facility: [facility]-[address] [place] [address] [place] [address] Vein Report Signed Patient: ROSSY GLOVER MR#: [id number] : 1960 Acct:[id number] Age/Sex: 63 / M ADM Date: 03/03/24 Loc: Attending Dr: Regino Castrejon M.D. Ordering Physician: Regino Castrejon M.D. Date of Service: 03/03/24 Procedure(s): VC US AAA DX Accession Number(s): [id number] cc: Stephen Hung M.D.; Regino Castrejon M.D. [place] [address] Patient Name: ROSSY GLOVER MRN: [id number] date: 1960 Sex: M Assigned Patient Location: Current Patient Location: VC Accession/Order Number: [id number] Exam Date: 03/03/2024 08:08 Report Date: 03/03/2024 14:40 At the request of: REGINO CASTREJON Procedure: VC US AAA DX EXAM: VC US AAA DX HISTORY: F17.219 Nicotine dependence, Claudication I73.9. ; Bilateral iliac artery stent placement 6 months ago TECHNIQUE: Ultrasound was performed of the abdominal aorta. COMPARISON: CT abdomen pelvis 07/05/2023 FINDINGS: AORTA: Moderate amount of calcified and noncalcified plaque within the mid and distal aorta. Maximum diameter of the aorta is 3.0 cm. RIGHT ILIAC: Patent stent 1.1 cm in diameter. LEFT ILIAC: Patent stent 1.3 cm diameter. OTHER: Prominent dilated left renal vein between the kidney and aorta. Narrowed left renal vein between the aorta and inferior vena cava; there appears to be abrupt narrowing of the left renal vein between the aorta and superior mesenteric artery. Flow velocity within the distal/dilated left renal vein is 20 cm/s. Flow velocity of the small caliber proximal renal vein is 198 cm/s. VEIN/VC US AAA DX IMPRESSION: 1. Patent bilateral iliac stents without appreciable narrowing. 2. Mild fusiform dilation of the infrarenal aorta, 3.0 cm, with moderate plaque. 3. 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 Electronically authenticated by: JHONY MODI Date: 03/03/2024 14:40 Dictated By: Jhony Modi M.D. Signed By: 03/03/24 1443 DD/ 1440 TD/TT: Field Assistant:Manolo Differential Reviewed date:11/05/2024 12:40:39 PM Interpretation: Performing Lab: Notes/Report: [facility] ,Segmented Neutrophils % Vvdfbh18.043.0-75.0Lymphocytes Percent Wbefda46.020.5- 60.0 %Monocytes Percent Jzvnbe74.01.7-12.0 %Eosinophils Percent Manual4.00.9-7.0 %Basophils Percent Manual1.00.2-2.0 %Segmented Neut Absolute Manual3.161.4-6.5 10 3/uLLymphocytes Absolute Manual5.241.20-3.80 10 3/uLMonocytes Absolute Manual 0.990.30-0.80 10 3/uLEosinophils Absolute Manual0.390.00-0.70 10 3/uLBasophils Abs Manual0.090.00-0.10 10 3/uLPerforming Lab:see noteML - [facility] LB Reason For Referral No Information Medications Medication SIG (Take, Route, Frequency, Duration) Notes Start Date End Date Status ALPRAZolam 0.25 MG 1 tablet Orally tid; Duration: 14 days F41.9 5ActiveLosartan Potassium 100 MGTAKE 1 TABLET BY MOUTH EVERY DAY FOR 30 DAYS; Duration: 90ActiveoxyCODONE-Acetaminophen 10-325 MG1 tablet as needed - max 5/day Orally every 4 hrs; Duration: 14 days5ActiveClopidogrel Bisulfate 75 MGTAKE 1 TABLET (75 MG TOTAL) BY MOUTH IN THE MORNING; Duration: 90 daysActiveMetoprolol Tartrate 50 MG1 tablet with food Orally Twice a day; Duration: 30 days5ActivecloNIDine HCl 0.2 MG1 tablet Orally 3 times a day; Duration: 30 days5ActiveAspirin Low Dose 81 MGTAKE 1 TABLET (81 MG TOTAL) BY MOUTH IN THE MORNING; Duration: 90 daysActive Social History Tobacco Use: Social History Observation Description Date Details (start date - stop date) Current Smoker 04/02/1967 - NA Tobacco Use/Smoking Question Answer Notes Patient is a current smoker When did you start smoking?04/02/1967How often do you smoke cigarettes?every day How many cigarettes a day do you smoke?11-20How soon after you wake up do you smoke your first cigarette?6-30 minutesAre you interested in quitting?Not ready to quitAlcohol Screen (Audit-C) Question Answer Notes Did you have a drink containing alcohol in the p ast year? No Uibzbx5YnpwrrvepiiehiKbolxtlpDTMCB-C (Standard) Question Answer Notes Did you have a drink containing alcohol in the p ast year? No Asutxv4VwudvtnaqgzeevEvlrynjp Problems Problem Type SNOMED Code ICD Code Onset Dates Problem Status W/U Status Risk Notes Problem Polyneuropathy (70364384) Polyneuropathy, unspecified (G62.9) ActiveconfirmedProblemAtherosclerosis (43564280)Unspecified atherosclerosis (I70.90)ActiveconfirmedProblemAllergic rhinitis (36028876)Allergic rhinitis, unspecified (J30.9)ActiveconfirmedProblemArthropathy associated with a neurological disorder (23718777)Charcot's joint, left ankle and foot (M14.672) ActiveconfirmedProblemLumbar radiculopathy (728630452)Radiculopathy, lumbar region (M54.16)ActiveconfirmedProblemIncomplete rotator cuff tear or rupture of unspecified shoulder, not specified as traumatic (M75.110)ActiveconfirmedProblem Shortness of breath (949216020)Shortness of breath (R06.02)Activeconfirmed ProblemJaw pain (856302248)Jaw pain (R68.84)ActiveconfirmedProblemDisplaced fracture of distal phalanx of left lesser toe(s), subsequent encounter for fracture with routine healing (S92.532D)ActiveconfirmedProblemClosed fracture of foot (087380236)Unspecified fracture of left foot, initial encounter for closed fracture (S92.902A)ActiveconfirmedProblemMigraine variant with headache (disorder) (260942217)Migraine headache (G43.909)ActiveconfirmedProblem Hypertension (94916215)Hypertension (I10)ActiveconfirmedProblemAnxiety (85086397)Anxiety (F41.9)ActiveconfirmedProblemEssential hypertension (22683053) Benign essential HTN (I10)ActiveconfirmedProblemInsomnia (660117013)Insomnia (G47.00)ActiveconfirmedProblemSinus tachycardia (59546873)Sinus tachycardia (R00.0)ActiveconfirmedProblemBack pain (065507830)Back pain (M54.9)Active confirmedProblemLumbar radiculopathy (665997352)Lumbar radiculopathy (M54.16) ActiveconfirmedProblemAcute sinusitis (24371713)Acute sinusitis (J01.90)Active confirmedProblemPeripheral arterial disease (971089584)Peripheral arterial disease (I73.9)ActiveconfirmedProblemAcute pharyngitis (471475235)Acute pharyngitis (J02.9)ActiveconfirmedProblemLeg pain (33518633)Leg pain (M79.606) ActiveconfirmedProblemSciatica (51205458)Sciatica (M54.30)ActiveconfirmedProblem Otitis media of left ear (9987309813557283)Left otitis media (H66.92)Active confirmedProblemPanic (21322582)Panic (F41.0)ActiveconfirmedProblemLocalized, primary osteoarthritis of the shoulder region (601787721)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)ActiveconfirmedProblemHypertensive urgency (609764690) Hypertensive urgency (I10)ActiveconfirmedProblemAcute exacerbation of bronchiectasis (118806930)Acute exacerbation of bronchiectasis (J47.1)Active confirmedProblemShoulder impingement syndrome (660631039)Shoulder impingement syndrome (M75.40)ActiveconfirmedProblemDegeneration of lumbar intervertebral disc (29428939)Degeneration of intervertebral disc of lumbar region (M51.36) ActiveconfirmedProblemPeripheral vertigo (94347357)Vertigo, peripheral (H81.399) ActiveconfirmedProblemPeripheral vascular disease (654799230)Severe claudication (I73.9)ActiveconfirmedProblemAmygdalolith (5270720)Amygdalolith (J35.8)Active confirmedProblemDisease caused by Severe acute respiratory syndrome coronavirus 2 (disorder) (654418106)COVID-19 virus infection (U07.1)Activeconfirmed Vital Signs Blood pressure diastolic 104 mm Hg 12/22/2024 Dpsime72 in12/22/2024lood pressure qzqxwroi775 mm Hg12/22/20245961Gfonez311.2 lbs 12/22/2024BMI19.68 kg/m212/22/2024 Encounters Encounter Location Date Provider Diagnosis [place] [id number] [place] [address] 12/03/2024 Parish Hoy Benign essential HTN I10 ; Sinus tachycardia R00.0 and Lumbar radiculopathy M54.[address] [address] 12/22/2024 Parish Hoy Benign essential HTN I10 and Migraine headache G43.[address] [address] 05/30/2024 Parish Hoy Lumbar radiculopathy M54.[address] [address] 06/25/2024 Parish Hoy Benign essential HTN I10 ; Lumbar radiculopathy M54.16 ; Insomnia G47.00 and Anxiety F41.[address] [address] 08/06/2024 Parish Hoy Benign essential HTN I10 ; Lumbar radiculopathy M54.16 and Insomnia G47.[address] [address] 08/07/2024 Parish Hoy Lumbar radiculopathy M54.[address] [address] 10/31/2024 Parish Hoy Benign essential HTN I10 ; Lumbar radiculopathy M54.16 ; Shortness of breath R06.02 ; Hypertension I10 ; Anxiety F41.9 and Insomnia G47.[address] [address] 11/06/2024 Parish Hoy Benign essential HTN I10 ; Lumbar radiculopathy M54.[address] [facility] [address] [place] [address] 02/05/2024 Parish Hoy Lumbar radiculopathy M54.16 [facility] [address] [place] [address] 02/19/2024 Parish Hoy Lumbar radiculopathy M54.16 [facility] [address] [place] [address] 03/04/2024 Parish Hoy Lumbar radiculopathy M54.16 [facility] [address] [place] [address] 03/18/2024 Parish Hoy Lumbar radiculopathy M54.16 [facility] [address] [place] [address] 04/01/2024 Parish Hoy Lumbar radiculopathy M54.16 [facility] [address] [place] [address] 04/15/2024 Parish Hoy Lumbar radiculopathy M54.16 [facility] [address] [facility] [place] [address] 04/29/2024 Parish Hoy Lumbar radiculopathy M54.16 [facility] [address] [place] [address] 05/13/2024 Parish Hoy Lumbar radiculopathy M54.16 [facility] [address] [place] [address] 05/27/2024 Parish Hoy Lumbar radiculopathy M54.16 [facility] [address] [place] [address] 06/10/2024 Parish Hoy Lumbar radiculopathy M54.16 [facility] [address] [place] [address] 06/24/2024 Parish Hoy Lumbar radiculopathy M54.16 [facility] [address] [place] [address] 07/08/2024 Parish Hoy Lumbar radiculopathy M54.16 [facility] [address] [place] [address] [place] [address] 07/21/2024 Jude [facility] [place] [address] 07/21/2024Doug [facility] [place] [address]/Doug HoyLumbar radiculopathy M54.16[facility] [place] [address]/08/2024Doug HoyLumbar radiculopathy M54.16[facility] [place] [address]/10/2024[facility] [place] [address]/Doug HoyLumbar radiculopathy M54.16[facility] [place] [address]/05/2024Doug HoyLumbar radiculopathy M54.16[facility] [place] [address]/07/2024[facility] [place] [address]/ Parish HoyLumbar radiculopathy M54.16[facility] [place] [address]/04/2024Doug HoyLumbar radiculopathy M54.16[facility] [place] [address]/ Parish HoyLumbar radiculopathy M54.16[facility] [place] [address]/Doug HoyLumbar radiculopathy M54.16[facility] [place] [address]/08/2024 Parish [facility] [place] [address] 11/11/2024Doug HoyLumbar radiculopathy M54.16[facility] [place] [address]/Doug HoyBenign essential HTN X49DrxkmgaRangely District Hospital[address] [place] [address] 11/25/2024Doug HoyLumbar radiculopathy M54.[address] [place] [address] [place] [address]/Doug [facility] [place] [address]/05/2024Doug HoyBenign essential HTN H70MiwprheRangely District Hospital[address] [place] [address]/Doug HoyBenign essential HTN I10BVMontrose Memorial Hospital[address] [place] [address]/05/2024Doug HoyBenign essential HTN I10BVMontrose Memorial Hospital[address] [place] [address]/08/2024Doug HoyBenign essential HTN H88ScqgjfcRangely District Hospital[address] [place] [address]/Doug HoyBenign essential HTN R13CotszcgRangely District Hospital[address] [place] [address]/Doug HoyBenign essential HTN I10[facility] [facility] [address]/05/2024Doug HoyBenign essential HTN V77PaurmeuRangely District Hospital[address] [facility] [address]/05/2024Doug HoyBuckMercyOne [facility] [facility] [address]/05/2024Doug HoyBilateral leg weakness M62.81[facility] [facility] [address]/10/2024 Parish HoyBenign essential HTN I10 and Anxiety F41.9 Assessments Encounter Date Diagnosis (ICD Code) Assessment Notes Treatment Notes Treatment Clinical Notes Section Notes 05/30/2024 Lumbar radiculopathy (ICD-10 - M 54.16) 06/25/2024enign essential HTN (ICD-10 - I10)06/25/2024Lumbar radiculopathy (ICD-10 - M54.16)12/08/2024enign essential HTN (ICD-10 - I10)discussed anxiety - has headache - refused ER - oinc clojnidie to TID12/08/2024nxiety (ICD-10 - F41.9)12/22/2024enign essential HTN (ICD-10 - I10)rept bp in 2 days - inc to TID if hvmhcp1612/22/2024Migraine headache (ICD-10 - G43.909)08/07/2024Lumbar radiculopathy (ICD-10 - M54.16)10/31/2024enign essential HTN (ICD-10 - I10) 10/31/2024Lumbar radiculopathy (ICD-10 - M54.16)10/31/2024Shortness of breath (ICD-10 - R06.02)10/31/2024Hypertension (ICD-10 - I10)10/31/2024nxiety (ICD-10 - F41.9)10/31/2024Insomnia (ICD-10 - G47.00)11/06/2024enign essential HTN (ICD- 10 - I10)11/06/2024Lumbar radiculopathy (ICD-10 - M54.16)08/06/2024enign essential HTN (ICD-10 - I10)08/06/2024Lumbar radiculopathy (ICD-10 - M54.16) 02/05/2024Lumbar radiculopathy (ICD-10 - M54.16)02/19/2024Lumbar radiculopathy (ICD-10 - M54.16)03/04/2024Lumbar radiculopathy (ICD-10 - M54.16)03/18/2024 Lumbar radiculopathy (ICD-10 - M54.16)04/01/2024Lumbar radiculopathy (ICD-10 - M54.16)04/15/2024Lumbar radiculopathy (ICD-10 - M54.16)04/29/2024Lumbar radiculopathy (ICD-10 - M54.16)05/13/2024Lumbar radiculopathy (ICD-10 - M54.16) 05/27/2024Lumbar radiculopathy (ICD-10 - M54.16)06/10/2024Lumbar radiculopathy (ICD-10 - M54.16)06/24/2024Lumbar radiculopathy (ICD-10 - M54.16)07/08/2024 Lumbar radiculopathy (ICD-10 - M54.16)07/22/2024Lumbar radiculopathy (ICD-10 - M54.16)08/05/2024Lumbar radiculopathy (ICD-10 - M54.16)08/19/2024Lumbar radiculopathy (ICD-10 - M54.16)09/02/2024Lumbar radiculopathy (ICD-10 - M54.16) 09/16/2024Lumbar radiculopathy (ICD-10 - M54.16)09/30/2024Lumbar radiculopathy (ICD-10 - M54.16)10/14/2024Lumbar radiculopathy (ICD-10 - M54.16)10/28/2024 Lumbar radiculopathy (ICD-10 - M54.16)11/11/2024Lumbar radiculopathy (ICD-10 - M54.16)11/18/2024enign essential HTN (ICD-10 - I10)11/25/2024Lumbar radiculopathy (ICD-10 - M54.16)12/02/2024enign essential HTN (ICD-10 - I10) 12/19/2024enign essential HTN (ICD-10 - I10)01/01/2025enign essential HTN (ICD-10 - I10)01/05/2025enign essential HTN (ICD-10 - I10)01/19/2025enign essential HTN (ICD-10 - I10)01/20/2025enign essential HTN (ICD-10 - I10) 02/02/2025enign essential HTN (ICD-10 - I10)02/02/2025ilateral leg weakness (ICD-10 - M62.81)12/03/2024gn essential HTN (ICD-10 - I10)coming tomorrow for BP check12/03/2024Sinus tachycardia (ICD-10 - R00.0)12/03/2024Lumbar radiculopathy (ICD-10 - M54.16)08/06/2024Insomnia (ICD-10 - G47.00)11/06/2024 Panic (ICD-10 - F41.0)06/25/2024Insomnia (ICD-10 - G47.00)06/25/2024nxiety (ICD-10 - F41.9)08/07/2024OtherRecommended to rest and use a heating pad on the area. Take NSAIDs for pain as needed Plan Of Treatment Pending Test Test Name Order Date UA (URINALYSIS, COMPLETE) 06/12/2023 HEMOGLOBIN A1C (GLYCO) 10/31/2024 LIPID PANEL (CHOL/TRIG/HDL/LDL) 11/01/19 25 UA (URINALYSIS, MICRO ONLY) 06/12/2023 URIC ACID 10/31/2024 US Lower Extremity LT 08/23/2023 US Lower Extremity RT 08/23/2023 Stress Test 11/08/2023 ECG with Interpretation 11/08/2023 COMPREHENSIVE METABOLIC PROFILE WITH GFR 06/12/2023 US Lower Ext Arterial Duplex Bilateral 1 04/04/2024 CBC W/AUTO DIFF 06/12/2023 Treadmill Stress Test with Nuclear Imagi ng 10/24/2023 STOOL OCCULT BLOOD 10/31/2024 Covid-19 PCR (CVDTBH) 08/01/2022 CULTURE URINE 06/12/2023 MRI LSPINE WO CON 04/20/2023 US ARTERY LEG ASHLEY 06/14/2023 XR LSPINE 2_3 VIEWS 04/20/2023 THYROID PANEL (T4/TSH/FREE T3) CTA ABD/PELVIS WO W CON 06/17/2023 PSA, SCREENING 10/31/2024 CMP (COMP MET SYKES) w/eGFR CKD-EPI 2024 CBC WITH DIFF 10/31/2024 Insurance Providers Payer Name Payer Address Payer Phone Subscriber Number Group Number Insured Name Patient Relationship to Insured Coverage Start Date Coverage End Date [employer] [place] [employer] [address] [place] [address] [id number] Mick Glover - patient is the [id number] 2022 Medications Administered Medication Instructions Date of Administration Dosage Notes Ceftriaxone 1 gram gDexamethasone, 4mg/mL mgKenalog-40020 mg120 Kenalog-400 ov740Ifmkkacpo Icrywqqbrpwb76/24/202460 zl63Iekbzsmlb Ztlfulfhawzg98/02/202460 tz95Swncrnpzmrjj Sljynxe22/24/360255 yn08Kgbfhjntevym Euylmrs110 mg60 Medical (General) History Medical History History ICD Code Degeneration of intervertebral disc of l umbar region M51.36 Benign essential HTN I10 Lumbar radiculopathy M54.16 Peripheral arterial disease I73.9 Sinus tachycardia R00.0 Back pain M54.9 Allergic rhinitis, unspecified J30.9 Migraine headache G43.909 Left otitis media H66.92 Incomplete rotator cuff tear or rupture of unspecified shoulder, not specified as traumatic M75.110 COVID-19 virus infection U07.1 Acute sinusitis J01.90 Amygdalolith J35.8 Acute pharyngitis J02.9 Primary osteoarthritis of shoulder M19.0 19 Sciatica M54.30 Vertigo, peripheral H81.399 Jaw pain R68.84 Shoulder impingement syndrome M75.40 Surgical History Surgery Date(Month/Year) Right Eye Cataract 12/25/24 Stent in artery in both legs 08/2023 left shoulder intramedullary nail fixation right tibianterior compartment fasciotomy 04/2008vasectomyHospitalization History Reason Date(Month/Year) see above
--- OUTSIDE RECORDS SUMMARY | 2025-02-04 10:37 | XMS_ITS | Clinical Summary ---
Author Organization [facility] Address [address] [facility] [place] [address] Care Team Providers Care Assistant Professor In Family Studies Name Role Phone Unavailable Primary Care Provider Unavailabl e Source Comments The following information is NOT included in Care Everywhere downloads:Psychiatric notes, ECG results, Cardiac Rehab notes, Pulmonary Function notes, data from [employer] (includes but not limited toPregnancy data,audiograms, eye exams, pre-surgical evaluation notes, well-child exam data).[facility] Allergies No known active allergies Medications No known medications Active Problems No known active problems Social History Tobacco UseTypesPacks/DayYears UsedDateSmoking Tobacco: Never AssessedSex and Gender InformationValueDate RecordedSex Assigned at BirthNot on fileLegal Sex Male01/29/2018 1:24 PM EDTGender IdentityNot on fileSexual OrientationNot on file Last Filed Vital Signs Vital SignReadingTime TakenCommentsBlood Pqtfbdki361/8701/29/2018 1:29 PM EDT Refxz260901/29/2018 1:29 PM IPUZbqdlfvxulp27.3 ??C (99.2 ??F)01/29/2018 1:29 PM EDTRespiratory Ozvy0264 1:29 PM EDTOxygen Vntvrxuozu44%01/29/2018 1:29 PM EDTInhaled Oxygen Concentration--Weight--Height--Body Mass Index-- Plan of Treatment Health MaintenanceDue DateLast YocdRuweeqtxGzaeiyndqsz85/23/1963HIV Test 1977Hepatitis C Hcdjquyy31/23/1981Tdap Hwmlrdc1410/22/1980Hepatitis A (HAV) Vaccine (optional start 19+ years)10/22/19813830Zlrvlndxkon38/23/1998CRC Screening 10/23/2007Cologuard (Stool DNA)10/23/2007FIT10/23/2007Pneumococcal Vaccine(s) (50+ yrs) (1 of 1 - PCV)2012Shingles (RZV) Vaccine (1 of 2)2012 Hepatitis B (HBV) Vaccine (optional start 60+ years)2022OVID-19 Vaccine (1 - 2024-26 season)2024Influenza Vaccine (#1)2024RSV vaccine (adult) (1 - 1-dose 75+ series)2037 Insurance on file
--- OUTSIDE RECORDS SUMMARY | 2025-02-04 10:37 | XMS_ITS | Clinical Summary ---
Author Organization [facility] Address [address] [place] [address] Care Team Providers Care Traffic Manager Name Role Phone Stephen Hung MD Primary Care Provider [phone] Allergies No known active allergies Medications MedicationSigDispense QuantityRefillsLast FilledStart DateEnd DateStatus cloNIDine (Catapres) 0.1 mg tablet Take 2 tablets by mouth in the morning and at bedtime.Active Active Problems ProblemNoted DateDiagnosed DateComplete tear of right rotator cuff08/11/2022 Overview (08/11/2022): Added automatically from request for surgery [id number] Social History Tobacco UseTypesPacks/DayYears UsedDateSmoking Tobacco: Every DayCigarettes Smokeless Tobacco: NeverAlcohol UseStandard Drinks/WeekCommentsNever0 (1 standard drink = 0.6 oz pure alcohol)Humiliation, Afraid, Rape, and Kick questionnaireAnswerDate RecordedWithin the last year, have you been afraid of your partner or ex-partner?No10/16/2022Within the last year, have you been humiliated or emotionally abused in other ways by your partner or ex-partner?No 10/16/2022Within the last year, have you been kicked, hit, slapped, or otherwise physically hurt by your partner or ex-partner?No10/16/2022Within the last year, have you been raped or forced to have any kind of sexual activity by your part ner or ex-partner?No10/16/2022HQ-2AnswerDate RecordedPatient Health Questionnaire-2 Lvrlx848/17/2023UT Safety & EnvironmentAnswerDate RecordedWithin the last year, have you been afraid of your partner or ex-partner?No10/16/2022 Within the last year, have you been humiliated or emotionally abused in other ways by your partner or ex-partner?No10/16/2022Within the last year, have you been kicked, hit, slapped, or otherwise physically hurt by your partner or ex-partner?No10/16/2022Within the last year, have you been raped or forced to have any kind of sexual activity by your partner or ex-partner?No10/16/2022 Physically or Sexually AbusedNot on file10/16/2022Sex and Gender Information ValueDate RecordedSex Assigned at BirthNot on fileLegal CgjUacz9309/28/2021 10:30 PM EDTGender IdentityNot on fileSexual OrientationNot on file Last Filed Vital Signs Vital SignReadingTime TakenCommentsBlood Kwmlgkrr159/8201/05/2023 9:55 AM EDT Lrbpf560601/05/2023 9:55 AM PEMEyouvvddrld09.8 ??C (98.2 ??F)01/05/2023 9:55 AM EDTRespiratory Ucya5277 9:55 AM EDTOxygen Kujeuvmcxn68%01/05/2023 9:55 AM EDTInhaled Oxygen Concentration--Mghmwx11.1 kg (139 lb 1.8 oz)01/05/2023 6:36 AM ZXFPikjvv742.8 cm (5' 10 )01/05/2023 6:36 AM EDTBody Mass Index19.96 01/05/2023 6:36 AM EDT Plan of Treatment Health MaintenanceDue DateLast DoneCommentsCT Owdqehlnmrjg62/23/1963Colonoscopy 1962Colorectal Cancer Soqwdzijz26/23/1963FIT-DNA1962FIT1962 FOBT1962 5805Cvasaaeicvgeh17/23/1963HIB Vaccines (1 of 1 - Risk 1-dose series) 01/23/1964Meningococcal Vaccine (1 - Risk 2-dose series)1964Meningococcal B Vaccine (1 of 4 - Increased Risk)1972Depression Lqhfattov01/23/1975 Pneumococcal Vaccine: Pediatrics (0 to 5 Years) and At-Risk Patients (6 to 64 Years) (1 of 2 - PCV)1981Adult Gdzqbnl2110/22/1984Zoster Vaccines (1 of 2) 2012COVID-19 Vaccine (1 - season)2024Influenza Vaccine (#1) 2024HPV VaccinesAged OutNo longer eligible based on patient's age to complete this topicIPV VaccinesAged OutNo longer eligible based on patient's age to complete this topicRotavirus VaccinesAged OutNo longer eligible based on patient's age to complete this topic Medical Devices ImplantedTypeAreaManufacturerDevice IdentifierShelf Expiration DateModel / Serial / LotBelleor,Collette,W/Dynacord,5.5mm - [id number] Implanted:Qty: 3 on 01/05/2023 by [facility]: [employer] [id number] / / [id number] Insurance Care Teams Team MemberRelationshipSpecialtyStart DateEnd Stephen Hung MD [address] [place] [address] PCP - Azgqjoi60/6/23
--- OUTSIDE RECORDS SUMMARY | 2025-02-04 10:40 | XMS_ITS | CCD ---
Author Organization [facility] CliniSyks Care Team Providers Care Client Service Representative Name Role Phone Renaldo Hung Primary Care Provider [phone] CHRISTIAN VALDEZ HSky Referring Unavailable RENALDO HUNG Primary Care Unavailable COURTNEYCHRISTIAN Delgado HSky Attending Unavailable CHRISTIAN VALDEZ HSky Attending Unavailable RENALDO HUNG Primary Care Unavailable COURTNEY, CHRISTIAN HSky Admitting Unavailable HAI, DR MACARIO Admitting Unavailable HOY, DR MACARIO Attending Unavailable HAI, DR MACARIO Primary Care Unavailable BLANCAY, DR MACARIO Consulting Unavailable HAI, DR MACARIO Admitting Unavailable HOY, DR MACARIO Attending Unavailable BLANCAY, DR MACARIO Primary Care Unavailable HOY, DR MACARIO Admitting Unavailable HOY, DR MACARIO Attending Unavailable HAI, DR MACARIO Primary Care Unavailable HAI, DR MACARIO Consulting Unavailable ZULY PRUETT Admitting Unavailable SAMUEL, ZULY Attending Unavailable HAI, DR MACARIO Primary Care Unavailable PAOLA, DR MIGUELANGEL Gooden Consulting Unavailable ZULY PRUETT Consulting Unavailable HAI, DR MACARIO Admitting Unavailable HOMerna, DR MACARIO Attending Unavailable HAI, DR MACARIO Primary Care Unavailable HAI, DR MACARIO Consulting Unavailable PEGGS, DR ZULY Shelton Consulting Unavailable Ruth Mosquera Unavailable ZULY PRUETT Admitting Unavailable SAMUEL, ZULY Attending Unavailable ZULY PRUETT Attending Unavailable Unavailable Primary Care Provider UnavailRenaldo Carrington MD Primary Care Provider Renaldo Hung MD Primary Care Provider Renaldo Hung MD Primary Care Provider Renaldo Hung MD Primary Care Provider Romana Wallace MD Attending Provider Renaldo Hung Primary Care Unavailable Romana Wallace Admitting Unavail able Romana Wallace Attending Unavail able Romana Wallace Admitting Unavail able Romana Wallace Attending Unavail able Renaldo Hung Primary Care Unavailable Renaldo Hung Primary Care Unavailable Romana Wallace Admitting Unavail able Romana Wallace Attending Unavail able Unavailable Primary Care Provider Unavailabl e Medications Current Medications MedicationDrug Class(es)DatesSig (Normalized)Sig (Original)acetaminophen 325 mg / oxyCODONE hydrochloride 10 mg oral tablet (11 sources)Opioid AgonistStart: 97-51-4755ycbo 1 tablet by mouth every four hoursOxycodone-Acetaminophen (Percocet) 10-325 mg tablet Active 1 TAB PO Every 4 hours 0 December 12:00am Complies with drug therapyStart: 07-26-2023 take 1 tablet by mouth every four hours as needed for painoxyCODONE- acetaminophen (PERCOCET) 10-325 mg per tablet Take 1 tablet by mouth every 4 (four) hoursas needed for pain. 07/26/2023 ActiveStart: 07-15-2020 End: 66-32-9753egyKOTLMP-acetaminophen (PERCOCET) 7.5-325 MG per tablet Indications: Postoperative pain Take 1 tablet by mouth every 6 hours as needed for Pain for up to 14 days. Intended supply: 30 days 40 tablet 0 07/15/2020 07/29/2020 Active End: 68-85-3825tgfDSHIEM-acetaminophen (PERCOCET) 5-325 MG per tablet Percocet 5 mg-325 mg tablet Take 1 tablet every 6-8 hours by oral route as directed. 0 07/15/2020 Discontinued (Stop Taking at Discharge)ALPRAZolam 0.25 mg oral tablet (6 sources)BenzodiazepineStart: 23-84-9398kxdm 1 tablet by mouth once daily Alprazolam 0.25 mg tablet Active 0.25 MG PO Daily December 11, 2024 12:00am Complies with drug therapytake 1 tablet by mouth three times daily as needed for anxietyALPRAZolam (XANAX) 0.5 mg tablet Take 1 tablet (0.5 mg total) by mouth 3 (three) times a day as needed for anxiety. Activeaspirin 81 mg oral tablet (6 sources)Platelet Aggregation Inhibitor, Nonsteroidal Anti-inflammatory Drug Start: 13-08-7162ruhe 1 tablet by mouth once daily in the morningAspirin 81 mg tablet Active 81 MG PO Every morning December 11, 2024 12:00am Complies with drug therapyStart: 44-45-5162yhwa 1 tablet by mouth in the morningaspirin 81 mg Take 1 tablet (81 mg total) by mouth in the morning. 30 tablet 3 08/16/2023 Activecalcium chloride 0.0014 meq/ml / potassium chloride 0.004 meq/ml / sodium chloride 0.103 meq/ml / sodium lactate 0.028 meq/ml injectable solution (2 sources)Start: 36-54-0125vvwzxekp ringers infusioncarvedilol 12.5 mg oral tablet (7 sources)alpha-Adrenergic Asha, beta-Adrenergic BlockerStart: 06-13-2023 take 1 tablet by mouth in the morning, then take 1 tablet by mouth at mealtime carvediloL (COREG) 12.5 mg tablet Indications: hypertension Take 1 tablet (12.5 mg total) by mouth in the morning and 1 tablet (12.5 mg total) in the evening. Take with meals. Indications: high bloodpressure. 06/13/2023 Activetake 1 tablet by mouth oncecarvedilol (COREG) 3.125 MG tablet Take 3.125 mg by mouth once 0 Activecephalexin 500 mg oral capsule (2 sources)Cephalosporin AntibacterialStart: 07-15-2020 End: 30-14-1374chlx 1 capsule by mouth three times dailycephALEXin (KEFLEX) 500 MG capsule Take 1 capsule by mouth 3 times daily for 7 days 21 capsule 0 07/22/2020 ActivecloNIDine hydrochloride 0.2 mg oral tablet (11 sources)Central alpha-2 Adrenergic AgonistStart: 64-54-7476cife 1 tablet by mouth twice dailyClonidine Hcl 0.2 mg tablet Active 0.2 MG PO Twice daily December 11, 2024 12:00am Complies withdrug therapytake 1 tablet by mouth three times dailycloNIDine (CATAPRES) 0.1 mg tablet Indications: hypertension Take 1 tablet (0.1 mg total) by mouth 3 (three) times a day Indications: high blood pressure. Activetake 2 tablets by mouth three times dailycloNIDine (CATAPRES) 0.1 mg tablet TAKE 2 TABLETS BY MOUTH 3 TIMES A DAY Activetake 2 tablets by mouth twice dailycloNIDine HCl 0.1 MG TAKE 2 TABLETS BY MOUTH TWICE A DAY Oral for 90 Days Activetake 1 tablet by mouth twice dailycloNIDine (CATAPRES) 0.1 MG tablet clonidine HCl 0.1 mg tablet Take 1 tablet twice a day by oral route for 30 days. 0 Activeclopidogrel 75 mg oral tablet (6 sources)P2Y12 Platelet InhibitorStart: 72-45-0562zqxz 1 tablet by mouth once daily in the morningClopidogrel 75 mg tablet Active 75 MG PO Every morning December 11, 2024 12:00am Complies with drug therapyStart: 63-29-4628lolx 1 tablet by mouth in the morningclopidogreL (PLAVIX) 75 mg tablet Take 1 tablet (75 mg total) by mouth in the morning. 30 tablet 3 08/16/2023 Active1 ml diphenhydrAMINE hydrochloride 50 mg/ml cartridge (1 source)Histamine-1 Receptor AntagonistStart: 07-15-2020 End: 89-54-9853mnvhpzzbksXABST (BENADRYL) injection 12.5 mg2 ml fentaNYL 0.05 mg/ml injection (1 source)Opioid AgonistStart: 74-04-7055enlmtOFD (SUBLIMAZE) injection 50 mcg1 ml HYDROmorphone hydrochloride 1 mg/ml cartridge (1 source)Opioid AgonistStart: 58-70-6813SFXQPltnbpoeu (DILAUDID) injection 0.5 mg10 ml lidocaine hydrochloride 10 mg/ml injection (2 sources)Antiarrhythmic, Amide Local AnestheticStart: 07-15-2020 End: 95-39-8206bzzqtirfj PF 1 % injection 1 uLfryawppmr-uoegjlsd-cpvowhqz CMPD (ANTIMICROBIAL) mouthwash (4 sources)fathefwxb-gjjiqyrw-hljqgkfy CMPD (ANTIMICROBIAL) mouthwash Swish and spit 5 mL 3 (three) times a day. thrush Activelosartan potassium 100 mg oral tablet (5 sources)Angiotensin 2 Receptor BlockerStart: 95-95-8848okhk 1 tablet by mouth once daily in the morningLosartan 100 mg tablet Active 100 MG PO Every morning December 11, 2024 12:00am Complies with drug therapyStart: 44-73-5949bqpe 1 tablet by mouth in the morninglosartan (COZAAR) 100 mg tablet Take 1 tablet (100 mg total) by mouth in the morning. 12/25/2023 Active1 ml meperidine hydrochloride 25 mg/ml cartridge (1 source)Opioid AgonistStart: 22-87-5429xkgokpnxmq (DEMEROL) injection 12.5 mg2 ml metoclopramide 5 mg/ml prefilled syringe (1 source)Dopamine-2 Receptor AntagonistStart: 07-15-2020 End: 76-36-9722pwejckdufzctri (REGLAN) injection 10 mg2 ml ondansetron 2 mg/ml injection (1 source)Serotonin-3 Receptor AntagonistStart: 07-15-2020 End: 63-31-1415fqczkdgsvex (ZOFRAN) injection 4 mgsennosides, mcc 8.6 mg oral tablet (2 sources)Start: 07-15-2020 End: 90-49-4360nitq 2 tablets by mouth twice dailysenna (SENOKOT) 8.6 MG tablet Take 2 tablets by mouth 2 times daily for 14 days 56 tablet 0 07/15/2020 07/29/2020 Active3 ml sodium chloride 9 mg/ml injection (3 sources)Start: .9 % sodium chloride infusionStart: 07-15-2020 sodium chloride flush 0.9 % injection 10 mL Problems Active Problems Problem ClassificationProblemDateDocumented DateEpisodic/ChronicCataract (2 sources)Posterior subcapsular polar age-related cataract, left eye; Translations: [Age-related nuclear cataract, right eye]Onset: 62-66-3140Iktrtxd Headache; including migraine (6 sources)Migraine; Translations: [Migraine, unspecified, not intractable, without status migrainosus]Onset: 360136-42-2354JlgssvtTzaqzhqbj or stenosis of precerebral arteries (3 sources)Bilateral stenosis of carotid arteries; Translations: [Occlusion and stenosis of bilateral carotid arteries]Onset: hronic Osteoarthritis (6 sources)Osteoarthritis of acromioclavicular joint; Translations: [Primary osteoarthritis, unspecified shoulder]Onset: 293741-88-3261LwxpoclIzpii connective tissue disease (2 sources)Other specified soft tissue disorders; Translations: [Other specified soft tissue disorders]Onset: 53-21-5868YjbynwenHnfhm connective tissue disease (1 source)Adhesive capsulitis of left shoulder; Translations: [Adhesive capsulitis of left shoulder]Onset: Other nervous system disorders (1 source)Postoperative pain ; Translations: [Postoperative pain]EpisodicOther non-traumatic joint disorders (4 sources)Pain in right shoulder; Translations: [PAIN IN RIGHT SHOULDER]Onset: 10-88-3904XphauwnnOrjhdkoolv and visceral atherosclerosis (17 sources)Peripheral vascular disease; Translations: [Peripheral vascular disease, unspecified]Onset: 12-14-2021 Resolved: 06-76-6522WvuagzhMyratytj codes; unclassified (1 source)Pain; Translations: [Pain, unspecified]EpisodicSpondylosis; intervertebral disc disorders; other back problems (1 source)Other intervertebral disc degeneration, lumbar region; Translations: [OTH IV DISC DEGEN LUMBAR REGION]Onset: 42-90-4487CnaedajOwnjsoh and strains (3 sources)Strain of other muscles, fascia and tendons at shoulder and upper arm level, right arm, initial encounter; Translations: [Strain of muscle(s) and tendon(s) of the rotator cuff of right shoulder, initial encounter]Onset: 57-23-7167ShyofmzhByslwpzmu-related disorders (17 sources)Smoker; Translations: [Nicotine dependence, unspecified, uncomplicated]Onset: 12-14-2021 Resolved: 65-70-7264YgipuvzVqykwlyvnwbg (1 source)Patient encounter status; Translations: [Encounter for screening for other viral diseases]Onset: 842424-92-3573Cmbhgobnfkbt (2 sources)CONTACT W/AND (SUSP) EXPOS COVID-19; Translations: [CONTACT W/AND (SUSP) EXPOS COVID-19]Onset: 79-15-3785Nnnqy infection (1 source)COVID-19; Translations: [COVID-19]Onset: 04-22-2021 Past or Other Problems Problem ClassificationProblemDateDocumented DateEpisodic/ChronicImmunizations and screening for infectious disease (2 sources)Patient encounter status; Translations: [Encounter for screening for other viral diseases]Onset: 583730-11-3517KhwpitkjGrtox connective tissue disease (6 sources)Pain in lower limb; Translations: [Pain in leg, unspecified]Onset: 219744-44-0652MiydctjhOlrad connective tissue disease (6 sources)Impingement syndrome of shoulder region; Translations: [Impingement syndrome of unspecified shoulder]Onset: 926234-80-6491QwzeyrcgPrroe connective tissue disease (6 sources)Biceps tendinitis; Translations: [Bicipital tendinitis, unspecified shoulder]Onset: 457798-23-1815LunvbemkYrjbz connective tissue disease (6 sources)Full thickness rotator cuff tear; Translations: [Complete rotator cuff tear or rupture of unspecified shoulder, not specified as traumatic]Onset: 022792-32-0433RwjonewkYndti connective tissue disease (5 sources)Adhesive capsulitis of left shoulder; Translations: [Adhesive capsulitis of left shoulder]Onset: 577542-17-0708PmztvtptXriha injuries and conditions due to external causes (6 sources)Injury of superior glenoid labrum of shoulder joint; Translations: [Superior glenoid labrum lesion of unspecified shoulder, initial encounter] Onset: 756088-57-3771YiymnndyKyjmhspeiya; intervertebral disc disorders; other back problems (10 sources)Lumbar radiculopathy; Translations: [Radiculopathy, lumbar region] Onset: 988344-98-6249GwgemqnoPthpycjimblu (1 source)CONTACT W/AND (SUSP) EXPOS COVID-19; Translations: [CONTACT W/AND (SUSP) EXPOS COVID-19]Onset: 46-26-2527Cuqax infection (6 sources)Postherpetic neuralgia; Translations: [Other postherpetic nervous system involvement]Onset: 922979-72-3433Gkexfsvk Results Test NameValueInterpretationReference RangeFacilitySEGMENTAL BLOOD PRESSUREon 64-85-9331[address] [address] Vein Report Signed Patient: ROSSY ALFONSO MR#: [id number] : 1960 Acct:[id number] Age/Sex: 63 / M ADM Date: 03/03/24 Loc: VC Attending Dr: Regino Castrejon M.D. Ordering Physician: Regino Castrejon M.D. Date of Service: 03/03/24 Procedure(s): VC SEGMENTAL PRESSURES Accession Number(s): [id number] cc: Renaldo Hung M.D.; Regino Castrejon M.D. [place] [address] Patient Name: ROSSY ALFONSO MRN: [id number] date: 1960 Sex: M Assigned Patient Location: VC Current Patient Location: VC Accession/Order Number: [id number] Exam Date: 03/03/2024 08:08 Report Date: 03/03/2024 10:55 At the request of: REGINO CASTREJON Procedure: VC SEGMENTAL PRESSURES EXAM: VC SEGMENTAL PRESSURES HISTORY: F17.219 Nicotine dependence, Claudication I73.9 COMPARISON: None. FINDINGS: Segmental pressures presented as follows (right, left) in mmHg. Brachial: 154, 162 Upper thigh: 176, 155 Lower thigh: 149, 167 Calf: 100, 152 DPA: 172, 167 VARIETY SAW OPERATOR: 158, 151 1st Toe: 99, 119 TO: [...] Normal Right ankle: Normal Left first metatarsal: Xfwn-lx-wjcngpkb ischemic waveform VEIN/VC SEGMENTAL PRESSURES IMPRESSION: Avkf-kr-vdcyuefp ischemic waveform bilateral metatarsals Electronically authenticated by: ZULY PATE Date: 03/03/2024 10:55 Dictated By: Zuly Pate M.D. Signed By: 03/03/24 1058 DD/ 1055 TD/TT: Transverse Abdominal Muscle Surgeon:LILOadiology, Radiologist, - 03/03/2024 [place] [address] Vein Report Signed Patient: ROSSY ALFONSO MR#: [id number] : 1960 Acct:[id number] Age/Sex: 63 / M ADM Date: 03/03/24 Loc: VC Attending Dr: Regino Castrejon M.D. Ordering Physician: Regino Castrejon M.D. Date of Service: 03/03/24 Procedure(s): VC SEGMENTAL PRESSURES Accession Number(s): [id number] cc: Renaldo Hung M.D.; Regino Castrejon M.D. The [address] [id number] Patient Name: ROSSY ALFONSO MRN: [id number] date: 1960 Sex: M Assigned Patient Location: Current Patient Location: VC Accession/Order Number: [id number] Exam Date: 03/03/2024 08:08 Report Date: 03/03/2024 10:55 At the request of: REGINO CASTREJON Procedure: VC SEGMENTAL PRESSURES EXAM: VC SEGMENTAL PRESSURES HISTORY: F17.219 Nicotine dependence, Claudication I73.9 COMPARISON: None. FINDINGS: Segmental pressures presented as follows (right, left) in mmHg. Brachial: 154, 162 Upper thigh: 176, 155 Lower thigh: 149, 167 Calf: 100, 152 DPA: 172, 167 VARIETY SAW OPERATOR: 158, 151 1st Toe: 99, 119 TO: [...] Normal Right ankle: Normal Left first metatarsal: Ucyj-rv-zvdpxrzp ischemic waveform VEIN/VC SEGMENTAL PRESSURES IMPRESSION: Ilqu-ct-xtpkgbnl ischemic waveform bilateral metatarsals Electronically authenticated by: ZULY PATE Date: 03/03/2024 10:55 Dictated By: Zuly Pate M.D. Signed By: 03/03/24 1058 DD/ 1055 TD/TT: Transverse Abdominal Muscle Surgeon: WADE HealthcareRadiology Study observation (narrative)WADE HealthcareSEGMENTAL BLOOD PRESSUREOrdered By: Radiologist Radiology on 90-93-2916RGIU ModaMi Work Phone: us Abdominal Aorta for screeningon 84-71-1662[place]bcNavarre, [place] [address] Vein Report Signed Patient: ROSSY ALFONSO MR#: [id number] : 1960 Acct:[id number] Age/Sex: 63 / M ADM Date: 03/03/24 Loc: Attending Dr: Regino Castrejon M.D. Ordering Physician: Regino Castrejon M.D. Date of Service: 03/03/24 Procedure(s): VC US AAA DX Accession Number(s): [id number] cc: Renaldo Hung M.D.; Regino Castrejon M.D. [address] [id number] Patient Name: ROSSY ALFONSO MRN: [id number] date: 1960 Sex: M Assigned Patient Location: Current Patient Location: Accession/Order Number: [id number] Exam Date: 03/03/2024 08:08 Report Date: 03/03/2024 [...] mesenteric artery (nutcracker syndrome). Electronically authenticated by: MIGUELANGEL MODI Date: 03/03/2024 14:40 Dictated By: Miguelangel Modi M.D. Signed By: 03/03/24 1443 DD/ 144 TD/TT: Transverse Abdominal Muscle Surgeon:TBHRadiology, Radiologist, - 03/04/2024 [place] [address] Vein Report Signed Patient: ROSSY ALFONSO MR#: [id number] : 1960 Acct:[id number] Age/Sex: 63 / M ADM Date: 03/03/24 Loc: Attending Dr: Regino Castrejon M.D. Ordering Physician: Regino Castrejon M.D. Date of Service: 03/03/24 Procedure(s): VC US AAA DX Accession Number(s): [id number] cc: Renaldo Hung M.D.; Regino Castrejon M.D. The [place] [address] Patient Name: ROSSY ALFONSO MRN: [id number] date: 1960 Sex: M Assigned Patient Location: Current Patient Location: Accession/Order Number: [id number] Exam Date: 03/03/2024 08:08 Report Date: 03/03/2024 [...] mesenteric artery (nutcracker syndrome). Electronically authenticated by: MIGUELANGEL MODI Date: 03/03/2024 14:40 Dictated By: Miguelangel Modi M.D. Signed By: 03/03/24 144 DD/ 1440 TD/TT: Transverse Abdominal Muscle Surgeon: WADE HealthcareRadiology Study observation (narrative)NOMS HealthcareUS Abdominal Aorta for screeningOrdered By: Radiologist Radiology on 46-90-4578YQGB Healthcare Work Phone: aBO Rh [place] 56-84-8982GEQQCpcHxkqky Health System Rh Nom (Bld)PositiveProShelby Baptist Medical Center Health SystemProShelby [facility] Health SystemAPTTon 30-84-3052wRWS Coag (PPP) [Time]33 [facility] SystemBasic Metabolic Panel on 09-29-4901Mfshu gap [Moles/Vol]8 mmol/L5 - 15 mmol/LProMedica Health System Calcium [Mass/Vol]10.3 mg/dL8.5 - 10.5 mg/dLProMedica Health SystemChloride [Moles/Vol]101 mmol/L98 - 109 mmol/LProMedica Health SystemCO2 [Moles/Vol]29 mmol/L22 - 32 mmol/LProMedica Health SystemCreatinine [Mass/Vol]0.68 mg/dL0.60 - 1.30 mg/dLCleveland Clinic Euclid HospitalComment on above:METHOD TRACEABLE TO IDIA STANDARDeGFR (CKD-EPI)non-race dependent- LifePoint HospitalsComment on above: Reported eGFR is based on the CKD-EPI 2020 equation that does not use a race coefficient. Glucose [Mass/Vol]112 mg/lDPpai45 - 99 mg/dLCleveland Clinic Euclid Hospital Interpretation and review of laboratory resultsAbnormalC[facility] Clinic [facility] Potassium [Moles/Vol]4.5 mmol/L3.5 - 5.0 mmol/LPrSelect Medical Specialty Hospital - Trumbull SystemSodium [Moles/Vol]138 mmol/L134 - 146 mmol/[facility] Vincent Medical CenterUrea nitrogen [Mass/Vol]13 mg/dL5 - 23 mg/dLMercy Fitzgerald HospitalCBC auto differentialon 97-56-4652Wbzatedlc (Bld) [#/Vol]0.1 10*3/uLCleveland Clinic Euclid HospitalBasophils/100 WBC (Bld)0.9 %[facility] HospitalEosinophils (Bld) [#/Vol]0.1 10*3/uLCleveland Clinic Euclid HospitalEosinophils/100 WBC (Bld)0.8 %[facility] HospitalErythrocyte distribution width (RBC) [Ratio]15.5 %High11.5 - 15.0 %[facility] HospitalHematocrit (Bld) [Volume fraction]46.3 %39 - 49 % [facility] HospitalHemoglobin (Bld) [Mass/Vol]15.6 g/dL13.0 - 17.0 g/dL [facility] HospitalInterpretation and review of laboratory resultsAbnormal [facility] HospitalLymphocytes (Bld) [#/Vol]5.1 10*3/uLJohnston Memorial HospitalLymphocytes/100 WBC (Bld)41.8 %[facility] HospitalMCH (RBC) [Entitic mass]33.1 pg27 - 34 [facility] CenterMCHC (RBC) [Mass/Vol]33.6 g/dL32 - 36 g/dLCleveland Clinic Euclid HospitalMCV (RBC) [Entitic vol]98 fL80 - 100 [facility] HospitalMonocytes (Bld) [#/Vol]1.4 10*3/uLFairfax Hospital System Monocytes/100 WBC (Bld)11.1 %[facility] Health SystemNeutrophils (Bld) [#/Vol]5.6 10*3/uLProShelby Baptist Medical Center Health SystemNeutrophils/100 WBC (Bld)45.4 %[facility] Health SystemPlatelet mean volume (Bld) [Entitic vol]9.7 fL7 - 12 [facility] Health SystemPlatelets (Bld) [#/Vol]238 10*3/uLTogus VA Medical Center Health SystemRBC (Bld) [#/Vol] 4.70 10*6/uLTogus VA Medical Center Health SystemWBC corrected for nucl RBC Auto (Bld) [#/Vol] 12.3HighTogus VA Medical Center Health SystemProMedica Health SystemECG 12 leadon 08-14-2023 TRACEMASTERVUETogus VA Medical Center Health SystemNo Panel Informationon 45-55-2177MiaVcmnck Health SystemProtime & INRon 59-24-4667TNN Coag (PPP) [Relative time]1.0 {INR} [facility] SystemPT Coag (PPP) [Time]11.5 [facility] SystemType and screenon 48-09-6043KKUDHbcDdakfs Health SystemRh Nom (Bld)PositiveProMedica Health SystemProMedica Health SystemUrinalysison 96-23-2460Nxxgpnxpm Ql (U) NegativeNegative^NegativeGrace Cottage HospitalMedica Health SystemCalcium oxalate crystals LM Ql (Urine sed)PRESENTAbnormalNONE^NONEProMedica Health SystemColor (U)YELLOW YELLOW^YELLOWProMedica Health SystemGlucose (U) [Mass/Vol]Negative Negative^Negative mg/dLGrace Cottage HospitalMedica Health SystemHemoglobin Auto test strip Ql (U) NegativeNegative^NegativeSelect Medical Cleveland Clinic Rehabilitation Hospital, Edwin Shawca Health SystemInterpretation and review of laboratory resultsAbnormalProMedica Health SystemKetones (U) [Mass/Vol]Negative Negative^Negative mg/dLGrace Cottage HospitalMeditn Health SystemLeukocyte esterase Auto test strip Ql (U)NegativeNegative^NegativeGrace Cottage HospitalMedica Health SystemMucus Ql (Urine sed) PRESENTAbnormalNONE^NONEProMedica Health SystemNitrite Auto test strip Ql (U) NegativeNegative^NegativeProMedica Health SystempH (U)6.0 [pH]5.0 - 8.5PSelect Medical Specialty Hospital - Cleveland-FairhillProtein (U) [Mass/Vol]50 mg/dLAbnormalNegative^NegativeCleveland Clinic Euclid HospitalRBC Auto (Urine sed) [#/Area]1PSelect Specialty Hospital - Greensboropecific gravity Refractometry automated (U) [Rel density]1.0311.003 - 1.035C[facility] HospitalTurbidity Ql (U)CLEARCLEAR^CLEARCleveland Clinic Euclid HospitalUrobilinogen Qn (U)3HighNINFCleveland Clinic Euclid HospitalWBC Auto (Urine sed) [#/Area]2PKirkbride CenterAnesthesiaon [id number] Rossy Alfonso 1960 M Date Provider Department Center 01/05/2023 MARVIN PAGANH LARY OR RIKKI No family history on fileNormalUniversity of Guadalupe Regional Medical CenterOPNOTEon 83-23-3375OMDMZHHGVJKOLE ARTHROSCOPY WITH ROTATOR CUFF REPAIR X2, LABRAL DEBRIDEMENT, SUBSCAPULAR REPAIR, SUBACROMIAL DECOMPRESSION AND CAPSULAR RELEASE(R) Operative Note Date: 01/05/2023 Location: [facility] OR Name: Rossy Alfonso, : 1960, Diagnosis Pre-op Diagnosis * Complete tear of right rotator cuff, unspecified whether traumatic [M75.121] Post-op Diagnosis * Complete tear of right rotator cuff, unspecified whether traumatic [M75.121] * Avulsion of subscapularis, right, initial encounter [S46.891A] * Type 1 superior labral zpqroufg-sw-qdzpbizqy (SLAP) tear of right shoulder, initial encounter [S43.431A] * 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] * Impingement syndrome of right shoulder [M75.41] Procedures SHOULDER ARTHROSCOPY WITH ROTATOR CUFF REPAIR, LABRAL DEBRIDEMENT, SUBSCAPULAR REPAIR, SUBACHROMIAL DECOMPRESSION AND PROXIMAL BICEPS TENDON REPAIR 92392 - [place] SURGICAL ARTHROSCOPY SHOULDER W/ROTATOR CUFF RPR [place] SURGICAL ARTHROSCOPY SHOULDER W/ROTATOR CUFF RPR [61554] [place] SURGICAL ARTHROSCOPY SHOULDER W/ROTATOR CUFF RPR [69557] [place] SURGICAL ARTHROSCOPY SHOULDER W/ROTATOR CUFF RPR [30796] [place] SURGICAL ARTHROSCOPY SHOULDER LMTD DBRDMT 1/ [96750] [place] CAPSULAR CONTRACTURE RELEASE [80192] Surgeons * Zuly Pruett - Primary Procedure Summary Anesthesia: General ASA: II Estimated Blood Loss: 20 mL Total IV Fluids: mL Drains: * None in log * Implants Type Name Action Serial No. healix advance peek anchor w/dynacord Implanted Staff: Wire Mesh Knitter: Sandra Bernardo RN Scrub Person: Flakita Martel [...] - hemodynamically stable. Condition: stable Zuly Pruett RraoavNzezjddfdf [facility] Medical CenterPOCT GLUCOSE METER UNSOLICITED RESULTSon 32-48-0791Aiurtyo [Mass/Vol]93 mg/gIZvxdqw67-053 [facility] HospitalComment on above:Order Comment: Waived Testing in the ED is performed under the ED CLIA certificate #[id number].Result Comment: ltollesPerformed By: #### [id number] ####[facility] (BEAKER)[address] [place], [place] [address]NCkp [phone] Of Present Illness Rossy Alfonso is a [...] Results XR shoulder 2+ views right Narrative: [facility] Department of Radiology [address] [place] [address] Patient Name: ROSSY ALFONSO : [...] Impression: No acute osseous abnormality. Electronically signed: Елена Lawton. 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 Do not wear perfume, make-up, nail ghanaian, or lotions on the day of your [...] need to make any changes, please call [phone]. Notify your surgeon if you develop any illness such as a cold, cough, fever, sore throat or vomiting between now and your surgery. Thank you for entrusting us with your care. [facility] Surgical Services TeamNormalUniversJoint Township District Memorial HospitalOffice Visit on 14-71-1062Jnicnx-up [id number] Rossy Alfonso 1960 M Date Provider Department Center 10/16/2022 ZULY CACERES MP ORTHO MPORTHO No family history on file Level of Service:[address]50 [place] OFFICE/OUTPATIENT ESTABLISHED MOD MDM 30-39 MIN (57,GC) Reason for Visit and Comments: Follow-up [955229] - Discuss surgical planning Pain [136] - Discuss surgical planningNormalUniversJoint Township District Memorial Hospital 36on 17-17-182844Yithpsv scheduledNormalUniversJoint Township District Memorial Hospital36on 51-76-502365Aavybxw's calling again to schedule sx.NormalUnOhioHealth Van Wert HospitalXR LSPINE MIN 4 VIEWSon 32-55-4918KY LSPINE MIN 4 VIEWS EXAMINATION: XR LSPINE [...] Electronically authenticated by: ZULY PATE Date: 2021-11-07 07:[address] [place], [place] [address]MRI SHOULDER RT WO CONon 01-80-9082JZC SHOULDER RT WO CON EXAMINATION: MRI SHOULDER [...] or significant tendinopathy. Electronically authenticated by: MIGUELANGEL MODI Date: 2021-08-19 15:38NormAccess Hospital Dayton 29-33-3986UFEMGARRGalion Community Hospital Department of Radiology [address] [place] [address] Patient Name: ROSSY ALFONSO : 1960 [...] IMPRESSION: No acute osseous abnormality. Electronically signed: Елена Lawton. Transcribed by: [email or web address], User Resident: Electronically Signed by: ЕЛЕНА LAWTON @ 06/18/2021 07:17 AMNBellevue HospitalComment on above:Order Comment: Views (X-RAY, SHOULDER): AP, K-UjukygfOivdd-00 PCR (CVDTBH)on 95-54-3019DJMK-CoV-2 (COVID-19) RNA JUAN+probe Ql (Unsp spec)DetectedCritically abnormalNOT [facility] HOSPITALThe [facility] Rehabilitation HospitalComment on above:Result Comment: This test is not yet approved or cleared by the [place] FDA. When there are no FDA-approved or cleared tests available, and other criteria are met, FDA can make tests available under an emergency access mechanism called an Emergency Use Authorization (EUA). The EUA for this test is supported by the Boiler Operator of Health and Human Service's (HHS's) declaration [...] no longer be used). Performed By: #### CVDTBH #### [facility] [address] [address] [address] Wiliam Nicole FOR SURGICAL PROCEDURESOrdered By: Christian Valdez on 07-15-2020 Miko, Chpo Incoming Radiant Results From DearLocale/Pacs - 07/15/2020 11:25 AM EDT FLUORO FOR SURGICAL PROCEDURES : 07/15/2020 9:53 AM CLINICAL HISTORY: R52 Pain ICD10. COMPARISON: None available. Intraoperative fluoroscopy was provided for Dr. Valdez procedure. A total of 1.5 seconds of fluoroscopy was used, with 2 fluoroscopic stills saved. No diagnostic images were obtained. Please see Dr. Valdez surgical notes for completeness. [facility] [employer] Work Phone: surgical Specimenon 39-36-5450Eurdzbqk SpecimenChildren'S Hospital Of [facility] Lab Services [address] [place] [address] FINAL SURGICAL PATHOLOGY REPORT Patient Name: ROSSY ALFONSO Accession No: [id number] Age Sex: 1960 Location: [facility] Account No: [id number] Collected: 07/15/2020 Med Rec No: [id number] Received: 07/15/2020 Attend Phys: CHRISTIAN VALDEZ Completed: 07/16/2020 Perform Phys: CHRISTIAN VALDEZ FINAL DIAGNOSIS: DISC- INTERVERTEBRAL DISC MATERIAL WITH REACTIVE/DEGENERATIVE CHANGES. MARTA/MARTA CLINICAL INFORMATION: Disc herniation, radiculopathy. SPECIMEN: Disc GROSS DESCRIPTION: Specimen received in formalin in a container labeled with patient's name and designated as spine , consists of multiple soft to firm tissue fragments measuring in aggregate 2.7 x 2.0 x 0.3 cm. Sections representatives are submitted in two cassettes after brief decalcification. MARTA/HAMZAH CPT: 62149 X1 69746 X1 NICHELLE POWERS M.D. 07/16/2020 Electronically signed out by Page 1 of 1Invalid Interpretation CodePioneers Medical CenterComment on above:Performed By: #### ZACHARY #### [facility] [address] [place] [address] YVIVH-19, NAAon 44-58-2315TZOOR-19, NAANot DetectedNormalNot Detect Pioneers Medical CenterComment on above:Result Comment: This nucleic acid amplification test was developed and its performance characteristics determined by [employer]. Nucleic acid amplification tests include RT-PCR and [...] detected) result in this assay. Performed at: [address] [id number] [employer] Supervisor: Deon Camejo PhD, Phone: [phone] By: #### IRCOV #### [facility] [address] [place] [address] Glbid Metabolic Panelon 59-22-1723Juadu gap [Moles/Vol]14 mmol/L Normal-Pioneers Medical CenterComment on above:Performed By: #### BMP #### [facility] [address] [place] [address] Merzket [Mass/Vol]9.6 mg/dLNormal8.5-9.9Pioneers Medical CenterComment on above:Performed By: #### BMP #### [facility] [address] [place] [address] Gvdvkvwo [Moles/Vol]99 mmol/OIhhaag54-419FztvgPioneers Medical CenterComment on above:Performed By: #### BMP #### [facility] [address] [place] [address] IN5 [Moles/Vol]27 mmol/KWcqhvb22-78IimvaPioneers Medical Center Comment on above:Performed By: #### BMP #### [facility] [address] [place] [address] Nnyamufgyr [Mass/Vol]0.79 mg/dLNormal0.70-1.20[facility]ers Medical CenterComment on above:Performed By: #### BMP #### [facility] [address] [place] [address] GQD/1.73 sq M predicted among blacks MDRD (S/P/Bld) [Vol rate/Area] mL/min/{1.73_m2}Normal>60Pioneers Medical CenterComment on above:Result Comment: >60 mL/min/1.73m2 EGFR, calc. for ages 18 and older using the MDRD formula (not corrected for weight), is valid for stable renal function.Performed By: #### BMP #### [facility] [address] [place] [address] RMB/1.73 sq M.predicted MDRD (S/P/Bld) [Vol rate/Area] mL/min/{1.73_m2}Normal>60Pioneers Medical CenterComment on above:Result Comment: >60 mL/min/1.73m2 EGFR, calc. for ages 18 and older using the MDRD formula (not corrected for weight), is valid for stable renal function.Performed By: #### BMP #### [facility] [address] [place] [address] Rolzaqp [Mass/Vol]88 mg/hDDpsrqw68-37LcvjsAdventHealth Castle Rock Comment on above:Performed By: #### BMP #### [facility] [address] [place] [address] Dpfeuzwcz [Moles/Vol]4.7 mmol/LNormal3.4-4.9[facility] Medical CenterComment on above:Performed By: #### BMP #### [facility] [address] [place] [address] Ylmplp [Moles/Vol]140 mmol/PTfkczf688-467XvvonPioneers Medical CenterComment on above:Performed By: #### BMP #### [facility] [address] [place] [address] Ruwi nitrogen [Mass/Vol]17 mg/dLNaples6-20P[facility]ers Medical CenterComment on above:Performed By: #### BMP #### [facility] [address] [place] [address] GVM With Platelet No Differentialon 13-47-1611Ysxnzxtln (Bld) [#/Vol]Not JeypXzhipu999-748ZjwyfPioneers Medical CenterComment on above:Result Comment: Unable to obtain accurate platelet count due to giant platelet population. Platelet estimate 231Performed By: #### CBCND #### [facility] [address] [place] [address] Nolyxaaq Slide ReviewNoPikes Peak Regional Hospital Comment on above:Performed By: #### CBCND #### [facility] [address] [place] [address] Azbgvqmconz distribution width (RBC) [Ratio]14.3 %Tzgbnb95.5-14.5 [facility] Medical CenterComment on above:Performed By: #### CBCND #### [facility] [address] [place] [address] Bpqholzkzo (Bld) [Volume fraction]50.1 %Trsqvk10.0-52.0P[facility]ers Medical CenterComment on above:Performed By: #### CBCND #### [facility] [address] [place] [address] Usbktigegb (Bld) [Mass/Vol]16.8 g/aFZwxdgh29.0-18.0[facility] Medical CenterComment on above:Performed By: #### CBCND #### [facility] [address] [place] [address] QID (RBC) [Entitic mass]32.3 pgCritically high27.0-31.3MAdventHealth Castle RockComment on above:Performed By: #### CBCND #### [facility] [address] [place] [address] XUPV (RBC) [Mass/Vol]33.6 %Jplapg81.0-37.0[facility] Medical CenterComment on above:Performed By: #### CBCND #### [facility] [address] [place] [address] CJK (RBC) [Entitic vol]96.1 dTOhhoid43.0-100.0[facility] Medical CenterComment on above:Performed By: #### CBCND #### [facility] [address] [place] [address] USJ (Bld) [#/Vol]5.21 10*6/uLNormal4.70-6.10[facility] Medical CenterComment on above:Performed By: #### CBCND #### [facility] [address] [place] [address] ORA (Bld) [#/Vol]17.9 10*3/uLCritically high4.8-10.8[facility]ers Medical CenterComment on above:Performed By: #### CBCND #### [facility] [address] [place] [address] QVXAY-19, NAAon 49-74-4321Ujdmbu SwabAnterior naresNormalPioneers Medical CenterComment on above:Performed By: #### IRCOV #### [facility] [address] [place] [address] Vcferbj Thromboplastin Timeon 16-41-7263dKCB Coag (Bld) [Time]30.0 s Umplgz58.4-36.8P[facility]ers Medical CenterComment on above:Result Comment: Effective 02/04/2020: Heparin Therapeutic Range: 64.0 ? 98.0 seconds.Performed By: #### PTT #### [facility] [address] [place] [address] Nnezwkwunin Timeon 62-74-1477GSX Coag (PPP) [Relative time]0.9 {INR} NormalPioneers Medical CenterComment on above:Performed By: #### PT #### [facility] [address] [place] [address] IW Coag (PPP) [Time]12.4 zGikrin25.3-14.9P[facility]ers Medical CenterComment on above:Performed By: #### PT #### [facility] [address] [facility] [address] Ugld and Screen Capture 3 scrn cellon 63-35-9171Fqvl and Screen Capture 3 scrn cellPATIENT: ADALBERTO Brady LOC: [facility] BILL# : [id number] : 1960 SEX: M ORDERED BY: LESLYE Elizabeth ORDERED : 06/24/2020 10:28 COLLECTED: 06/24/2020 10:28 ORDER : [id number] RECEIVED : 06/24/2020 14:41 TEST NAME RESULT UNITS RANGES ABN FL ST ABORH Capture A POS F Antibody 3 Cell Scrn Captu NEG F [facility]s Peak HospitalComment on above:Performed By: #### TS3C #### [facility] [address] [place] [address] Vital Signs Date TimeVital SignValuePerforming OqcojhyhsXxeueouo61-74-4841 11:50-0400 Diastolic blood mm[Hg]Renaldo Hung MD Work Phone: 1(525)[address] [place], [place] [address]10-23-2025 11:50-0400 Heart rate61 /Marco Hung MD Work Phone: 1(801)[address] [place], [place] [address]10-23-2025 11:50-0400 Respiratory rate16 /Marco Hung MD Work Phone: 1(189)[address] [place], [place] [address]10-23-2025 11:50-0400 SaO2% (BldA) [Mass fraction]99 %Renaldo Hung MD Work Phone: 1(064)[address] [place], [place] [address]10-23-2025 11:50-0400 Systolic blood tesclzuw026 mm[Hg]Renaldo Hung MD Work Phone: 1(491)[address] [place], [place] [address]10-23-2025 11:07-0400 Body osqkpwexznm20 [degF]Renaldo Hung MD Work Phone: 1(055)[address] [place], [place] [address]10-23-2025 08:55-0400 Body rbqhty341.8 cmRenaldo Hung MD Work Phone: 1(793)[address] [place], [place] [address]10-23-2025 08:55-0400 Body .23 kgRenaldo Hung MD Work Phone: 1(338)[address] [place], [place] [address]09-25-2025 11:40-0400 Diastolic blood cfdcptku75 mm[Hg]Renaldo Hung MD Work Phone: 1(295)[address] [place], [place] [address]09-25-2025 11:40-0400 Heart rate77 /Marco Hung MD Work Phone: 1(546)[address] [place], [place] [address]09-25-2025 11:40-0400 Respiratory rate16 /Marco Hung MD Work Phone: 1(184)483-[address] [place], [place] 5464309-25-2025 11:40-0400 SaO2% (BldA) [Mass fraction]99 %Renaldo Hung MD Work Phone: [phone])[address]09-25-2025 11:40-0400 Systolic blood nsrtckyk243 mm[Hg]Renaldo Hung MD Work Phone: 1(419)[address]09-25-2025 11:14-0400 Body azugpiunoih91.1 [degF]Renaldo Hung MD Work Phone: 1(829)[address]09-25-2025 09:31-0400 Body cnxevg583.34 cmRenaldo Hung MD Work Phone: 1(548)[address] [place], [place] [address]09-25-2025 09:31-0400 Body igqvvw55.23 kgDosonal Hung MD Work Phone: [phone])[address] [place], [place] [address]03-27-2025 08:59-0400 Body .8 cmRegino Castrejon MD Work Phone: 1(481)[facility]03-27-2025 08:59-0400Body mass index (BMI) [Ratio]19.66 kg/f0GvfxjvrRegino Castrejon MD Work Phone: 1(936)[facility]03-27-2025 08:59-0400Body wnhuqjdohed76.8 [degF]Regino Castrejon MD Work Phone: 1(419)[facility]03-27-2025 08:59-0400Body oucuhr33.14 kgRegino Castrejon MD Work Phone: 1(775)[facility]03-27-2025 08:59-0400Diastolic blood okznbqkg64 mm[Hg]Regino Castrejon MD Work Phone: 1(447)[facility]03-27-2025 08:59-0400Heart rate 107 /minRegino Castrejon MD Work Phone: 1(532)[facility]03-27-2025 08:59-1853OzD4% (BldA) [Mass fraction]93 %Regino Castrejon MD Work Phone: 1(298)[facility]03-27-2025 08:59-0400Systolic blood jbqhyiri195 mm[Hg]Regino Castrejon MD Work Phone: 1(419)[facility]12-05-2024 08:31-0500Body mass index (BMI) [Ratio]19.8 kg/q6IwmbxvqRegino Castrejon MD Work Phone: 1(419)[facility]12-05-2024 08:31-0500Body fydbgdfhyqi12.4 [degF]Regino Castrejon MD Work Phone: 1(419)[facility]12-05-2024 08:31-0500Body axnytl20.6 kgRegino Castrejon MD Work Phone: 1(419)[facility]12-05-2024 08:31-0500Diastolic blood tspnryzz77 mm[Hg]Regino Castrejon MD Work Phone: 1(419)[facility]12-05-2024 08:31-0500Heart rate 95 /minRegino Castrejon MD Work Phone: 1(419)[facility]12-05-2024 08:31-0500 Respiratory rate18 /minRegino Castrejon MD Work Phone: 1(419)[facility]12-05-2024 08:31-8847LkS9% (BldA) [Mass fraction]97 %Regino Castrejon MD Work Phone: 1(419)[facility]12-05-2024 08:31-0500Systolic blood dcutvuez051 mm[Hg]Regino Castrejon MD Work Phone: 1(419)[facility]05-30-2024 10:38-0400Body mass index (BMI) [Ratio]18.97 kg/m2WyfskcxRegino Castrejon MD Work Phone: 1(419)[facility]05-30-2024 10:38-0400Body .97 kgRegino Castrejon MD Work Phone: 1(624)[facility]05-30-2024 10:38-0400Diastolic blood juwdcwot34 mm[Hg]Regino Castrejon MD Work Phone: 1(197)[facility]05-30-2024 10:38-0400Heart rate 88 /minRegino Castrejon MD Work Phone: 1(529)[facility]05-30-2024 10:38-6414RmM0% (BldA) [Mass fraction]98 %Regino Castrejon MD Work Phone: 1(444)[facility]05-30-2024 10:38-0400Systolic blood ssiewqed731 mm[Hg]Regino Castrejon MD Work Phone: 1(984)[facility]05-14-2024 15:42-0400Body iymive457.[address]05-14-2024 15:42-0400Body mass index (BMI) [Ratio]19.39 kg/y3Atkxs[address]05-14-2024 15:42-0400Body dmlvvthvvku09.5 [degF][address]05-14-2024 15:42-0400Body dozrsh66.[address]05-14-2024 15:42-0400 Diastolic blood jpmworly45 mm[Hg][address]05-14-2024 15:42-0400Heart rate92 /minMetro [address] [place], [place] 4723005-14-2024 15:42-0400 Respiratory rate18 /minMetro [address] [place], [place] 4723005-14-2024 15:42-0735LrO3% (BldA) [Mass fraction]97 %[address]05-14-2024 15:42-0400 Systolic blood ycsskorr693 mm[Hg][address]05-09-2024 09:16-0400Diastolic blood intzvddi10 mm[Hg]Regino Castrejon MD Work Phone: 1(562)[facility]05-09-2024 09:16-0400Heart rate 93 /minRegino Castrejon MD Work Phone: 1(679)[facility]05-09-2024 09:16-0400Systolic blood kzpbkhad430 mm[Hg]Regino Castrejon MD Work Phone: 1(704)[facility] [employer] Skuijg01-75-2893 09:15-0400Body huzstl205.8 cmMominor Castrejon MD Work Phone: 1(130)[facility] [employer] Rerpat53-96-3685 09:15-0400Body mass index (BMI) [Ratio]19.28 kg/j7WbzkqfvRegino Castrejon MD Work Phone: 1(123)[facility] [employer] Bmgbaq75-54-1402 09:15-0400Body duyvpn15.96 kgMominor Castrejno MD Work Phone: [phone] ShawGamma [facility] Mbakei89-10-8837 11:00-0400Body ipnkck805.34 cmRuth Mosquera Other [employer] Other 09-14-2022 11:00-0400Body mass index (BMI) [Ratio] 20.64 kg/h1BiqrxkRuth Mosquera Other [employer] Other 09-14-2022 11:00-0400Body bxfrcdckkey45 [degF]Ruth Mosquera Other [employer] Other 09-14-2022 11:00-0400Body niqtuc56.13 kgRuth Mosquera Other [employer] Other 09-14-2022 11:00-0400Diastolic blood vdcalpja15 mm[Hg] Ruth Mosquera Other [employer] Other 09-14-2022 11:00-3662YfO5% (BldA) [Mass fraction]95 % Ruth Mosquera Other [employer] Other 09-14-2022 11:00-0400Systolic blood kmtaucku502 mm[Hg] Ruth Mosquera Other [employer] Other 04-15-2021 13:50-0400BP Ntmhicuwb93 mm[Hg][employer] Work Phone: 1(147) 352-953004-15-2021 13:50-0400BP Jwxgplap548 mm[Hg][employer] Work Phone: 1(416) 441-830404-15-2021 13:50-0400Pulse (Heart Rate)95 /minBo [employer] Work Phone: 1(301) 247-170004-15-2021 13:50-0400Pulse Dutcvilc81 %[employer] Work Phone: 1(290) 169-876204-15-2021 13:50-0400Respiratory Rate18 /minBo [employer] Work Phone: 1(865) 228-935304-15-2021 13:35-0400Body Yatarqjdjbh37.8 [degF][employer] Work Phone: 1(268) 399-965904-15-2021 08:31-0400BMI (Body Mass Index)21.38 kg/m2 [employer] Work Phone: 1(902) 320-896904-15-2021 08:31-0400Body rwafuv02.59 kgBo [employer] Work Phone: 1(103) 903-405804-15-2021 08:31-4173Ozydoe806.8 cmBo [employer] Work Phone: Encounters Encounter DateEncounter TypeCare ProviderFacilityStart: 01-22-2025 End: 80-10-8363Jykburubh to same day surgery centerRomana Wallace MD-[facility] Center [facility] HealthStart: 01-22-2025 End: 53-68-1404alubzfouvzPeowyde M Hoy MD Work Phone: [phone]-Pmwqyob Center [facility] HealthStart: 12-25-2024 End: 89-49-4899Uzidyqnkn to same day surgery centerRomana Wallace MD-Surgery Center [facility] HealthStart: 12-25-2024 End: 09-56-9246gmqogfckdfUyzdcth M Hoy MD Work Phone: [facility] Work Phone: Start: 12-11-2024 End: 29-60-8035Conbnwku ReferredRomana Wallace MD-Pre-Surgical Testing Work Phone: Start: 12-11-2024 End: 18-66-1710Cijezty encounter procedureRomana Wallace MD-Pre-Surgical Testing Work Phone: Start: 12-11-2024 End: 12-78-0533mjndnkhihaYnmspnp M Hoy MD Work Phone: [facility] Work Phone: Start: 06-26-2024 End: 38-62-2050Cxeyvq outpatient visit 25 minutesMohamed Briana Castrejon MD Work Phone: [facility] Vascular SurgeryComment on above:Cigarette smoker (Primary Dx); Severe claudication (CMS-HCC); Bilateral carotid artery stenosisStart: 03-06-2024 End: 95-15-0099Ctuipy outpatient visit 25 minutesMohamed Briana Castrejon MD Work Phone: [facility] Vascular SurgeryComment on above:Severe claudication (CMS-HCC) (Primary Dx); Cigarette smokerStart: 03-03-2024 End: 68-44-5722Ahxlqiwel Result EncounterMohamed Pedrito Castrejon MD Work Phone: [facility] External Department UnsolicitedStart: 03-03-2024 End: 47-22-5055Irppxfeup Result EncounterMohamed Pedrito Castrejon MD Work Phone: [facility] External Department UnsolicitedStart: 08-30-2023 End: 96-80-4015Fsdmnv outpatient visit 15 minutesMohamed Briana Castrejon MD Work Phone: [facility] Comment on above:Severe claudication (CMS-HCC) (Primary Dx); Cigarette nicotine dependence with nicotine-induced disorderStart: 08-14-2023 End: 76-09-0351Ouqbozi encounter procedureMetro Pat Provider 10Charlie Alarcon [facility] on above:PAD (peripheral artery disease) (CMS-HCC); Encounter for therapeutic drug monitoringStart: 08-09-2023 End: 31-16-4705Phsqrx outpatient new 45 minutesRegino Castrejon MD Work Phone: [facility] Comment on above:Severe claudication (CMS-HCC) (Primary Dx); PAD (peripheral artery disease) (CMS-HCC); Cigarette nicotine dependence with other nicotine-induced disorderStart: 01-05-2023 End: 96-74-8901gqsujqwxiyMVLWN [facility] for Rehabilitationtart: 28-77-2063armztquqblJZJBWCleveland Clinic [facility] General L[facility] Hospitaltart: 55-64-0770Khnjzszuu for other preprocedural examinationDAVID [facility] Rehabilitationtart: 12-14-2021 End: 33-40-1617thjdexztsdXtspoj Ruttino Other [employer] Other Start: 32-80-3245OWOC visit makenzie acostaRuth Eveline PENDLETON Vascular SurgeryStart: 11-04-2021 End: 06-94-5046qywnpmywyxEW RENALDO HOYFacility:H6Sjoin: 08-25-2021 End: 98-01-3706urlqikbmmhOJ RENALDO HOYFacility:J2Ffoep: 08-19-2021 End: 64-76-4878hobiqwwalkFWLLR SOHNFacility:X2Fxgec: 06-14-2021 End: 71-34-3160uhomchuuraKI RENALDO HOYFacility:L1Kfcsx: 04-20-2021 End: 90-24-9216ijstxlaxxlHB RENALDO HOYFacility:O8Rtavv: 07-15-2020 End: 32-72-5496ybvofiovatEO [facility]oothills Hospitaltart: 07-15-2020 End: 00-20-0780uavyrnxmigST H. YOSCL [facility] CenterStart: 07-15-2020 End: 01-00-3317Esnidklxhv hospital visit by Michael Valdez Work Phone: [facility] ORComment on above:Postoperative pain (Primary Dx)Start: 07-15-2020 End: 24-42-4421Hfpzglorrk hospital visit by Michael Valdez MD Work Phone: [facility] RadiologyComment on above:Pain Procedures DateProcedureProcedure DetailPerforming ClinicianStart: 74-83-1189LO Cataract PHACO W/IOL/Vitrectomy (Left)Renaldo Hung MD Work Phone: Start: 99-44-0563AH Cataract PHACO W/IOL/Vitrectomy (Right)Renaldo Hung MD Work Phone: Start: 14-89-1085Br abdominal aorta real time screen study aaaMohamed Pedrito Castrejon MD Work Phone: [phone]: 29-79-1156TWSYBSUZV BLOOD PRESSUREMohamed Pedrito Castrejon MD Work Phone: [phone]: 27-68-5700Hvpzxovs screenMetro 10Start: 64-93-0559Gbgmk metabolic panel calcium totalMohamed Briana Castrejon MD Work Phone: [phone]: 41-05-1472[employer] typing serologic aboRegino Castrejon MD Work Phone: [phone]: 38-62-8413GFVRCRKI ABORHMbethanie Castrejon MD Work Phone: Start: 33-17-8379Yqg routine ecg w/least 12 lds trcg only w/o i&rMbethanie Castrejon MD Work Phone: Start: 93-02-3136Rlxjj dip stick/tablet rgnt auto w/o microscopyMominor Castrejon MD Work Phone: [phone]: 73-04-4704Jhhbpqyrytb during operationChristian Valdez MD Work Phone: Plan of Treatment DateCare ActivityDetailAuthorStart: 79-45-3621Jlcup BMI ScreeningAdult BMI ScreeningAtrium Health Wake Forest Baptist Medical Centertart: 69-07-5730ZlmpjiurfMcKitrick Hospitaltart: 12-27-2024 End: 21-71-8115OB.doppler Aorta and Iliac artery - bilateralVas aorta/iliac duplex complete Vascular Ultrasound Routine Cigarette smoker Severe claudication (CMS-HCC) Expected: 12/27/2024 (Approximate), Expires: 12/27/2025ProMiddletown HospitalComment on above:Expected: 12/27/2024 (Approximate), Expires: 12/27/2025Start: 12-25-2024 End: 27-04-6356OwubexumgMcKitrick Hospitaltart: 08-32-4716Qgwzn BMI ScreeningAdult BMI ScreeningAtrium Health Wake Forest Baptist Medical Centertart: 02-77-0457Cihezam ScreeningTobacco ScreeningAtrium Health Wake Forest Baptist Medical Centertart: 38-00-9449Lobbl BMI ScreeningAdult BMI ScreeningAtrium Health Wake Forest Baptist Medical Centertart: 02-13-0264Tfxtbvw ScreeningTobacco ScreeningAvita Health System [facility] SystemStart: 06-26-2024 End: 45-07-0552GB Carotid arteries - bilateralVas carotid duplex bilateral Vascular Ultrasound Routine Cigarette smoker Severe claudication (CMS-HCC) Bilateral carotid artery stenosis Expected: 06/26/2024, Expires: 06/26/2025 [facility] Work Phone: Comment on above:Expected: 06/26/2024, Expires: 06/26/2025Start: 06-26-2024 End: 94-96-7524HR.doppler Extremity arteries - bilateral for physiologic artery studyVas art doppler lwr bilat mult lev/PVR Vascular Ultrasound Routine Cigarette smoker Severe claudication (CMS-HCC) Expected: 06/26/2024, Expires: 06/26/2025[facility] SystemComment on above:Expected: 06/26/2024, Expires: 06/26/2025Start: 03-06-2024 End: 93-75-1612WK.doppler Aorta and Iliac artery - bilateralVas aorta/iliac duplex complete Vascular Ultrasound Routine Severe claudication (CMS-HCC) Cigarettesmoker Expected: 03/06/2024, Expires: 03/06/2025[facility] Work Phone: Comment on above:Expected: 03/06/2024, Expires: 03/06/2025Start: 03-06-2024 End: 33-59-9227Edarqkm encounter ygbxugxan64/05/2024 8:30 AM EST Office Visit [facility] [address] [place] [address] Regino Castrejon MD [address], [address] [address] [facility] CareStart: 03-01-2024 End: 11-51-5943ME.doppler Aorta and Iliac artery - bilateralVas aorta/iliac duplex complete Vascular Ultrasound Routine Severe claudication ([facility]) Cigarettenicotine dependence with nicotine-induced disorder Expected: 03/01/2024 (Approximate), Expires: 08/29/2024[facility] Work Phone: Comment on above:Expected: 03/01/2024 (Approximate), Expires: 08/29/2024Start: 03-01-2024 End: 92-16-6213PY.doppler Extremity arteries - bilateral for physiologic artery studyVas art doppler lwr bilat mult lev/PVR Vascular Ultrasound Routine Severe claudication ([facility]) Cigarette nicotine dependence with nicotine-induced disorder Expected: 03/01/2024 (Approximate), Expires: 08/29/2024[facility] SystemComment on above:Expected: 03/01/2024 (Approximate), Expires: 08/29/2024 Start: 11-40-3566Ysvkwsswb vaccinationInfluenza VaccineProDayton Osteopathic Hospital System Start: 08-30-2023 End: 67-18-6787Didpaps encounter mhiljdoyj27/30/2024 10:20 AM EDT Office Visit [facility] [address] [place] [address] Regino Castrejon MD [address], [address] [address] [facility] CareStart: 08-16-2023 End: 47-86-7194Yepgwpgtcpzwsfmxg iliac artery angiop 1st vslTTH SPECIAL PROC Start: 78-34-3437Bgqisimkj vaccinationFlu vaccine (Season Ended)[employer] Phone: start: 07-30-2020 End: 90-62-3833Kapbma Visit07/30/2020 Office Visit Neurosurgery Christian Valdez MD [address] [facility], [address] [place] [address] [facility]Start: 07-27-2020 End: 46-88-2083Cqhihfqwjni76/27/2021 [facility] [place] [facility] MedicineStart: 07-27-2020 End: 26-90-0731UzmsnaiautaRpvxu Health [facility] UltrasoundStart: 2017 Screening for malignant neoplasm of lungLow dose CT lung screeningKing'S Daughters [facility] Center OhioMobiotics Phone: start: 12-40-8716Qcfxepgopbhaml of varicella zoster vaccineZoster (Shingles) Vaccine (1 of 2)Cheerstart: 91-81-3442Xspaypwob for malignant neoplasm of colonColon cancer screen colonoscopyKing'S Daughters [facility] Phone: start: 66-46-3950Ewgzskgk Vaccine (1 of 2)Shingles Vaccine (1 of 2)[employer] Phone: start: 61-86-2902Afjay panelLipid screenKing'S Daughters Medical Center [facility] Phone: start: 69-17-6717CDqR,Tdap and Td Vaccines (1 - Tdap) DTaP,Tdap and Td Vaccines (1 - Tdap)Cheerstart: 1981 DTaP/Tdap/Td vaccine (1 - Tdap)DTaP/Tdap/Td vaccine (1 - Tdap)[employer] Phone: start: 24-94-2169Uhosf BMI ScreeningAdult BMI ScreeningSelect Medical Cleveland Clinic Rehabilitation Hospital, Edwin Shawartaculoustart: 51-10-1970XKFRT-19 Vaccine (1)COVID-19 Vaccine (1)[employer] Phone: start: 80-51-8798SAD screeningHIV screenMer [employer] Work Phone: start: 74-03-0328Afndglavka ScreeningDepression ScreeningProMetrohealth Cleveland Heights Medical Centerartaculoustart: 34-05-8810Rbdoyfy ScreeningTobacco ScreeningProShelby [facility] RentJuicetart: 00-29-1829Rotikuegtnwhe B vaccine (1 of 4 - Increased Risk Bexsero 2-dose series)Meningococcal B vaccine (1 of 4 - Increased Risk Bexsero 2-dose series)[employer] Phone: start: 49-39-1787Lsujgwibryvf 0-64 years Vaccine (1 of 3 - PCV13)Pneumococcal 0-64 years Vaccine (1 of 3 - PCV13)[employer] Phone: start: 71-58-2244Chy vaccine (1 of 1 - Risk 1-dose series)Hib vaccine (1 of 1 - Risk 1-dose series)[facility] Phone: start: 35-25-8185Ehgfijpcdbblo (ACWY) vaccine (1 - Risk start before 7 months 4-dose series)Meningococcal (ACWY) vaccine (1 - Risk start before 7 months 4-dose series)[employer] Phone: start: 33-45-5040Lvfumjsms C screeningHepatitis C screenMer [employer] Work Phone: start: 32-43-4582Rknlbmr CounselingTobacco Counseling [facility] SystemPatient EducationKnow your [facility] Work Phone: [facility] referralHolzer [facility] Work Phone: Phase I & II - metered glucosePhase I & II - metered glucose Point of Care Testing Routine As Needed until discontinued starting 07/15/2020[facility] Phone: comment on above:As Needed until discontinued starting 07/15/2020urgical PathologyKing'S Daughters Medical Center [facility] Phone: comment on above:Release Upon Ordering for 1 Occurrences starting 07/15/2020 End: 21-46-0734Bveqxkcx PathologySurgical Pathology Lab Routine Once for 1 Occurrences starting 07/15/2020 until 07/15/2020[facility] Phone: comment on above:Once for 1 Occurrences starting 07/15/2020 until 07/15/2020 Payers DatePayer CategoryPayerPolicy [id number]-pay2021Medicaid [id number] 2021[place]icaid [place] Member Subscriber Plan / Payer (Effective 2020-Present) Name: Adalberto Rossyjessica Camacho Relation to Subscriber: Self Name: Rossy Alfonso Payer ID: [id number] (NAIC) Group ID: Not on file Type: Not on file Address: [address] [id number] [id number] 2..[id number] 2..[id number] 2..1.400531.3.57[id number] 2..1.547165.3.57[id number] 2.16.840.1.472185.3.57[id number] 2.16.840.1.181369.3.57[id number] 2.16.840.1.46749[id number] [id number] [id number] 2.16.840.1.304364.3.579.2.531 [id number] 2.16.840.1.166023.3.579.2.531 Social History DateTypeDetailFacilityStart: 07-15-2020 End: 89-47-2475Xrxnery smoking status NHISCurrent every day smokerKing'S Daughters Medical Center [facility] Phone: start: 94-61-0446Tngvrhx of tobacco useCigarette SmokerKing'S Daughters Medical Center [facility] Phone: start: 07-15-2020 End: 99-56-0936Dzndircmaw smoked current (pack per day) - ReportedKing'S Daughters Medical Center OhioMobiotics Phone: start: 07-15-2020 End: 11-59-6357Vuruiqh use and exposureNever usedKing'S Daughters Medical Center [facility] Phone: start: 07-15-2020 End: 07-14-7552Nrjuyij intakeLifetime non-drinker (finding)[facility] Phone: start: 80-24-3521Wcxylcf SDOH Alcohol Ldghsktay1[facility] Work Phone: start: 79-12-2831Suhhmnf SDOH Alcohol Std Rowzib11 [facility] Work Phone: start: 97-59-8456Drrvrjr SDOH Transport Mox3Drzws [employer] Work Phone: start: 03-10-2205Uta Assigned At BirthNot on [facility] Work Phone: exposure to SARS-CoV-2 (event)Not [facility] [employer] Work Phone: start: 08-09-2023 End: 42-10-6342Oei Assigned At [facility] [employer] Other Tobacco smoking status NHISTobacco smoking consumption unknownLAYTON HOSPITAL HealthcareStart: 42-12-5315Mvvpws the past 12 months we worried whether our food would run out before we got money to buy more.Never True [facility] HealthcareAzoootart: 08-14-2023 End: 79-00-5305Ytmjucmti beverage intakeEx-drinker (finding)[facility] HealthcareActionIQ SystemStart: 43-67-8778DdaIwur (finding)[facility] HealthcareAzoootart: 1960 Sex Assigned At [facility] Medical Equipment Procedure CodeEquipment CodeEquipment Original TextEquipment IdentifierDates Phacoemulsification of cataract with intraocular lens implantationPosterior- chamber intraocular lens, [id number] 063 FDAStart: 33-62-2832Vuher 7fr 135cm Vbx Ba Ppm Expandable Cath Hep Vbhn Eprsth 8 Rpl [id number] - [id number] - [id number]: 06-42-7870Fxrih 7fr 135cm Vbx Ba Ppm Expandable Cath Hep Vbhn Eprsth 8 Rpl 822857 - [id number] - [id number]: 44-92-7475Pjrso Vsc Innova 8mm 40mm 130cm 6fr Dlv Sys Rdpq Slf Xpd Rpl Special [id number] - [id number]_irdFlaer: 78-87-8991Dejebep on above:Description: RIGHT ILIAC Goals DatePatient GoalDesired Activity/State Clinical Notes 07-15-2020 to 06-26-2024 Note Date & FssgIyxtOwpzrhdj17-97-0895 Evaluation + Plan note* Assessment & Plan Note - Regino Castrejon MD - 06/26/2024 9:45 AM EDTAssociated Problem(s): Bilateral carotid artery stenosis Carotid duplex ultrasound [facility]03-27-2025 Miscellaneous Notes* Assessment & Plan Note - Regino Castrejon MD - 06/26/2024 9:45 AM EDTAssociated Problem(s): Bilateral carotid artery stenosis Carotid duplex ultrasound * Assessment & Plan Note - Regino Castrejon MD - 06/26/2024 9:44 AM EDT Associated Problem(s): Cigarette smoker Counseled him on smoking cessation for at least 3 minutes * Assessment & Plan Note - Regino Castrejon MD - 06/26/2024 9:44 AM EDT Associated Problem(s): Severe claudication (CMS-HCC) He has palpable pulses after revascularization. Discussed with him continue best medical therapy. Counseled on smoking cessation in length. documented in this encounterC[facility]03-27-2025 Evaluation + Plan note* Assessment & Plan Note - Regino Castrejon MD - 06/26/2024 9:44 AM EDT Associated Problem(s): Cigarette smoker Counseled him on smoking cessation for at least 3 minutes [facility]03-27-2025 Evaluation + Plan note* Assessment & Plan Note - Regino Castrejon MD - 06/26/2024 9:44 AM EDTAssociated Problem(s): Severe claudication (CMS-HCC) He has palpable pulses after revascularization. Discussed with him continue best medical therapy. Counseled on smoking cessation in length. [facility]03-27-2025 History of Present illness Narrative* Regino Castrejon MD - 06/26/2024 8:40 AM EDT Images from the original note were not included. To: RENALDO HUNG MD HPI: Rossy Alfonso is a 63 y.o. male with With concerns ofSevere claudication status post iliac stenting. He comes in for numbness. He has palpable pedal pulses. He also has concerns about his carotid stenosis. No stroke or mini stroke. He is on best medical therapy. He is on aspirin Plavix and statin. He continues to smoke heavily. Had a long discussion with him about smoking cessation. We talked about surveillance imaging in about 6 months.. Review of Systems: Review of Systems Constitutional: Negative. HENT: Negative. Respiratory: Negative. Cardiovascular: Negative. Gastrointestinal: Negative. Endocrine: Negative. Genitourinary: Negative. Musculoskeletal: Negative. Skin: Negative. Neurological: Negative. Hematological: Negative. Medications: Current Outpatient Medications on File Prior to Visit Medication Sig Dispense Refill ALPRAZolam (XANAX) 0.5 mg tablet Take 1 tablet (0.5 mg total) by mouth 3 (three) times a day as needed for anxiety. aspirin 81 mg Take 1 tablet (81 mg total) by mouth in the morning. 30 tablet 3 clopidogreL (PLAVIX) 75 mg tablet Take 1 tablet (75 mg total) by mouth in the morning. 30 tablet 3 losartan (COZAAR) 100 mg tablet Take 1 tablet (100 mg total) by mouth in the morning. oxyCODONE-acetaminophen (PERCOCET) 10-325 mg per tablet Take 1 tablet by mouth every 4 (four) hoursas needed for pain. carvediloL (COREG) 12.5 mg tablet Take 1 tablet (12.5 mg total) by mouth in the morning and 1 tablet (12.5 mg total) in the evening. Take with meals. Indications: high blood pressure. (Patient not taking: Reported on 06/26/2024) cloNIDine (CATAPRES) 0.1 mg tablet Take 1 tablet (0.1 mg total) by mouth 3 (three) times a day Indications: high blood pressure. (Patient not taking: Reported on 06/26/2024) ebznfepup-yjyhzrjp-qwjoekze CMPD (ANTIMICROBIAL) mouthwash Swish and spit 5 mL 3 (three) times a day. thrush (Patient not taking: Reported on 08/30/2023) No current facility-administered medications on file prior to visit. Past Medical History: Past Medical History: Diagnosis Date Anxiety Arthritis Dental disease dentures upper and lower Fractures rt leg Hypertension Injury of back Peripheral vascular disease ([facility]-H[facility]) Visual impairment Past Surgical History: Past Surgical History: Procedure Laterality Date BACK SURGERY 2019 lower back bilateral ilaic artery intravascular lithrotripsy, shockwave balloon angioplasty and stenting Bilateral 08/16/2023 Performed by Regino Castrejon MD at [facility] PROC LEG SURGERY Right 2008 Elie SHOULDER SURGERY Right 2014 SHOULDER SURGERY Left 2021 SPLENECTOMY, TOTAL age 10 Social and Family History: Social History Socioeconomic History Marital status: Spouse name: Not on file Number of children: Not on file Years of education: Not on file Highest education level: Not on file Occupational History Not on file Tobacco Use Smoking status: Every Day Current packs/day: 1.00 Average packs/day: 1 pack/day for 45.0 years (45.0 ttl pk-yrs) Types: Cigarettes Smokeless tobacco: Never Vaping Use Vaping status: Never Used Substance and Sexual Activity Alcohol use: Not Currently Drug use: Yes Types: Marijuana Comment: daily 40 years helps to sleep 1 joint Sexual activity: Defer Other Topics Concern Not on file Social History Narrative Not on file Social Drivers of Health Financial Resource Strain: Not on file Food Insecurity: No Food Insecurity (06/26/2024) Hunger Screening Food Insecurity - Worry: Never True Food Insecurity - Inability: Never True Transportation Needs: No Transportation Needs (06/24/2020) [facility] - Transportation Lack of Transportation (Medical): No Lack of Transportation (Non-Medical): No Physical Activity: Not on file Stress: Not on file Social Connections: Not on file Interpersonal Safety: Not At Risk (10/16/2022) [facility] from [facility] Humiliation, Afraid, Rape, and Kick questionnaire Fear of Current or Ex-Partner: No Emotionally Abused: No Physically Abused: No Sexually Abused: No Housing Instability: Not on file Family History Problem Relation Age of Onset Anesthesia problems Neg Hx Recent Labs: Recent and relative labs were reviewed and interpreted and contributed to the assessment and plan below. Vitals: BP (!) 150/96 (BP Site: Right Arm, BP Postition: Sitting, BP CUFF SIZE: M (9-13 inches)) Pulse 107 Temp 36 C (96.8 F) (Temporal) Ht 177.8 cm (5' 10 ) Wt 62.1 kg (137 lb) SpO2 93% BMI 19.66 kg/m Body mass index is 19.66 kg/m . Physical Exam: Physical Exam Constitutional: Appearance: Normal appearance. HENT: Head: Normocephalic and atraumatic. Mouth/Throat: Mouth: Mucous membranes are moist. Eyes: Extraocular Movements: Extraocular movements intact. Pupils: Pupils are equal, round, and reactive to light. Cardiovascular: Rate and Rhythm: Normal rate and regular rhythm. Pulmonary: Effort: Pulmonary effort is normal. Breath sounds: Normal breath sounds. Abdominal: General: Abdomen is flat. Bowel sounds are normal. Palpations: Abdomen is soft. Musculoskeletal: General: Normal range of motion. Cervical back: Normal range of motion. Skin: General: Skin is warm and dry. Neurological: General: No focal deficit present. Mental Status: He is alert and oriented to person, place, and time. Mental status is at baseline. Psychiatric: Mood and Affect: Mood normal. Behavior: Behavior normal. Thought Content: Thought content normal. Judgment: Judgment normal. Recent testing: Assessment and Plan: Problem List Severe claudication (CMS-HCC) Current Assessment & Plan He has palpable pulses after revascularization. Discussed with him continue best medical therapy. Counseled on smoking cessation in length. Cigarette smoker - Primary Current Assessment & Plan Counseled him on smoking cessation for at least 3 minutes Bilateral carotid artery stenosis Current Assessment & Plan Carotid duplex ultrasound Rossy was seen today for claudication feeling dizzy. Diagnoses and all orders for this visit: Cigarette smoker Severe claudication ([facility]) Bilateral carotid artery stenosis Regino Castrejon MD, BELINDA, RPVI, FSVS, FACS [facility] This note was created with the assistance of a speech recognition program. While intending to generate a timely document that accurately reflects the content of the visit, no guarantee can be provided that every grammatical or spelling mistake has been or will be identified or corrected. Thank you for your understanding. documented in this encounterC[facility] Instructions* Patient Instructions* Regino Castrejon MD - 06/26/2024 8:40 AM EDT Are You Ready To Kick The Habit? Free Tobacco Cessation Resources [facility] Services [facility] Centers provide all employees with free tobacco cessation services that include: Counseling to understand nicotine addiction Education about medications that can help you successfully quit Assistance with developing a plan to quit Call to set up an individual appointment or find out when group classes will be held: [facility]: [phone] [facility]: [phone] [facility]: [phone] [facility]: [phone] Quit Smoking Action Plan and Resources [facility] offers an eight-week, online smoking cessation plan to all [facility] employees, regardless of whether [place] is your medical insurance provider. Go to www.[employer].org/employeewellness and click the Health Risk Assessment and Resources link to get started. In the Uryhx9Hzfccy menu, click Action Plans instead of Health Risk Assessment to access the Quit Smoking Action Plan. Additional smoking cessation resources are also available to all [facility] employees on the Amwvv2Oetgfy web page at www.[employer].com/quitsmoking. [place] Tobacco Cessation Program If [place] is your medical insurance provider, there are more free resources available to you, including: No copays or deductibles on local tobacco cessation counseling services to help you quit Prescription assistance for tobacco cessation medications to help you quit For details about the tobacco cessation program available to [place] members, go to www.[facility].com (Search: Tobacco Cessation Program). [place] Tobacco Quit Line 3-296-YNIL-NOW ( ) is a toll-free, telephonic service that helps [place] residents quit smoking and using tobacco. It is staffed by experts who tailor a quit plan for you and provide you with advice. [place] Tobacco Quit Line 3-592-IOBK-NOW ( ) is a toll-free, telephonic service that helps [place] residents quit smoking and using tobacco. It is staffed by experts who tailor a quit plan for you and provide you with advice. Two weeks of nicotine replacement therapy may be provided at no charge, if needed. Additional Resources These national organizations also offer free information and resources to help you quit tobacco: [place] [employer]--www.cancer.org/healthy/stayawayfromtobacco [place] [employer]--www.heart.org (Search: Quit Smoking) Centers for Disease Control and Prevention--www.cdc.gov/tobacco [place] [employer]--www.lungusa.org documented in this encounterC[facility]12-05-2024 Evaluation + Plan note* Assessment & Plan Note - Regino Castrejon MD - 03/06/2024 9:06 AM EST Associated Problem(s): Cigarette smoker Counseled on smoking cessation for at least 3 minutes he is willing to quit [facility]12-05-2024 Miscellaneous Notes* Assessment & Plan Note - Regino Castrejon MD - 03/06/2024 9:06 AM ESTAssociated Problem(s): Cigarette smoker Counseled on smoking cessation for at least 3 minutes he is willing to quit * Assessment & Plan Note - Regino Castrejon MD - 03/06/2024 9:05 AM EST Associated Problem(s): Severe claudication ([facility]) Continue aspirin Plavix and statin. Smoking cessation. Surveillance imaging in a year. documented in this encounterC[facility]12-[facility]-2024 Evaluation + Plan note* Assessment & Plan Note - Regino Castrejon MD - 03/06/2024 9:05 AM EST Associated Problem(s): Severe claudication ([facility]) Continue aspirin Plavix and statin. Smoking cessation. Surveillance imaging in a year. [facility]12-05-2024 History of Present illness Narrative* Regino Castrejon MD - 03/06/2024 8:30 AM EST Images from the original note were not included. To: RENALDO HUNG MD HPI: Rossy Alfonso is a 63 y.o. male with History of severe claudication bilaterally and iliac occlusive disease. He is status post bilateral iliac stenting. He comes in his 6-month follow-up with surveillance imaging that shows normal TO and PVR. He is feeling great he has no leg pain anymore. He continues to smoke. I counseled him on smoking cessation at length. For at least 3 minutes. He iswilling to quit. Discussed with him that he would have recurrent disease if he continues to smoke at the durability and patency of stents would be in question. He takes aspirin and Plavix. He has no wounds or any claudication.. Review of Systems: Review of Systems Constitutional: Negative. HENT: Negative. Respiratory: Negative. Cardiovascular: Negative. Gastrointestinal: Negative. Endocrine: Negative. Genitourinary: Negative. Musculoskeletal: Negative. Skin: Negative. Neurological: Negative. Hematological: Negative. Medications: Current Outpatient Medications on File Prior to Visit Medication Sig Dispense Refill aspirin 81 mg Take 1 tablet (81 mg total) by mouth in the morning. 30 tablet 3 clopidogreL (PLAVIX) 75 mg tablet Take 1 tablet (75 mg total) by mouth in the morning. 30 tablet 3 losartan (COZAAR) 100 mg tablet Take 1 tablet (100 mg total) by mouth in the morning. oxyCODONE-acetaminophen (PERCOCET) 10-325 mg per tablet Take 1 tablet by mouth every 4 (four) hoursas needed for pain. ALPRAZolam (XANAX) 0.5 mg tablet Take 1 tablet (0.5 mg total) by mouth 3 (three) times a day as needed for anxiety. (Patient not taking: Reported on 03/06/2024) carvediloL (COREG) 12.5 mg tablet Take 1 tablet (12.5 mg total) by mouth in the morning and 1 tablet (12.5 mg total) in the evening. Take with meals. Indications: high blood pressure. (Patient not taking: Reported on 03/06/2024) cloNIDine (CATAPRES) 0.1 mg tablet Take 1 tablet (0.1 mg total) by mouth 3 (three) times a day Indications: high blood pressure. (Patient not taking: Reported on 03/06/2024) pbfgsjndp-xhshaiqm-prxlcoze CMPD (ANTIMICROBIAL) mouthwash Swish and spit 5 mL 3 (three) times a day. thrush (Patient not taking: Reported on 03/06/2024) No current facility-administered medications on file prior to visit. Past Medical History: Past Medical History: Diagnosis Date Anxiety Arthritis Dental disease dentures upper and lower Fractures rt leg Hypertension Injury of back Peripheral vascular disease (CMS-HCC) Visual impairment Past Surgical History: Past Surgical History: Procedure Laterality Date BACK SURGERY 2019 lower back bilateral ilaic artery intravascular lithrotripsy, shockwave balloon angioplasty and stenting Bilateral 08/16/2023 Performed by Regino Castrejon MD at [facility] LEG SURGERY Right 2007 Elie SHOULDER SURGERY Right 2014 SHOULDER SURGERY Left 2021 SPLENECTOMY, TOTAL age 10 Social and Family History: Social History Socioeconomic History Marital status: Spouse name: Not on file Number of children: Not on file Years of education: Not on file Highest education level: Not on file Occupational History Not on file Tobacco Use Smoking status: Every Day Current packs/day: 1.00 Average packs/day: 1 pack/day for 45.0 years (45.0 ttl pk-yrs) Types: Cigarettes Smokeless tobacco: Never Vaping Use Vaping status: Never Used Substance and Sexual Activity Alcohol use: Not Currently Drug use: Yes Types: Marijuana Comment: daily 40 years helps to sleep 1 joint Sexual activity: Defer Other Topics Concern Not on file Social History Narrative Not on file Social Drivers of Health Financial Resource Strain: Not on file Food Insecurity: No Food Insecurity (08/14/2023) Hunger Screening Food Insecurity - Worry: Never True Food Insecurity - Inability: Never True Transportation Needs: No Transportation Needs (06/24/2020) [facility] - Transportation Lack of Transportation (Medical): No Lack of Transportation (Non-Medical): No Physical Activity: Not on file Stress: Not on file Social Connections: Not on file Interpersonal Safety: Not At Risk (10/16/2022) Received from [facility] Humiliation, Afraid, Rape, and Kick questionnaire Fear of Current or Ex-Partner: No Emotionally Abused: No Physically Abused: No Sexually Abused: No Housing Instability: Not on file Family History Problem Relation Age of Onset Anesthesia problems Neg Hx Recent Labs: Recent and relative labs were reviewed and interpreted and contributed to the assessment and plan below. Vitals: BP 122/72 (BP Site: Right Arm, BP Postition: Sitting, BP CUFF SIZE: M (9-13 inches)) Pulse 95 Temp 36.9 C (98.4 F) (Skin) Resp 18 Wt 62.6 kg (138 lb) SpO2 97% BMI 19.80 kg/m Body mass index is 19.8 kg/m . Physical Exam: Physical Exam Constitutional: Appearance: Normal appearance. HENT: Head: Normocephalic and atraumatic. Mouth/Throat: Mouth: Mucous membranes are moist. Eyes: Extraocular Movements: Extraocular movements intact. Pupils: Pupils are equal, round, and reactive to light. Cardiovascular: Rate and Rhythm: Normal rate and regular rhythm. Pulmonary: Effort: Pulmonary effort is normal. Breath sounds: Normal breath sounds. Abdominal: General: Abdomen is flat. Bowel sounds are normal. Palpations: Abdomen is soft. Musculoskeletal: General: Normal range of motion. Cervical back: Normal range of motion. Skin: General: Skin is warm and dry. Neurological: General: No focal deficit present. Mental Status: He is alert and oriented to person, place, and time. Mental status is at baseline. Psychiatric: Mood and Affect: Mood normal. Behavior: Behavior normal. Thought Content: Thought content normal. Judgment: Judgment normal. Recent testing: PVR TO Assessment and Plan: Problem List Severe claudication (CMS-HCC) - Primary Current Assessment & Plan Continue aspirin Plavix and statin. Smoking cessation. Surveillance imaging in a year. Cigarette smoker Current Assessment & Plan Counseled on smoking cessation for at least 3 minutes he is willing to quit Rossy was seen today for 6 month follow up testing prior. Diagnoses and all orders for this visit: Severe claudication (CMS-HCC) Cigarette smoker Regino Castrejon MD, BELINDA, RPVI, FSVS, FACS [facility] This note was created with the assistance of a speech recognition program. While intending to generate a timely document that accurately reflects the content of the visit, no guarantee can be provided that every grammatical or spelling mistake has been or will be identified or corrected. Thank you for your understanding. documented in this encounterC[facility]12-[facility]24 Instructions* Patient Instructions* Regino Castrejon MD - 03/06/2024 8:30 AM EST Are You Ready To Kick The Habit? Free Tobacco Cessation Resources [facility] Services [facility] provide all employees with free tobacco cessation services that include: Counseling to understand nicotine addiction Education about medications that can help you successfully quit Assistance with developing a plan to quit Call to set up an individual appointment or find out when group classes will be held: [facility]: [phone] [facility]: [phone] [facility]: [phone] [facility]: [phone] Quit Smoking Action Plan and Resources [facility] offers an eight-week, online smoking cessation plan to all [facility] employees, regardless of whether [place] is your medical insurance provider. Go to [email or web address] and click the Health Risk Assessment and Resources link to get started. In the Ftlzn7Egcsmm menu, click Action Plans instead of Health Risk Assessment to access the Quit Smoking Action Plan. Additional smoking cessation resources are also available to all [facility] employees on the Vvrjt6Hgsahc web page at [email or web address]. [place] Tobacco Cessation Program If [place] is your medical insurance provider, there are more free resources available to you, including: No copays or deductibles on local tobacco cessation counseling services to help you quit Prescription assistance for tobacco cessation medications to help you quit For details about the tobacco cessation program available to [place] members, go to www.[employer]ouchbase (Search: Tobacco Cessation Program). [place] Tobacco Quit Line 0-727-RAEN-NOW ( ) is a toll-free, telephonic service that helps [place] residents quit smoking and using tobacco. It is staffed by experts who tailor a quit plan for you and provide you with advice. [place] Tobacco Quit Line 2-868-FDYY-NOW ( ) is a toll-free, telephonic service that helps [place] residents quit smoking and using tobacco. It is staffed by experts who tailor a quit plan for you and provide you with advice. Two weeks of nicotine replacement therapy may be provided at no charge, if needed. Additional Resources These national organizations also offer free information and resources to help you quit tobacco: [place] [employer]--www.cancer.org/healthy/stayawayfromtobacco [place] [employer]--www.heart.org (Search: Quit Smoking) Centers for Disease Control and Prevention--www.cdc.gov/tobacco [place] [employer]--www.lungusa.org documented in this encounterGrace Cottage HospitalIntent05-30-2024 Evaluation + Plan note* Assessment & Plan Note - Regino Castrejon MD - 08/30/2023 10:47 AM EDT Associated Problem(s): Severe claudication ([facility]-HCC) He is status post stenting. He feels great.He will continue aspirin and statin. Counseled him on smoking cessation in length. He is willing to quit. Will get iliac duplex ultrasound and PVR in 6 months [facility]05-30-2024 Evaluation + Plan note* Assessment & Plan Note - Regino Castrejon MD - 08/30/2023 10:47 AM EDTAssociated Problem(s): Cigarette nicotine dependence Tobacco use is unchanged. Smoking cessation counseling was provided. Tobacco use will be reassessed 6 month . [facility]05-30-[facility] Miscellaneous Notes* Assessment & Plan Note - Regino Castrejon MD - 08/30/2023 10:47 AM EDTAssociated Problem(s): Severe claudication (CMS-HCC) He is status post stenting. He feels great.He will continue aspirin and statin. Counseled him on smoking cessation in length. He is willing to quit. Will get iliac duplex ultrasound and PVR in 6 months * Assessment & Plan Note - Regino Castrejon MD - 08/30/2023 10:47 AM EDT Associated Problem(s): Cigarette nicotine dependence Tobacco use is unchanged. Smoking cessation counseling was provided. Tobacco use will be reassessed 6 month . documented in this encounterCleveland Clinic [facility]05-30-2024 History of Present illness Narrative* Regino Castrejon MD - 08/30/2023 10:20 AM EDT Images from the original note were not included. To: RENALDO HUNG MD HPI: Rossy Alfonso is a 62 y.o. male with While bilateral lower extremity claudication he had iliac occlusive disease status post stenting. He is longstanding smoker. I did iliac intravascular lithotripsy and stenting. He feels great. His legs feel a lot better. He continues to smoke. Counseled him on smoking cessation in length. He is on aspirin and statin. I recommended continuing aspirin andstatin because of the stents. Will see him in 6 months with surveillance imaging. Review of Systems: Review of Systems Constitutional: Negative. HENT: Negative. Respiratory: Negative. Cardiovascular: Negative. Gastrointestinal: Negative. Endocrine: Negative. Genitourinary: Negative. Musculoskeletal: Negative. Skin: Negative. Neurological: Negative. Hematological: Negative. Medications: Current Outpatient Medications on File Prior to Visit Medication Sig Dispense Refill ALPRAZolam (XANAX) 0.5 mg tablet Take 1 tablet (0.5 mg total) by mouth 3 (three) times a day as needed for anxiety. aspirin 81 mg Take 1 tablet (81 mg total) by mouth in the morning. 30 tablet 3 carvediloL (COREG) 12.5 mg tablet Take 1 tablet (12.5 mg total) by mouth in the morning and 1 tablet (12.5 mg total) in the evening. Take with meals. Indications: high blood pressure. cloNIDine (CATAPRES) 0.1 mg tablet Take 1 tablet (0.1 mg total) by mouth 3 (three) times a day Indications: high blood pressure. clopidogreL (PLAVIX) 75 mg tablet Take 1 tablet (75 mg total) by mouth in the morning. 30 tablet 3 oxyCODONE-acetaminophen (PERCOCET) 10-325 mg per tablet Take 1 tablet by mouth every 4 (four) hoursas needed for pain. pqtjfzmoj-cnohgkqj-uhestxye CMPD (ANTIMICROBIAL) mouthwash Swish and spit 5 mL 3 (three) times a day. thrush (Patient not taking: Reported on 08/30/2023) No current facility-administered medications on file prior to visit. Past Medical History: Past Medical History: Diagnosis Date Anxiety Arthritis Dental disease dentures upper and lower Fractures rt leg Hypertension Injury of back Peripheral vascular disease ([facility]-HCC) Visual impairment Past Surgical History: Past Surgical History: Procedure Laterality Date BACK SURGERY 2019 lower back bilateral ilaic artery intravascular lithrotripsy, shockwave balloon angioplasty and stenting Bilateral 08/16/2023 Performed by Regino Castrejon MD at [facility] LEG SURGERY Right 2007 Elie SHOULDER SURGERY Right 2013 SHOULDER SURGERY Left 2021 SPLENECTOMY, TOTAL age 10 Social and Family History: Social History Socioeconomic History Marital status: Spouse name: Not on file Number of children: Not on file Years of education: Not on file Highest education level: Not on file Occupational History Not on file Tobacco Use Smoking status: Every Day Current packs/day: 1.00 Average packs/day: 1 pack/day for 45.0 years (45.0 ttl pk-yrs) Types: Cigarettes Smokeless tobacco: Never Vaping Use Vaping status: Never Used Substance and Sexual Activity Alcohol use: Not Currently Drug use: Yes Types: Marijuana Comment: daily 40 years helps to sleep 1 joint Sexual activity: Defer Other Topics Concern Not on file Social History Narrative Not on file Social Determinants of Health Financial Resource Strain: Not on file Food Insecurity: No Food Insecurity (08/14/2023) Hunger Screening Food Insecurity - Worry: Never True Food Insecurity - Inability: Never True Transportation Needs: No Transportation Needs (06/24/2020) [facility] Lack of Transportation (Medical): No Lack of Transportation (Non-Medical): No Physical Activity: Not on file Stress: Not on file Social Connections: Not on file Interpersonal Safety: Not At Risk (10/16/2022) Received from [facility] Humiliation, Afraid, Rape, and Kick questionnaire Fear of Current or Ex-Partner: No Emotionally Abused: No Physically Abused: No Sexually Abused: No Housing Instability: Not on file Family History Problem Relation Age of Onset Anesthesia problems Neg Hx Recent Labs: Recent and relative labs were reviewed and interpreted and contributed to the assessment and plan below. Vitals: BP 163/87 (BP Site: Right Arm, BP Postition: Sitting, BP CUFF SIZE: M (9-13 inches)) Pulse 88 Wt 60 kg (132 lb 3.2 oz) SpO2 98% BMI 18.97 kg/m Body mass index is 18.97 kg/m . Physical Exam: Physical Exam Constitutional: Appearance: Normal appearance. HENT: Head: Normocephalic and atraumatic. Mouth/Throat: Mouth: Mucous membranes are moist. Eyes: Extraocular Movements: Extraocular movements intact. Pupils: Pupils are equal, round, and reactive to light. Cardiovascular: Rate and Rhythm: Normal rate and regular rhythm. Pulmonary: Effort: Pulmonary effort is normal. Breath sounds: Normal breath sounds. Abdominal: General: Abdomen is flat. Bowel sounds are normal. Palpations: Abdomen is soft. Musculoskeletal: General: Normal range of motion. Cervical back: Normal range of motion. Skin: General: Skin is warm and dry. Neurological: General: No focal deficit present. Mental Status: He is alert and oriented to person, place, and time. Mental status is at baseline. Psychiatric: Mood and Affect: Mood normal. Behavior: Behavior normal. Thought Content: Thought content normal. Judgment: Judgment normal. Recent testing: Lower extremity duplex ultrasound Assessment and Plan: Problem List Severe claudication (CMS-HCC) - Primary Current Assessment & Plan He is status post stenting. He feels great.He will continue aspirin and statin. Counseled him on smoking cessation in length. He is willing to quit. Will get iliac duplex ultrasound and PVR in 6 months Relevant Orders Vas aorta/iliac duplex complete Vas art doppler lwr bilat mult lev/PVR Cigarette nicotine dependence Current Assessment & Plan Tobacco use is unchanged. Smoking cessation counseling was provided. Tobacco use will be reassessed 6 month . Relevant Orders Vas aorta/iliac duplex complete Vas art doppler lwr bilat mult lev/PVR Rossy was seen today for claudication. Diagnoses and all orders for this visit: Severe claudication (CMS-HCC) - Vas aorta/iliac duplex complete; Future - Vas art doppler lwr bilat mult lev/PVR; Future Cigarette nicotine dependence with nicotine-induced disorder - Vas aorta/iliac duplex complete; Future - Vas art doppler lwr bilat mult lev/PVR; Future Regino Castrejon MD, BELINDA, RPVI, FSVS, FACS [facility] This note was created with the assistance of a speech recognition program. While intending to generate a timely document that accurately reflects the content of the visit, no guarantee can be provided that every grammatical or spelling mistake has been or will be identified or corrected. Thank you for your understanding. documented in this encounterC[facility]05-14-2024 History and physical note* Nadeen Liao APRN-CONSERVATION ENFORCEMENT OFFICER - 08/14/2023 2:45 PM EDT PRE-ADMISSION TESTING HISTORY AND PHYSICAL EXAM DATE: 08/14/23 PCP: RENALDO HUNG MD HISTORY OF PRESENT ILLNESS: Rossy Alfonso, a 62 y.o. White or male, presents to [facility] for a pre-surgical H&P. The patient has been diagnosed with Peripheral Arterial Disease . Patient has had progressively worsening pain of the bilateral lower extremities with walking over the last 4 years. Patient states he also experiences almost immediate weakness in the bilateral lower extremities with standing. Patient denies any previous vascular surgeries. He denies any open wounds or sores of the bilateral lowerextremities. 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 Patient is a current smoke r. Anesthesia problems: denies. Latex allergy: denies. Bleeding/ clotting disorders: denies. Recent hospitalizations: denies. PAST MEDICAL HISTORY: Past Medical History: Diagnosis Date Anxiety Arthritis Dental disease dentures upper and lower Fractures rt leg Hypertension Injury of back PAST SURGICAL HISTORY: Past Surgical History: Procedure Laterality Date BACK SURGERY 2019 lower back LEG SURGERY Right 2007 Elie SHOULDER SURGERY Right 2013 SHOULDER SURGERY Left 2021 SPLENECTOMY, TOTAL age 10 FAMILY HISTORY: Family History Problem Relation Age of Onset Anesthesia problems Neg Hx SOCIAL HISTORY: The patient reports that he does not currently use alcohol. He reports that he has been smoking cigarettes. He has a 45 pack-year smoking history. He has neverused smokeless tobacco. He reports current drug use. Drug: Marijuana. ALLERGIES: No Known Allergies MEDICATIONS: Current Outpatient Medications: carvediloL (COREG) 12.5 mg tablet, Take 1 tablet (12.5 mg total) by mouth in the morning and 1 tablet (12.5 mg total) in the evening. Take with meals. Indications: high blood pressure., Disp: , Rfl: cloNIDine (CATAPRES) 0.1 mg tablet, Take 1 tablet (0.1 mg total) by mouth 3 (three) times a day Indications: high blood pressure., Disp: , Rfl: jxptgaefx-qsztsggd-iqmoslzv CMPD (ANTIMICROBIAL) mouthwash, Swish and spit 5 mL 3 (three) times a day. thrush, Disp: , Rfl: oxyCODONE-acetaminophen (PERCOCET) 10-325 mg per tablet, Take 1 tablet by mouth every 4 (four) hours as needed for pain., Disp: , Rfl: REVIEW OF SYSTEMS: Review of Systems Constitutional: Negative. HENT: Positive for dental problem (dentures). Eyes: Negative. Respiratory: Negative for apnea, shortness of breath and wheezing. Cardiovascular: Negative for chest pain, palpitations and tachycardia. Peripheral arterial disease, hypertension Gastrointestinal: Negative. Endocrine: Negative. Genitourinary: Negative. Musculoskeletal: OA Skin: Negative. Allergic/Immunologic: Negative. Neurological: Negative. Hematological: Negative. Psychiatric/Behavioral: anxiety VITAL SIGNS: BP (!) 161/96 Pulse 92 Temp 36.4 C (97.5 F) (Temporal) Resp 18 Ht 177.8 cm (5' 10 ) Wt 61.3 kg (135 lb 2.3 oz) SpO2 97% BMI 19.39 kg/m PHYSICAL EXAM: Physical Exam Constitutional: Appearance: Normal appearance. HENT: Head: Normocephalic and atraumatic. Nose: Nose normal. Mouth/Throat: Mouth: Mucous membranes are moist. Pharynx: Oropharynx is clear. Eyes: Extraocular Movements: Extraocular movements intact. Conjunctiva/sclera: Conjunctivae normal. Pupils: Pupils are equal, round, and reactive to light. Cardiovascular: Rate and Rhythm: Normal rate and regular rhythm. Heart sounds: Normal heart sounds. Pulmonary: Effort: Pulmonary effort is normal. Breath sounds: Normal breath sounds. Abdominal: General: Bowel sounds are normal. Palpations: Abdomen is soft. Musculoskeletal: General: Normal range of motion. Cervical back: Normal range of motion and neck supple. Skin: General: Skin is warm and dry. Neurological: General: No focal deficit present. Mental Status: He is alert and oriented to person, place, and time. RECENT LABS: No results found for: WBC , HGB , HCT , PLT , INR , PTT , SODIUM , K , CL , CO2 , CALCIUM , MAGNESIUM , ALKPHOS , ALBUMIN , GLU , HGBA1C , ALT , AST , CREATININE , BUN , GFR , EGFR , TSH , PSA *Please note that labs listed above are the most recent lab values available in [facility] at the time ofthe office visit and additional labs may have been drawn since that time. ASSESSMENT / DIAGNOSIS: Peripheral Arterial Disease PLAN: Rossy Alfonso is scheduled for Angioplasty Iliac - Bilateral Bypass Artery Femoral Femoral(Psb) on 08/16/[address] Castrejon. REI Campbell 08/14/23 [address] [employer] Work Phone: [phone] 851-635105-14-2024 History and physical note* Nadeen Liao, COMPOSITION STONE APPLICATOR-CONSERVATION ENFORCEMENT OFFICER - 08/14/2023 2:45 PM EDT PRE-ADMISSION TESTING HISTORY AND PHYSICAL EXAM DATE: 08/14/23 PCP: RENALDO HUNG MD HISTORY OF PRESENT ILLNESS: Rossy Alfonso, a 62 y.o. White or male, presents to [facility] for a pre-surgical H&P. The patient has been diagnosed with Peripheral Arterial Disease . Patient has had progressively worsening pain of the bilateral lower extremities with walking over the last 4 years. Patient states he also experiences almost immediate weakness in the bilateral lower extremities with standing. Patient denies any previous vascular surgeries. He denies any open wounds or sores of the bilateral lowerextremities. 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 Patient is a current smoke r. Anesthesia problems: denies. Latex allergy: denies. Bleeding/ clotting disorders: denies. Recent hospitalizations: denies. PAST MEDICAL HISTORY: Past Medical History: Diagnosis Date Anxiety Arthritis Dental disease dentures upper and lower Fractures rt leg Hypertension Injury of back PAST SURGICAL HISTORY: Past Surgical History: Procedure Laterality Date BACK SURGERY 2019 lower back LEG SURGERY Right 2007 Elie SHOULDER SURGERY Right 2013 SHOULDER SURGERY Left 2021 SPLENECTOMY, TOTAL age 10 FAMILY HISTORY: Family History Problem Relation Age of Onset Anesthesia problems Neg Hx SOCIAL HISTORY: The patient reports that he does not currently use alcohol. He reports that he has been smoking cigarettes. He has a 45 pack-year smoking history. He has neverused smokeless tobacco. He reports current drug use. Drug: Marijuana. ALLERGIES: No Known Allergies MEDICATIONS: Current Outpatient Medications: carvediloL (COREG) 12.5 mg tablet, Take 1 tablet (12.5 mg total) by mouth in the morning and 1 tablet (12.5 mg total) in the evening. Take with meals. Indications: high blood pressure., Disp: , Rfl: cloNIDine (CATAPRES) 0.1 mg tablet, Take 1 tablet (0.1 mg total) by mouth 3 (three) times a day Indications: high blood pressure., Disp: , Rfl: rkutpasvb-rbacuhbs-zlgndzwh CMPD (ANTIMICROBIAL) mouthwash, Swish and spit 5 mL 3 (three) times a day. thrush, Disp: , Rfl: oxyCODONE-acetaminophen (PERCOCET) 10-325 mg per tablet, Take 1 tablet by mouth every 4 (four) hours as needed for pain., Disp: , Rfl: REVIEW OF SYSTEMS: Review of Systems Constitutional: Negative. HENT: Positive for dental problem (dentures). Eyes: Negative. Respiratory: Negative for apnea, shortness of breath and wheezing. Cardiovascular: Negative for chest pain, palpitations and tachycardia. Peripheral arterial disease, hypertension Gastrointestinal: Negative. Endocrine: Negative. Genitourinary: Negative. Musculoskeletal: OA Skin: Negative. Allergic/Immunologic: Negative. Neurological: Negative. Hematological: Negative. Psychiatric/Behavioral: anxiety VITAL SIGNS: BP (!) 161/96 Pulse 92 Temp 36.4 C (97.5 F) (Temporal) Resp 18 Ht 177.8 cm (5' 10 ) Wt 61.3 kg (135 lb 2.3 oz) SpO2 97% BMI 19.39 kg/m PHYSICAL EXAM: Physical Exam Constitutional: Appearance: Normal appearance. HENT: Head: Normocephalic and atraumatic. Nose: Nose normal. Mouth/Throat: Mouth: Mucous membranes are moist. Pharynx: Oropharynx is clear. Eyes: Extraocular Movements: Extraocular movements intact. Conjunctiva/sclera: Conjunctivae normal. Pupils: Pupils are equal, round, and reactive to light. Cardiovascular: Rate and Rhythm: Normal rate and regular rhythm. Heart sounds: Normal heart sounds. Pulmonary: Effort: Pulmonary effort is normal. Breath sounds: Normal breath sounds. Abdominal: General: Bowel sounds are normal. Palpations: Abdomen is soft. Musculoskeletal: General: Normal range of motion. Cervical back: Normal range of motion and neck supple. Skin: General: Skin is warm and dry. Neurological: General: No focal deficit present. Mental Status: He is alert and oriented to person, place, and time. RECENT LABS: No results found for: WBC , HGB , HCT , PLT , INR , PTT , SODIUM , K , CL , CO2 , CALCIUM , MAGNESIUM , ALKPHOS , ALBUMIN , GLU , HGBA1C , ALT , AST , CREATININE , BUN , GFR , EGFR , TSH , PSA *Please note that labs listed above are the most recent lab values available in [facility] at the time ofthe office visit and additional labs may have been drawn since that time. ASSESSMENT / DIAGNOSIS: Peripheral Arterial Disease PLAN: Rossy Alfonso is scheduled for Angioplasty Iliac - Bilateral Bypass Artery Femoral Femoral(Psb) on 08/16/[address] Castrejon. REI Campbell 08/14/23 1621 documented [facility] Instructions* Patient Instructions* Silvia Medrano RN - 08/14/2023 2:45 PM EDT Your surgery/procedure is scheduled at [facility] on 08/16/23 at 1200 Arrival Time 1000 [facility] Address: [address] [place] [address] in [address]ing lot located on [facility]. Report to the Entrance B. Check in at the information desk the surgery. The waiting room located on the second floor. If you have any questions prior to surgery, please call Pre-Admission Clinic at [phone] between 7:30 am and 4:30 pm Sunday through Sunday. If you have questions the morning of surgery, please call the Pre-op Department at [phone]. Notify your SURGEON if you develop any illness such as a cold, cough, fever, sore throat, vomiting or are hospitalized between now and your surgery. CONTINUE TO TAKE YOUR MEDICATIONS PRESCRIBED. DO NOT STOP YOUR PRESCRIBED MEDICATIONS UNLESS DIRECTED BY YOUR PRESCRIBING PHYSICIAN Take the following medications the morning of surgery with a sip of water: per instructions by vascular Weight loss medications: na Take inhalers as prescribed the morning of surgery. . Blood thinners: Medications such as Coumadin, Heparin, Aspirin, Plavix, Eliquis, Pradaxa) Please contact your physician regarding a stop/hold date for these medications. Diabetics: If you take insulin, contact your prescribing doctor for instructions on how to manage this the night before and the morning of surgery. Non-steriodal Anti-Inflammatory Drugs (NSAIDS)- Stop 3 days prior to surgery unless otherwise directed by your surgeon. Vitamins/Herbal Products: You may continue to take your prescribed vitamins such as potassium, iron, vitamin B, vitamin C, or multivitamin unless specifically instructed by your surgeon to stop. STOPtaking all herbal products/teas one week prior to your surgery. Marijuana: Stop marijuana 72 hours prior to surgery, stop CBD oil 48 hours prior to surgery. If you have been given bowel prep instructions by your surgeon, please call the surgeon's office with any questions about these instructions. What do I do the day of Surgery? Age 2 through adult - Stop all solids by midnight, You may have clear liquids up to 2 hours before surgery, unless otherwise instructed by your surgeon. Clear liquids are: water, sports drinks such as Gatorade or G2, or apple juice. You may NOT have: tube feedings, dairy products, alcoholic beverages, orange juice, or any liquids with solids or pulp in it. If applicable, shower again with CHG soap the morning of your surgery. If you received a green plastic bracelet, bring it with you the day of surgery and your nurse will put it on you. In order to help prevent infection post-operatively, you may be asked to use a CHG mouthwash when you arrive to the Pre-op area. Your nurse will provide instruction the morning of. What do I need to do to prepare for surgery? If you will be going home the same day as your surgery, arrange for an adult over [address] Riding in a bus or taxi by yourself is not permitted. You should not smoke or drink alcohol 24 hours before your surgery. Alcohol thins the blood and may cause bleeding problems during surgery. Smoking increases the risk of breathing problems after surgery. If you have been assigned BESSY Education by your surgeon's office, please complete this education prior to your surgery. For questions regarding BESSY education, reach out to your surgeon's office. If you have been given a prescription for occupational, physical or speech therapy, please set up these appointments before your procedure. If you would like to schedule therapy at a [facility] facility, please call [phone] ([phone]). Do not use lotions, creams, powders, perfume, make up, cologne or after-shaves day of surgery. Remove ALL jewelry including wedding rings, body piercings,hair extensions that contain metal, nailpolish, make-up, and contact lens. You may brush your teeth the morning of surgery, but do not swallow the water. Wear your dentures and partial plates to the hospital (no adhesive). Shower the night the before. If applicable, use the CHG (chlorhexidine gluconate) soap or wipes What should I bring to the hospital? If you received a green plastic bracelet, bring it with you the day of surgery and your nurse will put it on you. Eyeglass or contact lens case If you will be spending the night, please bring personal care items and leave them in the car untilyou are taken to your room after surgery. Leave ALL valuables at home. If any of these instructions conflict with those you received from the surgeon, please seek clarification from your surgeon's office. DEEP BREATHING EXERCISES This exercise helps promote good air exchange and helps to prevent pneumonia after surgery. Breathe in slowly and deeply through the nose. Hold your breath for a few seconds and then exhale slowly through the mouth. Repeat this three times and then cough.Coughing helps to clear your lungs. If you have had a surgery with an incision into your abdomen or chest, press gently against your incision with a pillow or a folded blanket when you cough. Please be aware - it may not be whitten to cough following some types of surgeries involving the eyes,ears, sinuses and throat. Always follow your doctor's instructions. LEG EXERCISE These exercises help promote good circulation and help to prevent blood clots after surgery. Point your toes to the ceiling and then point them to the wall. Do this slowly about 15-20 times. You may also move your feet in circles. Do the exercise that is most comfortable for you. If you have had surgery involving your shoulder or arm, we recommend you move your fingers. PRACTICING We ask that you begin practicing these exercises before your surgery. After surgery try to do both exercises at least every 2 hours during the day and early evening. SURGICAL SITE INFECTION PREVENTION What is a Surgical Site Infection? Infection can happen to the area of the body where surgery is done. This is called a surgical site infection (SSI). A SSI does not happen very often. Can SSIs be treated? Antibiotics are used to treat SSI. Some patients may need another surgery to treat the infection. The doctor will discuss treatment options with you. What are some of the things that hospitals are doing to prevent SSIs? Soap and water or alcohol hand rub are used before and after caring for each patient. Special soap is used to clean surgery workers hands and arms just before the surgery. Masks, gowns, gloves and hair covers are worn during the surgery to keep the area clean. Hair in the surgery area may be removed with clippers (not razors). A special soap that kills germs is used to clean the skin at the surgery site. Antibiotics may be given before the surgery starts. What can you do to prevent SSIs? Before surgery: You may be asked to shower or bathe with a special soap that kills germs the night before and the day of surgery. Use the soap as you were told. If you smoke, stop or cut down. Ask your doctor about ways to quit. Do not shave near where you will have surgery. Shaving can irritate the skin and make it easier to get and infection. After surgery: Be sure that the doctors and nurses clean their hands before and after touching you. Be sure your family and friends clean their hands before and after visiting you. Do not be afraid to remind them. * Care for your wound at home as told by your doctor or nurse * Call your doctor right away if you have fever, redness, increased pain, or drainage at the surgery site. Further questions? Contact the doctor, nurse or the Infection Prevention and Control department if you have any questions. PATIENT RIGHTS AND RESPONSIBILITIES As a patient at [facility], you have the right to: Receive medical care and be informed of who is taking care of you Be treated with dignity and respect Have a family member/front office representative of choice and your physician notified of your admission Receive information and actively participate in decisions about your care and treatment Refuse care, treatment and services Decide who may provide your support and speak for you Access voodoo and spiritual services Participate in ethical issues and questions about your care Receive private and confidential care Have appropriate assessment and management of your pain Know guest visitation restrictions or limitations Have an advance directive Access protective services Consent or refuse to participate in research studies or production or recordings, films or other images Have resolution of your complaints Receive information of hospital charges and payment methods Patient/patient front office representative responsibilities are to: Provide information about health status to facilitate care, treatment and services Follow the treatment, plan, keep appointments and speak up when you do not understand the plan Respect the rights of other patients and healthcare personnel Follow organizational rules and regulations that support quality care and a safe environment Fulfill financial obligations as promptly as possible Bathing Before Surgery- Patients greater than 2 months of age You can help to lower your chance of infection at the site of your surgery by showering or bathing with a special soap called chlorhexidine gluconate (CHG). Germs live on your skin. This special soapwill help lower the amount of germs so they do not get into your surgery site. Special points to know: Do not use this soap if you know that you are allergic to CHG. Shower or bathe with CHG the night before and the morning of surgery. Do not shave the area of your body where the surgery will be done within 7 days of surgery. The CHG may make your skin a little dry, but do not use lotion. Steps for Bathing: Wash your hair as usual with your normal shampoo. Rinse your hair and body well after you shampoo to get rid all of the shampoo. Wash gently with the CHG from the neck down, but do not scrub the skin to hard. Be sure to wash thearea of your surgery very well. If showering, turn the water off while washing and then turn the water back onto rinse. Do not get CHG in the genital (private) area. Do not get CHG in the eyes, ears, nose or mouth. (If the soap gets into the eyes, flush them immediately with water). Do not wash with regular soap after CHG is used. Pat skin dry with a soft, clean towel. Patient should sleep in freshly laundered night clothes and report for surgery in clean clothes. documented [facility] encounterC[facility] Evaluation + Plan note* Assessment & Plan Note - Regino Castrejon MD - 08/09/2023 9:49 AM EDT Associated Problem(s): Cigarette nicotine dependence Counseled him on smoking cessation in length [place] [facility] Evaluation + Plan note* Assessment & Plan Note - Regino Castrejon MD - 08/09/2023 9:49 AM EDTAssociated Problem(s): Severe claudication ([facility]) Cardiac risk stratification. Smoking cessation. Iliac stenting possible femorofemoral. [place] [facility]05-09-[facility]24 Miscellaneous Notes* Assessment & Plan Note - Regino Castrejon MD - 08/09/2023 9:49 AM EDTAssociated Problem(s): Cigarette nicotine dependence Counseled him on smoking cessation in length * Assessment & Plan Note - Regino Castrejon MD - 08/09/2023 9:49 AM EDT Associated Problem(s): Severe claudication ([facility]) Cardiac risk stratification. Smoking cessation. Iliac stenting possible femorofemoral. documented in this encounterC[facility]05-09-2024 History of Present illness Narrative* Regino Castrejon MD - 08/09/2023 9:10 AM EDT Images from the original note were not included. To: No primary care provider on file. HPI: Rossy Alfonso is a 62 y.o. male with Nicotine dependence and cigarette smoking presented with bilateral lower extremity leg pain worse on the right side. 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 He has some tandem occlusive disease in other vessels.He continues to smoke I discussed with him angiogram iliac stenting possible femorofemoral bypass. I also discussed with him that some of his symptoms are probably related to neural genic claudication as well. There is nodoubt that he has vasculogenic component to it because of the complete occlusion of the Right iliacand the tandem lesion in the contralateral side. Review of Systems: Review of Systems Constitutional: Negative. HENT: Negative. Respiratory: Negative. Cardiovascular: Negative. Gastrointestinal: Negative. Endocrine: Negative. Genitourinary: Negative. Musculoskeletal: Negative. Skin: Negative. Neurological: Negative. Hematological: Negative. Medications: Current Outpatient Medications on File Prior to Visit Medication Sig Dispense Refill carvediloL (COREG) 12.5 mg tablet Take 1 tablet (12.5 mg total) by mouth in the morning and 1 tablet (12.5 mg total) in the evening. Take with meals. cloNIDine (CATAPRES) 0.1 mg tablet TAKE 2 TABLETS BY MOUTH 3 TIMES A DAY oxyCODONE-acetaminophen (PERCOCET) 10-325 mg per tablet TAKE 1 TABLET BY MOUTH EVERY 4 HOURS NEEDED FOR 14 DAYS *MAX OF 5 TABLETS A DAY* No current facility-administered medications on file prior to visit. Past Medical History: History reviewed. No pertinent past medical history. Past Surgical History: Past Surgical History: Procedure Laterality Date LEG SURGERY Right Elie Social and Family History: Social History Socioeconomic History Marital status: Unknown Spouse name: Not on file Number of children: Not on file Years of education: Not on file Highest education level: Not on file Occupational History Not on file Tobacco Use Smoking status: Not on file Smokeless tobacco: Not on file Substance and Sexual Activity Alcohol use: Not on file Drug use: Not on file Sexual activity: Not on file Other Topics Concern Not on file Social History Narrative Not on file Social Determinants of Health Financial Resource Strain: Not on file Food Insecurity: No Food Insecurity (08/09/2023) Hunger Screening Food Insecurity - Worry: Never True Food Insecurity - Inability: Never True Transportation Needs: No Transportation Needs (06/24/2020) [facility] - Transportation Lack of Transportation (Medical): No Lack of Transportation (Non-Medical): No Physical Activity: Not on file Stress: Not on file Social Connections: Not on file Interpersonal Safety: Not At Risk (10/16/2022) Received from [facility] Humiliation, Afraid, Rape, and Kick questionnaire Fear of Current or Ex-Partner: No Emotionally Abused: No Physically Abused: No Sexually Abused: No Housing Instability: Not on file History reviewed. No pertinent family history. Recent Labs: Recent and relative labs were reviewed and interpreted and contributed to the assessment and plan below. Vitals: BP (!) 189/98 (BP Site: Left Arm, BP Postition: Sitting, BP CUFF SIZE: L (13-17 inches)) Pulse 93 Ht 177.8 cm (5' 10 ) Wt 61 kg (134 lb 6.4 oz) BMI 19.28 kg/m Body mass index is 19.28 kg/m . Physical Exam: Physical Exam Constitutional: Appearance: Normal appearance. HENT: Head: Normocephalic and atraumatic. Mouth/Throat: Mouth: Mucous membranes are moist. Eyes: Extraocular Movements: Extraocular movements intact. Pupils: Pupils are equal, round, and reactive to light. Cardiovascular: Rate and Rhythm: Normal rate and regular rhythm. Pulmonary: Effort: Pulmonary effort is normal. Breath sounds: Normal breath sounds. Abdominal: General: Abdomen is flat. Bowel sounds are normal. Palpations: Abdomen is soft. Musculoskeletal: General: Normal range of motion. Cervical back: Normal range of motion. Skin: General: Skin is warm and dry. Neurological: General: No focal deficit present. Mental Status: He is alert and oriented to person, place, and time. Mental status is at baseline. Psychiatric: Mood and Affect: Mood normal. Behavior: Behavior normal. Thought Content: Thought content normal. Judgment: Judgment normal. Recent testing: Duplex ultrasound and a CT angiogram of the abdomen pelvis Assessment and Plan: Problem List Severe claudication ([facility]) - Primary Current Assessment & Plan Cardiac risk stratification. Smoking cessation. Iliac stenting possible femorofemoral. Cigarette nicotine dependence Current Assessment & Plan Counseled him on smoking cessation in length Diagnoses and all orders for this visit: Severe claudication ([facility]) PAD (peripheral artery disease) ([facility]) - [facility] [place] [place] Cigarette nicotine dependence with other nicotine-induced disorder Regino Castrejon MD, BELINDA, RPVI, FSVS, FACS [facility] This note was created with the assistance of a speech recognition program. While intending to generate a timely document that accurately reflects the content of the visit, no guarantee can be provided that every grammatical or spelling mistake has been or will be identified or corrected. Thank you for your understanding. documented in this encounterSelect Medical [facility] ShawRetrotope [facility] [id number] Instructions* Patient Instructions* Regino Castrejon MD - 08/09/2023 9:10 AM EDT Are You Ready To Kick The Habit? Free Tobacco Cessation Resources [facility] Services [facility] provide all employees with free tobacco cessation services that include: Counseling to understand nicotine addiction Education about medications that can help you successfully quit Assistance with developing a plan to quit Call to set up an individual appointment or find out when group classes will be held: [facility]: [phone] [facility]: [phone] [facility]: [phone] [facility]: [phone] Quit Smoking Action Plan and Resources [facility] offers an eight-week, online smoking cessation plan to all [facility] employees, regardless of whether [place] is your medical insurance provider. Go to [email or web address] and click the Health Risk Assessment and Resources link to get started. In the [employer] menu, click Action Plans instead of Health Risk Assessment to access the Quit Smoking Action Plan. Additional smoking cessation resources are also available to all [facility] employees on the [employer] web page at www.[email or web address]/quitsmoking. [place] Tobacco Cessation Program If [place] is your medical insurance provider, there are more free resources available to you, including: No copays or deductibles on local tobacco cessation counseling services to help you quit Prescription assistance for tobacco cessation medications to help you quit For details about the tobacco cessation program available to [place] members, go to www.[employer].Couchbase (Search: Tobacco Cessation Program). [place] Tobacco Quit Line 9-239-BLVN-NOW ( ) is a toll-free, telephonic service that helps [place] residents quit smoking and using tobacco. It is staffed by experts who tailor a quit plan for you and provide you with advice. [place] Tobacco Quit Line 9-911-ZUYZ-NOW ( ) is a toll-free, telephonic service that helps [place] residents quit smoking and using tobacco. It is staffed by experts who tailor a quit plan for you and provide you with advice. Two weeks of nicotine replacement therapy may be provided at no charge, if needed. Additional Resources These national organizations also offer free information and resources to help you quit tobacco: [place] [employer]--www.cancer.org/healthy/stayawayfromtobacco [place] [employer]--www.heart.org (Search: Quit Smoking) Centers for Disease Control and Prevention--www.cdc.gov/tobacco [place] [employer]--www.lungusa.org documented in this encounterC[facility]10-06-2023 NoteAddendum created 01/05/23 1555 by Tamar Lowry MD Clinical Note Signed, Diagnosis association updated, Intraprocedure Blocks edited, SmartForm savedUnOhioHealth Van Wert Hospital10-06-2023 Note Patient: Rossy Alfonso Procedure Summary Date: 01/05/23 Room / Location: [facility] [address] [place] [address] [facility] OR Anesthesia Start: 725 Anesthesia Stop: 903 Procedure: SHOULDER ARTHROSCOPY WITH ROTATOR CUFF REPAIR, LABRAL DEBRIDEMENT, SUBSCAPULAR REPAIR, SUBACHROMIAL DECOMPRESSION AND PROXIMAL BICEPS TENDON REPAIR (Right: Shoulder) Diagnosis: Complete tear of right rotator cuff, unspecified whether traumatic Avulsion of subscapularis, right, initial encounter Type 1 superior labral ihjyijaf-[id number] (SLAP) tear of right shoulder, initial encounter Adhesive capsulitis of right shoulder Impingement syndrome of right shoulder (Complete tear of right rotator cuff, unspecified whether traumatic [M75.121]) Surgeons: Zuly Pruett MD Responsible Provider: Tamar Lowry MD Anesthesia Type: general, regional ASA Status: 2 Anesthesia Type: general, regional Vitals Value Taken Time BP 152/74 01/05/2315 Temp 36.8 ???C (98.2 ???F) 01/05/23 0900 Pulse 88 01/05/23914 Resp 13 01/05/23914 SpO2 96 % 01/05/23914 Anesthesia Post Evaluation Patient location during evaluation: PACU Patient participation: complete - patient participated Level of consciousness: awake Pain score: 0 Pain management: adequate Airway patency: patent Cardiovascular status: acceptable Respiratory status: acceptable Patient is hemodynamically stable and is able to be discharged from PACU per anesthesia protocol. No notable events documented.[facility] Note Patient: Rossy Alfonso Procedure Summary Date: 01/05/23 Room / Location: [address] OR Anesthesia Start: 725 Anesthesia Stop: Procedure: SHOULDER ARTHROSCOPY WITH ROTATOR CUFF REPAIR, LABRAL DEBRIDEMENT, SUBSCAPULAR REPAIR, SUBACHROMIAL DECOMPRESSION AND PROXIMAL BICEPS TENDON REPAIR (Right: Shoulder) Diagnosis: Complete tear of right rotator cuff, unspecified whether traumatic Avulsion of subscapularis, right, initial encounter Type 1 superior labral bfytpqab-ww-buhzglohc (SLAP) tear of right shoulder, initial encounter [...] direct observation Transport: uneventful Patient condition is: stableUnOhioHealth Van Wert Hospital10-06-2023 Note Airway Date/Time: 01/05/2023 7:31 AM Urgency: elective General Information and Staff Patient location during procedure: OR Anesthesiologist: Tamar Lowry MD Resident/CAUSTICISER/CAA: Anthony Garrido CRNA Performed: resident/CAUSTICISER/CAA Indications and Patient Condition Indications for airway [...] 0 Additional Comments 4ml 4% lidocaine lta utilizedDunlap [facility]10-06-2023 Note Peripheral Block Patient location during procedure: pre-op Start time: 01/05/2023 1:03 AM End time: 01/05/2023 7:17 AM Reason for block: at surgeon's request and post-op pain management Staffing Performed: anesthesiologist Anesthesiologist: Tamar Lowry MD Resident/CAUSTICISER: Anthony Garrido CRNA Preanesthetic Checklist Completed: patient [...] ultrasound Paresthesia pain: none Heart rate change: noDunlap Memorial Hospital10-06-2023 NotePatient: Rossy Alfonso Procedure Information Date/Time: 01/05/23729 Procedure: SHOULDER ARTHROSCOPY WITH ROTATOR CUFF REPAIR (Right: Shoulder) - [facility] NOTIFIED 12/28 Location: [facility] [address] [place] [address] OR Surgeons: Zuly Preutt MD Past Medical History: Diagnosis Date ??? [...] risks discussed with patient. Plan discussed with CAUSTICISER. Additional Equipment RequestsDunlap Memorial Hospital07-17-2023 Note Attestation signed by Zuly Pruett MD at 10/16/2022 1:56 PM I personally saw and examined the patient on the same date of service as resident/fellow . I discussed the findings and therapeutic plan with the resident/fellow . I agree with the documentation, except for any edits/updates below. Teaching Physician's Revisions: No revisions Subjective 10/16/22 Rossy Alfonso is a 61 [...] shoulder completed on 08/19/21 @ [facility]. He continues to have pain in the right shoulder, primarily with motion/use of the arm. Pain at rest is a 5/10. He has failed PT/NSAIDs in the past. 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 Date of Telehealth Visit: 2021 The patient was notified that using 3rd constitution party telecommunication application (e.g. [employer]) is not HIPAA compliant and may carry some privacy risks: yes This visit was conducted [id number] with the use of audio and video [...] report from 08/19 2021 from [facility] indicates complete tear of the supraspinatus [...] may be an additional personal documentation from me.[facility]09-14-[facility]22 Evaluation note* Encounter Date Diagnosis Assessment Notes Treatment Notes Treatment Clinical Notes Dec, PAD (peripheral artery disease) (ICD-10 - I73.9) We reviewed this patient's TO studies from the [facility] showing left TO 0.94, right TO 0.70. By physical examination, this patient has mild PAD. He has easily palpable femoral, popliteal,and PT pulse bilaterally. He has no open sores or ulcerations. He denies any symptoms of rest pain.He does report hip and leg pain, numbness, [...] not had any recent follow-up with his neurosurgeon.I suggest he does this. For now, we [...] agrees with this plan, denies any questions. Dec,urrent smoker (ICD-10 - F17.200)We discussed the health risks associated with tobacco smoking. Patient understands his risks and isunmotivated to quit. [employer] Other 04-15-2021 NoteFLUORO FOR SURGICAL PROCEDURES : [...] Signed by: Ming Bejarano MD 07/15/20 [facility]21 NoteFLUORO FOR SURGICAL PROCEDURES : 07/15/2020 9:53 AM CLINICAL HISTORY: R52 Pain ICD10. COMPARISON: Non e available. Intraoperative fluoroscopy was provided for Dr. Valdez procedure. A total of 1.5 seconds of fluoroscopy was used, with 2 fluoroscopic stills saved. No diagnostic images were obtained. Please see Dr. Valdez surgical notes for completeness.[employer] Phone: evaluation note* Diagnosis Pain Generalized pain documented in this encounter [employer] Phone: evaluation note* Diagnosis Severe claudication ([facility])- Primary PAD (peripheral artery disease) ([facility]) Unspecified peripheral vascular disease Cigarette nicotine dependence with other nicotine-induced disorder documented in this encounter [facility]* Diagnosis PAD (peripheral artery disease) ([facility]) Unspecified peripheral vascular disease Encounter for therapeutic drug monitoring documented in this encounter [employer] [facility] note* Diagnosis Severe claudication ([facility])- Primary Cigarette nicotine dependence with nicotine-induced disorder documented in this encounter [employer] System[facility] note* Diagnosis Severe claudication ([facility])- Primary PAD (peripheral artery disease) ([facility]) Unspecified peripheral vascular disease Cigarette nicotine dependence with other nicotine-induced disorder Severe claudication ([facility])- Primary Cigarette nicotine dependence with nicotine-induced disorder Severe claudication ([facility])- Primary Cigarette smoker Tobacco use disorder documented in this encounter [facility] note* Diagnosis Severe claudication- Primary PAD (peripheral artery disease) Unspecified peripheral vascular disease Cigarette nicotine dependence with other nicotine-induced disorder Severe claudication- Primary Cigarette nicotine dependence with nicotine-induced disorder Severe claudication- Primary Cigarette smoker Tobacco use disorder Cigarette smoker- Primary Tobacco use disorder Severe claudication Bilateral carotid artery stenosis Occlusion and stenosis of carotid artery without mention of cerebral infarction documented in this encounter [facility] SystemEvaluation noteNo assessment information available [facility] Work Phone: History general Narrative - Reported* Type Description Date Medical History hypertension Surgical HistoryBack [id number] HistoryShoulder surgerySurgical History spleenectomyHospitalization Historysee above [employer] Other Hospital Discharge instructions Additional Instructions POST CATARACT SURGERY INSTRUCTIONS EYEDROPS [...] worsening of your eyesight. Please call your sealing machine operator during normal business hours. If after business hours call Dr. Emigdio Deng at his cell [phone] or his office [phone].[facility] Work Phone: Hospital Discharge instructionsAdditional Instructions POST CATARACT SURGERY INSTRUCTIONS EYEDROPS First [...] worsening of your eyesight. Please call your sealing machine operator during normal business hours. If after business hours call Dr. Emigdio Deng at his cell [phone] or his office [phone].[facility] Work Phone: InstructionsNot on filedocumented in this encounter [facility] HospitalReason for referral (narrative)No reason for referral information availableHolzer Hospital Ctr Work Phone: Reason for visit Narrative* Consultation (Routine) - Pending ReviewSpecialtyDiagnoses / ProceduresReferred By ContactReferred To ContactVascular Surgery Diagnoses PAD (peripheral artery disease) ([facility]) Renaldo Hung MD [address] [place] [address] Regino Castrejon MD [address], [address] [address] Referral IDStatusReasonStart DateExpiration DateVisits RequestedVisits [id number] Review Specialty Services Required [facility] System Summary Purpose Family History Relationship Condition Age at Onset Recorded Date/T brad Not Specified No pertinent family history Unknown Advance Directives Advance Directive Response Recorded Date/ Time Advance Directives No September 25 2:06pm Discharge Instructions * Instructions* Christian Valdez MD - 07/15/2020 medication given may [...] your physician 11) Call your doctor at [phone] for an appointment (or follow up as [...] call OFFICE. The 24- hour phone is [phone] 13) If you are unable to contact your surgeon, in an emergency situation, go to the nearest hospital emergency room. 14) shower on Sunday 15) ice pack to the incision 16) no driving documented in this encounter Assessments Diagnosis Postoperative pain- Primary Other acute postoperative pain Reason for Referral StatusReasonSpecialtyDiagnoses / ProceduresReferred By ContactReferred To ContactPending ReviewRadiology Diagnoses Pain Procedures Fluoro For Surgical Procedures Christian Valdez MD [address] [facility], [address] [place] [address] SpecialtyDiagnoses / ProceduresReferred By ContactReferred To Contact Diagnoses Severe claudication (CMS-HCC) Cigarette nicotine dependence with nicotine-induced disorder Procedures Vas art doppler lwr bilat mult lev/PVR Regino Castrejon MD [address], [address] [address] Referral IDStatusReasonStart DateExpiration DateVisits RequestedVisits [id number] / ProceduresReferred By ContactReferred To Contact Diagnoses Severe claudication (CMS-HCC) Cigarette nicotine dependence with nicotine-induced disorder Procedures Vas aorta/iliac duplex complete Regino Castrejon MD [address], [place] [address] [place] [address] Referral IDStatusReasonStart DateExpiration DateVisits RequestedVisits [id number] Review/ Chief Complaint and Reason for Visit Chief Complaint Admit Date Cataract December 11, 2024 10:36am Chief Complaint Admit Date Cataract December 11, 2024 10:36am Cataract December 25, 2024 9:07am Chief Complaint Admit Date Cataract December 11, 2024 10:36am Cataract December 25, 2024 9:07am Cataract January 22, 2025 8 :41am Additional Source Comments (unrecognized sect ion and content) No Status Records FoundNo Status Records FoundNo Status Records FoundNo Status Records FoundNo Status Records FoundNo Status Records Found INFORMATION SOURCE (unrecogn ized section and content) DATE CREATED AUTHOR 06/25/2020 [facility] DATE CREATED AUTHOR AUTHOR'S ORGANIZ ATION 07/20/2020 [facility] DATE CREATED AUTHOR AUTHOR'S ORGANIZ ATION 06/22/2021 [facility] DATE CREATED AUTHOR AUTHOR'S ORGANIZ ATION 11/09/2021 [facility] DATE CREATED AUTHOR AUTHOR'S ORGANIZ ATION 01/07/2023 [facility] DATE CREATED AUTHOR AUTHOR'S ORGANIZ ATION 01/27/2025 [facility] Reason for Visit (unrecogniz ed section and content) StatusReasonSpecialtyDiagnoses / ProceduresReferred By ContactReferred To Contact Diagnoses Lumbar disc herniation Lumbar radiculopathy DISC HERNIATION, RADICULOPATHY Procedures LAMINEC/FACETECT/FORAMIN,LUMBAR 1 SEG KS LAMNOTMY INCL W/DCMPRSN NRV ROOT 1 INTRSPC LUMBR L4-5 RIGHT MICRODISKECTOMY/ 1 HR/ 1 C-ARM/ PAT AND RAPID COVID ON ADMIT Christian Valdez MD [address] [facility] [address], [address] [place] [address] [facility] ReasonCommentsClaudicationP/O BILATE ILIAC STETING POSSIBLE FEM FEMReason Comments6 month follow up testing priorNo problems since surgery. States my feet are warmerReasonCommentsClaudication feeling dizzy2 month history of dizziness and left chest pain at times Ordered Prescriptions (unrec ognized section and content) PrescriptionSigDispensedRefillsStart DateEnd Date cephALEXin (KEFLEX) 500 MG capsule Take 1 capsule by mouth 3 times daily for 7 days 21 capsule / senna (SENOKOT) 8.6 MG tablet Take 2 tablets by mouth 2 times daily for 14 days 56 tablet / oxyCODONE-acetaminophen (PERCOCET) 7.5-325 MG per tablet Indications:Postoperative painTake 1 tablet by mouth every 6 hours as needed for Pain for up to 14 days. Intended supply: 30 days 40 tablet / Care Teams (unrecognized sec tion and content) Team MemberRelationshipSpecialtyStart End Renaldo Hung MD [address] [place] [address] PCP - GeneralFamily Medicine08/14/23Team MemberRelationshipSpecialtyStart DateEnd Renaldo Hung MD [address] [place] [address] PCP - GeneralFamily Medicine08/14/23Team MemberRelationshipSpecialtyStart DateEnd Renaldo Hung MD PCP - GeneralFamily Medicine08/14/23Team MemberRelationshipSpecialtyStart DateEnd Date Renaldo Hung MD [facility]08/14/23 Team Status: Active Member Role Status Flex Hung MD Primary Care Provider Active Team Status: Inactive Member Role Status Flex Hung MD Primary Care Provider Active Start: December 11, 2024 End: December 11, 2024Virgilio Steiner ProviderActive Start: December 11, 2024 End: December 11, 2024 Team Status: Inactive Member Role Status Flex Hung MD Primary Care Provider Active Start: December 25, 2024 End: December 25, 2024Virgilio Steiner ProviderActive Start: December 25, 2024 End: December 25, 2024 Team Status: Active Member Role/Relationship Status Flex Hung MD Primary Care Provider Active Team Status: Inactive Member Role/Relationship Status Flex Hung MD Primary Care Provider Active Start: December 11, 2024 End: December 11, 2024Virgilio Steiner ProviderActive Start: December 11, 2024 End: December 11, 2024 Team Status: Inactive Member Role/Relationship Status Flex Hung MD Primary Care Provider Active Start: December 25, 2024 End: December 25, 2024Virgilio Steiner ProviderActive Start: December 25, 2024 End: December 25, 2024 Team Status: Inactive Member Role/Relationship Status Flex Hung MD Primary Care Provider Active Start: January 22, 2025 End: January 22, 2025Virgilio Steiner ProviderActive Start: January 22, 2025 End: January 22, 2025 Goals (unrecognized section and content) Goals may be documented in a n alternate section FOR RECORDS PERTAINING TO PATIENTS WHO ARE [...] BE BASED ON THE PRIMARY CLINICAL RECORDS. [facility] [employer] [facility]. provides no warranty or guarantee of the accuracy or completeness of information in this document.
== END 2025-02-04 10:35 | disposition home or self-care (01) ==
LOC: US 10:34
PROVIDERS: PCP Family Medicine; Visit Provider Family Medicine
DX: M62.81 Muscle weakness (generalized) (principal)
CPT/HCPCS: 93925